=== PATIENT | female | born 1980 | race Caucasian/White ===

== ENCOUNTER 2023-02-02 10:30 | Emergency (ER) | payer OTHER, SELFPAY ==
[2023-02-02 10:34] VITALS: BP 113/90; PULSE 70; RESP 16; TEMP 37.1; O2SAT 99; BMI 24.2
--- NOTE | 2023-02-02 10:47 | XR_ITS ---
The [address] [address] Patient Name: BONNIE MONTOYA MRN: [id number] date: 1980 Sex: F Assigned Patient Location: ER Current Patient Location: Accession/Order Number: [id number] Exam Date: 02/02/2023 11:05 Report Date: 02/02/2023 14:10 At the request of: SELAM HERMOSILLO Procedure: XR chest 1V EXAM: XR chest 1V 02/02/2023 COMPARISON STUDY: None. FINDINGS: The cardiomediastinal contours are within normal limits. No dense consolidation, effusion, edema, failure, or pneumothorax noted. No acute osseous abnormality is noted. HISTORY: Cough. XR/XR chest 1V IMPRESSION: No acute cardiopulmonary process suspected. Electronically authenticated by: AMRIT FREITAS Date: 02/02/2023 14:10
--- NOTE | 2023-02-02 10:48 | ED.URI1 ---
HPI - URI/Sore Throat General Chief Complaint: Upper Respiratory Infection Stated Complaint: COUGH/FEVER Time Seen by Provider: 02/02/23 10:36 Source: patient History of Present Illness HPI Narrative: 42-year-old female presents for a 3-4 day history of cough. She's been coughing up green phlegm. She's felt some tightness in her chest. She doesn't smoke and has no history of asthma. She had pneumonia several years ago. She has not had a fever or hemoptysis. She's had body aches as well. Related Data Previous Rx's Medication Instructions Recorded albuterol sulfate 90 mcg/actuation 2 inh inhalation Q4H PRN shortness 02/02/23 aerosol inhaler of breath or wheezing #8.5 grams benzonatate 100 mg capsule 100 mg PO TID PRN cough #20 caps 02/02/23 prednisone 10 mg tablet See Rx Instructions .Route 02/02/23 .COMPLEX #30 tabs Allergies Allergy/AdvReac Type Severity Reaction Status Date / Time sumatriptan [From Imitrex] Allergy Severe Verified 02/02/23 10:37 Review of Systems ROS Narrative A ten point review of systems is negative except as noted above. Exam Narrative Exam Narrative: Nurses note and vital signs reviewed and patient is not hypoxic. General: The patient appears well and in no apparent distress. Patient is resting comfortably on cart. Skin: Warm, dry, no pallor noted. There is no rash noted. Head: Normocephalic, atraumatic Eye: Normal conjunctiva, no drainage Ears, Nose, Mouth, and Throat: oral mucosa is moist. Nares patent. Cardiovascular: Regular Rate and Rhythm Respiratory: Patient is in no distress, no accessory muscle use, lungs show a few rhonchi Back: non-tender GI: soft and nontender Musculoskeletal: The patient has no evidence of calf tenderness, no pitting edema, symmetrical pulses noted bilaterally Neurological: A&O, normal speech Psychiatric: Cooperative Constitutional Vital Signs, click to edit/add: Last Vital Signs Temp 98.7 F 02/02/23 10:34 Pulse 60 02/02/23 11:45 Resp 16 02/02/23 11:45 BP 113/90 02/02/23 10:34 Pulse Ox 98 02/02/23 11:47 O2 Del Method Room Air 02/02/23 11:47 Course Vital Signs Vital signs: Vital Signs Temperature 98.7 F 02/02/23 10:34 Pulse Rate 70 02/02/23 10:34 Respiratory Rate 16 02/02/23 10:34 Blood Pressure 113/90 02/02/23 10:34 Pulse Oximetry 99 02/02/23 10:34 Oxygen Delivery Method Room Air 02/02/23 10:34 Temperature 98.7 F 02/02/23 10:34 Pulse Rate 60 02/02/23 11:45 Respiratory Rate 16 02/02/23 11:45 Blood Pressure 113/90 02/02/23 10:34 Pulse Oximetry 98 02/02/23 11:47 Oxygen Delivery Method Room Air 02/02/23 11:47 MDM - URI/Sore Throat MDM Narrative Medical decision making narrative: Covid test is negative. Chest x-ray my interpretation shows no infiltrates. She was given aerosol treatment and prescribed an inhaler and prednisone and Tessalon. Antibiotic not indicated. Treatment diagnosis and follow-up were discussed with the patient. Differential Diagnosis Differential diagnosis: Likely upper respiratory infection, viral infection, bronchitis and other (Covid, pneumonia) Lab Data Attestation: I reviewed the patient's lab results. Labs: Lab Results 02/02/23 Range/Units 10:45 SARS-CoV-2 (PCR) Negative (NEGATIVE) Imaging Data Chest x-ray: My impression: chest x-ray my interpretation shows no acute findings Discharge Plan Discharge Chief Complaint: Upper Respiratory Infection Clinical Impression: Upper respiratory infection Patient Disposition: Home, Self-Care Time of Disposition Decision: 12:09 Condition: Good Mode of Transportation: Private Vehicle Prescriptions / Home Meds: New benzonatate 100 mg capsule 100 mg PO TID PRN (Reason: cough) Qty: 20 0RF albuterol sulfate 90 mcg/actuation HFA aerosol inhaler 2 inh inhalation Q4H PRN (Reason: shortness of breath or wheezing) Qty: 8.5 0RF prednisone 10 mg tablet See Rx Instructions .ROUTE .COMPLEX Qty: 30 0RF Rx Instructions: 4 by mouth daily for three days then 3 by mouth daily for three days then 2 by mouth daily for three days then 1 by mouth daily for three days Instructions: Upper Respiratory Infection (ED), Viral Syndrome (ED) Stand Alone Forms: Portal Instructions Referrals: Physician,Non-Staff, MD [Primary Care Provider] - 1 week
[2023-02-02 11:33] LABS: SARS-CoV-2 Ag NEGATIVE (NEGATIVE)
[2023-02-02 11:45] VITALS: PULSE 60; RESP 16; O2SAT 98
[2023-02-02] MEDS: ALBUTEROL SULFATE 2.5 MG/3 ML VIAL NEB IH (11:45)
[2023-02-02 11:47] VITALS: O2SAT 98
[2023-02-02] MEDS: ALBUTEROL SULFATE 200 PUFF/6.7 GM INHALER IH (12:00)
[2023-02-02 12:33] LABS: Amphetamine Screen Urine POSITIVE (NEGATIVE); Barbiturates Screen Urine NEGATIVE (NEGATIVE); Benzodiazepines Screen Urine NEGATIVE (NEGATIVE); Buprenorphine Screen Urine POSITIVE (NEGATIVE); Cannabinoid Screen Urine NEGATIVE (NEGATIVE); Cocaine Screen Urine NEGATIVE (NEGATIVE); Methadone Screen Urine NEGATIVE (NEGATIVE); Methamphetamines Screen Urine NEGATIVE (NEGATIVE); Opiate Screen Urine NEGATIVE (NEGATIVE); Oxycodone Screen Urine NEGATIVE (NEGATIVE); Phencyclidine Screen Urine NEGATIVE (NEGATIVE); Tricyclic Antidepressant Urine NEGATIVE (NEGATIVE)
[2023-02-03 16:38] LABS: SARS-CoV-2 NAA NOT DETECTED (NOT DETECTE)
== END 2023-02-02 12:58 | disposition home or self-care (01) ==
PROVIDERS: Emergency Provider Emergency Medicine
DX: J06.9 Acute upper respiratory infection, unspecified (principal); Z20.822 Contact with and (suspected) exposure to COVID-19
CPT/HCPCS: 71045; 80307; 87635; 87811; 94640; 99284; U0003

== ENCOUNTER 2023-04-03 07:20 | Emergency (ER) | payer OTHER, SELFPAY ==
[2023-04-03 07:25] VITALS: BP 106/67; PULSE 81; RESP 16; TEMP 36.7; O2SAT 98; BMI 24.2
[2023-04-03 07:40] LABS: Bilirubin Urine COLOR INTERFERENCE (NEGATIVE); Blood Urine COLOR INTERFERENCE (NEGATIVE); Clarity Urine CLEAR (CLEAR); Color Urine DK. ORANGE (YELLOW); Glucose Urine UA COLOR INTERFERENCE mg/dL (NEGATIVE); Ketones Urine COLOR INTERFERENCE mg/dL (NEGATIVE); Leukocyte Esterase Urine COLOR INTERFERENCE (NEGATIVE); Nitrite Urine COLOR INTERFERENCE (NEGATIVE); Protein Urine COLOR INTERFERENCE mg/dL (NEG/TRACE); Specific Gravity Urine 1.025 (1.005-1.025); Urine Microscopic Indicated YES; Urobilinogen Urine COLOR INTERFERENCE EU/dL (0.2-1.0); pH Urine COLOR INTERFERENCE (5.0-9.0)
[2023-04-03 07:48] LABS: Bacteria Urine TRACE #/HPF (NONE SEEN); Cast Seen? NONE SEEN #/LPF (NONE SEEN); Crystals Seen? None Seen #/HPF (None Seen); Mucus Urine NONE SEEN (NONE SEEN); RBC Urine 50-75 #/HPF (0-2); Squamous Epithelial Cell Urine NONE SEEN #/LPF (NONE/RARE); Urine Culture Indicated YES; WBC Urine 0-2 #/HPF (NONE SEEN)
--- NOTE | 2023-04-03 08:02 | ED_ITS ---
HPI - Female Genitourinary General Chief complaint: Urogenital-Female Stated complaint: UTI SYMPTOMS Time Seen by Provider: 04/03/23 07:42 Source: patient Mode of arrival: walk-in Limitations: no limitations History of Present Illness HPI Narrative: 42-year-old female presents for dysuria. She's had this for about for five days and three days ago she went to an urgent care center. They put her on Bactrim and Pyridium but she doesn't feel better. No fever or back pain or vomiting. She has dysuria and frequency. Related Data Previous Rx's Medication Instructions Recorded nitrofurantoin 100 mg PO BID 5 days #10 caps 04/03/23 monohydrate/macrocrystals 100 mg capsule (Macrobid) Allergies Allergy/AdvReac Type Severity Reaction Status Date / Time sumatriptan [From Imitrex] Allergy Severe Verified 04/03/23 07:25 Review of Systems ROS Narrative A ten point review of systems is negative except as noted above. Exam Narrative Exam Narrative: Nurses note and vital signs reviewed and patient is not hypoxic. General: The patient appears well and in no apparent distress. Patient is r esting comfortably on cart. Skin: Warm, dry, no pallor noted. There is no rash noted. Head: Normocephalic, atraumatic Eye: Normal conjunctiva, no drainage Ears, Nose, Mouth, and Throat: oral mucosa is moist. Nares patent. Cardiovascular: Regular Rate and Rhythm Respiratory: Patient is in no distress, no accessory muscle use, lungs are clear to auscultation, no wheezing, rales or rhonchi Back: non-tender, no CVA tenderness bilaterally to percussion. GI: nontender Musculoskeletal: The patient has no evidence of calf tenderness, no pitting edema, symmetrical pulses noted bilaterally Neurological: A&O, normal speech Psychiatric: Cooperative Constitutional Vital Signs, click to edit/add: Last Vital Signs Temp 98.1 F 04/03/23 07:25 Pulse 81 04/03/23 07:25 Resp 16 04/03/23 07:25 BP 106/67 04/03/23 07:25 Pulse Ox 98 04/03/23 07:25 O2 Del Method Room Air 04/03/23 07:25 Course Vital Signs Vital signs: Vital Signs Temperature 98.1 F 04/03/23 07:25 Pulse Rate 81 04/03/23 07:25 Respiratory Rate 16 04/03/23 07:25 Blood Pressure 106/67 04/03/23 07:25 Pulse Oximetry 98 04/03/23 07:25 Oxygen Delivery Method Room Air 04/03/23 07:25 Temperature 98.1 F 04/03/23 07:25 Pulse Rate 81 04/03/23 07:25 Respiratory Rate 16 04/03/23 07:25 Blood Pressure 106/67 04/03/23 07:25 Pulse Oximetry 98 04/03/23 07:25 Oxygen Delivery Method Room Air 04/03/23 07:25 MDM - Female Genitourinary MDM Narrative Medical decision making narrative: the patient has blood and urine but she is on her period. Urine culture is ordered intravenously placed on a five day course of Macrobid. I've no clinical suspicion of ovarian torsion and she is able to be discharged home. No evidence of kidney stone. Treatment diagnosis of upper discussed with the patient. Differential Diagnosis Differential diagnosis: Likely urinary tract infection, cystitis and other (kidney stone) Lab Data Attestation: I reviewed the patient's lab results. Labs: Lab Results 04/03/23 Range/Units 07:30 Urine Color Dk. orange (YELLOW) Urine Clarity Clear (CLEAR) Urine pH Color interference A (5.0-9.0) Ur Specific [place] 1.025 (1.005-1.025) Urine Protein Color interference A (NEG/TRACE) mg/dL Urine Glucose (UA) Color interference A (NEGATIVE) mg/dL Urine Ketones Color interference A (NEGATIVE) mg/dL Urine Occult Blood Color interference A (NEGATIVE) Urine Nitrite Color interference A (NEGATIVE) Urine Bilirubin Color interference A (NEGATIVE) Urine Urobilinogen Color interference A (0.2-1.0) EU/dL Ur Leukocyte Esterase Color interference A (NEGATIVE) Urine RBC 50-75 A (0-2) #/HPF Urine WBC 0-2 A (NONE SEEN) #/HPF Ur Squamous Epith Cells None seen (NONE/RARE) #/LPF Urine Crystals None seen (None Seen) #/HPF Urine Bacteria Trace A (NONE SEEN) #/HPF Urine Casts None seen (NONE SEEN) #/LPF Urine Mucus None seen (NONE SEEN) Ur Culture Indicated? Yes Urine HCG, Qual Negative (NEGATIVE) Imaging Data CT scan - abdomen: Radiologist's impression: Procedure: CT abdomen pelvis wo con CT abdomen pelvis wo con, 04/03/2023 9:45 AM EST INDICATION: Hematuria, rule out stone COMPARISON: No prior CT scan of the abdomen and pelvis available for comparison at the time of this dictation. TECHNIQUE: Axial images of the abdomen and pelvis were obtained without IV contrast. Multiplanar reformatted images were generated and reviewed as needed. Dose reduction techniques were achieved by using automated exposure control and/or adjustment of mA and/or kV according to patient size and/or use of iterative reconstruction technique. FINDINGS: Subsegmental atelectasis left lung base. No effusion. Cholecystectomy. Liver, pancreas, spleen and adrenals are unremarkable on a noncontrast scan. No hydronephrosis or nephrolithiasis. No ureteral or urinary bladder calculi. Postsurgical change left retroperitoneum. Retroverted uterus and right adnexa unremarkable on a noncontrast scan. Multiple follicles within an enlarged left ovary measuring at least 4.4 cm in maximum dimension. No aortic aneurysm. No bowel obstruction or acute focal inflammation. No pneumatosis, pneumoperitoneum or ascites. No mesenteric or retroperitoneal lymphadenopathy. No acute fracture or dislocation. IMPRESSION: 1. Multiple follicles within an enlarged left ovary. Lack of IV contrast limits evaluation. Ovarian torsion cannot be excluded. This may be further evaluated with transvaginal ultrasound including vascular interrogation. Electronically authenticated by: NORBERTO CEJA Date: 04/03/2023 10:32 Discharge Plan Discharge Chief Complaint: Urogenital-Female Clinical Impression: Dysuria Patient Disposition: Home, Self-Care Time of Disposition Decision: 10:43 Condition: Good Mode of Transportation: Private Vehicle Prescriptions / Home Meds: New nitrofurantoin monohyd/m-cryst [Macrobid] 100 mg capsule 100 mg PO BID 5 Days Qty: 10 0RF Rx Instructions: must administer with a meal/food Instructions: Dysuria (ED) Stand Alone Forms: Portal Instructions Referrals: Physician,Non-Staff, MD [Primary Care Provider] - 1 week
--- NOTE | 2023-04-03 08:42 | CT_ITS ---
The [address] [address] Patient Name: BONNIE MONTOYA MRN: [id number] date: 1980 Sex: F Assigned Patient Location: ER Current Patient Location: ER Accession/Order Number: [id number] Exam Date: 04/03/2023 09:45 Report Date: 04/03/2023 10:32 At the request of: SELAM HERMOSILLO Procedure: CT abdomen pelvis wo con CT abdomen pelvis wo con, 04/03/2023 9:45 AM EST INDICATION: Hematuria, rule out stone COMPARISON: No prior CT scan of the abdomen and pelvis available for comparison at the time of this dictation. TECHNIQUE: Axial images of the abdomen and pelvis were obtained without IV contrast. Multiplanar reformatted images were generated and reviewed as needed. Dose reduction techniques were achieved by using automated exposure control and/or adjustment of mA and/or kV according to patient size and/or use of iterative reconstruction technique. FINDINGS: Subsegmental atelectasis left lung base. No effusion. Cholecystectomy. Liver, pancreas, spleen and adrenals are unremarkable on a noncontrast scan. No hydronephrosis or nephrolithiasis. No ureteral or urinary bladder calculi. Postsurgical change left retroperitoneum. Retroverted uterus and right adnexa unremarkable on a noncontrast scan. Multiple follicles within an enlarged left ovary measuring at least 4.4 cm in maximum dimension. No aortic aneurysm. No bowel obstruction or acute focal inflammation. No pneumatosis, pneumoperitoneum or ascites. No mesenteric or retroperitoneal lymphadenopathy. No acute fracture or dislocation. CT/CT abdomen pelvis wo con IMPRESSION: 1. Multiple follicles within an enlarged left ovary. Lack of IV contrast limits evaluation. Ovarian torsion cannot be excluded. This may be further evaluated with transvaginal ultrasound including vascular interrogation. Electronically authenticated by: NORBERTO CEJA Date: 04/03/2023 10:32
[2023-04-03 08:49] LABS: HCG Qualitative Urine* NEGATIVE (NEGATIVE)
== END 2023-04-03 10:49 | disposition home or self-care (01) ==
PROVIDERS: Emergency Provider Emergency Medicine
DX: R30.0 Dysuria (principal)
CPT/HCPCS: 74176; 81001; 84703; 87086; 87150; 87186; 99284

== ENCOUNTER 2023-05-16 11:55 | Outpatient (OUT) | payer OTHER, SELFPAY ==
--- OUTSIDE RECORDS SUMMARY | 2023-05-16 12:00 | XMS_ITS | CCD ---
Author Name Unknown Address [id number] [place] [address] Organization [facility] Care Team Providers Care Beer Cooler Name Role Phone FELICE HANEY Primary Care Unavailable JOANNA FLORES Attending Unavaillorena Frederick APRN - Vicky SANCHEZ Primary Care Prov ider Emanuel Haney Primary Care Provider [phone] Emanuel Haney APRN Primary Care Provider EMANUEL HANEY Primary Care Unavailable NOREEN KAPLAN Attending Unavailable EMANUEL HANEY Primary Care Unavailable LACI SANTIAGO Attending Unavailable EMANUEL HANEY Primary Care Unavailable FLORA GASCA Attending Unavailable EMANUEL HANEY Primary Care Unavailable ELVI CARMICHAEL Attending Unavailable LAZCANO, DAVID Attending Unavailable LAZCANO, DAVID Admitting Unavailable SELF, SELF Referring Unavailable VICKY ALVARES Attending Unavailable RUMSCHLAG, SANDRO Referring Unavailable SELF, SELF Referring Unavailable SELF, SELF Primary Care Unavailable ARTHUR, P. ELVI Attending Unavailable SELF, SELF Referring Unavailable SELF, SELF Primary Care Unavailable ARTHUR, P. ELVI Attending Unavailable ARTHUR, P. ELVI Referring Unavailable ARTHUR, P. ELVI Attending Unavailable SELF, SELF Primary Care Unavailable ARTHUR, P. ELVI Attending Unavailable SELF, SELF Primary Care Unavailable ARTHUR, P. ELVI Referring Unavailable ARTHUR, P. ELVI Attending Unavailable SELF, SELF Primary Care Unavailable ARTHUR, P. ELVI Referring Unavailable SELF, SELF Referring Unavailable ARTHUR, P. ELVI Attending Unavailable SELF, SELF Primary Care Unavailable SELF, SELF Primary Care Unavailable SELF, SELF Referring Unavailable ARTHUR, P. ELVI Attending Unavailable SELF, SELF Referring Unavailable ARTHUR, P. ELVI Attending Unavailable SELF, SELF Primary Care Unavailable Allergies Allergy Classification Reported Allergen(s) Allergy Type Date of Onset Reaction(s) Facility (4 sources) SUMAtriptan; Translations: [SUMATRIPTAN] Drug Allergy 07-31-2015 Anaphylaxis [facility] (3 sources) Ibuprofen; Translations: [IBUPROFEN] Drug Allergy 08-25-2013 Anaphylaxis [facility] (2 sources) Plasmin Drug Allergy 04-25-2018 [facility] (2 sources) traMADol Drug Allergy 06-04-2019 Hives [facility] (1 source) Ibuprofen; Translations: [Motrin] Drug Allergy [facility] Medications Current Medications Medication Drug Class(es) Dates Sig (Normalized) Sig (Original) buprenorphine 8 mg / naloxone 2 mg sublingual film (3 sources) Partial Opioid Agonist, Opioid Antagonist buprenorphine-naloxo ne (SUBOXONE) 8-[address] 1 Film under the tongue 2 times daily.. 0 Active cephalexin 500 mg oral capsule (1 source) Cephalosporin Antibacterial Start: 07-03-2022 End: 07-10-2022 take 1 capsule by mouth twice daily cephALEXin (KEFLEX) 500 MG capsule Take 1 capsule by mouth 2 times daily for 7 days 14 capsule 0 07/03/2022 07/10/2022 Active cyclobenzaprine hydrochloride 10 mg oral tablet (1 source) Muscle Relaxant Start: 07-03-2022 End: 07-13-2022 take 1 tablet by mouth three times daily as needed for muscle spasms cyclobenzaprine (FLEXERIL) 10 MG tablet Take 1 tablet by mouth 3 times daily as needed for Muscle spasms 21 tablet 0 07/03/2022 07/13/2022 Active erythromycin 0.005 mg/mg ophthalmic ointment (4 sources) Macrolide, Macrolide Antimicrobial Start: 06-05-2019 End: 06-15-2019 apply 1 g into the eye(s) every six hours erythromycin (ROMYCIN) 5 MG/GM ophthalmic ointment Place 1 cm into both eyes every 6 hours for 10 days 4 g 0 06/05/2019 06/15/2019 Active Start: 08-03-2018 End: 06-04-2019 erythromycin (ROMYCIN) 5 MG/ GM ophthalmic ointment Apply 0.5 inch ribbon to affected eye 4 times a day while awake for 7 days. 1 Tube 0 08/03/2018 06/04/2019 Discontinued (LIST CLEANUP) fluticasone propionate 0.05 mg/actuat metered dose nasal spray (3 sources) Corticosteroid Start: 08-03-2018 fluticasone (FLONASE) 50 MCG/ACT nasal spray 1 spray by Each Nare route daily 1 Bottle 0 08/03/2018 Active gabapentin 800 mg oral tablet (3 sources) Anti-epileptic Agent Start: 11-12-2016 gabapentin (NEURONTIN) 800 MG tablet 900 mg 3 times daily. . 0 11/12/2016 Active hydrOXYzine hydrochloride 25 mg oral tablet (3 sources) Antihistamine Start: 08-03-2018 take 1 tablet by mouth twice daily hydrOXYzine (ATARAX) 25 MG tablet Take 1 tablet by mouth 2 times daily 15 tablet 0 08/03/2018 Active levETIRAcetam 1000 mg oral tablet (3 sources) Start: 06-15-2018 take 1.5 tablets by mouth twice daily levETIRAcetam (KEPPRA) 1000 MG tablet Take 1.5 tablets by mouth 2 times daily 30 tablet 0 06/15/2018 Active Completed/Discontinued Medications Medication Drug Class(es) Dates Sig (Normalized) Sig (Original) acetaminophen 325 mg / HYDROcodone bitartrate 5 mg oral tablet (1 source) Opioid Agonist Start: 06-05-2019 End: 06-05-2019 HYDROcodone-aceta minophen (NORCO) 5-325 MG per tablet 1 tablet ibuprofen 600 mg oral tablet (2 sources) Nonsteroidal Anti-inflammatory Drug Start: 08-03-2018 End: 06-04-2019 take 1 tablet by mouth every eight hours as needed for pain ibuprofen (ADVIL;MOTRIN) 600 MG tablet Take 1 tablet by mouth every 8 hours as needed for Pain 20 tablet 0 08/03/2018 06/04/2019 Discontinued (Side effects) 1 ml LORazepam 2 mg/ml injection (1 source) Benzodiazepine Start: 07-03-2022 End: 07-03-2022 LORazepam (ATIVAN) injection 1 mg 2 ml orphenadrine citrate 30 mg/ml injection (1 source) Muscle Relaxant Start: 07-03-2022 End: 07-03-2022 orphenadrine (NORFLEX) injection 60 mg 50 ml sodium chloride 9 mg/ml injection (1 source) Start: 07-03-2022 End: 07-03-2022 0.9 % sodium chloride bolus Problems Active Problems Problem Classification Problem Date Documented Da te Episodic/Chronic Abdominal pain (5 sources) Pain in female pelvis; Translations: [Pelvic and perineal pain] Onset: 2015 2015 Episodic Anxiety disorders (2 sources) Anxiety disorder, unspecified; Translations: [Anxiety disorder, unspecified] Onset: 11-10-2022 Chronic Epilepsy; convulsions (1 source) Seizure disorder; Translations: [Epilepsy, unspecified, intractable, without status epilepticus] 06-10-2018 Chronic Nausea and vomiting (1 source) Nausea with vomiting, unspecified; Translations: [Nausea with vomiting, unspecified] Onset: 11-07-2022 Episodic Nonspecific chest pain (1 source) Chest pain, unspecified; Translations: [Chest pain, unspecified] Onset: 2022 Episodic Other lower respiratory disease (1 source) Hyperventilation; Translations: [Hyperventilation ] Onset: 2022 Episodic Other nervous system disorders (1 source) Muscle twitch; Translations: [Fasciculation] Episodic Other nervous system disorders (1 source) Fasciculation; Translations: [Fasciculation] Onset: 07-03-2022 Episodic Other nutritional; endocrine; and metabolic disorders (2 sources) Hypomagnesemia; Translations: [Hypomagnesemia] Onset: 11-10-2022 Chronic Residual codes; unclassified (2 sources) Personal history of other specified conditions; Translations: [Personal history of other specified conditions] Onset: 11-10-2022 Episodic Substance-related disorders (3 sources) Cocaine abuse, uncomplicated; Translations: [Opioid dependence, uncomplicated] Onset: 2022 Chronic Unclassified (1 source) Abrasion of cornea of right eye Unclassified (1 source) Low back pain, unspecified; Translations: [Low back pain, unspecified] Onset: 11-07-2022 Urinary tract infections (5 sources) Acute cystitis; Translations: [Acute cystitis without hematuria] Onset: 07-03-2022 Episodic Past or Other Problems Problem Classification Problem Date Documented Date Episodic/Chronic Epilepsy; convulsions (8 sources) Seizure; Translations: [Seizure disorder] Onset: 05-19-2018 05-19-2018 Episodic Inflammation; infection of eye (except that caused by tuberculosis or sexually transmitteddisease) (1 source) Bacterial conjunctivitis Episodic Results Test Name Value Interpretation Reference Range Facility 36on 11-25-2022 36 Left vm msg for Angella Parr to confirm pt was admitted on 11/15 to recovery housing. Normal [facility] Telephoneon 11-25-2022 Telephone [id number] Bonnie Montoya 1980 F Date Provider Department Center 11/25/2022 [id number] Antonio Heal Family History Problem Relation Age of Onset Addiction problem Mother Bipolar disorder Mother Addiction problem Maternal Grandmother Bipolar disorder Maternal Grandmother Family Status - Relation Status Age at Mother Maternal Grandmother [facility] 30on 11-15-2022 30 Problem: Substance Abuse (Historic and Current) Goal: LTG-Ability to name resources Outcome: Adequate for Discharge Goal: LTG-Ability to notice triggers Outcome: Adequate for Discharge Goal: LTG-Understand the need for abstinence Outcome: Adequate for Discharge Goal: STG-Indicate withdrawl symptoms Outcome: Adequate for Discharge Goal: STG-Willing to engage in conversations about continued abstinence Outcome: Adequate for Discharge Goal: STG-Indicate triggers for using Outcome: Adequate for Discharge Goal: STG-Verbalize coping tools and skills Outcome: Adequate for Discharge Goal: STG-Will verbalize reasons for quitting Outcome: Adequate for Discharge [facility] 30 The patient is Moderately Unstable - Medium risk of patient condition declining or worsening The patient's goals for the shift include safety, comfort, and sleep The clinical goals for the shift include safety, comfort, and sleep Normal [facility] 94on 11-15-2022 94 Group Topic: Activit y Therapy Group Date: 11/15/2022 Start Time: 1030 End Time: 1115 Facilitators: KRISTIN Crowell Department: [facility] Recovery Number of Participants: 0 Group Focus: activities of daily living skills, affirmation, anxiety, concentration, coping skills, feeling awareness/expression, leisure skills, relaxation, self-esteem, and social skills Treatment Modality: Leisure Development and Patient-Centered Therapy Interventions utilized were leisure development and support Purpose: enhance coping skills, express feelings, improve communication skills, increase insight or knowledge, regain self-worth, and reinforce self-care Name: Bonnie Montoya Date of : 1980 MR: [id number] Level of Participation: withdrawn Progress: None Response: Pt. Was withdrawn from self-esteem group and remained isolated in their room. Plan: Pt. Will be encouraged to attend therapeutic recreation interventions with the OB GYN PHYSICIAN ASSISTANT in the future. Patients Problems: Patient Active Problem List Diagnosis Opiate dependence, continuous (CMS/HCC) Cocaine use Hypomagnesemia History of seizure Anxiety Normal [facility] DSon 11-15-2022 DS Discharge Date: 11/15/2022 Time Spent with Patient: 31 minutes spent with patient, discussing discharge instructions, ordering medications, reviewing lab work, communicating with other healthcare professionals, documenting clinical information and the patient's follow-up plan. Chief Complaint: Opioid dependence in active withdrawal Consults: GIM History of Present Illness: Patient was admitted to Detox unit for opiate dependence. Patient reports that she chewed 7 Percocet 10 mg daily TID and spent $60 worth of cocaine daily over the past 3 weeks. Patient has previously been admitted to the Detox unit in April 2021 for opiate dependence. She had been sober since her prior admission but relapsed due to difficulty coping with her 's in February 2022. Patient is currently living with her daughter who she reports is supportive when she is sober but not supportive when she uses drugs. Patient believes that her daughter and son are good support systems for her. She reports a history of epilepsy and takes Keppra 1200 mg BID and Gabapentin 800 mg QID. She reports a family history of alcohol and opioid use. Patient has ongoing challenges with substance use disorder and drug seeking behaviors. She recently lost her job due to drug use. She finances her drug use via money she saved up from her job. Pt Reported significant tolerance withdrawal symptoms over the years and multiple unsuccessful attempts to cut down or stop using opioids and significant amount of time spent in getting opioids, using opioids, and recovering from its effect. Hospital Course: Pt responded adequately to Suboxone over period of time and withdrawal symptoms became manageable. During the stay in the hospital, the patient participated in groups and several meetings with social workers to plan aftercare. There were no other acute psychiatric or medical emergencies seen during hospital stay. Lab Results: Results for orders placed or performed during the hospital encounter of 11/10/22 C. TRACHOMATIS / N. GONORRHOEAE, TMA Specimen: Urine, Voided Result Value Ref Range N gonorrhoeae, TMA Negative Negative Chlamydia, TMA Negative Negative Acetaminophen level Result Value Ref Range Acetaminophen Level <10 (L) 10 - 30 ug/mL Basic metabolic panel Result Value Ref Range Sodium 138 136 - 145 mmol/L Potassium 3.5 3.5 - 5.1 mmol/L Chloride 100 98 - 107 mmol/L CO2 34 (H) 21 - 31 mmol/L BUN 7 7 - 25 mg/dL Creatinine 0.66 0.60 - 1.20 mg/dL Glucose 76 70 - 100 mg/dL Calcium 9.5 8.6 - 10.3 mg/dL Anion Gap 8 7 - 20 mmol/L eGFR 111.6 >60.0 mL/min/1.73m*2 BUN/Creatinine Ratio 10.6 Cholesterol, total Result Value Ref Range Cholesterol 152 120 - 200 mg/dL Gamma GT Result Value Ref Range GGT 6 (L) 9 - 64 U/L Hepatic function panel Result Value Ref Range Total Bilirubin 0.6 0.3 - 1.0 mg/dL Bilirubin, Direct 0.1 0 - 0.2 mg/dL Alkaline Phosphatase 36 34 - 104 U/L AST 15 13 - 39 U/L ALT (SGPT) 10 7 - 52 U/L Total Protein 7.2 6.0 - 8.3 g/dL Albumin 4.6 3.5 - 5.7 g/dL Magnesium Result Value Ref Range Magnesium 1.5 (L) 1.9 - 2.7 mg/dL Phosphorus Result Value Ref Range Phosphorus 4.9 2.5 - 5.0 mg/dL TSH Result Value Ref Range TSH 2.79 0.34 - 5.60 mIU/L Uric acid Result Value Ref Range Uric Acid 3.6 2.3 - 6.6 mg/dL Urinalysis Result Value Ref Range Color, Urine Straw Yellow, Dark Yellow, Straw Clarity, Urine Slightly Cloudy (A) Clear pH, Urine 6.5 5.0 - 8.0 pH Leukocytes, Urine Small (A) Negative Nitrite, Urine Negative Negative Protein, Urine Negative Negative mg/dL Glucose, Urine Negative Negative mg/dL Bilirubin, Urine Negative Negative Specific [place], Urine 1.007 (L) 1.015 - 1.020 Ketones, Urine Negative Negative mg/dL Blood, Urine Trace (A) Negative Detox Panel Urine Result Value Ref Range Barbiturate Screen, Ur Negative Negative Benzodiazepines Screen, Urine Negative Negative Propoxyphene, Ur Negative Negative Methadone Screen, Urine Negative Negative TCA, Urine Negative Negative PCP Scrn, Ur Negative Negative Opiate Scrn, Ur Negative Negative Cocaine Screen, Urine Positive (A) Negative Amphetamine+Methamphe tamine Screen, Ur Negative Negative Cannabinoid Screen, Urine Negative Negative RPR Result Value Ref Range RPR Nonreactive Nonreactive Hepatitis panel, acute Result Value Ref Range Hepatitis B Surface Ag Nonreactive Nonreactive Hep A IgM Nonreactive Nonreactive Hepatitis C Ab Nonreactive Nonreactive Hep B Core Total Ab Reactive (AA) Nonreactive HCV Quantitative PCR (if patient is Hep C Positive) Result Value Ref Range HCV TMA Interp Not Detected Not Detected HCV TMA Quantitative Not Detected IU/mL HCV Quantitative Log Not Detected Log10 IU/mL HIV COMBO 4G Result Value Ref Range HIV Combo 4G Negative Negative Serum Qualitative Result Value Ref Range hCG, Serum Negative CBC auto differential Result Va (more content not included)... [facility] NURSNOTEon 11-15-2022 NURSNOTE Patient slept throug h the night. Scheduled and PRN medications are helping. [facility] 30on 11-14-2022 30 The patient is Moderately Stable - Low risk of patient condition declining or worsening The patient's goals for the shift include safety, comfort, and sleep The clinical goals for the shift include safety, comfort, and sleep Problem: Substance Abuse (Historic and Current) Goal: LTG-Ability to name resources Outcome: Progressing Goal: LTG-Ability to notice triggers Outcome: Progressing Goal: LTG-Understand the need for abstinence Outcome: Progressing Goal: STG-Indicate withdrawl symptoms Outcome: Progressing Goal: STG-Willing to engage in conversations about continued abstinence Outcome: Progressing Goal: STG-Indicate triggers for using Outcome: Progressing Goal: STG-Verbalize coping tools and skills Outcome: Progressing Goal: STG-Will verbalize reasons for quitting Outcome: Progressing Normal [facility] 30 The patient is Moderately Stable - Low risk of patient condition declining or worsening The patient's goals for the shift include safety, comfort, and sleep The clinical goals for the shift include safety, comfort, and sleep Problem: Substance Abuse (Historic and Current) Goal: LTG-Ability to name resources Outcome: Progressing Goal: LTG-Ability to notice triggers Outcome: Progressing Goal: LTG-Understand the need for abstinence Outcome: Progressing Goal: STG-Indicate withdrawl symptoms Outcome: Progressing Goal: STG-Willing to engage in conversations about continued abstinence Outcome: Progressing Goal: STG-Indicate triggers for using Outcome: Progressing Goal: STG-Verbalize coping tools and skills Outcome: Progressing Goal: STG-Will verbalize reasons for quitting Outcome: Progressing Normal [facility] 94on 11-14-2022 94 Group Topic: Activit y Therapy Group Date: 11/14/2022 Start Time: 1530 End Time: 1600 Facilitators: KRISTIN Crowell Department: [facility] Recovery Number of Participants: 0 Group Focus: activities of daily living skills, anger management, check in, communication, coping skills, feeling awareness/expression, forgiveness, goals/reality orientation, healthy friendships, leisure skills, self-awareness, self-esteem, and social skills Treatment Modality: Leisure Development and Patient-Centered Therapy Interventions utilized were active listening, assignment, patient education, and support Purpose: enhance coping skills, express feelings, improve communication skills, increase insight or knowledge, regain self-worth, relapse prevention strategies, and trigger / craving management Name: Bonnie Montoya Date of : 1980 MR: [id number] Level of Participation: withdrawn Progress: None Response: Pt. Was withdrawn from group and remained isolated in their room. Plan: Pt. Will be encouraged to attend therapeutic recreation interventions with the [facility] in the future. Patients Problems: Patient Active Problem List Diagnosis Opiate dependence, continuous (CMS/HCC) Cocaine use Hypomagnesemia History of seizure Anxiety Normal [facility] 94 Group Topic: Activit y Therapy Group Date: 11/14/2022 Start Time: 1330 End Time: 1425 Facilitators: KRISTIN Crowell Department: [facility] Recovery Number of Participants: 3 Group Focus: activities of daily living skills, check in, communication, concentration, coping skills, daily focus, feeling awareness/expression, leisure skills, music therapy, relaxation, and social skills Treatment Modality: Leisure Development and Patient-Centered Therapy Interventions utilized were active listening, leisure development, story telling, and support Purpose: enhance coping skills, express feelings, express irrational fears, improve communication skills, increase insight or knowledge, reinforce self-care, and relapse prevention strategies Name: Bonnie Montoya Date of : 1980 MR: [id number] Level of Participation: active Quality of Participation: attentive, cooperative, engaged, and motivated Interactions with others: supportive, asked thoughtful questions, and offered helpful suggestions Mood/Affect: appropriate Cognition: coherent/clear Progress: Moderate Response: Pt. Engaged in music therapy group alongside OB GYN PHYSICIAN ASSISTANT and peers. Pt. Was appropriate and supportive of others throughout group. Pt. Appeared to be anxious and hesitant upon entering group. Had no difficulty engaging efficiently in group. Plan: Pt. Will be encouraged to continue attending therapeutic recreation interventions with the OB GYN PHYSICIAN ASSISTANT. Patients Problems: Patient Active Problem List Diagnosis Opiate dependence, continuous (CMS/HCC) Cocaine use Hypomagnesemia History of seizure Anxiety Normal [facility] 94 Group Topic: Activit y Therapy Group Date: 11/14/2022 Start Time: 1030 End Time: 1145 Facilitators: Shirlene Jimenez OB GYN PHYSICIAN ASSISTANT Department: [facility] Recovery Number of Participants: 3 Group Focus: activities of daily living skills, art therapy, check in, coping skills, daily focus, feeling awareness/expression, leisure skills, relaxation, self-esteem, and social skills Treatment Modality: Art Therapy, Leisure Development, and Patient-Centered Therapy Interventions utilized were assignment, leisure development, and support Purpose: enhance coping skills, express feelings, increase insight or knowledge, regain self-worth, reinforce self-care, and relapse prevention strategies Name: Bonnie Montoya Date of : 1980 MR: [id number] Level of Participation: active Quality of Participation: attentive, cooperative, engaged, and motivated Interactions with others: supportive, asked thoughtful questions, and offered helpful suggestions Mood/Affect: appropriate Cognition: coherent/clear Progress: Moderate Response: Pt. Engaged in art therapy group alongside OB GYN PHYSICIAN ASSISTANT and peers. Pt. Was appropriate with others throughout group. Plan: Pt. Will be encouraged to continue attending therapeutic recreation interventions with the OB GYN PHYSICIAN ASSISTANT. Patients Problems: Patient Active Problem List Diagnosis Opiate dependence, continuous (CMS/HCC) Cocaine use Hypomagnesemia History of seizure Anxiety Normal [facility] BASIC METABOLIC PANELon 07-0 Anion gap [Moles/Vol] 7 mmol/L Normal 7-20 [facility] Comment on above: Performed By: #### L AB15 ####[facility] ([facility])[address] [place] [address] Calcium [Mass/Vol] 9.5 mg/dL Normal 8.6-10.3 [facility] Comment on above: Performed By: #### L AB15 ####[facility] ([place])[address] [place] [address] Chloride [Moles/Vol] 99 mmol/L Normal 98-107 [facility] Comment on above: Performed By: #### L AB15 ####[facility] [place] [address] CO2 [Moles/Vol] 36 mmol/L High 21-31 [facility] Comment on above: Performed By: #### L AB15 ####[facility] ([facility])[address] [place] [address] Creatinine [Mass/Vol] 0.76 mg/dL Normal 0.60-1.20 [facility] Comment on above: Performed By: #### L AB15 ####[facility] ([facility])[address] [place] [address] GLOMERULAR FILTRATION RATE ML/MIN/1.73 SQ M.PREDICTED 99.6 mL/min/1.73m*2 Normal >60.0 [facility] Comment on above: Result Comment: The [facility]???s estimated glomerular filtration rate (eGFR) will no longer include consideration of race in its calculation. The [employer]???s eGFR Task Force developed new recommendations for the estimation of the glomerular filtration rate in the [place] They recommend immediate implementation of the new equation refit without the race variable in all laboratories because the calculation does not include race. In addition to not including race in the calculation and reporting, it included diversity in its development, and has acceptable performance characteristics and potential consequences that do not disproportionately affect any one group of individuals. Performed By: #### L AB15 ####[facility] ([place])[address] [place] [address] Glucose [Mass/Vol] 96 mg/dL Normal 70-100 [facility] [facility] Comment on above: Performed By: #### L [id number] ####[facility] (BEAKER)[address] [place] [address] Potassium [Moles/Vol] 5.2 mmol/L High 3.5-5.1 [facility] Comment on above: Performed By: #### L [id number] ####[facility] ([facility]AKER)[address] [place] [address] Sodium [Moles/Vol] 137 mmol/L Normal 136-145 [facility] Comment on above: Performed By: #### L [id number] ####[facility] [place] [address] Urea nitrogen [Mass/Vol] 14 mg/dL Normal 7-25 [facility] Comment on above: Performed By: #### L [id number] ####[facility] ([facility])[address] [place] [address] UREA NITROGEN/CREATININE (MASS RATIO) IN SER/PLAS 18.4 Normal [facility] Comment on above: Performed By: #### L [id number] ####[facility] [place] [address] CBC WITH AUTO DIFFERENTIALon 11-14-2022 Basophils (Bld) [#/Vol] 0.03 10*3/uL Normal 0.00-0.20 [facility] Comment on above: Performed By: #### L [id number] ####[facility] (BEAKER)[address] [place] [address] Basophils/100 WBC (Bld) 0.6 % Normal 0.0-1.0 [facility] Comment on above: Performed By: #### L [id number] ####[facility] (BEAKER)[address] [place] [address] Eosinophils (Bld) [#/Vol] 0.23 10*3/uL Normal 0.00-0.50 [facility] Comment on above: Performed By: #### L [id number] ####[facility] (BEAKER)[address] [place] [address] Eosinophils/100 WBC (Bld) 4.5 % Normal 0.0-6.0 [facility] Comment on above: Performed By: #### L [id number] ####[facility] [place] [address] Erythrocyte distribution width (RBC) [Ratio] 14.6 % Normal 11.5-15.0 [facility] Comment on above: Performed By: #### L [id number] ####[facility] ([facility])[address] [place] [address] ERYTHROCYTE MEAN CORPUSCULAR HEMOGLOBIN CONCENTRATION (G/DL) BY AUTOMATED 32.1 g/dL Normal 32.0-35.0 [facility] Comment on above: Performed By: #### L [id number] ####[facility] ([facility])[address] [place] [address] Hematocrit (Bld) [Volume fraction] 41.1 % Normal 36.0-48.0 [facility] Comment on above: Performed By: #### L [id number] ####[facility] [place] [address] Hemoglobin (Bld) [Mass/Vol] 13.2 g/dL Normal 12.0-15.0 [facility] Comment on above: Performed By: #### L [id number] ####[facility] (BEAKER)[address] [place] [address] Immature granulocytes (Bld) [#/Vol] 0.01 10*3/uL Normal 0.00-0.20 [facility] Comment on above: Performed By: #### L [id number] ####[facility] (BEAKER)[address] [place] [address] Immature granulocytes/100 WBC (Bld) 0.2 % Normal 0.0-1.0 [facility] Comment on above: Performed By: #### L [id number] ####[facility] (BEAKER)[address] [place] [address] Lymphocytes (Bld) [#/Vol] 1.34 10*3/uL Normal 1.20-4.00 [facility] Comment on above: Performed By: #### L [id number] ####[facility] ([facility])[address] [place] [address] Lymphocytes/100 WBC (Bld) 26.1 % Normal 20.0-45.0 [facility] Comment on above: Performed By: #### L [id number] ####[facility] ([facility])[address] [place] [address] MCH (RBC) [Entitic mass] 28.3 pg Normal 27.0-33.0 [facility] Comment on above: Performed By: #### L [id number] ####[facility] ([facility])[address] [place] [address] MCV (RBC) [Entitic vol] 88.0 fL Normal 82.0-98.0 [facility] Comment on above: Performed By: #### L [id number] ####[facility] ([facility])[address] [place] [address] Monocytes (Bld) [#/Vol] 0.49 10*3/uL Normal 0.10-1.00 [facility] Comment on above: Performed By: #### L [id number] ####[facility] ([facility])[address] [place] [address] Monocytes/100 WBC (Bld) 9.5 % Normal 5.0-12.0 [facility] Comment on above: Performed By: #### L [id number] ####[facility] [place] [address] Neutrophils (Bld) [#/Vol] 3.04 10*3/uL Normal 1.60-7.60 [facility] Comment on above: Performed By: #### L [id number] ####[facility] (BEAKER)[address] [place] [address] Neutrophils/100 WBC (Bld) 59.1 % Normal 40.0-72.0 [facility] Comment on above: Performed By: #### L [id number] ####[facility] [place] [address] NRBC (PER 100 WBCS) BY AUTOMATED COUNT 0.0 % Normal 0 [facility] Comment on above: Performed By: #### L [id number] ####[facility] ([facility])[address] [place] [address] PLATELETS (10*3/UL) IN BLOOD AUTOMATED COUNT 258 10*3/uL Normal 150-400 [facility] Comment on above: Performed By: #### L [id number] ####[facility] ([facility])[address] [place] [address] RBC (Bld) [#/Vol] 4.67 10*6/uL Normal 3.80-5.00 [facility] Comment on above: Performed By: #### L [id number] ####[facility] ([facility])[address] [place] [address] WBC (Bld) [#/Vol] 5.14 10*3/uL Normal 4.00-10.60 [facility] Comment on above: Performed By: #### L [id number] ####[facility] ([facility])[address] [place] [address] NURSNOTEon 11-14-2022 NURSNOTE Patient talking on phone in no acute distress, C/O nausea unrelieved by compazine, zofran 8mg requested and given. Patient C/O stomach cramping, indigestion, diarrhea, restless legs, hot/cold sweats, generalized pain, nasal congestion, cough, UTI, and insomnia. COW=10. Scheduled and PRN medications given. Normal [facility] NURSNOTE Patient complains of nausea, PRN compazine given. Normal [facility] NURSNOTE Patient has been up out of room for groups and meals. PRN zofran helpful for nausea. Pt plans to go to [facility] inpatient tomorrow. Normal [facility] NURSNOTE Patient resting in bed. States she feels worse today than she did yesterday. Pt reports loose stools x2, nausea, stuffy nose, bone / joint pain, and anxiety. Requests all PRN comfort meds she is due for. Will give comfort meds with AM med pass. Normal [facility] NURSNOTE Patient slept throug h the night. Scheduled and PRN medications are helping. Normal [facility] PROCALCITONIN TESTon 023 PROCALCITONIN IN BLOOD 0.01 ng/mL Normal 0.00-0.10 [facility] on above: Result Comment: Susp ected Lower Respiratory Tract Infection: 0.1-0.25 ng/mL - Low likelihood for bacterial infection;Antibiotics discouraged.* >0.25 ng/mL - Increased likelihood bacterial infection;Antibiotics encouraged. Suspected Sepsis: Strongly consider initiating antibiotics in all unstable patients. 0.1-0.5 ng/mL - Low likelihood for sepsis; Antibiotics discouraged.* >0.5 ng/mL - Increased likelihood sepsis; Antibiotics encouraged. >2.0 ng/mL - High risk of sepsis/septic shock; Antibiotics strongly encouraged. *Recommend retesting PCT within 6-12 hours if clinically indicated and initial PCT<0.5ng/mL Performed By: #### L [id number] ####[facility] ([facility]AKER)[address] [place] [address] 30on 11-13-2022 30 The patient is Moderately Stable - Low risk of patient condition declining or worsening The patient's goals for the shift include safety, comfort, and sleep The clinical goals for the shift include safety, comfort, and sleep Problem: Substance Abuse (Historic and Current) Goal: LTG-Ability to name resources Outcome: Progressing Goal: LTG-Ability to notice triggers Outcome: Progressing Goal: LTG-Understand the need for abstinence Outcome: Progressing Goal: STG-Indicate withdrawl symptoms Outcome: Progressing Goal: STG-Willing to engage in conversations about continued abstinence Outcome: Progressing Goal: STG-Indicate triggers for using Outcome: Progressing Goal: STG-Verbalize coping tools and skills Outcome: Progressing Goal: STG-Will verbalize reasons for quitting Outcome: Progressing Normal [facility] 30 The patient is Moderately Unstable - Medium risk of patient condition declining or worsening The patient's goals for the shift include comfort The clinical goals for the shift include withdrawal management Problem: Substance Abuse (Historic and Current) Goal: LTG-Ability to name resources Outcome: Progressing Goal: LTG-Ability to notice triggers Outcome: Progressing Goal: LTG-Understand the need for abstinence Outcome: Progressing Goal: STG-Indicate withdrawl symptoms Outcome: Progressing Goal: STG-Willing to engage in conversations about continued abstinence Outcome: Progressing Goal: STG-Indicate triggers for using Outcome: Progressing Goal: STG-Verbalize coping tools and skills Outcome: Progressing Goal: STG-Will verbalize reasons for quitting Outcome: Progressing Normal [facility] 94on 11-13-2022 94 Group Topic: Feeling Awareness/Expression Group Date: 11/13/2022 Start Time: 183 End Time: 191 Facilitators: ANDREW Brewer Department: [facility] S[employer]ENER Number of Participants: 6 Group Focus: feeling awareness/expression Treatment Modality: Patient-Centered Therapy Interventions utilized were exploration Purpose: express feelings Name: Bonnie Montoya Date of : 1980 MR: [id number] Level of Participation: moderate Quality of Participation: cooperative Interactions with others: supportive Mood/Affect: appropriate Cognition: coherent/clear Progress: Moderate Patients Problems: Patient Active Problem List Diagnosis Opiate dependence, continuous (CMS/HCC) Cocaine use Hypomagnesemia History of seizure Anxiety Normal [facility] 94 Group Topic: Activit y Therapy Group Date: 11/13/2022 Start Time: 1530 End Time: 1600 Facilitators: KRISTIN Crowell Department: [facility] Number of Participants: 2 Group Focus: activities of daily living skills, affirmation, anxiety, check in, communication, coping skills, depression, forgiveness, leisure skills, relaxation, self-awareness, self-esteem, and social skills Treatment Modality: Leisure Development and Patient-Centered Therapy Interventions utilized were active listening, assignment, leisure development, patient education, and support Purpose: enhance coping skills, explore maladaptive thinking, express feelings, express irrational fears, improve communication skills, increase insight or knowledge, and reinforce self-care Name: Bonnie Montoya Date of : 1980 MR: [id number] Level of Participation: refused Progress: None Response: Pt. Refused integration into group with OB GYN PHYSICIAN ASSISTANT and peers at this time. Plan: Pt. Will be encouraged to attend therapeutic recreation interventions with the OB GYN PHYSICIAN ASSISTANT in the future. Patients Problems: Patient Active Problem List Diagnosis Opiate dependence, continuous (CMS/HCC) Cocaine use Hypomagnesemia History of seizure Anxiety [facility] 94 Group Topic: Activit y Therapy Group Date: 11/13/2022 Start Time: 1330 End Time: 1415 Facilitators: KRISTIN Crowell Department: [facility] Recovery Number of Participants: 3 Group Focus: activities of daily living skills, affirmation, check in, clarity of thought, communication, concentration, coping skills, daily focus, goals/reality orientation, leisure skills, problem solving, reality orientation, relapse prevention, self-awareness, self-esteem, social skills, and substance abuse education Treatment Modality: Leisure Development and Patient-Centered Therapy Interventions utilized were active listening, assignment, leisure development, patient education, problem solving, and support Purpose: enhance coping skills, improve communication skills, increase insight or knowledge, reinforce self-care, relapse prevention strategies, and trigger / craving management Name: Bonnie Montoya Date of : 1980 MR: [id number] Level of Participation: refused Progress: None Response: Pt. Refused integration into group with OB GYN PHYSICIAN ASSISTANT and peers at this time. Plan: Pt. Will be encouraged to attend therapeutic recreation interventions with the OB GYN PHYSICIAN ASSISTANT in the future. Patients Problems: Patient Active Problem List Diagnosis Opiate dependence, continuous (CMS/HCC) Cocaine use Hypomagnesemia History of seizure Anxiety [facility] 94 Group Topic: Activities of Daily Living Group Date: 11/13/2022 Start Time: 1030 End Time: 1130 Facilitators: KRISTIN Crowell Department: [facility] Number of Participants: 3 Group Focus: abuse issues, activities of daily living skills, check in, coping skills, feeling awareness/expression, goals/reality orientation, leisure skills, personal responsibility, problem solving, relapse prevention, self-awareness, and social skills Treatment Modality: Leisure Development and Patient-Centered Therapy Interventions utilized were active listening, assignment, leisure development, and support Purpose: enhance coping skills, express feelings, improve communication skills, increase insight or knowledge, regain self-worth, reinforce self-care, relapse prevention strategies, and trigger / craving management Name: Bonnie Montoya Date of : 1980 MR: [id number] Level of Participation: refused Progress: None Response: Pt. Refused integration into group with OB GYN PHYSICIAN ASSISTANT and peers at this time. Plan: Pt. Will be encouraged to attend therapeutic recreation interventions with the OB GYN PHYSICIAN ASSISTANT in the future. Patients Problems: Patient Active Problem List Diagnosis Opiate dependence, continuous (CMS/HCC) Cocaine use Hypomagnesemia History of seizure Anxiety [facility] NURSNOTEon 11-13-2022 NURSNOTE Patient complained o f nausea and generalized pain. PRN tylenol and zofran given. [facility] NURSNOTE Patient reports chills, fatigue, and nausea continue. Pt now reporting increased urgency and burning with urination which she stated began 2 days ago but symptoms have worsened today. Sheet Metal Worker discussed with Dr. Lazcano, new order received for . [facility] NURSNOTE Patient resting in bed, complains of chills, GI upset, nausea, diarrhea, generalized pain and restlessness, anxiety, and stuffy nose. Sheet Metal Worker updated GIM resident during rounds of pt BP and temp of 99.3 this AM as well as pt report of symptoms. No new orders at this time, continue to monitor and report worsening of symptoms or vital signs. Sheet Metal Worker will give PRN meds for comfort with AM med pass. [facility] NURSNOTE Patient resting in bed with eyes closed. Patient appears to have slept pretty well through the night, only waking a couple times for snacks. No signs of distress noted. Breathing is unlabored and even. Safety maintained. [facility] NURSNOTE Patient up ad elisa on the unit. Patient is pleasant and cooperative with staff and assessment. Patient complains of Moderate symptoms of withdrawal and was given PRN comfort medications. No signs of distress noted. Breathing is unlabored and even. Safety maintained. Normal [facility] URINALYSIS MICROSCOPIC WITH REFLEX CULTUREon 11-13-2022 CASTS IN URINE Normal [facility] Comment on above: Performed By: #### L [id number] ####[facility] [place] [address] CRYSTALS IN URINE Normal [facility] Comment on above: Performed By: #### L [id number] ####[facility] ([facility] [place] [address] OTHER MICROSCOPIC ELEMENTS Normal [facility] Comment on above: Performed By: #### L [id number] ####[facility] ([facility])[address] [place] [address] RBC (#/HPF) IN URINE SEDIMENT 0-2 Abnormal None Seen [facility] Comment on above: Performed By: #### L [id number] ####[facility] [place] [address] SQUAMOUS EPITHELIAL CELLS (#/HPF) IN URINE SEDIMENT Many Abnormal None Seen, Occasional [facility] Comment on above: Performed By: #### L [id number] ####[facility] [place] [address] WBC (LEUKOCYTE) (#/HPF) IN URINE SEDIMENT 3-5 Abnormal None Seen [facility] Comment on above: Performed By: #### L [id number] ####[facility] [place] [address] URINALYSIS WITH REFLEX CULTU REon 11-13-2022 BILIRUBIN, TOTAL PRESENCE IN URINE Negative Normal Negative [facility] Comment on above: Order Comment: 0000 Performed By: #### L [id number] ####[facility] (BEAKER)[address] [place] [address] Clarity (U) Clear Normal Clear [facility] Comment on above: Order Comment: 0000 Performed By: #### L [id number] ####[facility] [place] [address] Color (U) Yellow Normal Yellow, Dark Yellow, Straw [facility] Comment on above: Order Comment: 0000 Performed By: #### L [id number] ####[facility] ([facility])[address] [place] [address] Glucose (U) [Mass/Vol] Negative Normal [facility]: Order Comment: 0000 Performed By: #### L [id number] ####[facility] ([facility])[address] [place] [address] HEMOGLOBIN PRESENCE IN URINE Negative Normal Negative [facility] Comment on above: Order Comment: 0000 Performed By: #### L [id number] ####[facility] ([facility])[address] [place] [address] Ketones Ql (U) Negative Normal Negative [facility] Comment on above: Order Comment: 0000 Performed By: #### L [id number] ####[facility] ([facility])[address] [place] [address] LEUKOCYTE ESTERASE PRESENCE IN URINE BY TEST STRIP Trace Abnormal Negative [facility] Comment on above: Order Comment: 0000 Performed By: #### L [id number] ####[facility] ([facility])[address] [place] [address] NITRITE PRESENCE IN URINE Negative Normal Negative [facility] Comment on above: Order Comment: 0000 Performed By: #### L [id number] ####[facility] ([facility])[address] [place] [address] pH (U) 7.5 [pH] Normal 5.0-8.0 [facility] Comment on above: Order Comment: 0000 Performed By: #### L [id number] ####[facility] ([facility])[address] [place] [address] Protein (U) [Mass/Vol] Negative Normal [facility] Comment on above: Order Comment: 0000 Performed By: #### L [id number] ####[facility] ([facility])[address] [place] [address] Specific gravity (U) [Rel density] 1.010 Low 1.015-1.020 [facility] Comment on above: Order Comment: 0000 Performed By: #### L [id number] ####[facility] ([facility]AKER)[address] [place] [address] 30on 11-12-2022 30 The patient is Moderately Stable - Low risk of patient condition declining or worsening The patient's goals for the shift include comfort The clinical goals for the shift include manage withdrawal symptoms Normal [facility] 30 The patient is Moderately Unstable - Medium risk of patient condition declining or worsening The patient's goals for the shift include comfort The clinical goals for the shift include manage withdrawal symptoms Problem: Substance Abuse (Historic and Current) Goal: LTG-Ability to name resources Outcome: Progressing Goal: LTG-Ability to notice triggers Outcome: Progressing Goal: LTG-Understand the need for abstinence Outcome: Progressing Goal: STG-Indicate withdrawl symptoms Outcome: Progressing Goal: STG-Willing to engage in conversations about continued abstinence Outcome: Progressing Goal: STG-Indicate triggers for using Outcome: Progressing Goal: STG-Verbalize coping tools and skills Outcome: Progressing Goal: STG-Will verbalize reasons for quitting Outcome: Progressing Normal [facility] 94on 11-12-2022 94 Group Topic: Leisure Skills Group Date: 11/12/2022 Start Time: 1115 End Time: 1155 Facilitators: KRISTIN Shine Department: [facility] Recovery Number of Participants: 3 Group Focus: clarity of thought, communication, and leisure skills Treatment Modality: Leisure Development and Patient-Centered Therapy Interventions utilized were leisure development and mental fitness Purpose: improve communication skills and increase insight or knowledge Name: Bonnie Montoya Date of : 1980 MR: [id number] Level of Participation: refused Response: Pt was encouraged to join the group but refused, resting in bed during group. Plan: Encourage patient to participate in recreational therapy groups and activities. Patients Problems: Patient Active Problem List Diagnosis Opiate dependence, continuous (CMS/HCC) Cocaine use Hypomagnesemia History of seizure Anxiety Normal [facility] NURSNOTEon 11-12-2022 NURSNOTE Pt ate a small amoun t for dinner, she complained of hot and cold sweats and was given clonidine. She was given zofran for nausea and was sitting in the day area with peers watching tv. [facility] RUBENS Lucero was asleep in bed , she was sweaty and complained of restlessness, she was given clonidine for chills and sweats and was encouraged to eat breakfast. [facility] 30on 11-11-2022 30 Problem: Substance Abuse (Historic and Current) Goal: LTG-Ability to name resources Outcome: Progressing Goal: LTG-Ability to notice triggers Outcome: Progressing Goal: LTG-Understand the need for abstinence Outcome: Progressing Goal: STG-Indicate withdrawl symptoms Outcome: Progressing Goal: STG-Willing to engage in conversations about continued abstinence Outcome: Progressing Goal: STG-Indicate triggers for using Outcome: Progressing Goal: STG-Verbalize coping tools and skills Outcome: Progressing Goal: STG-Will verbalize reasons for quitting Outcome: Progressing The patient is Moderately Stable - Low risk of patient condition declining or worsening The patient's goals for the shift include comfort The clinical goals for the shift include manage withdrawal symptoms Over the shift, the patient did not make progress toward the following goals. Barriers to progression include motivation. Recommendations to address these barriers include education. [facility] 30 The patient is Moderately Unstable - Medium risk of patient condition declining or worsening The patient's goals for the shift include comfort The clinical goals for the shift include comfort Problem: Substance Abuse (Historic and Current) Goal: LTG-Ability to name resources Outcome: Progressing Goal: LTG-Ability to notice triggers Outcome: Progressing Goal: LTG-Understand the need for abstinence Outcome: Progressing Goal: STG-Indicate withdrawl symptoms Outcome: Progressing Goal: STG-Willing to engage in conversations about continued abstinence Outcome: Progressing Goal: STG-Indicate triggers for using Outcome: Progressing Goal: STG-Verbalize coping tools and skills Outcome: Progressing Goal: STG-Will verbalize reasons for quitting Outcome: Progressing [facility] 9411-11-2022 94 Group Topic: Discharge Planning Group Date: 11/11/2022 Start Time: 1829 End Time: 1909 Facilitators: ANDREW Brewer Department: [facility] BI[employer] SCREENER Number of Participants: 3 Group Focus: diagnosis education Treatment Modality: Patient-Centered Therapy Interventions utilized were exploration Purpose: relapse prevention strategies Name: Bonnie Montoya Date of : 1980 MR: [id number] Level of Participation: refused Patients Problems: Patient Active Problem List Diagnosis Opiate dependence, continuous (CMS/HCC) Cocaine use Hypomagnesemia History of seizure Anxiety Normal [facility] 94 Group Topic: Activit y Therapy Group Date: 11/11/2022 Start Time: 1530 End Time: 1600 Facilitators: GIOVANNI CrowellS Department: [facility] Recovery Number of Participants: 0 Group Focus: activities of daily living skills, anxiety, art therapy, concentration, coping skills, feeling awareness/expression, leisure skills, relaxation, self-esteem, and social skills Treatment Modality: Art Therapy and Leisure Development Interventions utilized were assignment, leisure development, and support Purpose: enhance coping skills, express feelings, increase insight or knowledge, regain self-worth, reinforce self-care, and relapse prevention strategies Name: Bonnie Montoya Date of : 1980 MR: [id number] Level of Participation: refused Progress: None Response: Pt. Refused integration into group with OB GYN PHYSICIAN ASSISTANT and peers at this time. Plan: Pt. Will be encouraged to attend therapeutic recreation interventions with the OB GYN PHYSICIAN ASSISTANT in the future. Patients Problems: Patient Active Problem List Diagnosis Opiate dependence, continuous (CMS/HCC) Cocaine use Hypomagnesemia History of seizure Anxiety Normal [facility] 94 Group Topic: Activit y Therapy Group Date: 11/11/2022 Start Time: 1330 End Time: 1415 Facilitators: GIOVANNI CrowellS Department: [facility] Recovery Number of Participants: 1 Group Focus: activities of daily living skills, anxiety, check in, coping skills, feeling awareness/expression, leisure skills, relaxation, self-awareness, self-esteem, and social skills Treatment Modality: Leisure Development and Patient-Centered Therapy Interventions utilized were active listening, confrontation, leisure development, story telling, and support Purpose: enhance coping skills, express feelings, improve communication skills, increase insight or knowledge, regain self-worth, and reinforce self-care Name: Bonnie Montoya Date of : 1980 MR: [id number] Level of Participation: withdrawn Progress: None Response: Pt. Was isolated to room and was experiencing active withdrawal symptoms at this time. Plan: Pt. Will be encouraged to attend therapeutic recreation interventions with the OB GYN PHYSICIAN ASSISTANT in the future. Patients Problems: Patient Active Problem List Diagnosis Opiate dependence, continuous (CMS/HCC) Cocaine use Hypomagnesemia History of seizure Anxiety Normal [facility] 94 Group Topic: Activit y Therapy Group Date: 11/11/2022 Start Time: 1030 End Time: 1115 Facilitators: Shirlene Jimenez OB GYN PHYSICIAN ASSISTANT Department: [facility] Recovery Number of Participants: 3 Group Focus: abuse issues, activities of daily living skills, check in, communication, concentration, coping skills, feeling awareness/expression, leisure skills, self-awareness, self-esteem, social skills, and substance abuse education Treatment Modality: Leisure Development and Patient-Centered Therapy Interventions utilized were active listening, leisure development, patient education, and support Purpose: enhance coping skills, express feelings, improve communication skills, increase insight or knowledge, regain self-worth, reinforce self-care, and relapse prevention strategies Name: Bonnie Montoya Date of : 1980 MR: [id number] Level of Participation: refused Progress: None Response: Pt. Refused integration into group with OB GYN PHYSICIAN ASSISTANT and peers at this time. Plan: Pt. Will be encouraged to attend therapeutic recreation interventions with the OB GYN PHYSICIAN ASSISTANT in the future. Patients Problems: Patient Active Problem List Diagnosis Opiate dependence, continuous (CMS/HCC) Normal [facility] CONSULTon 11-11-2022 CONSULT - Attestation signed by Alka Dubois DO at 11/11/2022 1:09 PM By using the attestations below, the signing clinician agrees that I have read and verify that the documentation has been personally reviewed by me and ensure that the documentation accurately reflects the encounter. GC: I personally saw this patient on the day of the encounter, performed the pelletier portion(s) of the service and participated in the management and confirm the resident's documentation. Please note there may be an additional personal documentation from me. GIM Inpatient Consult Note Patient - Bon[facility] Montoya Age [facility] 42 [facility] 1980 [id number] Date of Admission - 11/10/2022 4:38 PM Reason for the consult detox clearance History of Present Illness Bonnie Montoya is a 42 y.o. female born 1980 with a medical history of seizure disorder, opiate dependence, anxiety and nephrolithiasis who presents for opiate detox. Internal medicine has been consulted for detox clearance. patient was seen and examined at bedside, she reports feeling okay. She denies any chest pain, nausea, vomiting, diarrhea, shortness of breath. She reports some abdominal pain this morning related to withdrawal. Patient has been using Percocet. She denies a history of IV drug use. She reports that she has been through withdrawal before. She reports she was diagnosed with seizures as a child, currently takes Keppra 1200 mg twice daily and gabapentin 800 mg 3 times daily. Reports her last seizure was about 1 year ago. On presentation, patient's hepatitis panel was positive for hepatitis B core antibody. Patient reports no history of this. Reports no recent jaundice, abdominal pain, nausea, vomiting, diarrhea, nausea, myalgias. Lab work was significant for magnesium of 1.5, urine tox screen positive for cocaine, CBC within normal limits, LFTs within normal limits. PMH: Patient has a past medical history of ADHD (attention deficit hyperactivity disorder), Anxiety, Bipolar disorder (CMS/HCC), Depression, PTSD (post-traumatic stress disorder), and Seizures (CMS/HCC). PSH: Patient has a past surgical history that includes section, low transverse. SH: Patient reports that she has never smoked. She has never used smokeless tobacco. She reports current drug use. Drugs: Cocaine and Oxycodone. She reports that she does not drink alcohol. Alc/Tobacco/Drug: Patient reports no history of alcohol use. reports that she has never smoked. She has never used smokeless tobacco. reports current drug use. Drugs: Cocaine and Oxycodone. Medications: Patient Current Facility-Administered Medications: acetaminophen (Tylenol) tablet 650 mg, 650 mg, oral, q6h PRN, David Lazcano MD, 650 mg at 11/11/22 0630 alum-mag hydroxide-simeth (Mylanta) 200-200-20 mg/5 mL oral suspension 30 mL, 30 mL, oral, q4h PRN, David Lazcano MD bisacodyl (Dulcolax) EC tablet 10 mg, 10 mg, oral, Daily PRN, David Lazcano MD buprenorphine-naloxon e (Suboxone) 2-0.5 mg per SL tablet 2 tablet, 2 tablet, sublingual, q6h, David Lazcano MD, 2 tablet at 11/11/22 0629 dicyclomine (Bentyl) capsule 20 mg, 20 mg, oral, q6h PRN, David Lazcano MD, 20 mg at 11/11/22 0628 gabapentin (Neurontin) capsule 300 mg, 300 mg, oral, TID PRN, David Lazcano MD, 300 mg at 11/11/22 0628 guaiFENesin (Mucinex) 12 hr tablet 600 mg, 600 mg, oral, BID PRN, David Lazcano MD, 600 mg at 11/11/22 0628 hydrOXYzine pamoate (Vistaril) capsule 25 mg, 25 mg, oral, TID PRN, David Lazcano MD, 25 mg at 11/11/22 0628 levETIRAcetam (Keppra) tablet 1,250 mg, 1,250 mg, oral, BID, LEFTY Zavala-C, 1,250 mg at 11/10/22 2201 loperamide (Imodium) capsule 2 mg, 2 mg, oral, q2h PRN, David Lazcano MD magnesium hydroxide (Milk of Magnesia) 400 mg/5 mL suspension 30 mL, 30 mL, oral, q12h PRN, David Lazcano MD magnesium oxide (Mag-Ox) tablet 400 mg, 400 mg, oral, q8h, LEFTY Zavala-C, 400 mg at 11/11/22 0619 melatonin tablet 6 mg, 6 mg, oral, Nightly, David Lazcano MD, 6 mg at 07/02/23 2159 ondansetron ODT (Zofran-ODT) disintegrating tablet 4 mg, 4 mg, oral, q6h PRN, 4 mg at 11/10/22 1846 OR ondansetron ODT (Zofran-ODT) disintegrating tablet 8 mg, 8 mg, oral, q6h PRN, David Lazcano MD, 8 mg at 11/11/22 0628 prochlorperazine (Compazine) suppository 25 mg, 25 mg, rectal, q6h PRN, David Lazcano MD prochlorperazine (Compazine) tablet 10 mg, 10 mg, oral, q6h PRN, David Lazcano MD Allergies: Patient Imitrex [sumatriptan] and Motrin [ibuprofen] Family history: Patient family history includes Addiction problem in her maternal grandmother and mother; Bipolar disorder in her maternal grandmother and mother. Review of Systems: Review of Systems Constitutional: Negative. Negative for chills, fatigue and fever. HENT: Negative. (more content not included)... Normal [facility] HEPATITIS B CORE ANTIBODY, I GMon 11-11-2022 HEPATITIS B VIRUS CORE IGM AB PRESENCE IN SER/PLAS BY IMMUNOASSY Negative Normal Negative [facility] Comment on above: Result Comment: INTE RPRETIVE INFORMATION: Hepatitis B Core Ab, IgM This assay should not be used for blood donor screening, associated re-entry protocols, or for screening Human Cells, Tissues and Cellular and Tissue-Based Products (HCT/P). Performed by [facility], [address] [place] [address] [id number] [email or web address] Janusz Pope MD, PHD, Lab. Director Performed By: #### L [id number] ####[employer] [facility] [place] [id number] HEPATITIS B SURFACE ANTIBODY QUANTon 11-11-2022 HEPATITIS B VIRUS SURFACE AB (MIU/ML) IN SERUM 53.99 mIU/mL Normal [facility] Comment on above: Result Comment: INTE RPRETATION: NONREACTIVE<8.00 mIU/mL INDETERMINATE8.00 - 12.00 mIU/mL REACTIVE>12 mIU/mL Performed By: #### L [id number] ####[facility] (BEAKER)[address] [place] [address] HEPATITIS B SURFACE ANTIGENo n 11-11-2022 HEPATITIS B VIRUS SURFACE AG PRESENCE IN SERUM Non-Reactive Normal Nonreactive [facility] Comment on above: Performed By: #### L [id number] ####[facility] ([facility])[address] [place] [address] HPon 11-11-2022 HP - Attestation signed by David Lazcano MD at 11/11/2022 1:25 PM I personally saw and examined the patient on the same date of service as resident/fellow . I discussed the findings and therapeutic plan with the resident/fellow . I agree with the documentation, except for any edits/updates below. Teaching Physician's Revisions: Attending note- Reviewed progress with treatment team, adjust medications as needed, discharge planning based on progress. PSYCHIATRIC INITIAL HISTORY AND PHYSICAL/CONSULT NOTE Chief Complaint: Opiate dependence History of Present Illness: Patient was admitted to Detox unit for opiate dependence. Patient reports that she chewed 7 Percocet 10 mg daily TID and spent $60 worth of cocaine daily over the past 3 weeks. Patient has previously been admitted to the Detox unit in April 2021 for opiate dependence. She had been sober since her prior admission but relapsed due to difficulty coping with her 's in February 2022. Patient is currently living with her daughter who she reports is supportive when she is sober but not supportive when she uses drugs. Patient believes that her daughter and son are good support systems for her. She reports a history of epilepsy and takes Keppra 1200 mg BID and Gabapentin 800 mg QID. She reports a family history of alcohol and opioid use. Patient has ongoing challenges with substance use disorder and drug seeking behaviors. She recently lost her job due to drug use. She finances her drug use via money she saved up from her job. Risk Assessment: Patient denies current suicidal thoughts or homicidal thoughts She denies any previous suicide attempts She denies any access to guns or firearms Protective factors: family support, denies self-injurious behavior, denies access to guns or firearms Risk factors: history of substance use, history of trauma/abuse S/S of withdrawal: Runny nose/watery eyes: Yes Belly cramps: Yes Nausea: Yes Vomiting: Yes Diarrhea: Yes Headache: Yes Body aches: Yes Restlessness: Yes Hot/cold flashes: Yes Tremor: No Past Psychiatric History: Narcan : denies Detox : previous inpatient detox for opioid use in 2020 Reports Bipolar I disorder, MDD, PTSD and ADHD, denies schizophrenia Psych Rx: patient unable to recall psychiatric medications Alcohol/Substance Use Details Opiates: 7 Percocet 10 mg daily TID Cocaine: reports ETOH: denies THC: denies Other: denies Family Hx: Family history of alcohol and opioid use Social History Patient has a pattern of substance use that is contributing to impaired social functioning. 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 She has completed some college. Exam: Vital Signs: BP 99/53 Pulse 84 Temp 36.5 ???C (97.7 ???F) (Oral) Resp 16 Ht 1.676 m (5' 6 ) Wt 64.4 kg (142 lb) SpO2 97% BMI 22.92 kg/m??? Musculoskeletal: No tics, tremors or involuntary muscle movements noted MENTAL STATUS EXAM General Appearance: Well groomed, appropriate eye contact. Attitude/Behavior: Cooperative, conversant, engaged, and with good eye contact. Motor: No psychomotor agitation or retardation, no tremor or other abnormal movements. Speech: Normal rate, volume, prosody Gait: Did not assess Mood: anxious Affect: Anxious Thought Process: Linear, goal directed Thought Associations: No loosening of associations Thought Content: Patient denies suicidal thoughts and homicidal thoughts, denies auditory and visual hallucinations, does not appear to be responding to internal stimuli Suicidal/ Homicidal: denies, last suicidal thoughts occurred last year when patient was on Cymbalta Perception: No perceptual abnormalities noted Insight: Fair for the need for treatment Judgment: Fair for the need for treatment Impulse Control: Unable to assess Intellectual Function/Cognition: Cognitively intact to conversational testing with respect to attention, orientation, fund of knowledge, recent and remote memory, and language. Orientation: Alert and oriented to person, place, time and situation Recent Memory: Intact as evidenced by ability to recall details from the past 24 hours Remote Memory: Intact as evidenced by ability to recall previous medical issues Sleep: Fair, sleeps 5-6 hours nightly Appetite: Fair Energy: decrease Data: Active Orders Diet Regular Diet Frequency: Effective now Number of Occurrences: Until Specified Nursing Activity (specify) No Restrictions Frequency: Until discontinued Number of Occurrences: Until Specified Order Comments: No VTE prophylaxsis - Detox fully ambulatory; able to participate in programs Initate group counseling and individual counseling Frequency: Until discontinued Number of Occurrences: Until Spec (more content not included)... [facility] NURSNOTEon 11-11-2022 RUBENS Lucero was resting in bed, she stated that she felt horrible , she is irritable and stated that she was restless, she was compliant with suboxone. [facility] RUBENS Pt was asleep in bed , she complained of nausea and was given zofran, she ate well at breakfast. [facility] 30on 11-10-2022 30 Problem: Substance Abuse (Historic and Current) Goal: LTG-Ability to name resources Outcome: Progressing Goal: LTG-Ability to notice triggers Outcome: Progressing Goal: LTG-Understand the need for abstinence Outcome: Progressing Goal: STG-Indicate withdrawl symptoms Outcome: Progressing Goal: STG-Willing to engage in conversations about continued abstinence Outcome: Progressing Goal: STG-Indicate triggers for using Outcome: Progressing Goal: STG-Verbalize coping tools and skills Outcome: Progressing Goal: STG-Will verbalize reasons for quitting Outcome: Progressing The patient is Moderately Stable - Low risk of patient condition declining or worsening The patient's goals for the shift include to get control of myself The clinical goals for the shift include withdraw management Over the shift, the patient did not make progress toward the following goals. Barriers to progression include motivation. Recommendations to address these barriers include education. Normal [facility] 30 The patient is Moderately Stable - Low risk of patient condition declining or worsening The patient's goals for the shift include to get control of myself The clinical goals for the shift include withdraw management Normal [facility] ACETAMINOPHEN LEVELon 2022 ACETAMINOPHEN (UG/ML) IN SER/PLAS <10 Low 10-30 [facility] Comment on above: Performed By: #### L [id number] ####[facility] ([facility])[address] [place] [address] BASIC METABOLIC PANELon Anion gap [Moles/Vol] 8 mmol/L Normal 7-20 [facility] Comment on above: Performed By: #### L [id number] ####[facility] ([facility])[address] [place] [address] Calcium [Mass/Vol] 9.5 mg/dL Normal 8.6-10.3 [facility] Comment on above: Performed By: #### L [id number] ####[facility] ([facility])[address] [place] [address] Chloride [Moles/Vol] 100 mmol/L Normal 98-107 [facility] Comment on above: Performed By: #### L [id number] ####[facility] ([facility])[address] [place] [address] CO2 [Moles/Vol] 34 mmol/L High 21-31 [facility] Comment on above: Performed By: #### L [id number] ####[facility] ([facility])[address] [place] [address] Creatinine [Mass/Vol] 0.66 mg/dL Normal 0.60-1.20 [facility] Comment on above: Performed By: #### L [id number] ####[facility] ([facility])[address] [place] [address] GLOMERULAR FILTRATION RATE ML/MIN/1.73 SQ M.PREDICTED 111.6 mL/min/1.73m*2 Normal >60.0 [facility] Comment on above: Result Comment: The [facility]???s estimated glomerular filtration rate (eGFR) will no longer include consideration of race in its calculation. The National Kidney Foundation???s eGFR Task Force developed new recommendations for the estimation of the glomerular filtration rate in the [place] They recommend immediate implementation of the new equation refit without the race variable in all laboratories because the calculation does not include race. In addition to not including race in the calculation and reporting, it included diversity in its development, and has acceptable performance characteristics and potential consequences that do not disproportionately affect any one group of individuals. Performed By: #### L [id number] ####[facility] ([facility])[address] [place] [address] Glucose [Mass/Vol] 76 mg/dL Normal 70-100 [facility] Comment on above: Performed By: #### L [id number] ####[facility] ([facility])[address] [place] [address] Potassium [Moles/Vol] 3.5 mmol/L Normal 3.5-5.1 [facility] Comment on above: Performed By: #### L [id number] ####[facility] [place] [address] Sodium [Moles/Vol] 138 mmol/L Normal 136-145 [facility] Comment on above: Performed By: #### L [id number] ####[facility] [place] [address] Urea nitrogen [Mass/Vol] 7 mg/dL Normal 7-25 [facility] Comment on above: Performed By: #### L [id number] ####[facility] [place] [address] UREA NITROGEN/CREATININE (MASS RATIO) IN SER/PLAS 10.6 Normal [facility] Comment on above: Performed By: #### L [id number] ####[facility] ([facility])[address] [place] [address] CBC WITH AUTO DIFFERENTIALon 11-10-2022 Basophils (Bld) [#/Vol] 0.04 10*3/uL Normal 0.00-0.20 [facility] Comment on above: Performed By: #### L [id number] ####[facility] ([facility])[address] [place] [address] Basophils/100 WBC (Bld) 0.7 % Normal 0.0-1.0 [facility] Comment on above: Performed By: #### L [id number] ####[facility] ([facility])[address] [place] [address] Eosinophils (Bld) [#/Vol] 0.26 10*3/uL Normal 0.00-0.50 [facility] Comment on above: Performed By: #### L [id number] ####[facility] ([facility])[address] [place] [address] Eosinophils/100 WBC (Bld) 4.2 % Normal 0.0-6.0 [facility] Comment on above: Performed By: #### L [id number] ####[facility] ([facility])[address] [place] [address] Erythrocyte distribution width (RBC) [Ratio] 14.9 % Normal 11.5-15.0 [facility] Comment on above: Performed By: #### L [id number] ####[facility] ([facility])[address] [place] [address] ERYTHROCYTE MEAN CORPUSCULAR HEMOGLOBIN CONCENTRATION (G/DL) BY AUTOMATED 31.6 g/dL Low 32.0-35.0 [facility] Comment on above: Performed By: #### L [id number] ####[facility] ([facility])[address] [place] [address] Hematocrit (Bld) [Volume fraction] 41.2 % Normal 36.0-48.0 [facility] Comment on above: Performed By: #### L [id number] ####[facility] ([facility])[address] [place] [address] Hemoglobin (Bld) [Mass/Vol] 13.0 g/dL Normal 12.0-15.0 [facility] Comment on above: Performed By: #### L [id number] ####[facility] [place] [address] Immature granulocytes (Bld) [#/Vol] 0.01 10*3/uL Normal 0.00-0.20 [facility] Comment on above: Performed By: #### L [id number] ####[facility] ([facility])[address] [place] [address] Immature granulocytes/100 WBC (Bld) 0.2 % Normal 0.0-1.0 [facility] Comment on above: Performed By: #### L [id number] ####[facility] ([facility])[address] [place] [address] Lymphocytes (Bld) [#/Vol] 2.80 10*3/uL Normal 1.20-4.00 [facility] Comment on above: Performed By: #### L [id number] ####[facility] [place] [address] Lymphocytes/100 WBC (Bld) 45.5 % High 20.0-45.0 [facility] Comment on above: Performed By: #### L [id number] ####[facility] [place] [address] MCH (RBC) [Entitic mass] 27.7 pg Normal 27.0-33.0 [facility] Comment on above: Performed By: #### L [id number] ####[facility] [place] [address] MCV (RBC) [Entitic vol] 87.7 fL Normal 82.0-98.0 [facility] Comment on above: Performed By: #### L [id number] ####[facility] (BE[facility])[address] [place] [address] Monocytes (Bld) [#/Vol] 0.48 10*3/uL Normal 0.10-1.00 [facility] Comment on above: Performed By: #### L [id number] ####[facility] ([facility])[address] [address] Monocytes/100 WBC (Bld) 7.8 % Normal 5.0-12.0 [facility] Comment on above: Performed By: #### L [id number] ####[facility] ([facility])[address] [place] [address] Neutrophils (Bld) [#/Vol] 2.56 10*3/uL Normal 1.60-7.60 [facility] Comment on above: Performed By: #### L [id number] ####[facility] ([facility])[address] [place] [address] Neutrophils/100 WBC (Bld) 41.6 % Normal 40.0-72.0 [facility] Comment on above: Performed By: #### L [id number] ####[facility] ([facility])[address] [place] [address] NRBC (PER 100 WBCS) BY AUTOMATED COUNT 0.0 % Normal 0 [facility] Comment on above: Performed By: #### L [id number] ####[facility] ([facility])[address] [place] [address] PLATELETS (10*3/UL) IN BLOOD AUTOMATED COUNT 274 10*3/uL Normal 150-400 [facility] Comment on above: Performed By: #### L [id number] ####[facility] ([facility])[address] [address] RBC (Bld) [#/Vol] 4.70 10*6/uL Normal 3.80-5.00 [facility] Comment on above: Performed By: #### L [id number] ####[facility] ([facility])[address] [address] WBC (Bld) [#/Vol] 6.15 10*3/uL Normal 4.00-10.60 [facility] Comment on above: Performed By: #### L [id number] ####[facility] ([facility])[address] [place] [address] CHLAMYDIA TRACHOMATIS AND NE ISSERIA GONORRHEA, TMAon 11-10-2022 CHLAMYDIA TRACHOMATIS DNA PROBE (PRESENCE) IN UNSP SPEC Negative Normal Negative [facility] Comment on above: Result Comment: No C hlamydia trachomatis rRNA Detected. The Aptima Combo 2 Assay is a FDA approved target amplification nucleic acid probe test that utilizes target capture for the in vitro qualitative detection and differentiation of ribosomal RNA (rRNA) from Chlamydia trachomatis (CT) and/or Neisseria gonorrhoeae (GC) to aid the diagnosis of chlamydial and/or gonococcal urogenital disease using the [employer] System. The Aptima Combo 2 Assay involves target capture, target amplification by Loan Broker-Mediated Amplification (TMA), and the detection of the amplification products (amplicon) by the Hybridization Protection Assay (HPA). The internal process controls of the [employer] System monitor the target capture, amplification, and detection steps of the assay, this is not intended to control for sampling adequacy. Performed By: #### L [id number] ####[facility] ([facility])[address] [place] [address] NEISSERIA GONORRHOEAE DNA PROBE (PRESENCE) IN UNSP SPEC Negative Normal Negative [facility] Comment on above: Result Comment: No N eisseria gonorrhoeae rRNA Detected. The Aptima Combo 2 Assay is a FDA approved target amplification nucleic acid probe test that utilizes target capture for the in vitro qualitative detection and differentiation of ribosomal RNA (rRNA) from Chlamydia trachomatis (CT) and/or Neisseria gonorrhoeae (GC) to aid the diagnosis of chlamydial and/or gonococcal urogenital disease using the [employer] System. The Aptima Combo 2 Assay involves target capture, target amplification by Loan Broker-Mediated Amplification (TMA), and the detection of the amplification products (amplicon) by the Hybridization Protection Assay (HPA). The internal process controls of the [employer] System monitor the target capture, amplification, and detection steps of the assay, this is not intended to control for sampling adequacy. Performed By: #### L [id number] ####[facility] ([facility])[address] [place] [address] CHOLESTEROL, TOTALon 07-02-2 023 Cholesterol [Mass/Vol] 152 mg/dL Normal 120-200 Un [facility] Comment on above: Result Comment: CHOL ESTEROL REFERENCE RANGE: 20 YEARS AND OLDER CARDIOVASCULAR RISK Less than 200 mg/dL Low Risk 200 to 239 mg/dL Borderline Risk 240 mg/dL and greater High Risk Performed By: #### L [id number] ####[facility] ([facility])[address] [place] [address] DETOX PANEL URINEon 11-11-19 23 AMPHETAMINE+METHAMPHET AMINE SCREEN (PRESENCE) IN URINE Negative Normal Negative [facility] Comment on above: Performed By: #### L [id number] ####[facility] ([facility])[address] [place] [address] BARBITURATES PRESENCE IN URINE BY SCREEN METHOD Negative Normal Negative [facility] Comment on above: Performed By: #### L [id number] ####[facility] ([facility])[address] [place] [address] Benzodiazepines Ql (U) Negative Normal Negative [facility] Comment on above: Performed By: #### L [id number] ####[facility] ([facility])[address] [place] [address] CANNABINOID (PRESENCE) IN URINE BY SCREEN METHOD Negative Normal Negative [facility] Comment on above: Performed By: #### L [id number] ####[facility] ([facility])[address] [place] [address] Cocaine Ql (U) Positive Abnormal Negative [facility] Comment on above: Performed By: #### L [id number] ####[facility] ([facility])[address] [place] [address] METHADONE (PRESENCE) IN URINE BY SCREEN METHOD Negative Normal Negative [facility] Comment on above: Performed By: #### L [id number] ####[facility] ([facility])[address] [place] [address] OPIATES (PRESENCE) IN URINE BY SCREEN METHOD Negative Normal Negative [facility] Comment on above: Performed By: #### L [id number] ####[facility] ([facility])[address] [place] [address] PHENCYCLIDINE PRESENCE IN URINE BY SCREEN METHOD Negative Normal Negative [facility] Comment on above: Performed By: #### L [id number] ####[facility] ([facility])[address] [place] [address] Propoxyphene Screen Ql (U) Negative Normal Negative [facility] Comment on above: Performed By: #### L [id number] ####[facility] ([facility])[address] [place] [address] TRICYCLIC ANTIDEPRESSANTS (PRESENCE) IN URINE Negative Normal Negative [facility] Comment on above: Performed By: #### L [id number] ####[facility] ([facility])[address] [place] [address] GAMMA GTon 11-10-2022 Amylase [Catalytic activity/Vol] 6 U/L Low 9-64 [facility] Comment on above: Performed By: #### L [id number] ####[facility] ([facility])[address] [place] [address] HCV QUANTITATIVE TMAon 11-10 HCV QUANTITATIVE LOG Not detected Normal [facility] Comment on above: Order Comment: The A ptima HCV Quant Dx assay is a real-time office administration-mediated amplification (TMA) test which has a dynamic range of 10-100,000,000 IU/mL (1.0-8.0 log IU/mL). The Aptima HCV Quant Dx assay is used for both detection and quantitation of hepatitis C virus (HCV) RNA in human serum and plasma from HCV-infected individuals.The results from the Aptima HCV Quant Dx assay must be interpreted within the context of all relevant clinical and laboratory findings. The Aptima HCV Quant Dx assay is not approved for use as a screening test for the presence of HCV RNA in blood or blood products. Performed By: #### L [id number] ####[facility] ([facility])[address] [place] [address] HCV TMA INTERP Not detected Normal Not [facility]ed [facility] Comment on above: Order Comment: The A ptima HCV Quant Dx assay is a real-time office administration-mediated amplification (TMA) test which has a dynamic range of 10-100,000,000 IU/mL (1.0-8.0 log IU/mL). The Aptima HCV Quant Dx assay is used for both detection and quantitation of hepatitis C virus (HCV) RNA in human serum and plasma from HCV-infected individuals.The results from the Aptima HCV Quant Dx assay must be interpreted within the context of all relevant clinical and laboratory findings. The Aptima HCV Quant Dx assay is not approved for use as a screening test for the presence of HCV RNA in blood or blood products. Performed By: #### L [id number] ####[facility] ([facility])[address] [place] [address] HCV TMA QUANTITATIVE Not detected Normal [facility] Comment on above: Order Comment: The A ptima HCV Quant Dx assay is a real-time office administration-mediated amplification (TMA) test which has a dynamic range of 10-100,000,000 IU/mL (1.0-8.0 log IU/mL). The Aptima HCV Quant Dx assay is used for both detection and quantitation of hepatitis C virus (HCV) RNA in human serum and plasma from HCV-infected individuals.The results from the Aptima HCV Quant Dx assay must be interpreted within the context of all relevant clinical and laboratory findings. The Aptima HCV Quant Dx assay is not approved for use as a screening test for the presence of HCV RNA in blood or blood products. Performed By: #### L [id number] ####[facility] ([facility])[address] [place] [address] HEPATIC FUNCTION PANELon Albumin [Mass/Vol] 4.6 g/dL Normal 3.5-5.7 [facility] Comment on above: Performed By: #### L [id number] ####[facility] ([facility])[address] [place] [address] ALP [Catalytic activity/Vol] 36 U/L Normal 34-104 [facility] Comment on above: Performed By: #### L [id number] ####[facility] ([facility])[address] [place] [address] ALT [Catalytic activity/Vol] 10 U/L Normal 7-52 [facility] Comment on above: Performed By: #### L [id number] ####[facility] ([facility])[address] [place] [address] AST [Catalytic activity/Vol] 15 U/L Normal 13-39 [facility] Comment on above: Performed By: #### L [id number] ####[facility] ([facility])[address] [place] [address] Bilirubin [Mass/Vol] 0.6 mg/dL Normal 0.3-1.0 [facility] Comment on above: Performed By: #### L [id number] ####[facility] ([facility])[address] [facility] [address] Magnesium [Mass/Vol] 0.1 mg/dL Normal 0-0.2 [facility] Comment on above: Performed By: #### L [id number] ####[facility] ([facility])[address] [facility] [address] Protein [Mass/Vol] 7.2 g/dL Normal 6.0-8.3 [facility] Comment on above: Performed By: #### L [id number] ####[facility] ([facility])[address] [facility] [address] HEPATITIS PANEL, ACUTEon HEPATITIS A VIRUS IGM AB PRESENCE IN SER/PLAS Non-Reactive Normal Nonreactive [facility] Comment on above: Performed By: #### L [id number] ####[facility] ([facility])[address] [facility] [address] HEPATITIS B VIRUS CORE AB (PRESENCE) IN SER/PLAS BY IMM Reactive Critically abnormal Nonreactive [facility] Comment on above: Performed By: #### L [id number] ####[facility] ([facility])[address] [facility] [address] HEPATITIS B VIRUS SURFACE AG PRESENCE IN SERUM Non-Reactive Normal Nonreactive [facility] Comment on above: Performed By: #### L [id number] ####[facility] ([facility])[address] [place] [address] HEPATITIS C VIRUS AB PRESENCE IN SERUM Non-Reactive Normal Nonreactive [facility] Comment on above: Performed By: #### L [id number] ####[facility] ([facility])[address] [place] [address] HIV COMBO 4Gon 11-10-2022 HIV COMBO 4G Negative Normal Negative [facility] Comment on above: Performed By: #### L [id number] ####[facility] ([facility])[address] [place] [address] MAGNESIUMon 11-10-2022 Magnesium [Mass/Vol] 1.5 mg/dL Low 1.9-2.7 [facility] Comment on above: Performed By: #### L [id number] ####[facility] ([facility])[address] [place] [address] NURSNOTEon 11-10-2022 NURSNOTE Hospitalist notified of critical lab result, mag of 1.5, and needing home med kepra restarted tonight. New orders entered. Normal [facility] NURSNOTE Patient admitted to detox for opiate dependence. Patient stated she chews 7 tabs of Percocet 3 times a day with last use being 11/08 at around 2 am. Patient has plans to take Suboxone here and to be her for 7 days. Patient home meds need verified from [facility]. Pt side rails padded d/t history of seizures. Patient orients to the unit and routine. Labs drawn and urine sample given. Patient belongings searched. Patient complains of nausea, stomach cramps, sweat, restlessness, anxiety, nasal congestion, body aches, and pain. Normal [facility] PHOSPHORUSon 11-10-2022 Magnesium [Mass/Vol] 4.9 mg/dL Normal 2.5-5.0 [facility] Comment on above: Performed By: #### L [id number] ####[facility] ([facility])[address] [place] [address] RPRon 11-10-2022 REAGIN AB PRESENCE IN SERUM BY RPR Non-Reactive Normal Nonreactive [facility] Comment on above: Performed By: #### L [id number] ####[facility] ([facility])[address] [place] [address] SERUM QUALITATIVEo n 11-10-2022 HCG SERUM-QNI/QML-[id number] Negative Normal [facility] Comment on above: Performed By: #### L [id number] ####[facility] [place] [address] TSHon 11-10-2022 THYROTROPIN (MIU/L) IN SER/PLAS BY DETECTION LIMIT <= 0.05 MIU/L 2.79 mIU/L Normal 0.34-5.60 [facility] Comment on above: Performed By: #### L [id number] ####[facility] [place] [address] URIC ACIDon 11-10-2022 Magnesium [Mass/Vol] 3.6 mg/dL Normal 2.3-6.6 [facility] Comment on above: Performed By: #### L [id number] ####[facility] ([facility])[address] [place] [address] URINALYSISon 11-10-2022 BILIRUBIN, TOTAL PRESENCE IN URINE Negative Normal Negative [facility] Comment on above: Order Comment: 0000 Performed By: #### L [id number] ####[facility] ([facility])[address] [place] [address] Clarity (U) Slightly Cloudy Abnormal Clear [facility] Comment on above: Order Comment: 0000 Performed By: #### L [id number] ####[facility] ([facility])[address] [place] [address] Color (U) Straw Normal Yellow, Dark Yellow, Straw [facility] Comment on above: Order Comment: 0000 Performed By: #### L [id number] ####[facility] ([facility])[address] [place] [address] Glucose (U) [Mass/Vol] Negative Normal Negative Un [facility] Comment on above: Order Comment: 0000 Performed By: #### L [id number] ####[facility] ([facility])[address] [place] [address] HEMOGLOBIN PRESENCE IN URINE Trace Abnormal Negative [facility] Comment on above: Order Comment: 0000 Performed By: #### L [id number] ####[facility] ([facility])[address] [place] [address] Ketones Ql (U) Negative Normal Negative [facility] Comment on above: Order Comment: 0000 Performed By: #### L [id number] ####[facility] ([facility])[address] [place] [address] LEUKOCYTE ESTERASE PRESENCE IN URINE BY TEST STRIP Small Abnormal Negative [facility] Comment on above: Order Comment: 0000 Performed By: #### L [id number] ####[facility] ([facility])[address] [place] [address] NITRITE PRESENCE IN URINE Negative Normal Negative [facility] Comment on above: Order Comment: 0000 Performed By: #### L [id number] ####[facility] ([facility])[address] [place] [address] pH (U) 6.5 [pH] Normal 5.0-8.0 [facility] Comment on above: Order Comment: 0000 Performed By: #### L [id number] ####[facility] ([facility])[address] [place] [address] Protein (U) [Mass/Vol] Negative Normal Negative Un [facility] Comment on above: Order Comment: 0000 Performed By: #### L [id number] ####[facility] ([facility])[address] [place] [address] Specific gravity (U) [Rel density] 1.007 Low 1.015-1.020 [facility] Comment on above: Order Comment: 0000 Performed By: #### L [id number] ####[facility] ([facility])[address] [place] [address] URINALYSIS MICROSCOPICon CASTS IN URINE Normal [facility] Comment on above: Performed By: #### L [id number] ####[facility] ([facility])[address] [place] [address] CRYSTALS IN URINE Normal [facility] Comment on above: Performed By: #### L [id number] ####[facility] ([facility])[address] [place] [address] MUCUS (#/HPF) IN URINE SEDIMENT Occasional Normal None Seen, Occasional, Few [facility] Comment on above: Performed By: #### L [id number] ####[facility] ([facility])[address] [place] [address] RBC (#/HPF) IN URINE SEDIMENT 0-2 Abnormal None Seen [facility] Comment on above: Performed By: #### L [id number] ####[facility] ([facility]ER)[address] [place] [address] SQUAMOUS EPITHELIAL CELLS (#/HPF) IN URINE SEDIMENT Many Abnormal None Seen, Occasional [facility] Comment on above: Performed By: #### L [id number] ####[facility] ([facility]ER)[address] [place] [address] WBC (LEUKOCYTE) (#/HPF) IN URINE SEDIMENT 6-10 Abnormal None Seen [facility] Comment on above: Performed By: #### L [id number] ####[facility] ([facility]ER)[address] [place] [address] Cult,Urineon 11-09-2022 Cult,Urine Specimen Description .URINE Culture KLEBSIELLA PNEUMONIAE >[id number] CFU/ML Report Status FINAL 11/08/2022 SUSCEPTIBILITY Organism KLEBSIELLA PNEUMONIAE Method CHRIS Ampicillin 16 RESISTANT Cefazolin <=4 SUSCEPTIBLE Cefazolin sensitivity results can be used to predict the effectiveness of oral cephalosporins (eg. Cephalexin) in uncomplicated Urinary Tract Infections due to E. coli, K. pneumoniae, and P. mirabilis Ceftriaxone <=0.25 SUSCEPTIBLE ESBL NEGATIVE Gentamicin <=1 SUSCEPTIBLE Levofloxacin <=0.12 SUSCEPTIBLE Nitrofurantoin <=16 SUSCEPTIBLE Piperacillin/Tazobact am <=4 SUSCEPTIBLE Tobramycin <=1 SUSCEPTIBLE Trimethoprim/Sulfa <=20 SUSCEPTIBLE Susceptible [facility] Comment on above: Performed By: #### U RC #### [facility] [address] [place] [address] Help Desk Associate: Liban Gil MD Basic Metab w/rfx MGon 11-07 Potassium [Moles/Vol] 3.2 mmol/L Low 3.7-5.3 [facility] Comment on above: Performed By: #### R EJEC, BMPX, HCG, MG #### [facility] [address] [place] [phone] Help Desk Associate: Liban Gil MD Anion gap [Moles/Vol] 10 mmol/L Normal 9-17 [facility] Comment on above: Performed By: #### R EJEC, BMPX, HCG, MG #### [facility] [address] [place] [phone] Help Desk Associate: Liban Gil MD Calcium [Mass/Vol] 9.4 mg/dL Normal 8.6-10.4 [facility] Comment on above: Performed By: #### R EJEC, BMPX, HCG, MG #### [facility] [address] [place] [phone] Help Desk Associate: Liban Gil MD Chloride [Moles/Vol] 100 mmol/L Normal 98-107 [facility] Comment on above: Performed By: #### R EJEC, BMPX, HCG, MG #### [facility] [address] [place] [phone] Help Desk Associate: Liban Gil MD CO2 [Moles/Vol] 29 mmol/L Normal 20-31 [facility] Comment on above: Performed By: #### R EJEC, BMPX, HCG, MG #### [facility] [address] [place] [phone] Help Desk Associate: Liban Gil MD Creatinine [Mass/Vol] 0.69 mg/dL Normal 0.50-0.90 [facility] Comment on above: Performed By: #### R EJEC, BMPX, HCG, MG #### [employer] [address] [place] [phone] Help Desk Associate: Liban Gil MD GFR/1.73 sq M.predicted among non-blacks MDRD (S/P/Bld) [Vol rate/Area] mL/min/{1.73_m2} Normal >60 [facility] Comment on above: Result Comment: These results are not intended for use in patients <18 years of age. eGFR results are calculated without a race factor using the 2020 CKD-EPI equation. Careful clinical correlation is recommended, particularly when comparing to results calculated using previous equations. The CKD-EPI equation is less accurate in patients with extremes of muscle mass, extra-renal metabolism of creatine, excessive creatine ingestion, or following therapy that affects renal tubular secretion. Performed By: #### R EJEC, BMPX, HCG, MG #### [facility] [address] [place] [phone] Help Desk Associate: Liban Gil MD Glucose [Mass/Vol] 106 mg/dL High 70-99 [facility] Comment on above: Performed By: #### R EJEC, BMPX, HCG, MG #### [employer] [address] [place] [phone] Help Desk Associate: Liban Gil MD Sodium [Moles/Vol] 139 mmol/L Normal 135-144 [facility] Comment on above: Performed By: #### R EJEC, BMPX, HCG, MG #### [employer] [address] [place] [phone] Help Desk Associate: Liban Gil MD Urea nitrogen [Mass/Vol] 9 mg/dL Normal 6-20 [facility] Comment on above: Performed By: #### R EJEC, BMPX, HCG, MG #### [employer] [address] [place] [address] Help Desk Associate: Liban Gil MD CBC with Diffon 11-07-2022 Abs. Basophil 0.03 k/uL Normal 0.00-0.20 [facility] Comment on above: Performed By: #### C DP #### [address] [address] Help Desk Associate: Liban Gil MD Abs. Eosinophil <0.03 Normal 0.00-0.44 [facility] Comment on above: Performed By: #### C DP #### [address] [address] Help Desk Associate: Liban Gil MD Abs.Imm.Granulocyte <0.03 Normal 0.00-0.30 [facility] Comment on above: Performed By: #### C DP #### [address] [address] Help Desk Associate: Liban Gil MD Abs.Neutrophil (Seg) 6.42 k/uL Normal 1.50-8.10 [facility] Comment on above: Performed By: #### C DP #### [address] [address] Help Desk Associate: Liban Gil MD Basophils/100 WBC (Bld) 0 % Normal 0-2 [facility] Comment on above: Performed By: #### C DP #### [address] [address] Help Desk Associate: Liban Gil MD Eosinophils/100 WBC (Bld) 0 % Low 1-4 [facility] Comment on above: Performed By: #### C DP #### [address] [address] Help Desk Associate: Liban Gil MD Erythrocyte distribution width (RBC) [Ratio] 14.2 % Normal 11.8-14.4 [facility] Comment on above: Performed By: #### C DP #### [address] [address] Help Desk Associate: Liban Gil MD Hematocrit (Bld) [Volume fraction] 33.5 % Low 36.3-47.1 [facility] Comment on above: Performed By: #### C DP #### [address] [address] Help Desk Associate: Liban Gil MD Hemoglobin (Bld) [Mass/Vol] 10.8 g/dL Low 11.9-15.1 [facility] Comment on above: Performed By: #### C DP #### [address] [address] Help Desk Associate: Liban Gil MD Immature granulocytes/100 WBC (Bld) 0 % Normal 0 [facility] Comment on above: Performed By: #### C DP #### [place] [address] Help Desk Associate: Liban Gil MD Lymphocytes (Bld) [#/Vol] 1.39 10*3/uL Normal 1.10-3.70 [facility] Comment on above: Performed By: #### C DP #### [address] [address] Help Desk Associate: Liban Gil MD Lymphocytes/100 WBC (Bld) 17 % Low 24-43 [facility] Comment on above: Performed By: #### C DP #### [address] [address] Help Desk Associate: Liban Gil MD MCH (RBC) [Entitic mass] 28.2 pg Normal 25.2-33.5 [facility] Comment on above: Performed By: #### C DP #### [address] [address] Help Desk Associate: Liban Gil MD MCHC (RBC) [Mass/Vol] 32.2 g/dL Normal 28.4-34.[address] [facility] Comment on above: Performed By: #### C DP #### [address] [address] Help Desk Associate: Liban Gil MD MCV (RBC) [Entitic vol] 87.5 fL Normal 82.6-102.9 [facility] Comment on above: Performed By: #### C DP #### [address] [address] Help Desk Associate: Liban Gil MD Monocytes (Bld) [#/Vol] 0.48 10*3/uL Normal 0.10-1.20 [facility] Comment on above: Performed By: #### C DP #### [address] [address] Help Desk Associate: Liban Gil MD Monocytes/100 WBC (Bld) 6 % Normal 3-12 [facility] Comment on above: Performed By: #### C DP #### [address] [address] Help Desk Associate: Liban Gil MD Neutrophil (Seg) 77 % High 36-65 [facility] Comment on above: Performed By: #### C DP #### [address] [address] Help Desk Associate: Liban Gil MD NRBC Automated 0.2 per 100 WBC High 0.0 [facility] Comment on above: Performed By: #### C DP #### [address] [address] Help Desk Associate: Liban Gil MD Platelet mean volume (Bld) [Entitic vol] 9.9 fL Normal 8.1-13.5 [facility] Comment on above: Performed By: #### C DP #### [address] [address] Help Desk Associate: Liban Gil MD Platelets (Bld) [#/Vol] 208 10*3/uL Normal 138-453 [facility] Comment on above: Performed By: #### C DP #### [facility] [address] [place] [address] Help Desk Associate: Liban Gil MD RBC (Bld) [#/Vol] 3.83 10*6/uL Low 3.95-5.11 [facility] Comment on above: Performed By: #### C DP #### [facility] [address] [place] [address] Help Desk Associate: Liban Gil MD WBC (Bld) [#/Vol] 8.3 10*3/uL Normal 3.5-11.3 [facility] Comment on above: Performed By: #### C DP #### [facility] [address] [place] [address] Help Desk Associate: Liban Gil MD CT ABDOMEN PELVIS W IV CONTR [place] 11-07-2022 CT ABDOMEN PELVIS W IV CONTRAST EXAMINATION: CT OF THE ABDOMEN AND PELVIS WITH CONTRAST 11/07/2022 1:01 pm TECHNIQUE: CT of the abdomen and pelvis was performed with the administration of intravenous contrast. Multiplanar reformatted images are provided for review. Automated exposure control, iterative reconstruction, and/or weight based adjustment of the mA/kV was utilized to reduce the radiation dose to as low as reasonably achievable. COMPARISON: 01/07/2022 HISTORY: ORDERING SYSTEM PROVIDED HISTORY: worsening R flank pain TECHNOLOGIST PROVIDED HISTORY: worsening R flank pain Decision Support Exception - unselect if not a suspected or confirmed emergency medical condition->Emergency Medical Condition (MA) Reason for Exam: worsening r flank pain FINDINGS: Lower Chest: Minimal dependent subsegmental atelectasis. Organs: Cholecystectomy. Mild periportal edema is noted, nonspecific, that can be seen with hydration therapy. The pancreas, spleen, and adrenals reveal no acute findings. Mildly heterogeneous renal parenchymal enhancement, although symmetric in appearance. No hydronephrosis or stone. GI/Bowel: There is no bowel dilatation or wall thickening identified. Pelvis: No acute findings. Tubal ligation clip in the right pelvis. Apparent left tubal ligation clip along the left psoas muscle, unchanged. Peritoneum/Retroperit oneum: No free air. Trace abdominopelvic fluid. The aorta is normal in caliber. The visceral branches are patent. No lymphadenopathy. Bones/Soft Tissues: No acute findings. IMPRESSION: 1. Mildly heterogeneous renal parenchymal enhancement with asymmetric appearance. The possibility of pyelonephritis should be considered in the appropriate clinical setting. No hydronephrosis or stone identified. 2. Nonspecific mild periportal edema, likely due to hydration therapy. Interpreted by: Gordy Torres MD Signed by: Gordy Torres MD 11/07/22 Final result Normal [facility] HCG Screen, Bloodon 11-08-19 HCG Screen, Blood Negative Normal NEG [facility] Comment on above: Result Comment: Spec imens with hCG levels near the threshold of the test (25 mIU/mL) may give a negative or indeterminate result. In such cases, another test should be performed with a new specimen in 48-72 hours. If early is suspected clinically in this setting, correlation with quantitative serum b-hCG level is suggested. [employer] has confirmed the use of plasma for this test. This has not been cleared or approved by the U.S. Food and Drug Administration. The FDA has determined that such clearance is not necessary. Performed By: #### R EJEC, BMPX, HCG, MG #### [employer] [address] [place] [address] Help Desk Associate: Liban Gil MD Magnesiumon 11-07-2022 Magnesium [Mass/Vol] 2.0 mg/dL Normal 1.6-2.6 [facility] Comment on above: Performed By: #### R EJEC, BMPX, HCG, MG #### [employer] [address] [place] [phone] Help Desk Associate: Liban Gil MD Specimen Rejectionon 023 Reason for rejection Unable to perform testing: Specimen clotted. Normal [facility] Comment on above: Performed By: #### R EJEC, BMPX, HCG, MG #### [address] [address] Help Desk Associate: Liban Gil MD Source of sample .BLOOD Normal [facility] Comment on above: Performed By: #### R EJEC, BMPX, HCG, MG #### [address] [address] Help Desk Associate: Liban Gil MD Test ordered CDP Normal [facility] Comment on above: Performed By: #### R EJEC, BMPX, HCG, MG #### [address] [address] Help Desk Associate: Liban Gil MD UA w/Reflex Cultureon 2022 Bilirubin, SemiQt,Ur Negative Normal NEG [facility] Comment on above: Performed By: #### U AX UMICAO #### [address] [address] Help Desk Associate: Liban Gil MD Blood, Urine Negative Normal NEG [facility] Comment on above: Performed By: #### U AX UMICAO #### [address] [address] Help Desk Associate: Liban Gil MD Clarity (U) Clear Normal CLEAR [facility] Comment on above: Performed By: #### U AX UMICAO #### [address] [address] Help Desk Associate: Liban Gil MD Color (U) Yellow Normal YEL [facility] Comment on above: Performed By: #### U AX UMICAO #### [address] [address] Help Desk Associate: Liban Gil MD Glucose Ql (U) Negative Normal NEG [facility] Comment on above: Performed By: #### U AX, UMICAO #### [address] [place] [address] Help Desk Associate: Liban Gil MD Ketones Ql (U) TRACE Abnormal NEG [facility] Comment on above: Performed By: #### U AX, UMICAO #### [facility] [address] [place] [address] Help Desk Associate: Liban Gil MD Leukocyte esterase Test strip Ql (U) SMALL Abnormal NEG [facility] Comment on above: Performed By: #### U AX, UMICAO #### [facility] [address] [place] [address] Help Desk Associate: Liban Gil MD Nitrite,Ur Negative Normal NEG [facility] Comment on above: Performed By: #### U AX, UMICAO #### [address] [address] Help Desk Associate: Liban Gil MD PH,Ur 7.0 Normal 5.0-8.0 [facility] Comment on above: Performed By: #### U AX, UMICAO #### [address] [address] Help Desk Associate: Liban Gil MD Protein Ql (U) Negative Normal NEG [facility] Comment on above: Performed By: #### U AX, UMICAO #### [address] [address] Help Desk Associate: Liban Gil MD Spec. [place],Ur 1.011 Normal 1.005-1.030 [facility] Comment on above: Performed By: #### U AX, UMICAO #### [address] [address] Help Desk Associate: Liban Gil MD Urobilinogen,Ur Normal Normal NORM [facility] Comment on above: Performed By: #### U AX, UMICAO #### [address] [address] Help Desk Associate: Liban Gil MD Urinalysis,Microon 3 Bacteria MODERATE Abnormal NONE [facility] Comment on above: Performed By: #### U AX, UMICAO #### [address] [address] Help Desk Associate: Liban Gil MD Casts 2 TO 5 HYALINE Normal 0-8 [facility] Comment on above: Result Comment: Refe rence range defined for non-centrifuged specimen. Performed By: #### U AX, UMICAO #### [address] [address] Help Desk Associate: Liban Gil MD Epithelial cells LM Ql (Urine sed) 2 TO 5 Normal 0-5 [facility] Comment on above: Performed By: #### U AX, UMICAO #### [address] [address] Help Desk Associate: Liban Gil MD Urine RBC's 0 TO 2 Normal 0-4 [facility] Comment on above: Result Comment: Refe rence range defined for non-centrifuged specimen. Performed By: #### U AX, UMICAO #### [facility] [address] [place] [address] Help Desk Associate: Liban Gil MD Urine WBC's 10 TO 20 Normal 0-5 [facility] Comment on above: Performed By: #### U AX, UMICAO #### [facility] [address] [place] [address] Help Desk Associate: Liban Gil MD Cult,Urineon 07-05-2022 Cult,Urine Specimen Description .CLEAN CATCH URINE Culture ESCHERICHIA COLI >[id number] CFU/ML KLEBSIELLA PNEUMONIAE >[id number] CFU/ML Report Status FINAL 07/05/2022 SUSCEPTIBILITY Organism ESCHERICHIA COLI Method CHRIS Ampicillin >=32 RESISTANT Cefazolin <=4 SUSCEPTIBLE Cefazolin sensitivity results can be used to predict the effectiveness of oral cephalosporins (eg. Cephalexin) in uncomplicated Urinary Tract Infections due to E. coli, K. pneumoniae, and P. mirabilis Ceftriaxone <=0.25 SUSCEPTIBLE ESBL NEGATIVE Gentamicin <=1 SUSCEPTIBLE Levofloxacin <=0.12 SUSCEPTIBLE Nitrofurantoin <=16 SUSCEPTIBLE Piperacillin/Tazobact am <=4 SUSCEPTIBLE Tobramycin <=1 SUSCEPTIBLE Trimethoprim/Sulfa <=20 SUSCEPTIBLE SUSCEPTIBILITY Organism KLEBSIELLA PNEUMONIAE Method CHRIS Ampicillin >=32 RESISTANT Cefazolin <=4 SUSCEPTIBLE Cefazolin sensitivity results can be used to predict the effectiveness of oral cephalosporins (eg. Cephalexin) in uncomplicated Urinary Tract Infections due to E. coli, K. pneumoniae, and P. mirabilis Ceftriaxone <=0.25 SUSCEPTIBLE ESBL NEGATIVE Gentamicin <=1 SUSCEPTIBLE Levofloxacin <=0.12 SUSCEPTIBLE Nitrofurantoin <=16 SUSCEPTIBLE Piperacillin/Tazobact am <=4 SUSCEPTIBLE Tobramycin <=1 SUSCEPTIBLE Trimethoprim/Sulfa <=20 SUSCEPTIBLE Susceptible [facility] Comment on above: Performed By: #### U RC #### [facility] [address] [facility] [place] [address] Help Desk Associate: [place] [address] Help Desk Associate: Liban Gil MD CBC with Diffon 2022 Abs. Basophil 0.10 k/uL Normal 0.0-0.2 [facility] Comment on above: Performed By: #### C P, CK, DIMLorie TROPEzekiel, CDP ####[facility] [address] [facility] [place] [address] Lab Director: Osvaldo Lombardo DO Abs.Neutrophil (Seg) 5.10 k/uL Normal 1.3-9.1 [facility] Comment on above: Performed By: #### C P, CK, DIME, TROPI, CDP ####[facility] [address] [facility] [place] [address] Lab Director: Osvaldo Lombardo DO Basophils/100 WBC (Bld) 1 % Normal 0-2 [facility] Comment on above: Performed By: #### C P, CK, DIME, TROPI, CDP ####[facility] [address] [place] [address] Lab Director: Osvaldo Lombardo DO Eosinophils (Bld) [#/Vol] 0.10 10*3/uL Normal 0.0-0.4 [facility] Comment on above: Performed By: #### C P, CK, DIME, TROPI, CDP ####[facility] [address] [place] [address] lab Director: Osvaldo Lombardo DO Eosinophils/100 WBC (Bld) 2 % Normal 0-4 [facility] Comment on above: Performed By: #### C P, CK, DIME, TROPI, CDP ####[facility] [address] [place] [address] [facility] Director: Osvaldo Lombardo DO Erythrocyte distribution width (RBC) [Ratio] 15.2 % High 11.5-14.9 [facility] Comment on above: Performed By: #### C P, CK, DIME, TROPI, CDP ####[facility] [address] [place] [address] lab Director: Osvaldo Lombardo DO Hematocrit (Bld) [Volume fraction] 38.5 % Normal 36-46 [facility] Comment on above: Performed By: #### C P, CK, DIME, TROPI, CDP ####[facility] [id number] [place] [address] Lab Director: Osvaldo Lombardo DO Hemoglobin (Bld) [Mass/Vol] 12.8 g/dL Normal 12.0-16.0 [facility] Comment on above: Performed By: #### C P, CK, DIME, TROPI, CDP ####[facility] [address] [place] [address] Lab Director: Osvaldo Lombardo DO Lymphocytes (Bld) [#/Vol] 1.60 10*3/uL Normal 1.0-4.8 [facility] Comment on above: Performed By: #### C P, CK, DIME, TROPI, CDP ####[facility] [address] [facility] [address], [place] [phone] Director: Osvaldo Lombardo DO Lymphocytes/100 WBC (Bld) 22 % Low 24-44 [facility] Comment on above: Performed By: #### C P, CK, DIME, TROPI, CDP ####[facility] [address] [facility] [address], [place] [phone] Director: Osvaldo Lombardo DO MCH (RBC) [Entitic mass] 28.4 pg Normal 26-34 [facility] Comment on above: Performed By: #### C P, CK, DIME, TROPI, CDP ####[facility] [address] [facility] [place] [address] Lab Director: Osvaldo Lombardo DO MCHC (RBC) [Mass/Vol] 33.3 g/dL Normal 31-37 [facility] Comment on above: Performed By: #### C P, CK, DIME, TROPI, CDP ####[facility] [id number] [facility] [place] [address] Lab Director: Osvaldo Lombardo DO MCV (RBC) [Entitic vol] 85.4 fL Normal 80-100 [facility] Comment on above: Performed By: #### C P, CK, DIME, TROPI, CDP ####[facility] [address] [facility] [place] [address] Lab Director: Osvaldo Lombardo DO Monocytes (Bld) [#/Vol] 0.60 10*3/uL Normal 0.1-1.3 [facility] Comment on above: Performed By: #### C P, CK, DIME, TROPI, CDP ####[facility] [address] [place] [address] Lab Director: Osvaldo Lombardo DO Monocytes/100 WBC (Bld) 8 % High 1-7 [facility] Comment on above: Performed By: #### C P, CK, DIME, TROPI, CDP ####[facility] [address], [place] [phone] Director: Osvaldo Lombardo DO Neutrophil (Seg) 67 % High 36-66 [facility] Comment on above: Performed By: #### C P, CK, DIME, TROPI, CDP ####[facility] [address] [place] [address] Lab Director: Osvaldo Lombardo DO Platelet mean volume (Bld) [Entitic vol] 7.5 fL Normal 6.0-12.0 [facility] Comment on above: Performed By: #### C P, CK, DIME, TROPI, CDP ####[facility] [address], [place] [phone] Director: Osvaldo Lombardo DO Platelets (Bld) [#/Vol] 283 10*3/uL Normal 150-450 [facility] Comment on above: Performed By: #### C P, CK, DIME, TROPI, CDP ####[facility] [address] [facility] [place] [address] Lab Director: Osvaldo Lombardo DO RBC (Bld) [#/Vol] 4.51 10*6/uL Normal 4.0-5.2 [facility] Comment on above: Performed By: #### C P, CK, DIME, TROPI, CDP ####[facility] [address] [place] [address] Lab Director: Osvaldo Lombardo DO WBC (Bld) [#/Vol] 7.5 10*3/uL Normal 3.5-11.0 [facility] Comment on above: Performed By: #### C P, CK, DIME, TROPI, CDP ####[facility] [address] [place] [address] lab Director: Osvaldo Lombardo DO Comp Metabolic Profon 2022 Albumin [Mass/Vol] 3.9 g/dL Normal 3.5-5.2 [facility] Comment on above: Performed By: #### C P, CK, DIME, TROPI, CDP ####[facility] [address] [facility] [place] [address] lab Director: Osvaldo Lombardo DO Alkaline Phos 40 U/L Normal 35-104 [facility] Comment on above: Performed By: #### C P, CK, DIME, TROPI, CDP ####[facility] [address] [facility] [place] [address] lab Director: Osvaldo Lombardo DO ALT [Catalytic activity/Vol] 7 U/L Normal 5-33 [facility] Comment on above: Performed By: #### C P, CK, DIME, TROPI, CDP ####[facility] [address] [facility] [place] [address] lab Director: Osvaldo Lombardo DO Anion gap [Moles/Vol] 11 mmol/L Normal 9-17 [facility] Comment on above: Performed By: #### C P, CK, DIME, TROPI, CDP ####[facility] [address] [place] [address] lab Director: Osvaldo Lombardo DO AST [Catalytic activity/Vol] 14 U/L Normal <32 [facility] Comment on above: Performed By: #### C P, CK, DIME, TROPI, CDP ####[facility] [address] [place] [address] lab Director: Osvaldo Lombardo DO Bilirubin [Mass/Vol] 0.5 mg/dL Normal 0.3-1.2 [facility] Comment on above: Performed By: #### C P, CK, DIME, TROPI, CDP ####[facility] [address] [place] [address] lab Director: Osvaldo Lombardo DO Calcium [Mass/Vol] 8.9 mg/dL Normal 8.6-10.4 [facility] Comment on above: Performed By: #### C P, CK, DIME, TROPI, CDP ####[facility] [address] [facility] [place] [address] Lab Director: Osvaldo Lombardo DO Chloride [Moles/Vol] 101 mmol/L Normal 98-107 [facility] Comment on above: Performed By: #### C P, CK, DIME, TROPI, CDP ####[facility] [address] [place] [address] lab Director: Osvaldo Lombardo DO CO2 [Moles/Vol] 27 mmol/L Normal 20-31 [facility] Comment on above: Performed By: #### C P, CK, DIME, TROPI, CDP ####[facility] [address] [facility] [place] [address] lab Director: Osvaldo Lombardo DO Creatinine [Mass/Vol] 0.66 mg/dL Normal 0.50-0.90 [facility] Comment on above: Performed By: #### C P, CK, DIME, TROPI, CDP ####[facility] [address] [place] [address] lab Director: Osvaldo Lombardo DO GFR/1.73 sq M.predicted among non-blacks MDRD (S/P/Bld) [Vol rate/Area] mL/min/{1.73_m2} Normal >60 [facility] Comment on above: Result Comment: These results are not intended for use in patients <18 years of age. eGFR results are calculated without a race factor using the 2020 CKD-EPI equation. Careful clinical correlation is recommended, particularly when comparing to results calculated using previous equations. The CKD-EPI equation is less accurate in patients with extremes of muscle mass, extra-renal metabolism of creatine, excessive creatine ingestion, or following therapy that affects renal tubular secretion. Performed By: #### C P, CK, DIME, TROPI, CDP ####[facility] [address] [facility] [place] [address] Lab Director: Osvaldo Lombardo DO Glucose [Mass/Vol] 101 mg/dL High 70-99 [facility] Comment on above: Performed By: #### C P, CK, DIME, TROPI, CDP ####[facility] [address] [facility] [place] [address] Lab Director: Osvaldo Lombardo DO Potassium [Moles/Vol] 3.3 mmol/L Low 3.7-5.3 [facility] Comment on above: Performed By: #### C P, CK, DIME, TROPI, CDP ####[facility] [address] [facility] [place] [address] Lab Director: Osvaldo Lombardo DO Protein [Mass/Vol] 6.7 g/dL Normal 6.4-8.3 [facility] Comment on above: Performed By: #### C P, CK, DIME, TROPI, CDP ####[facility] [address] [facility] [place] [address] Lab Director: Osvaldo Lombardo DO Sodium [Moles/Vol] 139 mmol/L Normal 135-144 [facility] Comment on above: Performed By: #### C P, CK, DIME, TROPI, CDP ####[facility] [address] [facility] [place] [address] lab Director: Osvaldo Lombardo DO Urea nitrogen [Mass/Vol] 9 mg/dL Normal 6-20 [facility] Comment on above: Performed By: #### C P, CK, DIME, TROPI, CDP ####[facility] [address] [facility] [place] [address] lab Director: Osvaldo Lombardo DO Creatine Kinaseon 2022 CK [Catalytic activity/Vol] 106 U/L Normal 26-192 [facility] Comment on above: Performed By: #### C P, CK, DIME, TROPI, CDP ####[facility] [address] [facility] [place] [address] lab Director: Osvaldo Lombardo DO D-Dimer Teston 2022 D-Dimer Test 0.38 mg/L FEU Normal 0.00-0.59 [facility] Comment on above: Result Comment: When combined with a low clinical probability, a D dimer value of <0.50 mg/L FEU is considered negative for DVT and PE (negative predictive value of 98%, sensitivity of 97%). If this test is not being used to help rule out DVT and PE, then the following reference range should be utilized: 0.00 - 0.59 mg/L FEU. The D-Dimer assay is intended for use as an aid in the diagnosis of venous thromboembolism (DVT and PE) and the results should be interpreted in conjunction with the patient's medical history, clinical presentation, and other findings. Elevated levels of D-dimer activity can be seen in any state of coagulation activation and is not recommended in patients with therapeutic dose anticoagulant therapy for >24 hours, fibrinolytic therapy within the previous 7 days, trauma or surgery within the previous 4 weeks, disseminated malignancies, aortic aneurysm, sepsis, severe infections, pneumonia, severe skin infections, liver cirrhosis, advanced age, coronary disease, diabetes, and . A very low percentage of patients with DVT may yield D-dimer results below the cutoff of 0.5 mg/L FEU. This is known to be more prevalent in patients with distal DVT. Performed By: #### C P, CK, DIME, TROPI, CDP ####[facility] [id number] [facility] [place] [address] lab Director: Osvaldo Lombardo DO Troponinon 2022 Troponin, High Sens 11 ng/L Normal 0-14 [facility] Comment on above: Result Comment: High Sensitivity Troponin values cannot be compared with other Troponin methodologies. Performed By: #### T ROPI #### [facility] [address] [place] [address] Help Desk Associate: Osvaldo Lombardo DO Troponin, High Sens 10 ng/L Normal 0-14 [facility] Comment on above: Result Comment: High Sensitivity Troponin values cannot be compared with other Troponin methodologies. Performed By: #### C P, CK, DIME, TROPI, CDP ####[facility] [id number] [facility] [place] [address] lab Director: Osvaldo Lombardo DO XR CHEST PORTABLEon 07-04-19 XR CHEST PORTABLE EXAMINATION: ONE XRAY VIEW OF THE CHEST 2022 9:09 am COMPARISON: Two-view chest from 05/29/2021 HISTORY: ORDERING SYSTEM PROVIDED HISTORY: cp, hyperventilation TECHNOLOGIST PROVIDED HISTORY: cp, hyperventilation Reason for Exam: cp, hyperventilation FINDINGS: Overlying ECG monitor leads. The lungs are without acute focal process. There is no effusion or pneumothorax. The cardiomediastinal silhouette is without acute process. The osseous structures are without acute process. Convex-left curvature cervicothoracic junction, positional. IMPRESSION: No acute process. No interval change. Interpreted by: Gordy Sarabia MD Signed by: Gordy Sarabia MD 07/04/22 Final result Normal [facility] Basic Metabolic Panelon 06-13 Anion gap [Moles/Vol] 10 mmol/L 9 - 17 mmol/L [facility] Calcium [Mass/Vol] 9.1 mg/dL 8.6 - 10. 4 mg/dL [facility] Chloride [Moles/Vol] 99 mmol/L 98 - 10 7 mmol/L [facility] CO2 [Moles/Vol] 29 mmol/L 20 - 31 mmol/L [facility] Creatinine [Mass/Vol] 0.74 mg/dL 0.50 - 0.90 mg/dL [facility] GFR/1.73 sq M.predicted MDRD (S/P/Bld) [Vol rate/Area] - PINF [facility] Comment on above: These results are not intended for use in patients <18 years of age. eGFR results are calculated without a race factor using the 2020 CKD-EPI equation. Careful clinical correlation is recommended, particularly when comparing to results calculated using previous equations. The CKD-EPI equation is less accurate in patients with extremes of muscle mass, extra-renal metabolism of creatine, excessive creatine ingestion, or following therapy that affects renal tubular secretion. Glucose [Mass/Vol] 123 mg/dL High 70 - 99 mg/dL [facility] Potassium [Moles/Vol] 3.5 mmol/L Low 3.7 - 5.3 mmol/L [facility] Sodium [Moles/Vol] 138 mmol/L 135 - 144 mmol/L [facility] Urea nitrogen [Mass/Vol] 10 mg/dL 6 - 20 mg/dL [facility] Basic Metabolic Profon 07-03 Anion gap [Moles/Vol] 10 mmol/L Normal 9-17 [facility] Comment on above: Performed By: #### C DP, SHARYN, CK, BMP #### [facility] [address] [place] [address] Help Desk Associate: Osvaldo Lombardo DO Calcium [Mass/Vol] 9.1 mg/dL Normal 8.6-10.4 [facility] Comment on above: Performed By: #### C DP, SHARYN, CK, BMP #### [facility] [address] [facility] [address] [place], [place] [id number] Help Desk Associate: Osvaldo Lombardo DO Chloride [Moles/Vol] 99 mmol/L Normal 98-107 [facility] Comment on above: Performed By: #### C DP, SHARYN, CK, BMP #### [facility] [address] [place] [address] Help Desk Associate: Osvaldo Lombardo DO CO2 [Moles/Vol] 29 mmol/L Normal 20-31 [facility] Comment on above: Performed By: #### C DP, SHARYN, CK, BMP #### [facility] [address] [place] [address] Help Desk Associate: Osvaldo Lombardo DO Creatinine [Mass/Vol] 0.74 mg/dL Normal 0.50-0.90 [facility] Comment on above: Performed By: #### C DP, SHARYN, CK, BMP #### [facility] [address] [place] [address] Help Desk Associate: Osvaldo Lombardo DO GFR/1.73 sq M.predicted among non-blacks MDRD (S/P/Bld) [Vol rate/Area] mL/min/{1.73_m2} Normal >60 [facility] Comment on above: Result Comment: These results are not intended for use in patients <18 years of age. eGFR results are calculated without a race factor using the 2020 CKD-EPI equation. Careful clinical correlation is recommended, particularly when comparing to results calculated using previous equations. The CKD-EPI equation is less accurate in patients with extremes of muscle mass, extra-renal metabolism of creatine, excessive creatine ingestion, or following therapy that affects renal tubular secretion. Performed By: #### C DP, SHARYN, CK, BMP #### [facility] [address] [facility] [place] [address] Help Desk Associate: Osvaldo Lombardo DO Glucose [Mass/Vol] 123 mg/dL High 70-99 [facility] Comment on above: Performed By: #### C DP, SHARYN, CK, BMP #### [facility] [address] [facility] [place] [address] Help Desk Associate: Osvaldo Lombardo DO Potassium [Moles/Vol] 3.5 mmol/L Low 3.7-5.3 [facility] Comment on above: Performed By: #### C DP, SHARYN, CK, BMP #### [facility] [address] [facility] [place] [address] Help Desk Associate: Osvaldo Lombardo DO Sodium [Moles/Vol] 138 mmol/L Normal 135-144 [facility] Comment on above: Performed By: #### C DP, SHARYN, CK, BMP #### [facility] [address] [place] [address] Help Desk Associate: Osvaldo Lombardo DO Urea nitrogen [Mass/Vol] 10 mg/dL Normal 6-20 [facility] Comment on above: Performed By: #### C DP, SHARYN, CK, BMP #### [facility] [address] [place] [address] Help Desk Associate: Osvaldo Lombardo DO CBC with Auto Differentialon 07-03-2022 Absolute Eos # 0.00 [facility] Absolute Lymph # 1.70 [facility] Absolute Gates # 0.60 [facility] Basophils (Bld) [#/Vol] 0.00 10*3/uL [facility] Basophils/100 WBC (Bld) 1 % 0 - 2 % [facility] Eosinophils/100 WBC (Bld) 1 % 0 - 4 % [facility] Hematocrit (Bld) [Volume fraction] 40.8 % 36 - 46 % [facility] Hemoglobin (Bld) [Mass/Vol] 12.9 g/dL 12.0 - 16.0 g/dL [facility] Interpretation and review of laboratory results Abnormal [facility] Lymphocytes/100 WBC (Bld) 24 % 24 - 44 % [facility] MCH (RBC) [Entitic mass] 27.5 pg 26 - 34 pg [facility] MCHC (RBC) [Mass/Vol] 31.5 g/dL 31 - 37 g/dL [facility] MCV (RBC) [Entitic vol] 87.3 fL 80 - 100 fL [facility] Monocytes/100 WBC (Bld) 9 % High 1 - 7 % [facility] Platelet distribution width (Bld) [Ratio] 15.2 % High 11.5 - 14.9 % [facility] Platelet mean volume (Bld) [Entitic vol] 7.5 fL 6.0 - 12.0 fL [facility] Platelets (Bld) [#/Vol] 296 10*3/uL [facility] RBC (Bld) [#/Vol] 4.68 10*6/uL 4.0 - 5.2 m/uL [facility] Segmented neutrophils/100 WBC (Bld) 65 % 36 - 66 % [facility] Segs Absolute 4.60 [facility] WBC (Bld) [#/Vol] 7.0 10*3/uL [facility] CBC with Diffon 07-03-2022 Abs. Basophil 0.00 k/uL Normal 0.0-0.2 [facility] Comment on above: Performed By: #### C DP, SHARYN, CK, BMP #### [facility] [address] [place] [address] [id number] Help Desk Associate: Osvaldo Lombardo DO Abs.Neutrophil (Seg) 4.60 k/uL Normal 1.3-9.1 [facility] Comment on above: Performed By: #### C DP, SHARYN, CK, BMP #### [facility] [address] [place] [address] [id number] Help Desk Associate: Osvaldo Lombardo DO Basophils/100 WBC (Bld) 1 % Normal 0-2 [facility] Comment on above: Performed By: #### C DP, SHARYN, CK, BMP #### [facility] [address] [place] [id number] Help Desk Associate: Osvaldo Lombardo DO Eosinophils (Bld) [#/Vol] 0.00 10*3/uL Normal 0.0-0.4 [facility] Comment on above: Performed By: #### C DP, SHARYN, CK, BMP #### [facility] [address] [place] [address] Help Desk Associate: Osvaldo Lombardo DO Eosinophils/100 WBC (Bld) 1 % Normal 0-4 [facility] Comment on above: Performed By: #### C DP, SHARYN, CK, BMP #### [facility] [place] [address] Help Desk Associate: Osvaldo Lombardo DO Erythrocyte distribution width (RBC) [Ratio] 15.2 % High 11.5-14.9 [facility] Comment on above: Performed By: #### C DP, SHARYN, CK, BMP #### [facility] [place] [address] Help Desk Associate: Osvaldo Lombardo DO Hematocrit (Bld) [Volume fraction] 40.8 % Normal 36-46 [facility] Comment on above: Performed By: #### C DP, SHARYN, CK, BMP #### [facility] [place] [address] Help Desk Associate: Osvaldo Lombardo DO Hemoglobin (Bld) [Mass/Vol] 12.9 g/dL Normal 12.0-16.0 [facility] Comment on above: Performed By: #### C DP, SHARYN, CK, BMP #### [facility] [place] [address] Help Desk Associate: Osvaldo Lombardo DO Lymphocytes (Bld) [#/Vol] 1.70 10*3/uL Normal 1.0-4.8 [facility] Comment on above: Performed By: #### C DP, SHARYN, CK, BMP #### [facility] [place] [address] Help Desk Associate: Osvaldo Lombardo DO Lymphocytes/100 WBC (Bld) 24 % Normal 24-44 [facility] Comment on above: Performed By: #### C DP, SHARYN, CK, BMP #### [facility] [place] [address] Help Desk Associate: Osvaldo Lombardo DO MCH (RBC) [Entitic mass] 27.5 pg Normal 26-34 [facility] Comment on above: Performed By: #### C DP, SHARYN, CK, BMP #### [facility] [address] [place] [address] Help Desk Associate: Osvaldo Lombardo DO MCHC (RBC) [Mass/Vol] 31.5 g/dL Normal 31-37 [facility] Comment on above: Performed By: #### C DP, SHARYN, CK, BMP #### [facility] [address] [place] [address] Help Desk Associate: Osvaldo Lombardo DO MCV (RBC) [Entitic vol] 87.3 fL Normal 80-100 [facility] Comment on above: Performed By: #### C DP, SHARYN, CK, BMP #### [facility] [address] [place] [address] Help Desk Associate: Osvaldo Lombardo DO Monocytes (Bld) [#/Vol] 0.60 10*3/uL Normal 0.1-1.3 [facility] Comment on above: Performed By: #### C DP, SHARYN, CK, BMP #### [facility] [address] [place] [address] Help Desk Associate: Osvaldo Lombardo DO Monocytes/100 WBC (Bld) 9 % High 1-7 [facility] Comment on above: Performed By: #### C DP, SHARYN, CK, BMP #### [facility] [address] [place] [address] Help Desk Associate: Osvaldo Lombardo DO Neutrophil (Seg) 65 % Normal 36-66 [facility] Comment on above: Performed By: #### C DP, SHARYN, CK, BMP #### [facility] [address] [place] [address] Help Desk Associate: Osvaldo Lombardo DO Platelet mean volume (Bld) [Entitic vol] 7.5 fL Normal 6.0-12.0 [facility] Comment on above: Performed By: #### C DP, SHARYN, CK, BMP #### [facility] [place] [address] Help Desk Associate: Osvaldo Lombardo DO Platelets (Bld) [#/Vol] 296 10*3/uL Normal 150-450 [facility] Comment on above: Performed By: #### C DP, SHARYN, CK, BMP #### [facility] [facility] [place] [address] Help Desk Associate: Osvaldo Lombardo DO RBC (Bld) [#/Vol] 4.68 10*6/uL Normal 4.0-5.2 [facility] Comment on above: Performed By: #### C DP, SHARYN, CK, BMP #### [facility] [address] [facility] [place] [address] Help Desk Associate: Osvaldo Lombardo DO WBC (Bld) [#/Vol] 7.0 10*3/uL Normal 3.5-11.0 [facility] Comment on above: Performed By: #### C DP, SHARYN, CK, BMP #### [facility] [place] [address] Help Desk Associate: Osvaldo Lombardo DO CKon 07-03-2022 CK [Catalytic activity/Vol] 169 U/L 26 - 192 U/L [facility] BON [facility] Creatine Kinaseon 07-03-2022 CK [Catalytic activity/Vol] 169 U/L Normal 26-192 [facility] Comment on above: Performed By: #### C DP, SHARYN, CK, BMP ####[facility] [id number] [place] [address] Lab Director: Osvaldo Lombardo DO Drug Scr, Abuse, Uron 2022 Amphetamine(s),Ur Positive Abnormal NEG [facility] Comment on above: Result Comment: (Positive cutoff 1000 ng/mL) Performed By: #### D AU, UAX, UHCG, UMICAO #### [facility] [address] [place] [address] Help Desk Associate: Osvaldo Lombardo DO Barbiturate(s),Ur Negative Normal NEG [facility] Comment on above: Result Comment: (Positive cutoff 200 ng/mL) Performed By: #### D AU, UAX, UHCG, UMICAO #### [facility] [address] [place] [address] Help Desk Associate: Osvaldo Lombardo DO Benzodiazepine(s) Negative Normal NEG [facility] Comment on above: Result Comment: (Positive cutoff 200 ng/mL) Performed By: #### D AU, UAX, UHCG, UMICAO #### [facility] [address] [place] [address] Help Desk Associate: Osvaldo Lombardo DO Cannabinoid(s),Ur Positive Abnormal NEG [facility] Comment on above: Result Comment: (Positive cutoff 50 ng/mL) Performed By: #### D AU, UAX, UHCG, UMICAO #### [facility] [address] [place] [address] Help Desk Associate: Osvaldo Lombardo DO Cocaine Metabolite Positive Abnormal NEG [facility] Comment on above: Result Comment: (Positive cutoff 300 ng/mL) Performed By: #### D AU, UAX, UHCG, UMICAO #### [facility] [address] [facility] [place] [address] Help Desk Associate: Osvaldo Lombardo DO Fentanyl, Urine Negative Normal NEG [facility] Comment on above: Result Comment: (Positive cutoff 5 ng/ml) Performed By: #### Sharon AU, UAX, UHCG, UMICAO #### [facility] [address] [facility] [place] [address] Help Desk Associate: Osvaldo Lombardo DO Interpretive Info Assay provides medical screening only. The absence of expected drug(s) and/or Normal [facility] Comment on above: Result Comment: meta bolite(s) may indicate diluted or adulterated urine, limitations of testing or timing of collection. Testing for legal purposes should be confirmed by another method. To request confirmation of test result, please call the lab within 7 days of sample submission. Performed By: #### Sharon AU, UAX, UHCG, UMICAO #### [facility] [address] [facility] [place] [address] Help Desk Associate: Osvaldo Lombardo DO Methadone Ql (U) Negative Normal NEG [facility] Comment on above: Result Comment: (Positive cutoff 300 ng/mL) Performed By: #### D AU, UAX, UHCG, UMICAO #### [facility] [address] [facility] [place] [address] Help Desk Associate: Osvaldo Lombardo DO Opiate(s), Ur Negative Normal NEG [facility] Comment on above: Result Comment: (Positive cutoff 300 ng/mL) Performed By: #### D AU, UAX, UHCG, UMICAO #### [facility] [address] [facility] [place] [address] Help Desk Associate: Osvaldo Lombardo DO Oxycodone, Urine Negative Normal NEG [facility] Comment on above: Result Comment: (Positive cutoff 100 ng/mL) Performed By: #### D AU, UAX, UHCG, UMICAO #### [facility] [address] [place] [address]. [place] [address] Help Desk Associate: Osvaldo Lombardo DO Phencyclidine, Ur Negative Normal NEG [facility] Comment on above: Result Comment: (Positive cutoff 25 ng/mL) Performed By: #### D AU, UAX, UHCG, UMICAO #### [facility] [address] [place] [address]. [place] [address] Help Desk Associate: Osvaldo Lombardo DO HCG, ,Urineon 07-03 Beta HCG ( test) Ql (U) Negative Normal [facility] Comment on above: Result Comment: Spec imens with hCG levels near the threshold of the test (25 mIU/mL) may give a negative or indeterminate result. In such cases, another test should be performed with a new specimen in 48-72 hours. If early is suspected clinically in this setting, correlation with quantitative serum b-hCG level is suggested. Performed By: #### D AU, UAX, UHCG, UMICAO #### [facility] [address] [place] [address] Help Desk Associate: Osvaldo Lombardo DO Beta HCG ( test) Ql (U) Negative NEGATIVE [facility] Comment on above: Specimens with hCG l evels near the threshold of the test (25 mIU/mL) may give a negative or indeterminate result. In such cases, another test should be performed with a new specimen in 48-72 hours. If early is suspected clinically in this setting, correlation with quantitative serum b-hCG level is suggested. [facility] Microscopic Urinalysison Bacteria, UA FEW Abnormal None [facility] Casts UA 3 to 5 /LPF [facility] Epithelial Cells UA 0 TO 2 /HPF [facility] Interpretation and review of laboratory results Abnormal [facility] RBC clumps Auto (Urine sed) [#/Area] 10 TO 20 /HPF [facility] WBC, UA TOO NUMEROUS TO COUNT /HPF [facility] Myoglobinon 07-03-2022 Myoglobin [Mass/Vol] 66 ng/mL High 25-58 [facility] Comment on above: Performed By: #### C DP, SHARYN, CK, BMP ####[facility] [id number] [facility] [place] [address] Lab Director: Osvaldo Lombardo DO Myoglobin, Bloodon 3 Myoglobin [Mass/Vol] 66 ng/mL High 25 - 58 ng/mL B ON [facility] No Panel Informationon 07-03 Interpretation and review of laboratory results Abnormal [facility] UA w/Reflex Cultureon 2022 Bilirubin, SemiQt,Ur Negative Normal NEG [facility] Comment on above: Performed By: #### D MACKENZIE UAX, UHCG, UMICAO #### [facility] [address] [facility] [place] [address] Help Desk Associate: Osvaldo Lombardo DO Blood, Urine SMALL Abnormal NEG [facility] Comment on above: Performed By: #### D MACKENZIE UAX, UHCG, UMICAO #### [facility] [address] [facility] [place] [address] Help Desk Associate: Osvaldo Lombardo DO Clarity (U) Cloudy Abnormal CLEAR [facility] Comment on above: Performed By: #### D AU, UAX, UHCG, UMICAO #### [facility] [address] [facility] [place] [address] Help Desk Associate: Fanelly, Osvaldo, DO Color (U) Yellow Normal YEL [facility] Comment on above: Performed By: #### Sharon AU, UAX, UHCG, UMICAO #### [facility] [address] [facility] [place] [address] Help Desk Associate: Osvaldo Lombardo DO Glucose Ql (U) Negative Normal NEG [facility] Comment on above: Performed By: #### Sharon AU, UAX, UHCG, UMICAO #### [facility] [address] [facility] [place] [address] Help Desk Associate: Osvaldo Lombardo DO Ketones Ql (U) TRACE Abnormal NEG [facility] Comment on above: Performed By: #### Sharon AU, UAX, UHCG, UMICAO #### [facility] [address] [place] [address]. [place] [address] Help Desk Associate: Osvaldo Lombardo DO Leukocyte esterase Test strip Ql (U) MOD Abnormal NEG [facility] Comment on above: Performed By: #### Sharon AU, UAX, UHCG, UMICAO #### [facility] [address] [place] [address]. [place] [address] Help Desk Associate: Osvaldo Lombardo, DO Nitrite,Ur Negative Normal NEG [facility] Comment on above: Performed By: #### Sharon AU, UAX, UHCG, UMICAO #### [facility] [address] [place] [address]. [place] [address] Help Desk Associate: Osvaldo Lombardo, DO PH,Ur 6.0 Normal 5.0-8.0 [facility] Comment on above: Performed By: #### Sharon AU, UAX, UHCG, UMICAO #### [facility] [place] [address] Help Desk Associate: Osvaldo Lombardo DO Protein Ql (U) 1+ Abnormal NEG [facility] Comment on above: Performed By: #### D AU, UAX, UHCG, UMICAO #### [facility] [address] [facility] [place] [address] Help Desk Associate: Osvaldo Lombardo DO Spec. [place],Ur 1.027 Normal 1.000-1.030 [facility] Comment on above: Performed By: #### D AU, UAX, UHCG, UMICAO #### [facility] [address] [facility] [place] [address] Help Desk Associate: Osvaldo Lombardo DO Urobilinogen,Ur Normal Normal NORM [facility] Comment on above: Performed By: #### D AU, UAX, UHCG, UMICAO #### [facility] [address] [facility] [place] [address] Help Desk Associate: Osvaldo Lombardo DO Urinalysis with Reflex to Cu ltureon 07-03-2022 Bilirubin Urine Negative NEGATIVE [facility] Color, UA Yellow Yellow [facility] Glucose Auto test strip (U) [Mass/Vol] Negative NEGATIVE [facility] Interpretation and review of laboratory results Abnormal [facility] Ketones (U) [Mass/Vol] TRACE Abnormal NEGATIVE [facility] Leukocyte esterase Auto test strip Ql (U) MOD Abnormal NEGATIVE [facility] Nitrite Auto test strip Ql (U) Negative NEGATIVE [facility] Protein (U) [Mass/Vol] 6.0 mg/dL 5.0 - 8.0 [facility] Protein (U) [Mass/Vol] 1+ Abnormal NEGATIVE [facility] Specific [place], UA 1.027 1.000 - 1.030 B ON [facility] Turbidity UA Cloudy Abnormal Clear [facility] Urine Hgb SMALL Abnormal NEGATIVE [facility] Urobilinogen, Urine Normal Normal [facility] Urinalysis,Microon 3 Bacteria FEW Abnormal NONE [facility] [facility] Comment on above: Performed By: #### Sharon AU, UAX, UHCG, UMICAO #### [facility] [address] [facility] [place] [address] Help Desk Associate: Osvaldo Lombardo DO Casts 3 to 5 [facility] Comment on above: Performed By: #### Sharon AU, UAX, UHCG, UMICAO #### [facility] [address] [place] [address]. [place] [address] Help Desk Associate: Osvaldo Lombardo DO Epithelial cells LM Ql (Urine sed) 0 TO 2 [facility] Comment on above: Performed By: #### Sharon MANN, UAX, UHCG, UMICAO #### [facility] [address] [place] [address]. [place] [address] Help Desk Associate: Osvaldo Lombardo DO Urine RBC's 10 TO 20 [facility] Comment on above: Performed By: #### Sharon MANN, UAX, UHCG, UMICAO #### [facility] [address] [place] [address]. [place] [address] Help Desk Associate: Osvaldo Lombardo DO Urine WBC's TOO NUMEROUS TO COUNT Normal [facility] Comment on above: Performed By: #### Sharon MANN, UAX, UHCG, UMICAO #### [facility] [address] [place] [address]. [place] [address] Help Desk Associate: Osvaldo Lombardo DO Urine Drug Screenon 07-03-19 23 Amphetamine Screen, Ur Positive Abnormal NEGATIVE [facility] Comment on above: (Positive cutoff 1000 ng/mL) Barbiturate Screen, Ur Negative NEGATIVE [facility] Comment on above: (Positive cutoff 200 ng/mL) Benzodiazepine Screen, Urine Negative NEGATIVE [facility] Comment on above: (Positive cutoff 200 ng/mL) Cannabinoid Scrn, Ur Positive Abnormal NEGATIVE [facility] Comment on above: (Positive cutoff 50 ng/mL) Cocaine Metabolite, Urine Positive Abnormal NEGATIVE [facility] Comment on above: (Positive cutoff 300 ng/mL) Fentanyl, Ur Negative NEGATIVE [facility] Comment on above: (Positive cutoff 5 ng/ml) Interpretation and review of laboratory results Abnormal [facility] Methadone Screen, Urine Negative NEGATIVE [facility] Comment on above: (Positive cutoff 300 ng/mL) Opiates, Urine Negative NEGATIVE [facility] Comment on above: (Positive cutoff 300 ng/mL) Oxycodone Screen, Ur Negative NEGATIVE [facility] Comment on above: (Positive cutoff 100 ng/mL) Phencyclidine, Urine Negative NEGATIVE [facility] Comment on above: (Positive cutoff 25 ng/mL) Test Information Assay provides medical screening only. The absence of expected drug(s) and/or metabolite(s) may indicate diluted or adulterated urine, limitations of testing or timing of collection. [facility] Comment on above: Testing for legal pu rposes should be confirmed by another method. To request confirmation of test result, please call the lab within 7 days of sample submission. [facility] CBC with Diffon 01-07-2022 Abs. Basophil 0.00 k/uL Normal 0.0-0.2 [facility] Comment on above: Performed By: #### L JAVI CASTREJON, CP ####[facility] [address] [place] [address] Lab Director: Osvaldo Lombardo DO Abs.Neutrophil (Seg) 4.60 k/uL Normal 1.3-9.1 [facility] Comment on above: Performed By: #### L IP CDP, CP ####[facility] [address] [place] [address] Lab Director: Osvaldo Lombardo DO Basophils/100 WBC (Bld) 1 % Normal 0-2 [facility] Comment on above: Performed By: #### L IP, CDP, CP ####[facility] [address] [place] [address] lab Director: Osvaldo Lombardo DO Eosinophils (Bld) [#/Vol] 0.10 10*3/uL Normal 0.0-0.4 [facility] Comment on above: Performed By: #### L IP, CDP, CP ####[facility] [address] [place] [address] Lab Director: Osvaldo Lombardo DO Eosinophils/100 WBC (Bld) 2 % Normal 0-4 [facility] Comment on above: Performed By: #### L IP, CDP, CP ####[facility] [address] [facility] [place] [address] Lab Director: Osvaldo Lombardo DO Erythrocyte distribution width (RBC) [Ratio] 14.2 % Normal 11.5-14.9 [facility] Comment on above: Performed By: #### L IP, CDP, CP ####[facility] [address] [facility] [place] [address] Lab Director: Osvaldo Lombardo DO Hematocrit (Bld) [Volume fraction] 39.0 % Normal 36-46 [facility] Comment on above: Performed By: #### L IP, CDP, CP ####[facility] [address] [facility] [place] [address] Lab Director: Osvaldo Lombardo DO Hemoglobin (Bld) [Mass/Vol] 12.6 g/dL Normal 12.0-16.0 [facility] Comment on above: Performed By: #### L IP, CDP, CP ####[facility] [address] [facility] [place] [address] Lab Director: Osvaldo Lombardo DO Lymphocytes (Bld) [#/Vol] 1.30 10*3/uL Normal 1.0-4.8 [facility] Comment on above: Performed By: #### L IP, CDP, CP ####[facility] [address] [facility] [place] [address] Lab Director: Osvaldo Lombardo DO Lymphocytes/100 WBC (Bld) 20 % Low 24-44 [facility] Comment on above: Performed By: #### L IP, CDP, CP ####[facility] [address] [facility], [place] [phone] Director: Osvaldo Lombardo DO MCH (RBC) [Entitic mass] 27.8 pg Normal 26-34 [facility] Comment on above: Performed By: #### L IP, CDP, CP ####[address], [place] [id number])[phone] Director: Osvaldo Lombardo DO MCHC (RBC) [Mass/Vol] 32.3 g/dL Normal 31-37 [facility] Comment on above: Performed By: #### L JAVI CASTREJON, CP ####[address], [place] [phone] Director: Osvaldo Lombardo DO MCV (RBC) [Entitic vol] 86.0 fL Normal 80-100 [facility] Comment on above: Performed By: #### L IP, CDP, CP ####[address] [phone] Director: Osvaldo Lombardo DO Monocytes (Bld) [#/Vol] 0.40 10*3/uL Normal 0.1-1.3 [facility] Comment on above: Performed By: #### L IP, CDP, CP ####[address], [place] [id number])[phone] Director: Osvaldo Lombardo DO Monocytes/100 WBC (Bld) 6 % Normal 1-7 [facility] Comment on above: Performed By: #### L IP, CDP, CP ####[address] [address] Lab Director: Osvaldo Lombardo DO Neutrophil (Seg) 71 % High 36-66 [facility] Comment on above: Performed By: #### L IP, CDP, CP ####[facility] [address], [place] [id number])[phone] Director: Osvaldo Lombardo DO Platelet mean volume (Bld) [Entitic vol] 8.0 fL Normal 6.0-12.0 [facility] Comment on above: Performed By: #### L IP, CDP, CP ####[facility] [address] [facility], [place] [phone] Director: Osvaldo Lombardo DO Platelets (Bld) [#/Vol] 207 10*3/uL Normal 150-450 [facility] Comment on above: Performed By: #### L IP CDP, CP ####[facility] [address] [place] [address] Lab Director: Osvaldo Lombardo DO RBC (Bld) [#/Vol] 4.54 10*6/uL Normal 4.0-5.2 [facility] Comment on above: Performed By: #### L IP, CDP, CP ####[facility] [address] [facility].[place], [place] [phone])[phone] Director: Osvaldo Lombardo DO WBC (Bld) [#/Vol] 6.4 10*3/uL Normal 3.5-11.0 [facility] Comment on above: Performed By: #### L IP, CDP, CP ####[facility] [address] [place] [address].[place], [place] [phone])[phone] Director: Osvaldo Lombardo DO CT ABDOMEN PELVIS WO CONTRAS Ton 01-07-2022 CT ABDOMEN PELVIS WO CONTRAST EXAMINATION: CT OF THE ABDOMEN AND PELVIS WITHOUT CONTRAST 01/07/2022 11:36 am TECHNIQUE: CT of the abdomen and pelvis was performed without the administration of intravenous contrast. Multiplanar reformatted images are provided for review. Automated exposure control, iterative reconstruction, and/or weight based adjustment of the mA/kV was utilized to reduce the radiation dose to as low as reasonably achievable. COMPARISON: CT abdomen and pelvis performed 02/15/2018. HISTORY: ORDERING SYSTEM PROVIDED HISTORY: b/l flank pain, hx of kidney stones TECHNOLOGIST PROVIDED HISTORY: b/l flank pain, hx of kidney stones Decision Support Exception - unselect if not a suspected or confirmed emergency medical condition->Emergency Medical Condition (MA) Is the patient ?->No Reason for Exam: b/l flank pain, hx of kidney stones Additional signs and symptoms: flank pain for two days. N/V, hematuria Relevant Medical/Surgical History: c section tubal FINDINGS: Lower Chest: The lung bases are without consolidation or effusion. The visualized cardiac structures are unremarkable. Organs: The liver and spleen are normal size and overall attenuation. The gallbladder has been removed. The pancreas and adrenal glands are unremarkable. The kidneys are without obstructive uropathy. The urinary bladder is unremarkable. GI/Bowel: The stomach is contracted and otherwise unremarkable. Loops of small bowel are normal in caliber without evidence for obstruction. The colon contains air and fecal residue. There is no free air or free fluid. Pelvis: The uterus is age-appropriate. There is a fallopian occlusion clip in the posterior left pelvic region. There is migration of the other fallopian occlusion clip to the left mid abdomen just below level of the kidneys. Peritoneum/Retroperit oneum: The psoas muscles are symmetric. The abdominal aorta is normal in caliber. The inferior vena cava is unremarkable. There is no retroperitoneal or mesenteric adenopathy. Bones/Soft Tissues: The extra-abdominal soft tissues are unremarkable. There is no acute osseous abnormality. IMPRESSION: No acute abdominal or pelvic abnormality. Interpreted by: Leonardo Guillen MD Signed by: Leonardo Guillen MD 01/07/22 Final result Normal [facility] Comp Metabolic Profon 2021 (cont.) Normal [facility] Comment on above: Result Comment: Aver age GFR for 40-49 years old: 99 mL/min/1.73sq m Chronic Kidney Disease: <60 mL/min/1.73sq m Kidney failure: <15 mL/min/1.73sq m eGFR calculated using average adult body mass. Additional eGFR calculator available at: http://www.Prepair.Muzzley/multiple_crcl_2012.htm Performed By: #### L JAVI CASTREJON, CP ####[facility] [address], [place] [phone] Director: Osvaldo Lombardo DO Albumin [Mass/Vol] 3.8 g/dL Normal 3.5-5.2 [facility] Comment on above: Performed By: #### L JAVI CASTREJON, CP ####[facility] [address], [place] [phone] Director: Osvaldo Lombardo DO Alkaline Phos 36 U/L Normal 35-104 [facility] Comment on above: Performed By: #### L JAVI CASTREJON, CP ####[facility] [address] [facility].[place], [place] [phone] Director: Osvaldo Lombardo DO ALT [Catalytic activity/Vol] 10 U/L Normal 5-33 [facility] Comment on above: Performed By: #### L JAVI CASTREJON, CP ####[facility] [address] [facility], [place] [id number])[phone] Director: Osvaldo Lombardo DO Anion gap [Moles/Vol] 8 mmol/L Low 9-17 [facility] Comment on above: Performed By: #### L JAVI CASTREJON, CP ####[facility] [address] [facility].[place], [place] [phone] Director: Osvaldo Lombardo DO AST [Catalytic activity/Vol] 17 U/L Normal <32 [facility] Comment on above: Performed By: #### L JAVI CASTREJNO, CP ####[facility] [address], [place] [phone] Director: Osvaldo Lombardo DO Bilirubin [Mass/Vol] 0.20 mg/dL Low 0.3-1.2 [facility] Comment on above: Performed By: #### L IP, CDP, CP ####[facility] [address] [place] [address] lab Director: Osvaldo Lombardo DO Calcium [Mass/Vol] 9.0 mg/dL Normal 8.6-10.4 [facility] Comment on above: Performed By: #### L IP, CDP, CP ####[facility] [address] [place] [address] lab Director: Osvaldo Lombardo DO Chloride [Moles/Vol] 105 mmol/L Normal 98-107 [facility] Comment on above: Performed By: #### L IP, CDP, CP ####[facility] [address] [facility] [place] [address] lab Director: Osvaldo Lombardo DO CO2 [Moles/Vol] 27 mmol/L Normal 20-31 [facility] Comment on above: Performed By: #### L IP, CDP, CP ####[facility] [address] [facility] [place] [address] lab Director: Osvaldo Lombardo DO Creatinine [Mass/Vol] 0.65 mg/dL Normal 0.50-0.90 [facility] Comment on above: Performed By: #### L IP, CDP, CP ####[facility] [address] [facility] [place] [address] lab Director: Osvaldo Lombardo DO GFR, Amer >60 Normal >60 [facility] Comment on above: Performed By: #### L IP, CDP, CP ####[facility] [address] [facility] [place] [address] lab Director: Osvaldo Lombardo DO GFR,non Amer >60 Normal >60 [facility] Comment on above: Performed By: #### L IP, CDP, CP ####[facility] [address] [place] [address] Lab Director: Osvaldo Lombardo DO Glucose [Mass/Vol] 111 mg/dL High 70-99 [facility] Comment on above: Performed By: #### L IP, CDP, CP ####[facility] [address] [facility] [place] [address] lab Director: Osvaldo Lombardo DO Potassium [Moles/Vol] 3.7 mmol/L Normal 3.7-5.3 [facility] Comment on above: Performed By: #### L IP, CDP, CP ####[facility] [address] [facility] [place] [address] lab Director: Osvaldo Lombardo DO Protein [Mass/Vol] 6.3 g/dL Low 6.4-8.3 [facility] Comment on above: Performed By: #### L IP, CDP, CP ####[facility] [address] [facility], [place] [phone] Director: Osvaldo Lombardo DO Sodium [Moles/Vol] 140 mmol/L Normal 135-144 [facility] Comment on above: Performed By: #### L IP, JAVI, CP ####[facility] [address] [facility] [place] [address] lab Director: Osvaldo Lombardo DO Urea nitrogen [Mass/Vol] 11 mg/dL Normal 6-20 [facility] Comment on above: Performed By: #### L IP, CDP, CP ####[facility] [address] [place], [place] [phone] Director: Osvaldo Lombardo DO Lipaseon 01-07-2022 Lipase [Catalytic activity/Vol] 119 U/L High 13-60 [facility] Comment on above: Performed By: #### L IP, CDP, CP ####[facility] [address] [facility] [place] [address] Lab Director: Osvaldo Lombardo DO Urinalysis, Routineon 2021 Bilirubin, SemiQt,Ur Negative Normal NEG [facility] Comment on above: Performed By: #### U JAY JAY, UA ####[facility] [address] [facility], [place] [phone] Director: Osvaldo Lombardo DO Blood, Urine Negative Normal NEG [facility] Comment on above: Performed By: #### U JAY JAY, UA ####[facility] [address] [facility], [place] [phone] Director: Osvaldo Lombardo DO Clarity (U) Cloudy Abnormal CLEAR [facility] Comment on above: Performed By: #### Thomas GOYAL UA ####[facility] [address] [facility], [place] [phone] Director: Osvaldo Lombardo DO Color (U) Yellow Normal YEL [facility] Comment on above: Performed By: #### U JAY JAY, UA ####[facility] [address] [facility], [place] [phone])[phone] Director: Osvaldo Lombardo DO Glucose Ql (U) Negative Normal NEG [facility] Comment on above: Performed By: #### U JAY JAY UA ####[facility] [address] [facility] [place] [address] Lab Director: Osvaldo Lombardo DO Ketones Ql (U) Negative Normal NEG [facility] Comment on above: Performed By: #### U JAY JAY, UA ####[facility] [address] [facility] [place] [address] Lab Director: Osvaldo Lombardo DO Leukocyte esterase Test strip Ql (U) SMALL Abnormal NEG [facility] Comment on above: Performed By: #### Thomas GOYAL UA ####[facility] [address] [facility] [place] [address] Lab Director: Osvaldo Lombardo DO Nitrite,Ur Negative Normal NEG [facility] Comment on above: Performed By: #### U JAY JAY UA ####[facility] [address] [facility] [place] [address] lab Director: Osvaldo Lombardo DO PH,Ur 6.5 Normal 5.0-8.0 [facility] Comment on above: Performed By: #### Thomas GOYAL UA ####[facility] [address] [facility] [place] [address] Lab Director: Osvaldo Lombardo DO Protein Ql (U) Negative Normal NEG [facility] Comment on above: Performed By: #### U JAY JAY UA ####[facility] [address] [facility] [place] [address] Lab Director: Osvaldo Lombardo DO Spec. [place],Ur 1.020 Normal 1.000-1.030 [facility] Comment on above: Performed By: #### Thomas GOYAL UA ####[facility] [address] [facility] [place] [address] Lab Director: Osvaldo Lombardo DO Urobilinogen,Ur Normal Normal NORM [facility] Comment on above: Performed By: #### U JAY JAY, UA ####[facility] [address] [facility] [place] [address] Lab Director: Osvaldo Lombardo DO Urinalysis,Microon 2 Bacteria MODERATE Abnormal NONE [facility] Comment on above: Performed By: #### U JAY JAY UA ####[facility] [address] [place], [place] [address]e [place] [address] lab Director: Osvaldo Lombardo DO Casts 0 TO 2 Normal [facility] Comment on above: Performed By: #### U JAY JAY UA ####[facility] [address] [place] [address] lab Director: Osvaldo Lombardo DO Epithelial cells LM Ql (Urine sed) 10 TO 20 Normal [facility] Comment on above: Performed By: #### Thomas GOYAL, UA ####[facility] [address] [place] [address] lab Director: Osvaldo Lombardo DO Urine RBC's 0 TO 2 Normal [facility] Comment on above: Performed By: #### JYOTSNA MONTES ####[facility] [address] [place] [address] lab Director: Osvaldo Lombardo DO Urine WBC's 6 TO 9 Normal [facility] Comment on above: Performed By: #### JYOTSNA MONTES ####[facility] [address] [facility] [place] [address] lab Director: Osvaldo Lombardo DO CT ABDOMEN AND PELVIS WO CON TRASTon 05-07-2021 CT ABDOMEN AND PELVIS WO CONTRAST [facility] Department of Radiology [address] [place] [id number] Patient Name: BONNIE MONTOYA : 1980 Sex: F Age: Race: White Pt. Location: [id number] Patient Status: I Ordered Date: 05/07/2021 10:05:00 AM Completed Date: 05/07/2021 02:50 PM Requesting Provider: LAWRENCE PETE Attending Provider: DAVID LAZCANO Report Copy To: Signs & Symptoms: Abdominal Pain(specify) History: See Comments Comments: Renal Stones, L CVA tenderness getting worse, has h/o stones Exam: CT ABDOMEN AND PELVIS WO CONTRAST CT ABDOMEN AND PELVIS WO CONTRAST 05/07/2021 2:50 PM CLINICAL INDICATIONS: Abdominal Pain(specify) TECHNOLOGIST COMMENTS: abdomen pain QUESTION FOR THE RADIOLOGIST: Renal Stones, L CVA tenderness getting worse, has h/o stones PROTOCOL: Axial CT images of the abdomen and pelvis were obtained without IV contrast. TECHNIQUE: Multidetector CT axial slices of the abdomen and pelvis without IV contrast. Multiplanar reformats were performed and viewed on a separate workstation and reviewed to further define anatomy and possible pathology. COMPARISON: None. FINDINGS: Trace pleural effusions suggested in the posterior sulci. The liver, spleen, adrenals and pancreas appear unremarkable. The gallbladder has been resected. No renal calculus or hydronephrosis is appreciated. There is a calcification present overlying the left psoas muscle measuring 6 mm in diameter and 18 mm in length. No hydroureter or bladder calcification is noted. The stomach and small bowel appear unremarkable. Increased stool is noted throughout the colon. The uterus and adnexa are unremarkable. No free air or free fluid is identified. The aorta and retroperitoneum are unremarkable. The study viewed at bone window appears unremarkable. IMPRESSION: * Calcification over the left psoas muscle measuring 18 x 6 mm. This calcification may be vascular or within a lymph node as hydroureter and hydronephrosis would be expected with a ureteral calculus this large. * Trace bilateral pleural effusions. * Status post cholecystectomy. * Increased stool throughout colon consistent with constipation. All CT scans at this facility use dose modulation, iterative reconstruction, and/or weight based dosing when appropriate to reduce radiation dose to as low as reasonably achievable Electronically signed: Michelle More. Transcribed by: [email or web address], User Resident: Electronically Signed by: MICHELLE MORE @ 05/07/2021 03:20 PM Normal [facility] Comment on above: Order Comment: Renal Stones, L CVA tenderness getting worse, has h/o stones CT FACIAL BONES WO CONTRASTo n 05-05-2021 CT FACIAL BONES WO CONTRAST [facility] Department of Radiology [address] [place] [id number] Patient Name: BONNIE MONTOYA : 1980 Sex: F Age: Race: White Pt. Location: [id number] Patient Status: I Ordered Date: 05/05/2021 10:50:00 AM Completed Date: 05/05/2021 01:40 PM Requesting Provider: LAWRENCE PETE Attending Provider: DAVID LAZCANO Report Copy To: Signs & Symptoms: Head Injury History: See Comments Comments: Facial Fractures, Please look at TMJ s/p trauma wo contrast per dr pete Exam: CT FACIAL BONES WO CONTRAST CT facial bones: HISTORY: Facial trauma. CT images of the facial bones were obtained. Images are reformatted in the sagittal and coronal planes. Complete opacification of the left maxillary sinus noted. The paranasal sinuses and mastoid air cells are otherwise clear. Nasal septum is midline. Orbits appear symmetric. There is opacification of left ostiomeatal complex or soft tissue. Temporomandibular joint spaces appear intact. No facial bone fracture appreciated. Visualized aspect of the cervical spine is unremarkable. IMPRESSION: Opacified left maxillary sinus. No obvious fracture. Electronically signed: Eris Perez. Transcribed by: [email or web address], User Resident: Electronically Signed by: ERIS PEREZ @ 05/06/2021 07:03 AM Normal [facility] Comment on above: Order Comment: Facia l Fractures, Please look at TMJ s/p trauma wo contrast per dr pete ACETAMINOPHENon 05-02-2021 Acetaminophen [Mass/Vol] ug/mL Low 10-30 [facility] Comment on above: Performed By: #### 2 9773, [address]80[address], [address], 535[address], 32[address], 68455, 65859, [address], [address] #### [facility] [address] CBC W/DIFFon 05-02-2021 ABS IMM GRANS 0.0 10*3/uL Normal 0.0-0.2 [facility] Comment on above: Performed By: #### 3 1976 #### [facility] [address] ABS NEUTROPHILS 5.1 10*3/uL Normal 1.6-7.6 [facility] Comment on above: Performed By: #### 3 1976 #### [facility] [address] Basophils (Bld) [#/Vol] 0.0 10*3/uL Normal 0.0-0.2 [facility] Comment on above: Performed By: #### 3 1976 #### [facility] [address] [place] [address], [facility] Basophils/100 WBC (Bld) 0.6 % Normal 0.0-1.0 [facility] Comment on above: Performed By: #### 3 1977 #### [facility] [address] [place] [address], [facility] Eosinophils (Bld) [#/Vol] 0.1 10*3/uL Normal 0.0-0.5 [facility] Comment on above: Performed By: #### 3 1976 #### [facility] [address] [place] [address], [facility] Eosinophils/100 WBC (Bld) 0.7 % Normal 0.0-6.0 [facility] Comment on above: Performed By: #### 3 1976 #### [facility] [address] [facility]. [address] Erythrocyte distribution width (RBC) [Ratio] 14.6 % Normal 11.5-15.0 [facility] Comment on above: Performed By: #### 3 1976 #### [facility] [address] Hematocrit (Bld) [Volume fraction] 37.3 % Normal 36.0-45.0 [facility] Comment on above: Performed By: #### 3 1976 #### [facility] [address] [facility]. [address] Hemoglobin (Bld) [Mass/Vol] 12.2 g/dL Normal 12.0-15.0 [facility] Comment on above: Performed By: #### 3 1976 #### [facility] [address] [facility] IMMATURE GRANS 0.3 % Normal 0.0-1.0 [facility] Comment on above: Performed By: #### 3 1976 #### [facility] [address] [facility] [place] [address], [facility] Lymphocytes (Bld) [#/Vol] 1.6 10*3/uL Normal 1.2-4.0 [facility] Comment on above: Performed By: #### 3 1976 #### [facility] [address] [place] [address], [facility] Lymphocytes/100 WBC (Bld) 21.9 % Normal 20.0-45.0 [facility] Comment on above: Performed By: #### 3 1976 #### [facility] [address] [facility] [place] [address], [facility] MCH (RBC) [Entitic mass] 27.7 pg Normal 27.0-33.0 [facility] Comment on above: Performed By: #### 3 1976 #### [facility] [address] [facility] [place] [address], [facility] MCHC (RBC) [Mass/Vol] 32.7 g/dL Normal 32.0-35.0 [facility] Comment on above: Performed By: #### 3 1976 #### [facility] [address] [facility] [place] [address], [facility] MCV (RBC) [Entitic vol] 84.6 fL Normal 82.0-98.0 [facility] Comment on above: Performed By: #### 3 1976 #### [facility] [address] [facility]. [address] Monocytes (Bld) [#/Vol] 0.4 10*3/uL Normal 0.1-1.0 [facility] Comment on above: Performed By: #### 3 1976 #### [facility] [address] [facility] [place] [address], [facility] MONOS 5.6 % Normal 5.0-12.0 [facility] Comment on above: Performed By: #### 3 1976 #### [facility] [address] [facility]. [address] Neutrophils/100 WBC (Bld) 70.9 % Normal 40.0-72.0 [facility] Comment on above: Performed By: #### 3 1976 #### [facility] [address] [facility] [place] [address], [facility] Nucleated RBC/100 WBC (Bld) [Ratio] 0 % Normal 0-0 [facility] Comment on above: Performed By: #### 3 1976 #### [facility] [address] [facility] [place] [address], [facility] PLAT CNT 241 10*3/uL Normal 150-400 [facility] Comment on above: Performed By: #### 3 1976 #### [facility] [address] [facility] [place] [address], [facility] RBC (Bld) [#/Vol] 4.41 10*6/uL Normal 3.80-5.00 [facility] Comment on above: Performed By: #### 3 1976 #### [facility] [address] [facility] [place] [address], [facility] WBC (Bld) [#/Vol] 7.17 10*3/uL Normal 4.00-10.60 [facility] Comment on above: Performed By: #### 3 1976 #### [facility] [address] CHOLESTEROL BLOODon 05-02-20 Cholesterol [Mass/Vol] 171 mg/dL Normal 120-200 Th [facility] Comment on above: Result Comment: CHOL ESTEROL REFERENCE RANGE: 20 YEARS AND OLDER CARDIOVASCULAR RISK Less than 200 mg/dl Low Risk 200 to 239 mg/dl Borderline Risk 240 mg/dl and greater High Risk Performed By: #### 3 1976 #### [facility] [address] [facility] [place] [address], [facility] COMP METABOLIC PANELon 05-02 Albumin [Mass/Vol] 3.8 g/dL Normal 3.5-5.7 [facility] Comment on above: Performed By: #### 2 9773, 28496, , 46383, 48337, 71572, 52675, 63510, 47404 #### [facility] [address] [facility] [place] [address], [facility] ALKALINE PHOSPH 39 IU/L Normal 34-104 [facility] Comment on above: Performed By: #### 2 9773, 36790, , 80974, 02188, 84962, 08591, 55053, 97050 #### [facility] [address] [place] [address], [place] ALT [Catalytic activity/Vol] 8 U/L Normal 7-52 [facility] Comment on above: Performed By: #### 2 9773, 69684, , , 13674, 60038, 85426, 76305, 48692 #### [facility] [address] [place] [address], [place] AST [Catalytic activity/Vol] 10 U/L Low 13-39 [facility] Comment on above: Performed By: #### 2 9773, 50938, , , 48390, 42445, 98972, 93597, 20233 #### [facility] [address] [place] [address], [place] Bilirubin [Mass/Vol] 0.4 mg/dL Normal 0.3-1.0 [facility] Comment on above: Performed By: #### 2 9773, 95843, , , 23814, 88844, 07433, 74391, 22436 #### [facility] [address] [place] [address], [place] Calcium [Mass/Vol] 8.6 mg/dL Normal 8.6-10.3 [facility] Comment on above: Performed By: #### 2 9773, , , , 40205, 92253, 52972, 89224, 45911 #### [facility] [address] [place] [address], [place] Chloride [Moles/Vol] 105 mmol/L Normal 98-107 [facility] Comment on above: Performed By: #### 2 9773, 69317, , , 55410, 19263, 95182, 07305, 18461 #### [facility] [address] [place] [address], [place] CO2 [Moles/Vol] 29 mmol/L Normal 21-31 [facility] Comment on above: Performed By: #### 2 73, , , , 97102, 64316, 34997, 99532, 44791 #### [facility] [address] [place] [address], [place] Creatinine [Mass/Vol] 0.69 mg/dL Normal 0.60-1.20 [facility] Comment on above: Performed By: #### 2 9773, , , , 07596, 16279, 09983, 14719, 55162 #### [facility] [address] [place] [address], [place] GFR/1.73 sq M.predicted among blacks MDRD (S/P/Bld) [Vol rate/Area] mL/min/{1.73_m2} Normal >60 [facility] Comment on above: Performed By: #### 2 9773, , , , 69884, 24759, 64810, 42100, 68932 #### [facility] [address] [place] [address], [place] GFR/1.73 sq M.predicted among non-blacks MDRD (S/P/Bld) [Vol rate/Area] mL/min/{1.73_m2} Normal >60 [facility] Comment on above: Performed By: #### 2 9773, , , , 85503, 56703, 07632, 83795, 33187 #### [facility] [address] [place] [address], [place] Glucose [Mass/Vol] 74 mg/dL Normal 70-100 [facility] Comment on above: Performed By: #### 2 9773, , , , 04629, 79986, 74609, 59877, 93689 #### [facility] [address] [place] [address], [place] Potassium [Moles/Vol] 4.0 mmol/L Normal 3.5-5.1 [facility] Comment on above: Performed By: #### 2 9773, , , , 00035, 18157, 83911, 25375, 42814 #### [facility] [address] [place] [address], [facility] Protein [Mass/Vol] 6.3 g/dL Normal 6.0-8.3 [facility] Comment on above: Performed By: #### 2 9773, 89181, , , 51742, 89521, 63242, 27368, 10670 #### [facility] [address] [place] [address], [facility] Sodium [Moles/Vol] 140 mmol/L Normal 136-145 [facility] Comment on above: Performed By: #### 2 9773, , , , 22556, 25189, 38001, 65898, 89767 #### [facility] [address] [place] [address], [facility] Urea nitrogen [Mass/Vol] 11 mg/dL Normal 7-25 [facility] Comment on above: Performed By: #### 2 9773, , , , 31113, 29291, 98824, 65918, 56169 #### [facility] [address] [place] [address], [facility] DETOX PANEL URINEon 22-20 21 50 THC Negative Normal NEGATIVE [facility] Comment on above: Order Comment: Yes: Add to Previous draw if able Performed By: #### 3 1976 #### [facility] [address] [place] [address], [facility] BARBITURATES Negative Normal NEGATIVE [facility] Comment on above: Order Comment: Yes: Add to Previous draw if able Performed By: #### 3 1976 #### [facility] [address] [place] [address], [place] BENZODIAZEPINES Negative Normal NEGATIVE [facility] Comment on above: Order Comment: Yes: Add to Previous draw if able Performed By: #### 3 1976 #### [facility] [address] [place] [address], [place] COCAINE Negative Normal NEGATIVE [facility] Comment on above: Order Comment: Yes: Add to Previous draw if able Performed By: #### 3 1976 #### [facility] [address] [place] [address], [place] METHADONE Negative Normal NEGATIVE [facility] Comment on above: Order Comment: Yes: Add to Previous draw if able Performed By: #### 3 1976 #### [facility] [address] [place] [address], [place] MONO AMPHET Negative Normal NEGATIVE [facility] Comment on above: Order Comment: Yes: Add to Previous draw if able Performed By: #### 3 1976 #### [facility] [address] [place] [address], [facility] OPIATES Negative Normal NEGATIVE [facility] Comment on above: Order Comment: Yes: Add to Previous draw if able Performed By: #### 3 1976 #### [facility] [address] [place] [address], [place] PHENCYCLIDINE Negative Normal NEGATIVE [facility] Comment on above: Order Comment: Yes: Add to Previous draw if able Performed By: #### 3 1976 #### [facility] [address] [place] [address], [place] PROPOXYPHENE Negative Normal NEGATIVE [facility] Comment on above: Order Comment: Yes: Add to Previous draw if able Performed By: #### 3 1976 #### [facility] [address] [place] [address], [place] TRICYCLICS Negative Normal NEGATIVE [facility] Comment on above: Order Comment: Yes: Add to Previous draw if able Performed By: #### 3 1976 #### [facility] [address] [place] [address], [place] DIRECT BILIon 05-02-2021 Bilirubin.direct [Mass/Vol] 0.1 mg/dL Normal 0.0-0.2 [facility] Comment on above: Performed By: #### 2 9773, 50342, 39205, 91417, 91853, 41750, 66048, 73871, 78582 #### [facility] [address] Ed Blood Alcohol (compound)o n 05-02-2021 Ethanol [Mass/Vol] Not detected Normal [facility] Comment on above: Result Comment: Divi de by 1000 to convert mg/dL to percent. Example: 100mg/dL = 0.1%. Performed By: #### 3 1764 #### [facility] [address] [facility]. [address] Ed Urine Tox Screen (compoun d)on 05-02-2021 50 THC Negative Normal NEGATIVE [facility] Comment on above: Performed By: #### 3 1775 #### [facility] [address] [facility]. [address] BARBITURATES Negative Normal NEGATIVE [facility] Comment on above: Performed By: #### 3 1775 #### [facility] [address] [facility] [place] [address], [facility] BENZODIAZEPINES Negative Normal NEGATIVE [facility] Comment on above: Performed By: #### 3 1775 #### [facility] [address] [facility] [place] [address], [facility] COCAINE Negative Normal NEGATIVE [facility] Comment on above: Performed By: #### 3 1775 #### [facility] [address] [facility] [place] [address], [facility] METHADONE Negative Normal NEGATIVE [facility] Comment on above: Performed By: #### 3 1775 #### [facility] [address] [place] [address], [facility] MONO AMPHET Negative Normal NEGATIVE [facility] Comment on above: Performed By: #### 3 1775 #### [facility] [address] [place] [address], [facility] OPIATES Negative Normal NEGATIVE [facility] Comment on above: Performed By: #### 3 1775 #### [facility] [address] [place] [address], [facility] PHENCYCLIDINE Negative Normal NEGATIVE [facility] Comment on above: Performed By: #### 3 1775 #### [facility] [address] [place] [address], [facility] PROPOXYPHENE Negative Normal NEGATIVE [facility] Comment on above: Performed By: #### 3 1775 #### [facility] [address] [place] [address], [facility] TRICYCLICS Negative Normal NEGATIVE [facility] Comment on above: Performed By: #### 3 1775 #### [facility] [address] [facility] [place] [address], [facility] GAMMA GT BLOODon 05-02-2021 GAMMA GT 8 IU/L Low 9-64 [facility] Comment on above: Performed By: #### 2 9773, 95633, , , 10537, 07163, 67787, 90077, 54231 #### [facility] [address] [facility] [place] [address], [facility] MAGNESIUM BLOODon 05-02-2021 Magnesium [Mass/Vol] 1.7 mg/dL Low 1.9-2.7 [facility] Comment on above: Performed By: #### 2 9773, 71060, , , 07336, 86888, 75400, 66205, 21378 #### [facility] [address] [facility] [place] [address], [facility] POC SARS COV2 ANTIGEN NEGATI VEon 05-02-2021 POC SARS COV2 ANTIGEN NEG Negative Normal NEGATIVE [facility] Comment on above: Result Comment: Nega tive results from patients with symptom onset beyond seven days, should be treated presumptive and confirmation with a molecular assay, if necessary, for patient management, may be performed. Negative results do not rule out SARS-CoV-2 infection and should not be used as the sole basis for treatment or patient management decisions, including infection control decisions. Negative results should be considered in the context of a patient?s recent exposures, history and the presence of clinical signs and symptoms consistent with COVID-19. The [employer] COVID-19 Ag Card is a lateral flow immunoassay intended for the qualitative detection of nucleocapsid protein antigen from SARS-CoV-2 in direct nasal swabs from individuals within the first seven days of symptom onset. Testing is limited to laboratories certified under the Clinical Laboratory Improvement Amendments of 1988 (CLIA), 42 U.S.C. ???263a, that meet the requirements to perform moderate, high or waived complexity tests. This test is authorized for use at the Point of Care (POC), i.e., in patient care settings operating under a CLIA Certificate of Waiver, Certificate of Compliance, or Certificate of Accreditation. Performed By: #### 3 1976 #### [address] SERUM TESTon 05-02 TEST Negative Normal [facility] Comment on above: Order Comment: No: D o not add to previous draw Performed By: #### 3 1976 #### [place] [id number], [facility] TROPONIN-Ion 05-02-2021 Troponin I.cardiac [Mass/Vol] 0.00 ng/mL Normal 0.00-0.04 [facility] Comment on above: Result Comment: REFE RENCE RANGES: 0.00 - 0.04 ng/ml NORMAL 0.05 - 0.50 ng/ml INDETERMINATE > 0.50 ng/ml CONSISTENT WITH AN M.I. Performed By: #### 2 9773, 12201, 00932, 04016, 22586, 11390, 07759, 56627, 82822 #### [place] [id number], [facility] TSH3on 05-02-2021 TSH 3RD GENERATION 1.02 uIU/mL Normal 0.34-5.60 [facility] Comment on above: Performed By: #### 3 1976 #### [facility] [address] [place] [address], [facility] UA,MICROSCOPIC REQUIREDon Appearance (U) SL CLOUDY Abnormal CLEAR [facility] Comment on above: Order Comment: Yes: Add to Previous draw if able Performed By: #### 3 1976 #### [facility] [address] [place] [address], [place] Bilirubin Ql (U) Negative Normal NEGATIVE [facility] Comment on above: Order Comment: Yes: Add to Previous draw if able Performed By: #### 3 1976 #### [facility] [address] [place] [address], [place] Color (U) YELLOW Normal YELLOW [facility] Comment on above: Order Comment: Yes: Add to Previous draw if able Performed By: #### 3 1976 #### [facility] [address] [place] [address], [place] EPIS MANY Abnormal FEW,OCC,NONE SEEN [facility] Comment on above: Order Comment: Yes: Add to Previous draw if able Performed By: #### 3 1976 #### [facility] [address] [place] [address], [place] Glucose Ql (U) Negative Normal NEGATIVE [facility] Comment on above: Order Comment: Yes: Add to Previous draw if able Performed By: #### 3 1976 #### [facility] [address] [place] [address], [place] Hemoglobin Ql (U) MODERATE Abnormal NEGATIVE [facility] Comment on above: Order Comment: Yes: Add to Previous draw if able Performed By: #### 3 1976 #### [facility] [address] [place] [address], [place] KETONE Negative Normal NEGATIVE [facility] Comment on above: Order Comment: Yes: Add to Previous draw if able Performed By: #### 3 1976 #### [facility] [address] [place] [address], [facility] LEUK SANTA MODERATE Abnormal NEGATIVE [facility] Comment on above: Order Comment: Yes: Add to Previous draw if able Performed By: #### 3 1976 #### [facility] [address] [place] [address], [facility] MUCUS THREADS OCC Abnormal NONE SEEN [facility] Comment on above: Order Comment: Yes: Add to Previous draw if able Performed By: #### 3 1976 #### [facility] [address] Nitrite Ql (U) Negative Normal NEGATIVE [facility] Comment on above: Order Comment: Yes: Add to Previous draw if able Performed By: #### 3 1976 #### [facility] [address] pH (U) 6.0 [pH] Normal 5.0-8.0 [facility] Comment on above: Order Comment: Yes: Add to Previous draw if able Performed By: #### 3 1976 #### [facility] [address] [facility] [address] Protein Ql (U) Negative Normal NEGATIVE [facility] Comment on above: Order Comment: Yes: Add to Previous draw if able Performed By: #### 3 1976 #### [facility] [address] [facility] [address] RBC 6-10 Abnormal NONE SEEN [facility] Comment on above: Order Comment: Yes: Add to Previous draw if able Performed By: #### 3 1976 #### [facility] [address] SPEC GRAV 1.009 Low 1.015-1.020 [facility] Comment on above: Order Comment: Yes: Add to Previous draw if able Performed By: #### 3 1976 #### [facility] [address] [facility] [place] [address], [facility] WBC UA 11-20 Abnormal NONE SEEN [facility] Comment on above: Order Comment: Yes: Add to Previous draw if able Performed By: #### 3 1976 #### [facility] [address] [place] [address], [facility] URIC ACID BLOODon 05-02-2021 Urate [Mass/Vol] 3.5 mg/dL Normal 2.3-6.6 [facility] Comment on above: Performed By: #### 3 1976 #### [facility] [address] [place] [address], [facility] Comprehensive Metabolic Pane lOrdered By: Emanuel aHney on 05-14-2019 Albumin [Mass/Vol] 4.1 g/dL 3.5 - 5.2 g/dL [employer] Phone: Albumin/Globulin [Mass ratio] 1.3 {ratio} [employer] Phone: ALP [Catalytic activity/Vol] 43 U/L 35 - 104 U/L [employer] Phone: ALT [Catalytic activity/Vol] 16 U/L 5 - 33 U/L [employer] Phone: Anion gap [Moles/Vol] 10 mmol/L 9 - 17 mmol/L [employer] Phone: AST [Catalytic activity/Vol] 16 U/L <32 [employer] Phone: Bilirubin [Mass/Vol] 0.28 mg/dL Low 0.3 - 1 .2 mg/dL [employer] Phone: Bun/Cre Ratio NOT REPORTED [employer] Work Phone: Calcium [Mass/Vol] 8.7 mg/dL 8.6 - 10. 4 mg/dL [employer] Phone: Chloride [Moles/Vol] 101 mmol/L 98 - 10 7 mmol/L [employer] Work Phone: CO2 [Moles/Vol] 27 mmol/L 20 - 31 mmol/L [facility] Phone: Creatinine [Mass/Vol] 0.69 mg/dL 0.5 - 0.9 mg/dL [facility] [employer] Phone: GFR >60 >60 mL/min [facility] [employer] Work Phone: GFR Comment [facility] Phone: Comment on above: Average GFR for 30-3 9 years old: 107 mL/min/1.73sq m Chronic Kidney Disease: <60 mL/min/1.73sq m Kidney failure: <15 mL/min/1.73sq m eGFR calculated using average adult body mass. Additional eGFR calculator available at: http://www.Zaiseoul/multiple_crcl_2012.htm GFR Non- >60 >60 mL/min [facility] Work Phone: GFR Staging NOT REPORTED [facility] [employer] Work Phone: Glucose [Mass/Vol] 111 mg/dL High 70 - 99 mg/dL [facility] [employer] Work Phone: Interpretation and review of laboratory results Abnormal [facility] [employer] Phone: Potassium [Moles/Vol] 4.6 mmol/L 3.7 - 5.3 mmol/L [facility] [employer] Phone: Protein [Mass/Vol] 7.3 g/dL 6.4 - 8.3 g/dL [facility] [employer] Phone: Sodium [Moles/Vol] 138 mmol/L 135 - 144 mmol/L [facility] [employer] Phone: Urea nitrogen [Mass/Vol] 17 mg/dL 6 - 20 mg/dL [facility] [employer] Phone: Lipid PanelOrdered By: Mel Haney on 05-14-2019 Cholesterol [Mass/Vol] 199 mg/dL <200 [facility] [employer] Work Phone: Comment on above: Cholesterol Guidelines: <200 Desirable 200-240 Borderline >240 Undesirable Cholesterol in HDL [Mass/Vol] 57 mg/dL >40 [employer] Phone: Comment on above: HDL Guidelines: <40 Undesirable 40-59 Borderline >59 Desirable Cholesterol in LDL [Mass/Vol] 130 mg/dL 0 - 130 mg/dL [employer] Phone: Comment on above: LDL Guidelines: <100 Desirable 100-129 Near to/above Desirable 130-159 Borderline >159 Undesirable Direct (measured) LDL and calculated LDL are not interchangeable tests. Cholesterol.total/Chol esterol in HDL [Mass ratio] 3.5 {ratio} <5 [employer] Phone: Triglyceride [Mass/Vol] 58 mg/dL <150 [employer] Phone: Comment on above: Triglyceride Guidelines: <150 Desirable 150-199 Borderline 200-499 High >499 Very high Based on AHA Guidelines for fasting triglyceride, February 2012. VLDL NOT REPORTED 1 - 30 mg/dL [employer] Work Phone: TSH without ReflexOrdered By : Emanuel Haney on 05-14-2019 TSH Qn 0.97 m[IU]/L [employer] Work Phone: CBC Auto DifferentialOrdered By: Emanuel Haney on 05-13-2019 Absolute Eos # <0.03 [employer] Work Phone: Absolute Immature Granulocyte <0.03 [employer] Work Phone: Absolute Lymph # 1.22 [employer] [facility] Work Phone: Absolute Gates # 0.28 [facility] Work Phone: Basophils (Bld) [#/Vol] 0.03 10*3/uL [employer] Work Phone: Basophils/100 WBC (Bld) 1 % 0 - 2 % [employer] Work Phone: Differential Type NOT REPORTED [employer] Phone: Eosinophils/100 WBC (Bld) 0 % Low 1 - 4 % [employer] Phone: Erythrocyte distribution width (RBC) [Ratio] 14.2 % 11.8 - 14.4 % [employer] Phone: Hematocrit (Bld) [Volume fraction] 41.8 % 36.3 - 47.1 % [employer] Phone: Hemoglobin (Bld) [Mass/Vol] 12.9 g/dL 11.9 - 15.1 g/dL [employer] Phone: Immature granulocytes/100 WBC (Bld) 0 % 0 [employer] Phone: Interpretation and review of laboratory results Abnormal [employer] Phone: Lymphocytes/100 WBC (Bld) 20 % Low 24 - 43 % [employer] Phone: MCH (RBC) [Entitic mass] 27.8 pg 25.2 - 33.5 pg [employer] Phone: MCHC (RBC) [Mass/Vol] 30.9 g/dL 28.4 - 34.8 g/dL [employer] Phone: MCV (RBC) [Entitic vol] 90.1 fL 82.6 - 102.9 fL [employer] Phone: Monocytes/100 WBC (Bld) 5 % 3 - 12 % [employer] Phone: NRBC Automated 0.0 0.0 per 100 WBC [employer] Phone: Platelet Estimate NOT REPORTED [employer] Phone: Platelet mean volume (Bld) [Entitic vol] 11.0 fL 8.1 - 13.5 fL [employer] Phone: Platelets (Bld) [#/Vol] 265 10*3/uL [employer] Phone: RBC (Bld) [#/Vol] 4.64 10*6/uL 3.95 - 5.1 1 m/uL [employer] Work Phone: RBC morphology finding Nom (Bld) NOT REPORTED [employer] Work Phone: Segmented neutrophils/100 WBC (Bld) 74 % High 36 - 65 % [employer] Work Phone: Segs Absolute 4.43 [facility] Work Phone: WBC (Bld) [#/Vol] 6.0 10*3/uL [employer] Work Phone: WBC Morphology NOT REPORTED [employer] [facility] Work Phone: Vital Signs Date Time Vital Sign Value Performing Clinician Faci lity 07-03-2022 13:16-0500 Diastolic blood pressure 89 mm[Hg] Flora Gasca MD [facility] [employer] 07-03-2022 13:16-0500 Heart rate 106 /min Flora Gasca MD [facility] [employer] 07-03-2022 13:16-0500 Respiratory rate 28 /min Flora Gasca MD [facility] [employer] 07-03-2022 13:16-0500 SaO2% (BldA) [Mass fraction] 96 % Flora Gasca MD [facility] [employer] 07-03-2022 13:16-0500 Systolic blood pressure 121 mm[Hg] Flora Gasca MD [facility] [employer] 07-03-2022 12:51-0500 Body height 167.6 cm Flora Gasca MD [facility] [employer] 07-03-2022 12:51-0500 Body mass index (BMI) [Ratio] 23.4 kg/m2 Flora Gasca MD [facility] [employer] 07-03-2022 12:51-0500 Body temperature 98.49 [degF] Flora Gasca MD [facility] [employer] 07-03-2022 12:51-0500 Body weight 65.77 kg Flora Gasca MD [facility] [employer] 06-04-2019 23:38-0500 Body height 167.6 cm Joanna Rodríguez MD Work Phone: [employer] Work Phone: 06-04-2019 23:38-0500 Body mass index (BMI) [Ratio] 26.95 kg/m2 Joanna Rodríguez MD Work Phone: [employer] Work Phone: 06-04-2019 23:38-0500 Body weight 75.75 kg Joanna Rodríguez MD Work Phone: [employer] Work Phone: 06-04-2019 23:36-0500 Body temperature 98.6 [degF] Joanna Rodríguez MD Work Phone: [employer] Work Phone: 06-04-2019 23:36-0500 Diastolic blood pressure 82 mm[Hg] Joanna Rodríguez MD Work Phone: [employer] Work Phone: 06-04-2019 23:36-0500 Heart rate 86 /min Joanna Rodríguez MD Work Phone: [employer] Work Phone: 06-04-2019 23:36-0500 Respiratory rate 16 /min Joanna Rodríguez MD Work Phone: [employer] Work Phone: 06-04-2019 23:36-0500 SaO2% (BldA) [Mass fraction] 98 % Joanna Rodríguez MD Work Phone: [employer] Work Phone: 06-04-2019 23:36-0500 Systolic blood pressure 113 mm[Hg] Joanna Rodríguez MD Work Phone: [employer] Work Phone: Encounters Encounter Date Encounter Type Care Provider Facility Start: 07-15-2023 ambulatory VICKY Simon ty:LYDIA Lechuga Start: 05-06-2023 ambulatory SELF SELF [facility] Start: 04-10-2023 ambulatory [facility] Start: 04-09-2023 ambulatory VICKY PAZRY Facility :LYDIA Robles Start: 03-13-2023 ambulatory [facility] Start: 02-27-2023 ambulatory [facility] Start: 02-12-2023 ambulatory SELF SELF [facility] Start: 02-05-2023 ambulatory SELF SELF [facility] Start: 01-27-2023 ambulatory SELF SELF [facility] Start: 01-20-2023 ambulatory SELF SELF [facility] Start: 11-10-2022 End: 11-15-2022 Evaluation and management of inpatient DAVID JALEESA [facility] Start: 11-07-2022 End: 11-07-2022 Emergency department patient visit EMANUEL SIXTO [facility] Start: 2022 End: 2022 Emergency department patient visit EMANUEL SIXTO [facility] Start: 07-03-2022 End: 07-03-2022 Emergency department patient visit [facility] Start: 07-03-2022 End: 07-03-2022 Emergency department patient visit Flora Gasca MD [facility] ED Comment on above: Muscle twitching (Pr imary Dx); Acute cystitis without hematuria Start: 01-07-2022 End: 01-07-2022 Emergency department patient visit EMANUEL SIXTO [facility] Start: 06-05-2019 End: 06-05-2019 [facility]: 06-04-2019 End: 06-05-2019 Emergency department patient visit Joanna Rodríguez MD Work Phone: [facility] ED Comment on above: Abrasion of right co rnea, initial encounter (Primary Dx); Acute bacterial conjunctivitis of both eyes Start: 05-13-2019 End: 05-13-2019 Subsequent hospital visit by physician Vicky Frederick APRN - [employer] Work Phone: [facility] Procedures Date Procedure Procedure Detail Performing Clinician Start: 07-03-2022 Basic metabolic pane l calcium total Flora Gasca MD Start: 07-03-2022 MYOGLOBIN, BLOOD Flora Gasca MD Start: 07-03-2022 Drug tst prsmv instr mnt chem analyzers pr date Flora Gasca MD Start: 07-03-2022 Urinalysis microscopic only Flora Gasca MD Start: 07-03-2022 Urine test visual color cmprsn meths Flora Gasca MD Start: 05-13-2019 Comprehensive metabo lic panel Emanuel [facility] [employer] Work Phone: Start: 05-13-2019 Lipid panel Emanuel [email or web address] Phone: Start: 12-27-2014 Microscopic observat ion [Identifier] in Cervix by Cyto stain Flora Gasca MD Plan of Treatment Date Care Activity Detail Author Start: 06-05-2029 DTaP/Tdap/Td vaccine (3 - Td or Tdap) DTaP/Tdap/Td vaccine (3 - Td or Tdap) [facility] Start: 06-05-2029 DTaP/Tdap/Td vaccine (3 - Td) DTaP/Tdap/Td vaccine (3 - Td) [employer] Phone: Start: 11-27-2026 DTaP/Tdap/Td vaccine (2 - Td) DTaP/Tdap/Td vaccine (2 - Td) [employer] Phone: Start: 05-13-2024 Lipid panel Lipids [facility] [employer] Start: 12-10-2021 Influenza vaccination Flu vaccine (# 1) [facility] Start: 01-10-2019 Influenza vaccination Flu vaccine (# 1) [employer] Phone: Start: 12-27-2017 Cervical cancer screen Cervical canc er screen [employer] Phone: Start: 12-27-2017 Screening for malign ant neoplasm of cervix [facility] [employer] Start: 2009 Screening for malign ant neoplasm of cervix HPV (without or with Pap) [facility] Start: 1991 Depression Screen Depression Screen [facility] Start: 1980 Varicella Vaccine (1 of 2 - 2-dose childhood series) Varicella Vaccine (1 of 2 - 2-dose childhood series) [facility] Start: 01-02-1980 COVID-19 Vaccine (#1) COVID-19 Vacci ne (#1) [facility] End: 07-03-2022 Culture, Urine [facility] Work Phone: Comment on above: Once for 1 Occurrenc es starting 07/03/2022 until 07/03/2022 Immunizations Immunization Date Immunization Notes Care Provider Fa cility 06-05-2019 tetanus toxoid, redu zurdo diphtheria toxoid, and acellular pertussis vaccine, adsorbed Joanna Rodríguez MD Work Phone: [employer] Work Phone: 06-05-2019 diphtheria, tetanus toxoids and acellular pertussis vaccine, unspecified formulation Joanna Rodríguez MD Work Phone: [employer] Work Phone: 11-27-2016 tetanus toxoid, redu zurdo diphtheria toxoid, and acellular pertussis vaccine, adsorbed Vicky Frederick APRN [facility] Work Phone: [facility] [employer] Payers Date Payer Category Payer Medicaid [id number] 2020 Unknown [id number] 2018 Unknown [id number] 2018 Unknown [employer] xxxxxxxxxxx 2018-Present [phone] [address] [place] [address] xxxxxxxxxxx [id number] 2018 Unknown [id number] 1979 Unknown [id number] 1979 Unknown [id number] 1979 Unknown [id number] 1979 Unknown [id number] [id number] 1979 Unknown [id number] [id number] 1979 Unknown [id number] [id number] 1979 Unknown [id number] [id number] 1979 Unknown [id number] [id number] 1979 Unknown [id number] [id number] 1979 Unknown [id number] [id number] 1979 Unknown [id number] [id number] 1979 Unknown [id number] [id number] 1979 Unknown [id number] [id number] 1979 Unknown [id number] Social History Date Type Detail Facility Start: 02-15-2018 End: 08-09-2018 Tobacco smoking status COIS Never smoker [facility] [employer] Start: 08-09-2018 End: 07-03-2022 Alcohol intake [facility] 1980 [facility] Start: 02-15-2018 Tobacco use and exposure Smokeless tobacco non-user [facility] [employer] Phone: Start: 07-03-2022 Alcohol intake [facility] [employer] Phone: Start: 07-03-2022 History SDOH Alcohol Frequency 1 [facility] [employer] Phone: Start: 07-03-2022 History SDOH Alcohol Std Drinks 0 [facility] [employer] Phone: Start: 06-23-2022 End: 07-03-2022 Exposure to SARS-CoV-2 (event) Not sure [facility] [employer] Phone: Clinical Notes 09-17-2020 to 11-15-2022 Note Date & Type Note Facility 11-15-2022 Note Adult Nutrition Asse ssment: Name: Bonnie Montoya Date: 1980 Date of Visit: 11/15/22 Admission Dx: Opiate dependence, continuous ([facility]) [F11.20] Reason for assessment: length of stay Information obtained from: patient, medical record, and nursing Past Medical History: Diagnosis Date ADHD (attention deficit hyperactivity disorder) Anxiety Bipolar disorder ([facility]) Depression PTSD (post-traumatic stress disorder) Seizures ([facility]) Current Medications: buprenorphine-naloxone, 1 tablet, sublingual, BID gabapentin, 800 mg, oral, 4x daily levETIRAcetam, 1,250 mg, oral, BID magnesium oxide, 400 mg, oral, Daily melatonin, 6 mg, oral, Nightly nitrofurantoin (macrocrystal-monohydrate), 100 mg, oral, q12h [facility] Labs: 0 Lab Value Date/Time BUN 14 11/14/2022 1305 CREATININE 0.76 11/14/2022 1305 NA 137 11/14/2022 1305 K 5.2 (H) 11/14/2022 1305 PHOS 4.9 11/10/2022 1759 MG 1.5 (L) 11/10/2022 1759 HGB 13.2 11/14/2022 1305 WBC 5.14 11/14/2022 1305 CHOL 152 11/10/2022 2539 Allergies: Allergies Allergen Reactions Imitrex [Sumatriptan] Anaphylaxis and Swelling THROAT SWELLING Motrin [Ibuprofen] Anaphylaxis and Swelling THROAT Nutrition Problems: -Swallowing Assessment: Denies issues chew/swallow -Abdominal Assessment: Last BM today per pt -Appetite: fair -Cognition: A/O x4 -Skin: intact -Edema: none Nutrition Data/Clinical Indicators of Nutrition Status: Height: 167.6 cm (5' 6 ) Weight: 64.4 kg (142 lb) BMI (Calculated): 22.93 Wt change: Per epic records, wt 11/07 was 64.6 kg, 07/04 was 65.8 kg and 02/28/22 was 79.4 kg. Wt appears stable more recently, but pt endorses wt loss since loss of (last Feb). IBW: 59.1 kg Weight change: 19% in 9 months (15 kg) Severity of weight change: severe Nutrition Assessment: Nutrition history: Lives with daughter and reports good access to food. Appetite is so-so currently 2/2 UTI and withdrawals. Pt reports that she was eating well at home and consuming 3 meals per day. Current Diet Order: Regular, Thin Liquids Meal Intake: Pt reports ordering her meals and consuming most of them. Still had yogurt and banana at bedside from B tray. Nutrition Risk: Moderate (wt loss) Nutrition Needs: Needs based on: actual body weight Calorie needs: 6881-5804 kcals/day based on Equation: 25-30 kcal/kg Protein needs: 52-64 g/day based on 0.8-1 g/kg Fluid needs: 1932 ml/day based on 30 ml/kg Treatment Plan: -Continue with current diet order -Provide boost x1/day for previous wt loss -Monitor wt weekly -Replace/correct electrolytes prn Goals: Nutrition Goals: intake > 75% meals, intake > 75% supplements, and wt maintenance [facility] 11-15-2022 Note ------ Attestation signed by Reji Calderón MD at 11/15/2022 11:21 AM I personally saw and examined the patient on the same date of service as resident/fellow . I discussed the findings and therapeutic plan with the resident/fellow . I agree with the documentation, except for any edits/updates below. Teaching Physician's Revisions: ------ GI Inpatient Progress Note Patient - Bonnie Montoya Age - 42 y.o. - 1980 Date of Admission - 11/10/2022 4:38 PM Interval history Patient seen and examined at bedside, she continues to report suprapubic pain, dysuria, incomplete bladder emptying. She now states that she was not able to complete her previous antibiotic course for her UTI. Denies itching in the vulvovaginal area as well as abnormal discharge. No overnight events. OBJECTIVE Vitals height is 1.676 m (5' 6 ) and weight is 64.4 kg (142 lb). Her oral temperature is 36.6 ???C (97.9 ???F). Her blood pressure is 97/65 and her pulse is 84. Her respiration is 16 and oxygen saturation is 97%. Temp: [36.6 ???C (97.9 ???F)-37 ???C (98.6 ???F)] 36.6 ???C (97.9 ???F) Heart Rate: [81-84] 84 Resp: [16] 16 BP: (97-114)/(65-82) 97/65 Weight: Admission weight: 64.4 kg (142 lb) Wt Readings from Last 1 Encounters: 11/10/22 64.4 kg (142 lb) Input/Output: No intake or output data in the 24 hours ending 11/15/22 0906 Physical Exam Constitutional: General: She is not in acute distress. HENT: Head: Normocephalic and atraumatic. Mouth/Throat: Mouth: Mucous membranes are moist. Pharynx: Oropharynx is clear. Eyes: General: No scleral icterus. Extraocular Movements: Extraocular movements intact. Conjunctiva/sclera: Conjunctivae normal. Cardiovascular: Rate and Rhythm: Normal rate and regular rhythm. Heart sounds: No murmur heard. Pulmonary: Effort: No respiratory distress. Breath sounds: Normal breath sounds. No wheezing or rales. Abdominal: General: Bowel sounds are normal. There is no distension. Palpations: Abdomen is soft. Tenderness: There is abdominal tenderness (suprapubic tenderness). There is right CVA tenderness and left CVA tenderness. There is no guarding. Musculoskeletal: Right lower leg: No edema. Left lower leg: No edema. Skin: General: Skin is warm and dry. Coloration: Skin is not jaundiced. Neurological: Mental Status: She is alert and oriented to person, place, and time. Objective Lab Results Results from last 7 days Lab Units 11/14/22 1305 11/10/22 1759 WBC AUTO 10*3/uL 5.14 6.15 HEMOGLOBIN g/dL 13.2 13.0 HEMATOCRIT % 41.1 41.2 PLATELETS AUTO 10*3/uL 258 274 Results from last 7 days Lab Units 11/14/22 1305 11/10/22 1759 SODIUM mmol/L 137 138 POTASSIUM mmol/L 5.2* 3.5 CHLORIDE mmol/L 99 100 CO2 mmol/L 36* 34* BUN mg/dL 14 7 CREATININE mg/dL 0.76 0.66 GLUCOSE mg/dL 96 76 CALCIUM mg/dL 9.5 9.5 MAGNESIUM mg/dL -- 1.5* Results from last 7 days Lab Units 11/10/22 1759 ALBUMIN g/dL 4.6 BILIRUBIN TOTAL mg/dL 0.6 ALT U/L 10 AST U/L 15 ALK PHOS U/L 36 No results found for: HGBA1C No lab exists for component: TROPI, TROPONIN No lab exists for component: ABGPH, ABGPCO2, ABGPO2, ABGHCO3, ABGBASEDEFIC, [id number], ABGOXYGENSOU No lab exists for component: LACTICACID, PROCALCITON Results from last 7 days Lab Units 11/10/22 1759 CHOLESTEROL mg/dL 152 Lab Results Component Value Date WBCU 3-5 (A) 11/13/2022 Radiology @[email or web address]@ Medications Scheduled: buprenorphine-naloxone, 1 tablet, sublingual, BID gabapentin, 800 mg, oral, 4x daily levETIRAcetam, 1,250 mg, oral, BID magnesium oxide, 400 mg, oral, Daily melatonin, 6 mg, oral, Nightly nitrofurantoin (macrocrystal-monohydrate), 100 mg, oral, q12h [facility] Infusions: As Needed: PRN medications: acetaminophen, alum-mag hydroxide-simeth, bisacodyl, cloNIDine, dicyclomine, gabapentin, guaiFENesin, hydrOXYzine pamoate, loperamide, magnesium hydroxide, ondansetron ODT OR ondansetron ODT, prochlorperazine, prochlorperazine ASSESSMENT AND PLAN Assessment Bonnie Montoya is a 42 y.o. female born 1980 with a medical history of seizure disorder, opiate dependence, anxiety and nephrolithiasis who presents for opiate detox. Internal medicine has been consulted for detox clearance. Opiate dependence, presenting for detox Cocaine use Acute cystitis, CT A/P on 11/07 negative for hydronephrosis/stone, UA positive only for leukocytes. Was given Keflex but did not complete course Hepatitis B core antibody positive, surface Ag negative and surface antibody positive and core IgM negative. Not active infection, work-up indicates past infection Hypomagnesemia, on replacement History of seizures, on Keppra and gabapentin Anxiety Plan Procal negative, however (more content not included)... [facility] 11-14-2022 Note ------ Attestation signed by Reji Calderón MD at 11/14/2022 2:01 PM I personally saw and examined the patient on the same date of service as resident/fellow . I discussed the findings and therapeutic plan with the resident/fellow . I agree with the documentation, except for any edits/updates below. Teaching Physician's Revisions: ------ [facility] Inpatient Progress Note Patient - Bonnie Montoya Age - 42 y.o. - 1980 Date of Admission - 11/10/2022 4:38 PM Interval history Patient seen and examined at beside, she reports worsening dysuria and decreased urinary frequency for 3 days. She reports feeling feverish and chills. No objective fevers reported. She also complains of bilateral flank pain. OBJECTIVE Vitals height is 1.676 m (5' 6 ) and weight is 64.4 kg (142 lb). Her oral temperature is 36.4 ???C (97.5 ???F). Her blood pressure is 99/64 and her pulse is 69. Her respiration is 16 and oxygen saturation is 100%. Temp: [36.4 ???C (97.5 ???F)-36.7 ???C (98.1 ???F)] 36.4 ???C (97.5 ???F) Heart Rate: [69-103] 69 Resp: [16] 16 BP: (99-125)/(64-80) 99/64 Weight: Admission weight: 64.4 kg (142 lb) Wt Readings from Last 1 Encounters: 11/10/22 64.4 kg (142 lb) Input/Output: No intake or output data in the 24 hours ending 11/14/22 1115 Physical Exam Constitutional: General: She is not in acute distress. HENT: Head: Normocephalic and atraumatic. Mouth/Throat: Mouth: Mucous membranes are moist. Pharynx: Oropharynx is clear. Eyes: General: No scleral icterus. Extraocular Movements: Extraocular movements intact. Conjunctiva/sclera: Conjunctivae normal. Cardiovascular: Rate and Rhythm: Normal rate and regular rhythm. Heart sounds: No murmur heard. Pulmonary: Effort: No respiratory distress. Breath sounds: Normal breath sounds. No wheezing or rales. Abdominal: General: Bowel sounds are normal. There is no distension. Palpations: Abdomen is soft. Tenderness: There is abdominal tenderness (suprapubic tenderness). There is right CVA tenderness and left CVA tenderness. There is no guarding. Musculoskeletal: Right lower leg: No edema. Left lower leg: No edema. Skin: General: Skin is warm and dry. Coloration: Skin is not jaundiced. Neurological: Mental Status: She is alert and oriented to person, place, and time. Objective Lab Results Results from last 7 days Lab Units 11/10/22 1759 WBC AUTO 10*3/uL 6.15 HEMOGLOBIN g/dL 13.0 HEMATOCRIT % 41.2 PLATELETS AUTO 10*3/uL 274 Results from last 7 days Lab Units 11/10/22 1759 SODIUM mmol/L 138 POTASSIUM mmol/L 3.5 CHLORIDE mmol/L 100 CO2 mmol/L 34* BUN mg/dL 7 CREATININE mg/dL 0.66 GLUCOSE mg/dL 76 CALCIUM mg/dL 9.5 MAGNESIUM mg/dL 1.5* Results from last 7 days Lab Units 11/10/22 1759 ALBUMIN g/dL 4.6 BILIRUBIN TOTAL mg/dL 0.6 ALT U/L 10 AST U/L 15 ALK PHOS U/L 36 No results found for: HGBA1C No lab exists for component: TROPI, TROPONIN No lab exists for component: ABGPH, ABGPCO2, ABGPO2, ABGHCO3, ABGBASEDEFIC, [id number], ABGOXYGENSOU No lab exists for component: LACTICACID, PROCALCITON Results from last 7 days Lab Units 11/10/22 1759 CHOLESTEROL mg/dL 152 Lab Results Component Value Date WBCU 3-5 (A) 11/13/2022 Radiology @[email or web address]@ Medications Scheduled: buprenorphine-naloxone, 1 tablet, sublingual, BID gabapentin, 800 mg, oral, 4x daily levETIRAcetam, 1,250 mg, oral, BID melatonin, 6 mg, oral, Nightly nitrofurantoin (macrocrystal-monohydrate), 100 mg, oral, q12h ALEXI Infusions: As Needed: PRN medications: acetaminophen, alum-mag hydroxide-simeth, bisacodyl, cloNIDine, dicyclomine, gabapentin, guaiFENesin, hydrOXYzine pamoate, loperamide, magnesium hydroxide, ondansetron ODT OR ondansetron ODT, prochlorperazine, prochlorperazine ASSESSMENT AND PLAN Assessment Bonnie Montoya is a 42 y.o. female born 1980 with a medical history of seizure disorder, opiate dependence, anxiety and nephrolithiasis who presents for opiate detox. Internal medicine has been consulted for detox clearance. Opiate dependence, presenting for detox Cocaine use Acute cystitis, recurrent, CT A/P on 11/07 negative for hydronephrosis/stone, UA positive only for leukocytes. S/P Keflex 5 days for previous UTI Hepatitis B core antibody positive, surface Ag negative and surface antibody positive and core IgM negative. Not active infection, work-up indicates past infection Hypomagnesemia, on replacement History of seizures, on Keppra and gabapentin Anxiety Plan Due to this being a recurrent UTI, will give one dose of Diflucan today and order procalcitonin Monitor for fever, worsening flank pain rest of care per primary Olinda Carmichael MD PGY-3, Internal Medicine [employer] (more content not included)... [facility] 11-14-2022 Note Hospital Day: 5 Patient seen by me, management and nursing report reviewed with the interdisciplinary team, medications and chart history reviewed. REASON FOR HOSPITALIZATION: Opioid and cocaine use and withdrawal Subjective: (reported issues and events over the last 24 hours) Patient was seen and examined at bedside. No acute events overnight. She reports sleeping on and off during the night. She reports no appetite and decreased energy. Current symptoms include feeling anxious, hot/cold flashes, diaphoresis, rhinorrhea, vomiting, and diarrhea. She denies any visual or auditory hallucinations, and suicidal or homicidal ideations. She is oriented to time and place. Her vitals have been stable. Prn medications taken by the patient in the last 24 hours: Tylenol, Mylanta, Bentyl, Mucinex, Vistaril, Imodium, Zofran Responding to: Symptomatic medications, started suboxone Objective: Vitals: 11/14/22 0800 BP: 99/64 Pulse: 69 Resp: 16 Temp: 36.4 ???C (97.5 ???F) SpO2: 100% No intake/output data recorded. MENTAL STATUS EXAM General Appearance: Well groomed, appropriate eye contact. Attitude/Behavior: Cooperative, conversant, engaged, and with good eye contact. Motor: No psychomotor agitation or retardation, no tremor or other abnormal movements. Speech: Normal rate, volume, prosody Gait: Did not assess Mood: so-so Affect: Anxious Thought Process: Linear, goal directed Thought Associations: No loosening of associations Thought Content: Patient denies suicidal thoughts and homicidal thoughts, denies auditory and visual hallucinations, does not appear to be responding to internal stimuli Suicidal/ Homicidal: denies, last suicidal thoughts occurred last year when patient was on Cymbalta Perception: No perceptual abnormalities noted Insight: Fair for the need for treatment Judgment: Fair for the need for treatment Impulse Control: Unable to assess Intellectual Function/Cognition: Cognitively intact to conversational testing with respect to attention, orientation, fund of knowledge, recent and remote memory, and language. Orientation: Alert and oriented to person, place, time and situation Recent Memory: Intact as evidenced by ability to recall details from the past 24 hours Remote Memory: Intact as evidenced by ability to recall previous medical issues Lab Results: Results for orders placed or performed during the hospital encounter of 11/10/22 C. TRACHOMATIS / N. GONORRHOEAE, TMA Specimen: Urine, Voided Result Value Ref Range N gonorrhoeae, TMA Negative Negative Chlamydia, TMA Negative Negative Acetaminophen level Result Value Ref Range Acetaminophen Level <10 (L) 10 - 30 ug/mL Basic metabolic panel Result Value Ref Range Sodium 138 136 - 145 mmol/L Potassium 3.5 3.5 - 5.1 mmol/L Chloride 100 98 - 107 mmol/L CO2 34 (H) 21 - 31 mmol/L BUN 7 7 - 25 mg/dL Creatinine 0.66 0.60 - 1.20 mg/dL Glucose 76 70 - 100 mg/dL Calcium 9.5 8.6 - 10.3 mg/dL Anion Gap 8 7 - 20 mmol/L eGFR 111.6 >60.0 mL/min/1.73m*2 BUN/Creatinine Ratio 10.6 Cholesterol, total Result Value Ref Range Cholesterol 152 120 - 200 mg/dL Gamma GT Result Value Ref Range GGT 6 (L) 9 - 64 U/L Hepatic function panel Result Value Ref Range Total Bilirubin 0.6 0.3 - 1.0 mg/dL Bilirubin, Direct 0.1 0 - 0.2 mg/dL Alkaline Phosphatase 36 34 - 104 U/L AST 15 13 - 39 U/L ALT (SGPT) 10 7 - 52 U/L Total Protein 7.2 6.0 - 8.3 g/dL Albumin 4.6 3.5 - 5.7 g/dL Magnesium Result Value Ref Range Magnesium 1.5 (L) 1.9 - 2.7 mg/dL Phosphorus Result Value Ref Range Phosphorus 4.9 2.5 - 5.0 mg/dL TSH Result Value Ref Range TSH 2.79 0.34 - 5.60 mIU/L Uric acid Result Value Ref Range Uric Acid 3.6 2.3 - 6.6 mg/dL Urinalysis Result Value Ref Range Color, Urine Straw Yellow, Dark Yellow, Straw Clarity, Urine Slightly Cloudy (A) Clear pH, Urine 6.5 5.0 - 8.0 pH Leukocytes, Urine Small (A) Negative Nitrite, Urine Negative Negative Protein, Urine Negative Negative mg/dL Glucose, Urine Negative Negative mg/dL Bilirubin, Urine Negative Negative Specific [place], Urine 1.007 (L) 1.015 - 1.020 Ketones, Urine Negative Negative mg/dL Blood, Urine Trace (A) Negative Detox Panel Urine Result Value Ref Range Barbiturate Screen, Ur Negative Negative Benzodiazepines Screen, Urine Negative Negative Propoxyphene, Ur Negative Negative Methadone Screen, Urine Negative Negative TCA, Urine Negative Negative PCP Scrn, Ur Negative Negative Opiate Scrn, Ur Negative Negative Cocaine Screen, Urine Positive (A) Negative Amphetamine+Methamphetamine Screen, Ur Negative Negative Cannabinoid Screen, Urine Negative Negative RPR Result Value Ref Range RPR Nonreactive Nonreactive Hepatitis panel, acute Result Value Ref Range Hepatitis B Surface Ag Nonreactive Nonreactive Hep A IgM Nonreactive Nonreactive Hepatitis C Ab Nonreactive Nonreactive Hep B Core Tot (more content not included)... [facility] 11-13-2022 Note ------ Attestation signed by Reji Calderón MD at 11/13/2022 10:43 AM I personally saw and examined the patient on the same date of service as resident/fellow . I discussed the findings and therapeutic plan with the resident/fellow . I agree with the documentation, except for any edits/updates below. Teaching Physician's Revisions: ------ GI Inpatient Progress Note Patient - Bonnie Montoya Age - 42 y.o. - 1980 Date of Admission - 11/10/2022 4:38 PM Interval history Patient seen and examined at bedside. reports muscle aches, headaches, nausea, vomiting, abdominal pain. No chest pain, shortness of breath, palpitations, fevers or chills. no acute overnight events. OBJECTIVE Vitals height is 1.676 m (5' 6 ) and weight is 64.4 kg (142 lb). Her temporal temperature is 37.4 ???C (99.3 ???F). Her blood pressure is 96/59 and her pulse is 69. Her respiration is 16 and oxygen saturation is 94%. Temp: [36.8 ???C (98.2 ???F)-37.4 ???C (99.3 ???F)] 37.4 ???C (99.3 ???F) Heart Rate: [68-72] 69 Resp: [16] 16 BP: (96-103)/(59-64) 96/59 Weight: Admission weight: 64.4 kg (142 lb) Wt Readings from Last 1 Encounters: 11/10/22 64.4 kg (142 lb) Input/Output: No intake or output data in the 24 hours ending 11/13/22 0952 Physical Exam Constitutional: General: She is not in acute distress. HENT: Head: Normocephalic and atraumatic. Mouth/Throat: Mouth: Mucous membranes are moist. Pharynx: Oropharynx is clear. Eyes: General: No scleral icterus. Extraocular Movements: Extraocular movements intact. Conjunctiva/sclera: Conjunctivae normal. Cardiovascular: Rate and Rhythm: Normal rate and regular rhythm. Heart sounds: No murmur heard. Pulmonary: Effort: No respiratory distress. Breath sounds: Normal breath sounds. No wheezing or rales. Abdominal: General: Bowel sounds are normal. There is no distension. Palpations: Abdomen is soft. Tenderness: There is no abdominal tenderness. There is no guarding. Musculoskeletal: Right lower leg: No edema. Left lower leg: No edema. Skin: General: Skin is warm and dry. Coloration: Skin is not jaundiced. Neurological: Mental Status: She is alert and oriented to person, place, and time. Objective Lab Results Results from last 7 days Lab Units 11/10/22 1759 WBC AUTO 10*3/uL 6.15 HEMOGLOBIN g/dL 13.0 HEMATOCRIT % 41.2 PLATELETS AUTO 10*3/uL 274 Results from last 7 days Lab Units 11/10/22 1759 SODIUM mmol/L 138 POTASSIUM mmol/L 3.5 CHLORIDE mmol/L 100 CO2 mmol/L 34* BUN mg/dL 7 CREATININE mg/dL 0.66 GLUCOSE mg/dL 76 CALCIUM mg/dL 9.5 MAGNESIUM mg/dL 1.5* Results from last 7 days Lab Units 11/10/22 1759 ALBUMIN g/dL 4.6 BILIRUBIN TOTAL mg/dL 0.6 ALT U/L 10 AST U/L 15 ALK PHOS U/L 36 No results found for: HGBA1C No lab exists for component: TROPI, TROPONIN No lab exists for component: ABGPH, ABGPCO2, ABGPO2, ABGHCO3, ABGBASEDEFIC, [id number], ABGOXYGENSOU No lab exists for component: LACTICACID, PROCALCITON Results from last 7 days Lab Units 11/10/22 1759 CHOLESTEROL mg/dL 152 Lab Results Component Value Date WBCU 6-10 (A) 11/10/2022 Radiology @[email or web address]@ Medications Scheduled: buprenorphine-naloxone, 1 tablet, sublingual, BID gabapentin, 800 mg, oral, 4x daily levETIRAcetam, 1,250 mg, oral, BID melatonin, 6 mg, oral, Nightly Infusions: As Needed: PRN medications: acetaminophen, alum-mag hydroxide-simeth, bisacodyl, cloNIDine, dicyclomine, gabapentin, guaiFENesin, hydrOXYzine pamoate, loperamide, magnesium hydroxide, ondansetron ODT OR ondansetron ODT, prochlorperazine, prochlorperazine ASSESSMENT AND PLAN Assessment Bonnie Montoya is a 42 y.o. female born 1980 with a medical history of seizure disorder, opiate dependence, anxiety and nephrolithiasis who presents for opiate detox. Internal medicine has been consulted for detox clearance. Opiate dependence, presenting for detox Cocaine use Hepatitis B core antibody positive, surface Ag negative and surface antibody positive and core IgM negative. Not active infection, work-up indicates past infection Hypomagnesemia, on replacement History of seizures, on Keppra and gabapentin Anxiety Plan discussed findings of hepatitis B work-up with patient rest of care per primary Olinda Carmichael MD PGY-3, Internal Medicine [facility] Internal Medicine [facility] 11-13-2022 Note Hospital Day: 4 Patient seen by me, management and nursing report reviewed with the interdisciplinary team, medications and chart history reviewed. REASON FOR HOSPITALIZATION: Opioid and cocaine use and withdrawal Subjective: (reported issues and events over the last 24 hours) Patient was seen and examined at bedside. No acute events overnight. She reports sleeping on and off during the night. She reports no appetite and decreased energy. Current symptoms include feeling anxious, hot/cold flashes, diaphoresis, vomiting, and diarrhea. She denies any visual or auditory hallucinations, and suicidal or homicidal ideations. She is oriented to time and place. Her vitals have been stable. Prn medications she needed in the last 24hrs are as follows; Tylenol 650mg twice, clonidine 0.1mg, Mucinex, Vistaril, Imodium, one time each, and Zofran twice. Responding to: Symptomatic medications, started suboxone Objective: Vitals: 11/13/22 0700 BP: 96/59 Pulse: 69 Resp: 16 Temp: 37.4 ???C (99.3 ???F) SpO2: 94% No intake/output data recorded. MENTAL STATUS EXAM General Appearance: Well groomed, appropriate eye contact. Attitude/Behavior: Cooperative, conversant, engaged, and with good eye contact. Motor: No psychomotor agitation or retardation, no tremor or other abnormal movements. Speech: Normal rate, volume, prosody Gait: Did not assess Mood: anxious Affect: Anxious Thought Process: Linear, goal directed Thought Associations: No loosening of associations Thought Content: Patient denies suicidal thoughts and homicidal thoughts, denies auditory and visual hallucinations, does not appear to be responding to internal stimuli Suicidal/ Homicidal: denies, last suicidal thoughts occurred last year when patient was on Cymbalta Perception: No perceptual abnormalities noted Insight: Fair for the need for treatment Judgment: Fair for the need for treatment Impulse Control: Unable to assess Intellectual Function/Cognition: Cognitively intact to conversational testing with respect to attention, orientation, fund of knowledge, recent and remote memory, and language. Orientation: Alert and oriented to person, place, time and situation Recent Memory: Intact as evidenced by ability to recall details from the past 24 hours Remote Memory: Intact as evidenced by ability to recall previous medical issues Lab Results: Results for orders placed or performed during the hospital encounter of 11/10/22 C. TRACHOMATIS / N. GONORRHOEAE, TMA Specimen: Urine, Voided Result Value Ref Range N gonorrhoeae, TMA Negative Negative Chlamydia, TMA Negative Negative Acetaminophen level Result Value Ref Range Acetaminophen Level <10 (L) 10 - 30 ug/mL Basic metabolic panel Result Value Ref Range Sodium 138 136 - 145 mmol/L Potassium 3.5 3.5 - 5.1 mmol/L Chloride 100 98 - 107 mmol/L CO2 34 (H) 21 - 31 mmol/L BUN 7 7 - 25 mg/dL Creatinine 0.66 0.60 - 1.20 mg/dL Glucose 76 70 - 100 mg/dL Calcium 9.5 8.6 - 10.3 mg/dL Anion Gap 8 7 - 20 mmol/L eGFR 111.6 >60.0 mL/min/1.73m*2 BUN/Creatinine Ratio 10.6 Cholesterol, total Result Value Ref Range Cholesterol 152 120 - 200 mg/dL Gamma GT Result Value Ref Range GGT 6 (L) 9 - 64 U/L Hepatic function panel Result Value Ref Range Total Bilirubin 0.6 0.3 - 1.0 mg/dL Bilirubin, Direct 0.1 0 - 0.2 mg/dL Alkaline Phosphatase 36 34 - 104 U/L AST 15 13 - 39 U/L ALT (SGPT) 10 7 - 52 U/L Total Protein 7.2 6.0 - 8.3 g/dL Albumin 4.6 3.5 - 5.7 g/dL Magnesium Result Value Ref Range Magnesium 1.5 (L) 1.9 - 2.7 mg/dL Phosphorus Result Value Ref Range Phosphorus 4.9 2.5 - 5.0 mg/dL TSH Result Value Ref Range TSH 2.79 0.34 - 5.60 mIU/L Uric acid Result Value Ref Range Uric Acid 3.6 2.3 - 6.6 mg/dL Urinalysis Result Value Ref Range Color, Urine Straw Yellow, Dark Yellow, Straw Clarity, Urine Slightly Cloudy (A) Clear pH, Urine 6.5 5.0 - 8.0 pH Leukocytes, Urine Small (A) Negative Nitrite, Urine Negative Negative Protein, Urine Negative Negative mg/dL Glucose, Urine Negative Negative mg/dL Bilirubin, Urine Negative Negative Specific [place], Urine 1.007 (L) 1.015 - 1.020 Ketones, Urine Negative Negative mg/dL Blood, Urine Trace (A) Negative Detox Panel Urine Result Value Ref Range Barbiturate Screen, Ur Negative Negative Benzodiazepines Screen, Urine Negative Negative Propoxyphene, Ur Negative Negative Methadone Screen, Urine Negative Negative TCA, Urine Negative Negative PCP Scrn, Ur Negative Negative Opiate Scrn, Ur Negative Negative Cocaine Screen, Urine Positive (A) Negative Amphetamine+Methamphetamine Screen, Ur Negative Negative Cannabinoid Screen, Urine Negative Negative RPR Result Value Ref Range RPR Nonreactive Nonreactive Hepatitis panel, acute Result Value Ref Range Hepatitis B Surface Ag Nonreactive Nonreactive Hep A IgM Nonreactive Nonreactive Hepatitis C Ab Nonreactive (more content not included)... [facility] 11-12-2022 Note Hospital Day: 3 Patient seen by me, management and nursing report reviewed with the interdisciplinary team, medications and chart history reviewed. REASON FOR HOSPITALIZATION: Opioid and cocaine use and withdrawal Subjective: (reported issues and events over the last 24 hours) Report restlessness, nausea,anxiety,just started suboxone.Still afraid she might get precipitated withdrawal.No s/h ideation, psychosis. Responding to: Symptomatic medications, started suboxone Objective: Vitals: 11/12/22 0801 BP: 101/65 Pulse: 83 Resp: 16 Temp: SpO2: 96% No intake/output data recorded. MENTAL STATUS EXAM General Appearance: Well groomed, appropriate eye contact. Attitude/Behavior: Cooperative, conversant, engaged, and with good eye contact. Motor: No psychomotor agitation or retardation, no tremor or other abnormal movements. Speech: Normal rate, volume, prosody Gait: Did not assess Mood: anxious Affect: Anxious Thought Process: Linear, goal directed Thought Associations: No loosening of associations Thought Content: Patient denies suicidal thoughts and homicidal thoughts, denies auditory and visual hallucinations, does not appear to be responding to internal stimuli Suicidal/ Homicidal: denies, last suicidal thoughts occurred last year when patient was on Cymbalta Perception: No perceptual abnormalities noted Insight: Fair for the need for treatment Judgment: Fair for the need for treatment Impulse Control: Unable to assess Intellectual Function/Cognition: Cognitively intact to conversational testing with respect to attention, orientation, fund of knowledge, recent and remote memory, and language. Orientation: Alert and oriented to person, place, time and situation Recent Memory: Intact as evidenced by ability to recall details from the past 24 hours Remote Memory: Intact as evidenced by ability to recall previous medical issues Lab Results: Results for orders placed or performed during the hospital encounter of 11/10/22 C. TRACHOMATIS / N. GONORRHOEAE, TMA Specimen: Urine, Voided Result Value Ref Range N gonorrhoeae, TMA Negative Negative Chlamydia, TMA Negative Negative Acetaminophen level Result Value Ref Range Acetaminophen Level <10 (L) 10 - 30 ug/mL Basic metabolic panel Result Value Ref Range Sodium 138 136 - 145 mmol/L Potassium 3.5 3.5 - 5.1 mmol/L Chloride 100 98 - 107 mmol/L CO2 34 (H) 21 - 31 mmol/L BUN 7 7 - 25 mg/dL Creatinine 0.66 0.60 - 1.20 mg/dL Glucose 76 70 - 100 mg/dL Calcium 9.5 8.6 - 10.3 mg/dL Anion Gap 8 7 - 20 mmol/L eGFR 111.6 >60.0 mL/min/1.73m*2 BUN/Creatinine Ratio 10.6 Cholesterol, total Result Value Ref Range Cholesterol 152 120 - 200 mg/dL Gamma GT Result Value Ref Range GGT 6 (L) 9 - 64 U/L Hepatic function panel Result Value Ref Range Total Bilirubin 0.6 0.3 - 1.0 mg/dL Bilirubin, Direct 0.1 0 - 0.2 mg/dL Alkaline Phosphatase 36 34 - 104 U/L AST 15 13 - 39 U/L ALT (SGPT) 10 7 - 52 U/L Total Protein 7.2 6.0 - 8.3 g/dL Albumin 4.6 3.5 - 5.7 g/dL Magnesium Result Value Ref Range Magnesium 1.5 (L) 1.9 - 2.7 mg/dL Phosphorus Result Value Ref Range Phosphorus 4.9 2.5 - 5.0 mg/dL TSH Result Value Ref Range TSH 2.79 0.34 - 5.60 mIU/L Uric acid Result Value Ref Range Uric Acid 3.6 2.3 - 6.6 mg/dL Urinalysis Result Value Ref Range Color, Urine Straw Yellow, Dark Yellow, Straw Clarity, Urine Slightly Cloudy (A) Clear pH, Urine 6.5 5.0 - 8.0 pH Leukocytes, Urine Small (A) Negative Nitrite, Urine Negative Negative Protein, Urine Negative Negative mg/dL Glucose, Urine Negative Negative mg/dL Bilirubin, Urine Negative Negative Specific [place], Urine 1.007 (L) 1.015 - 1.020 Ketones, Urine Negative Negative mg/dL Blood, Urine Trace (A) Negative Detox Panel Urine Result Value Ref Range Barbiturate Screen, Ur Negative Negative Benzodiazepines Screen, Urine Negative Negative Propoxyphene, Ur Negative Negative Methadone Screen, Urine Negative Negative TCA, Urine Negative Negative PCP Scrn, Ur Negative Negative Opiate Scrn, Ur Negative Negative Cocaine Screen, Urine Positive (A) Negative Amphetamine+Methamphetamine Screen, Ur Negative Negative Cannabinoid Screen, Urine Negative Negative RPR Result Value Ref Range RPR Nonreactive Nonreactive Hepatitis panel, acute Result Value Ref Range Hepatitis B Surface Ag Nonreactive Nonreactive Hep A IgM Nonreactive Nonreactive Hepatitis C Ab Nonreactive Nonreactive Hep B Core Total Ab Reactive (AA) Nonreactive HIV COMBO 4G Result Value Ref Range HIV Combo 4G Negative Negative Serum Qualitative Result Value Ref Range hCG, Serum Negative CBC auto differential Result Value Ref Range Auto WBC 6.15 4.00 - 10.60 10*3/uL RBC 4.70 3.80 - 5.00 10*6/uL Hemoglobin 13.0 12.0 - 15.0 g/dL Hematocrit 41.2 36.0 - 48.0 % MCV 87.7 82.0 - 98.0 fL MCH 27.7 27.0 - 33.0 pg MCHC 31.6 (L) 32.0 - 3 (more content not included)... [facility] 11-12-2022 Note ------ Attestation signed by Reji Calderón MD at 11/13/2022 10:43 AM I personally saw and examined the patient on the same date of service as resident/fellow . I discussed the findings and therapeutic plan with the resident/fellow . I agree with the documentation, except for any edits/updates below. Teaching Physician's Revisions: ------ GI Inpatient Progress Note Patient - Bonnie Montoya Age - 42 y.o. - 1980 Date of Admission - 11/10/2022 4:38 PM Interval history Patient seen and examined at bedside, resting comfortably. Reports feeling withdrawal with abdominal pain, nausea, feeling feverish. No chest pain, SOD, constipation, diarrhea. Reports an average appetite. No acute overnight events. OBJECTIVE Vitals height is 1.676 m (5' 6 ) and weight is 64.4 kg (142 lb). Her oral temperature is 36.6 ???C (97.8 ???F). Her blood pressure is 102/67 and her pulse is 74. Her respiration is 16 and oxygen saturation is 95%. Temp: [36.6 ???C (97.8 ???F)] 36.6 ???C (97.8 ???F) Heart Rate: [74-84] 74 Resp: [16] 16 BP: (99-102)/(53-67) 102/67 Weight: Admission weight: 64.4 kg (142 lb) Wt Readings from Last 1 Encounters: 11/10/22 64.4 kg (142 lb) Input/Output: No intake or output data in the 24 hours ending 11/12/22 9455 Physical Exam Constitutional: General: She is not in acute distress. HENT: Head: Normocephalic and atraumatic. Mouth/Throat: Mouth: Mucous membranes are moist. Pharynx: Oropharynx is clear. Eyes: General: No scleral icterus. Extraocular Movements: Extraocular movements intact. Conjunctiva/sclera: Conjunctivae normal. Cardiovascular: Rate and Rhythm: Normal rate and regular rhythm. Heart sounds: No murmur heard. Pulmonary: Effort: No respiratory distress. Breath sounds: Normal breath sounds. No wheezing or rales. Abdominal: General: Bowel sounds are normal. There is no distension. Palpations: Abdomen is soft. Tenderness: There is no abdominal tenderness. There is no guarding. Musculoskeletal: Right lower leg: No edema. Left lower leg: No edema. Skin: General: Skin is warm and dry. Coloration: Skin is not jaundiced. Neurological: Mental Status: She is alert and oriented to person, place, and time. Objective Lab Results Results from last 7 days Lab Units 11/10/22 1759 WBC AUTO 10*3/uL 6.15 HEMOGLOBIN g/dL 13.0 HEMATOCRIT % 41.2 PLATELETS AUTO 10*3/uL 274 Results from last 7 days Lab Units 11/10/22 1759 SODIUM mmol/L 138 POTASSIUM mmol/L 3.5 CHLORIDE mmol/L 100 CO2 mmol/L 34* BUN mg/dL 7 CREATININE mg/dL 0.66 GLUCOSE mg/dL 76 CALCIUM mg/dL 9.5 MAGNESIUM mg/dL 1.5* Results from last 7 days Lab Units 11/10/22 1759 ALBUMIN g/dL 4.6 BILIRUBIN TOTAL mg/dL 0.6 ALT U/L 10 AST U/L 15 ALK PHOS U/L 36 No results found for: HGBA1C No lab exists for component: TROPI, TROPONIN No lab exists for component: ABGPH, ABGPCO2, ABGPO2, ABGHCO3, ABGBASEDEFIC, [id number], ABGOXYGENSOU No lab exists for component: LACTICACID, PROCALCITON Results from last 7 days Lab Units 11/10/22 1759 CHOLESTEROL mg/dL 152 Lab Results Component Value Date WBCU 6-10 (A) 11/10/2022 Radiology @[email or web address]@ Medications Scheduled: buprenorphine-naloxone, 1 tablet, sublingual, BID gabapentin, 800 mg, oral, 4x daily levETIRAcetam, 1,250 mg, oral, BID melatonin, 6 mg, oral, Nightly Infusions: As Needed: PRN medications: acetaminophen, alum-mag hydroxide-simeth, bisacodyl, dicyclomine, gabapentin, guaiFENesin, hydrOXYzine pamoate, loperamide, magnesium hydroxide, ondansetron ODT OR ondansetron ODT, prochlorperazine, prochlorperazine ASSESSMENT AND PLAN Assessment Bonnie Montoya is a 42 y.o. female born 1980 with a medical history of seizure disorder, opiate dependence, anxiety and nephrolithiasis who presents for opiate detox. Internal medicine has been consulted for detox clearance. Opiate dependence, presenting for detox Cocaine use Hepatitis B core antibody positive, surface Ag negative and surface antibody positive, likely indicative of past infection Hypomagnesemia, on replacement History of seizures, on Keppra and gabapentin Anxiety Plan Follow up core IgM, however likely not active infection Rest of care per primary Olinda Carmichael MD PGY-3, Internal Medicine [facility] Internal Medicine [facility] 11-11-2022 Note Psychosocial Narrati ve Summary Subject: Bonnie Montoya Reason for admission: Pt is a 42-year old male who presents to [facility] for opioid withdrawal. Pt reports she is using 70mg of Percocets daily three times a day orally, as well as snorting $60 worth of cocaine daily. Pt has previous admissions to [facility], most recently in April 2021, where upon discharge pt was referred to [facility] for outpatient substance use treatment. Pt reports she instead followed up with [facility] and remained sober until three weeks ago. Pt reports her last year and this contributed to her relapse. Pt reports she also recently lost her job which is a stressor. Pt reports she lives with her daughter and feels safe at home. Pt reports she is unsure what she wants to do for follow up treatment. Diagnosis and discharge plan: Opioid Use Disorder, Severe Discharge plan TBD [facility] 05-08-2021 Note MR#: [id number] # [facility] Pt. Name: Bonnie Montoya Admitted: 05/02/2021 Discharged: Date of : 1980 Physician: David Lazcano M.D. DISCHARGE SUMMARY Time Spent with Patient: 31 minutes spent with patient, discussing discharge instructions, ordering medications, reviewing lab work, communicating with other healthcare professionals, documenting clinical information and the patient's follow-up plan. CHIEF COMPLAINT: Opioid abuse. HISTORY OF PRESENT ILLNESS: Bonnie Montoya is a 40-year-old female that presents to [facility] detox unit for opiate dependence with active withdrawal. Patient reports chewing 10 to 60 mg of Percocets multiple times daily. Patient states her last use was 04/30/2021. With a total history length of 5 years. Patient states that she relapsed in February 2021 after her father of her children due to Covid followed by the passing of 4 other extended family members due to Covid. Patient reports a history diagnoses of anxiety, depression, and bipolar disorder and reports she has not been taking any mental health medications but reports an upcoming psychiatry appointment. Tox screen was negative for all substances. No ethanol detected on admission. Microscopic UA showed cloudy urine with moderate occult blood, and moderate leukocytes. Pt reported significant tolerance withdrawal symptoms over the years with multiple unsuccessful attempts to cut down or stop using drugs and significant amount of time spent in getting drugs, using drugs, and recovering from its effect. COURSE IN THE HOSPITAL: The patient had withdrawal symptoms in which prescription medication such as Tylenol for headaches and body aches, Maalox for indigestion, clonidine for hot and cold sweats, dicyclomine for abdominal cramping, gabapentin for restless leg, Mucinex for sinus congestion, Zofran for nausea and vomiting and trazodone to help promote sleep. Home medications were restarted. Patient was also treated for a vaginal yeast infection and a urinary tract infection. Abdominal CT scan was done to rule out kidney stones. Abdomen and pelvic CT scan just showed constipation. Patient did have an active seizure on the unit, unwitnessed, on 05/05/2021. Patient complained of facial pain and CT was performed of the face, no acute findings. Pt responded adequately to Suboxone over period of time and withdrawal symptoms became manageable. During the stay in the hospital, the patient participated in groups and several meetings with social workers to plan aftercare. There were no other acute psychiatric or medical emergencies seen during hospital stay. FINAL MENTAL STATUS EXAMINATION: The patient seemed reasonably calm and cooperative. Oriented to time, person, and place. Speech coherent. Gait stable. Mood, euthymic. Affect, appropriate. Thought process, logical. Content, normal. Denies any current suicidal or homicidal ideation or any psychosis. Insight and judgment seem fair to need for treatment though poor by history. Memory focus seem adequate. DIAGNOSES: 1. Opioid use disorder, with withdrawal. MEDICATIONS ON DISCHARGE Ciprofloxacin 500 mg p.o. twice daily x5 days quantity of 10, MiraLAX 17 g p.o. daily as needed for constipation quantity of 7 packets, Suboxone 8-2 mg films 2 films daily x7 days quantity of 14, Vistaril 25 mg p.o. 3 times daily as needed for anxiety x7 days quantity of 21, Keppra 2000 mg p.o. twice daily x30 days quantity of 60, trazodone 50 mg p.o. at bedtime x7 days quantity of 7, all prescription medications no refills. OARRS verified. The patient made aware of high risk of relapse after discharge from detox, especially if outpatient treatment is lacking. Pt given assistance by social work to make follow-up appointment. Patient is scheduled to go outpatient at [facility] Reviewed By: Cherise Valadez CNP 05/08/2021 01:15 P Electronically Signed by: David Lazcano M.D. 05/12/2021 08:18 P David Lazcano M.D. .. Date Dict: 05/08/2021/01:14 P/Cherise Valadez CNP Date Trans: 05/08/2021 01:14 P/ [id number] cc: Leslie North N.P. [address] [facility] [id number] [facility] Note MR#: [id number] # [facility] Pt. Name: Bonnie Montoya Admitted: 12/24/2020 Discharged: 12/29/2020 Date of : 1980 Physician: David Lazcano M.D. DISCHARGE SUMMARY CHIEF COMPLAINT: Opioid and cocaine use. HISTORY OF PRESENT ILLNESS: The patient is a 40-year-old female with past diagnosis of depression, ADHD, admitted to [facility] due to concern about using half to 1 g fentanyl, heroin on and off for several years as well as smoking crack cocaine on and off for several years. Reports significant intolerance withdrawal symptoms over the years with multiple unsuccessful attempts to cutdown or stop using drugs and significant amount of time spent in getting drugs, using drugs, and recovering from its effect. COURSE IN HOSPITAL: The patient had withdrawal symptoms, which included hot and cold sweats, chills, nausea, restlessness, responded adequately to Suboxone and withdrawal symptoms seem manageable with time. The patient did receive Zofran for nausea, gabapentin for muscle aches, trazodone for insomnia, and Vistaril for anxiety. Attended groups and meeting with social workers to plan aftercare. FINAL MENTAL STATUS EXAMINATION: The patient seemed reasonably calm and cooperative. Oriented to time, person, and place. Speech, coherent. Gait, stable. Mood, euthymic. Affect, appropriate. Thought process, logical. Content, normal. Denies any current suicidal or homicidal ideation or any psychosis. Insight and judgment seem fair. Need for treatment though poor by history. Memory focus seem adequate. DIAGNOSIS: Opioid, cocaine use disorder. MEDICATIONS ON DISCHARGE: Zofran 4 mg sublingual every 6 hours as needed, gabapentin 300 mg 3 times daily, trazodone 50 mg at bedtime, Vistaril 25 mg t.i.d. as needed for anxiety, Suboxone 8/2 mg 2 tablets daily, all given 7-day supply, no refill. The patient made aware of high risk of relapse if there is no continuity of care. Electronically Signed by: David Lazcano M.D. 12/30/2020 09:21 P David Lazcano M.D. Date Dict: 12/29/2020/09:54 A/David Lazcano M.D. Date Trans: 12/29/2020 10:57 A/mmo [id number] cc: Leslie North, NFabiP. [address] [facility] [address] [facility] 09-17-2020 Note MR#: [id number] # [facility] Pt. Name: Bonnie Montoya Admitted: 09/05/2020 Discharged: 09/12/2020 Date of : 1980 Physician: Michelle Mueller MD DISCHARGE SUMMARY CHIEF COMPLAINT: Opioid use. HISTORY OF PRESENT ILLNESS: The patient is a 40-year-old female admitted to [facility] Detox due to concerns about using opiates. The patient reported significant tolerance and withdrawal symptoms over the years and multiple unsuccessful attempts to cutdown or stop using opiates and a significant amount of time spent in getting opiates, using opiates and recovering from their effects. COURSE IN THE HOSPITAL: The patient reported withdrawal symptoms. The patient started Suboxone, responded adequately over a period of time and withdrawal symptoms seem manageable. During the stay in the hospital, the patient participated in groups and several meetings with social workers to plan aftercare. No other acute psychiatric or medical emergencies were seen during the patient's stay. FINAL MENTAL STATUS EXAM: Awake and alert. Speech rate, volume, and prosody normal. Mood was okay with congruent affect. No signs or symptoms of psychosis or [place]lton. The patient denied suicidal and homicidal ideation. Insight and judgment were fair for the need to treatment though poor by history. Memory and focus seemed adequate. DIAGNOSES: 1. Opioid use disorder. 2. Bipolar affective disorder, type 1. MEDICATIONS ON DISCHARGE: Suboxone 16 mg p.o. daily, Abilify 2 mg p.o. q.h.s., gabapentin 600 mg p.o. t.i.d. p.r.n., Vistaril 25 mg p.o. t.i.d. p.r.n. The patient will follow up within 7 days for substance use treatment. Electronically Signed by: Michelle Mueller MD 09/19/2020 09:03 A Michelle Mueller MD Date Dict: 09/17/2020/09:27 A/Michelle Mueller MD Date Trans: 09/17/2020 04:09 P/marvino [id number] cc: Leslie North, N.P. 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 Follow-up with customer service rep provided. * Attachments The following attachments cannot be sent through Care Everywhere. * Corneal Scratches (Egyptian) * Conjunctivitis (Egyptian) [facility]: Hospital Discharge instructions* Attachments The following attachments cannot be sent through Care Everywhere. 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 12/27/2014 3:42 PM Latest Code Status on File Code Status Date Activated Date Inactivated Comments Full Code 06/10/2018 7:01 AM 06/11/2018 5:23 PM Full Code 05/19/2018 7:40 AM 05/20/2018 9:30 PM Full Code 05/11/2016 3:15 AM 05/12/2016 10:14 PM Full Code 12/13/2015 5:53 AM 12/13/2015 3:28 PM Documents on File Type Date Recorded 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 DATE CREATED AUTHOR AUTHOR'S ORGANIZ ATION [facility] DATE CREATED AUTHOR AUTHOR'S ORGANIZ ATION 05/08/2023 [facility] Reason for Visit (unrecogniz ed section and content) Reason Comments Eye Drainage and irritation. Just completed treatment for pink eye, still taking meds Reason Comments Other Seizure-like activit y Ordered Prescriptions (unrec ognized section and content) Prescription Sig Dispensed Refills Start Date End Da te cephALEXin (KEFLEX) 500 MG capsule Take 1 capsule by mouth 2 times daily for 7 days 14 capsule 0 07/03/2022 07/10/2022 cyclobenzaprine (FLEXERIL) 10 MG tablet Take 1 tablet by mouth 3 times daily as needed for Muscle spasms 21 tablet 0 07/03/2022 07/13/2022 Scheduled Active and Recently Administ ered Medications (unrecognized section and content) Medication Order 07/01/2022 07/02/2022 07/03/2022 0.9 % sodium chloride bolus (COMPLETED) 1,000 mL (15.2 mL/kg), IntraVENous, at 2,000 mL/hr, Administer over 0.5 Hours, ONCE, On Fri07/03/22 at 1300, For 1 dose 1326 (New Bag - Prov ider: Koby Hope, MEMO)[id number] (Stopped - Provider: Sherry Travis RN) LORazepam (ATIVAN) injection 1 mg (COMPLETED) 1 mg, IntraVENous, ONCE, 1 dose, On Fri07/03/22 at 1300 1324 (Given - Provid er: Koby Hope RN) orphenadrine (NORFLEX) injection 60 mg (COMPLETED) 60 mg, IntraVENous, ONCE, 1 dose, On Fri07/03/22 at 1300 1318 (Given - Provid er: Koby Hope RN) Care Teams (unrecognized sec tion and content) Beer Cooler Relationship Specialty Start Date End Date [place], Emanuel Bustosn, TEST ADMINISTRATOR [address] [place] [address] PCP - General 06/05/19 FOR RECORDS PERTAINING TO PATIENTS WHO ARE OR HAVE BEEN ENROLLED IN A CHEMICAL DEPENDENCY/SUBSTANCEABUSE PROGRAM, SOME INFORMATION MAY BE OMITTED. This clinical summary was aggregated from multiple sources. Caution should be exercised in using it in the provision of clinical care. This summary normalizes information from multiple sources, and as a consequence, information in this document may materially change the coding, format and clinical context of patient data. In addition, data may be omitted in some cases. CLINICAL DECISIONS SHOULD BE BASED ON THE PRIMARY CLINICAL RECORDS. [employer] provides no warranty or guarantee of the accuracy or completeness of information in this document.
[2023-05-16 13:03] LABS: Alanine Aminotransferase 22 U/L (14-59); Albumin Globulin Ratio 0.9; Albumin Level 3.4 g/dL (3.4-5.0); Alkaline Phosphatase 34 U/L (46-116); Anion Gap 6.7; Aspartate Amino Transferase 20 U/L (15-37); BUN Creatinine Ratio 16.2; Bilirubin Total 0.3 mg/dL (0.2-1.0); Calcium 8.7 mg/dL (8.5-10.1); Carbon Dioxide 32.7 mmol/L (21.0-32.0); Chloride 99 mmol/L (98-107); Estimated GFR (African America >60 (>=60); Estimated GFR (Non-African Ame >60 (>=60); Globulin 3.7 g/dL; Glucose 89 mg/dL (74-106); Potassium 3.4 mmol/L (3.5-5.1); Sodium 135 mmol/L (136-145); Total Protein 7.1 g/dL (6.4-8.2)
== END 2023-05-16 11:56 | disposition home or self-care (01) ==
LOC: LAB 11:57
PROVIDERS: Visit Provider Family Medicine
DX: N39.0 Urinary tract infection, site not specified (principal)
CPT/HCPCS: 36415; 80053

== ENCOUNTER 2023-07-15 10:24 | Outpatient (OUT) | payer OTHER, SELFPAY ==
[2023-07-15 11:31] LABS: C Reactive Protein <0.50 mg/dL (<=0.50); Thyroid Stimulating Hormone 0.765 uIU/mL (0.358-3.740)
[2023-07-20 00:07] LABS: Calprotectin, Fecal 11 ug/g (0-120)
== END 2023-07-15 10:25 | disposition home or self-care (01) ==
LOC: LAB 10:27
DX: R11.0 Nausea (principal); R63.4 Abnormal weight loss; K59.00 Constipation, unspecified; R10.13 Epigastric pain; R14.0 Abdominal distension (gaseous); K92.1 Melena
CPT/HCPCS: 36415; 83993; 84443; 86140

== ENCOUNTER 2023-09-26 08:28 | Outpatient (OUT) | payer OTHER, SELFPAY | END 2023-09-26 08:29 | disposition home or self-care (01) | LOC: PST 08:28 | PROVIDERS: Visit Provider Urology | DX: Z01.818 Encounter for other preprocedural examination (principal); R31.0 Gross hematuria ==

== ENCOUNTER 2023-09-29 07:50 | Day surgery (SDC) | payer OTHER, SELFPAY ==
--- OUTSIDE RECORDS SUMMARY | 2023-09-29 08:08 | XMS_ITS | CCD ---
Author Organization [facility] Care Team Providers Care [employer] Name Role Phone FELICE HANEY Primary Care Unavailable JOANNA FLORES Attending Unavaillorena e Yoly HERNANDEZ - Vicky SANCHEZ Primary Care Prov ider Emanuel Haney Primary Care Provider Emanuel Haney APRN Primary Care Provider EMANUEL HANEY Primary Care Unavailable NOREEN KAPLAN Attending Unavailable EMANUEL HANEY Primary Care Unavailable LACI SANTIAGO Attending Unavailable EMANUEL HANEY Primary Care Unavailable FLORA ROCHA Attending Unavailable EMANUEL HANEY Primary Care Unavailable ELVI CARMICHAEL Attending Unavailable DAVID COFFEY Attending Unavailable DAVID COFFEY Admitting Unavailable SELF, SELF Referring Unavailable YADIRA TIJERINA Primary Care Physician [phone] No Pcp, No Pcp Primary Care Provider Unavaillorena e NO PCP, NO PCP Primary Care Unavailable DO Yadira Tijerina Primary Care Provider MD Louisa Ro Attending Provider SAMANTHA WOODRUFF Referring Unavailable NO PCP, NO PCP Primary Care Unavailable SAMANTHA WOODRUFF Referring Unavailable NO PCP, NO PCP Primary Care Unavailable SAMANTHA WOODRUFF Attending Unavailable SAMANTHA WOODRUFF Referring Unavailable NO PCP, NO PCP Primary Care Unavailable SAMANTHA WOODRUFF Attending Unavailable SAMANTHA WOODRUFF Referring Unavailable NO PCP, NO PCP Primary Care Unavailable Yadira Tijerina Primary Care Unavailable Louisa Ro Attending Unavailable Louisa Ro Admitting Unavailable RANJAN, SAMANTHA M Referring Unavailable NO PCP, NO PCP Primary Care Unavailable FRIES, EMILIA S Referring Unavailable NO PCP, NO PCP Primary Care Unavailable FRIES, EMILIA S Referring Unavailable NO PCP, NO PCP Primary Care Unavailable DIAVICKY DIAZ Attending Unavailable DIAVICKY E Admitting Unavailable RUMSCHLAG, YADIRA Primary Care Unavailable PERALTA, Robinson R Attending Unavailable RUMSCHLAG, YADIRA Primary Care Unavailable PERALTA, Robinson R Attending Unavailable RUMSCHLAG, YADIRA Primary Care Unavailable RUMSCHLAG, YADIRA Referring Unavailable RUMSCHLAG, YADIRA Primary Care Unavailable DIACHERYLVICKY E Attending Unavailable SELF, SELF Primary Care Unavailable [...] Care Unavailable SELF, SELF Primary Care Unavailable ARTHUR, P. ELVI Attending Unavailable ARTHUR, P. ELVI Referring Unavailable SELF, SELF Primary Care Unavailable ARTHUR, P. ELVI Attending Unavailable SELF, SELF Referring Unavailable SELF, SELF Primary Care Unavailable SELF, SELF Referring Unavailable ARTHUR, P. ELVI Attending Unavailable SELF, SELF Primary Care Unavailable SELF, SELF Referring Unavailable ARTHUR, P. ELVI Attending Unavailable SELF, SELF Primary Care Unavailable ARTHUR, P. ELVI Attending Unavailable ARTHUR, P. ELVI Referring Unavailable SELF, SELF Primary Care Unavailable ARTHUR, P. ELVI Attending Unavailable ARTHUR, P. ELVI Referring Unavailable SELF, SELF Primary Care Unavailable SELF, SELF Referring Unavailable ARTHUR, P. ELVI Attending Unavailable SELF, SELF Primary Care Unavailable ARTHUR, P. ELVI Attending Unavailable ARTHUR, P. ELVI Referring Unavailable SELF, SELF Primary Care Unavailable ARTHUR, P. ELVI Referring Unavailable ARTHUR, P. ELVI Attending Unavailable Allergies Allergy Classification Reported Allergen(s) Allergy Type Date of Onset Reaction(s) Facility (20 sources) SUMAtriptan; Translations: [SUMATRIPTAN] Drug Allergy 4 Anaphylaxis [facility] (19 sources) Ibuprofen; Translations: [IBUPROFEN] Drug Allergy 4 Anaphylaxis, Pharyngeal swelling (finding) [facility] (15 sources) Plasmin; Translations: [FIBRINOLYSIN] Drug Allergy 8 [facility] (15 sources) traMADol; Translations: [TRAMADOL] Drug Allergy 0 Hives [facility] (1 source) Ibuprofen Drug Allergy 4 [facility] (1 source) SUMAtriptan Drug Allergy 4 [facility] (1 source) Ibuprofen; Translations: [Motrin] Drug Allergy [facility] (1 source) SUMAtriptan; Translations: [Imitrex] Drug Allergy [facility] Medications Current Medications Medication Drug Class(es) Dates Sig (Normalized) Sig (Original) acetaminophen 325 mg / butalbital 50 mg / caffeine 40 mg oral tablet (10 sources) Barbiturate, Central Nervous System Stimulant, Methylxanthine Start: 02-28-2022 take 1 tablet by mouth every four hours as needed for headache butalbital-aceta minophen-caff (FIORICET, ESGIC) 50-325-40 mg per tablet Take 1 tablet by mouth every 4 (four) hours as needed for headaches. 30 tablet 0 02/28/2022 Active Adderall (20 sources) Central Nervous System Stimulant Start: 07-15-2023 take 30 mg by mouth once daily Adderall 30 mg, Oral, Daily, Refill(s) 0 Start Date: 07/15/23 Status: Ordered Start: 07-15-2023 take 20 mg by mouth once daily Adderall 20 mg, Oral, Daily, Refill(s) 0 Start Date: 07/15/23 Status: Ordered Start: 07-10-2023 take 1 tablet by john th every four to six hours Dextroamphetamine-Amphetamine (Adderall) 30 mg tablet Active 30 MG PO Twice daily July 10, 2023 1:00am administer doses at least 4-6 hours apart Start: 07-10-2023 End: 08-06-2023 take 1 tablet by mouth every four to six hours Dextroamphetamine-Amphetamine (Adderall) 20 mg tablet Discontinued 20 MG PO Twice daily July 10, 2023 1:00am August 06, 2023 3:34pm administer doses at least 4-6 hours apart Start: 07-01-2023 take 1 tablet by john th in the morning dextroamphetamine-amphetamine (ADDERALL) 20 mg tablet Take 1 tablet (20 mg total) by mouth in the morning. 0 07/01/2023 Active Start: 07-01-2023 take 1 capsule by mo [facility] every twenty-four hours in the morning amphetamine-dextroamphetamine XR (ADDERALL XR) 30 mg 24 hr capsule Take 1 capsule (30 mg total) by mouth in the morning. 0 07/01/2023 Active buprenorphine 8 mg / naloxone 2 mg sublingual film (16 sources) Partial Opioid Agonist, Opioid Antagonist Start: 07-15-2023 Suboxone 8 mg-2 mg sublingual film film, SubLingual, Daily Start Date: 07/15/23 Status: Ordered Start: 07-10-2023 Buprenorphine- Naloxone (Suboxone) 8-2 mg film Active 1 FILM BUCCAL Daily July 10, 2023 1:00am buprenorphine-na loxone (SUBOXONE) 8-2 mg [address] tablet [address] 1 tablet under the tongue in the morning and 1 tablet before bedtime. 0 Active buprenorphine-na loxone (SUBOXONE) 8-[address] film [address] [...] spasms 21 tablet 0 07/03/2022 07/13/2022 Active docusate sodium 100 mg oral capsule (7 sources) Start: 07-09-2023 End: 08-06-2023 take 1 capsule by mouth in the morning, then take 1 capsule by mouth at bedtime docusate sodium (COLACE) 100 mg capsule Take 1 capsule (100 mg total) by mouth in the morning and 1 capsule (100 mg total) before bedtime. 0 07/09/2023 08/06/2023 Active erythromycin 0.005 mg/mg ophthalmic ointment (4 [...] spray (3 sources) Corticosteroid Start: 08-03-2018 fluticasone (F LONASE) 50 MCG/ACT nasal spray 1 spray by Each Nare route daily 1 Bottle 0 08/03/2018 Active gabapentin 800 mg oral tablet (16 sources) Anti-epileptic Agent Start: 07-10-2023 gabapenti n 800 mg, Oral Start Date: 07/15/23 Status: Ordered Start: 11-12-2016 gabapentin (NE URONTIN) 800 MG tablet 900 mg 3 times daily. . 0 11/12/2016 Active hydrOXYzine hydrochloride 25 mg oral tablet (3 sources) Antihistamine Start: 08-03-2018 take 1 tablet by mouth twice daily hydrOXYzine (ATARAX) 25 MG tablet Take 1 tablet by mouth 2 times daily 15 tablet 0 08/03/2018 Active levETIRAcetam 1000 mg oral tablet (16 sources) Start: 07-10-2023 take 1000 mg by mouth every twelve hours Levetiracetam Active 1000 MG PO Every 12 hours July 10, 2023 1:00am Start: 05-08-2020 take 1 tablet by john th twice daily Keppra 1000 mg oral tablet 1,000 mg = 1 tab(s), Oral, BID, # 60 tab(s), Refills(s) 0 Start Date: 05/08/20 Status: Ordered Start: 06-15-2018 take 1.5 tablets by mouth twice daily levETIRAcetam (KEPPRA) 1000 MG tablet Take 1.5 tablets by mouth 2 times daily 30 tablet 0 06/15/2018 Active metroNIDAZOLE 500 mg oral tablet (10 sources) Nitroimidazole Antimicrobial Start: 08-13-2023 End: 08-20-2023 take 1 tablet by mouth in the morning, then take 1 tablet by mouth at bedtime metroNIDAZOLE (FLAGYL) 500 mg tablet Indications: Vaginal trichomoniasis Take 1 tablet (500 mg total) by mouth in the morning and 1 tablet (500 mg total) before bedtime. Do all this for 7 days. 14 tablet 0 08/13/2023 08/20/2023 Active Start: 07-31-2023 End: 08-08-2023 take 1 tablet by mouth in the morning, then take 1 tablet by mouth at bedtime metroNIDAZOLE (FLAGYL) 500 mg tablet Indications: Trichomoniasis Take 1 tablet (500 mg total) by mouth in the morning and 1 tablet (500 mg total) before bedtime. Do all this for 7 days. 14 tablet 0 08/01/2023 08/08/2023 Active naloxone hydrochloride 40 mg/ml nasal spray (10 sources) Opioid Antagonist Start: 01-27-2023 naloxone (NARCAN) 4 mg/actuation spray,non-aerosol nasal spray Administer 1 spray (4 mg total) into each nostril as needed for opioid reversal. 0 01/27/2023 Active ondansetron 4 mg disintegrating oral tablet (20 sources) Serotonin-3 Receptor Antagonist Start: 07-01-2023 take 1 tablet by mouth every eight hours as needed for nausea ondansetron ODT (ZOFRAN ODT) 4 mg disintegrating tablet Dissolve 1 tablet (4 mg total) on tongue every 8 (eight) hours as needed for nausea. 0 07/01/2023 Active Start: 04-11-2022 take 1 tablet by john th every eight hours as needed for nausea and vomiting ondansetron (ZOFRAN) 4 mg tablet Take 1 tablet (4 mg total) by mouth every 8 (eight) hours as needed for nausea or vomiting. 20 tablet 0 04/11/2022 Active sertraline 50 mg oral tablet (13 sources) Serotonin Reuptake Inhibitor Start: 05-07-2023 take 1 tablet by mouth in the morning sertraline (ZOLOFT) 50 mg tablet Take 1 tablet (50 mg total) by mouth in the morning. 0 05/07/2023 Active Completed/Discontinued Medications Medication Drug Class(es) Dates [...] End: 07-03-2022 orphenadrine (NORFLEX) injection 60 mg Sod Picosulf-Mag Ox-Citric Ac (1 source) Start: 07-10-2023 End: 08-06-2023 take 1 dose by mouth once daily in the evening Sod Picosulf-Mag Ox-Citric Ac (Clenpiq) 10 mg-3.5 gram- 12 gram/175 mL solution Discontinued 175 ML PO Daily 1 July 10, 2023 1:00am August 06, 2023 3:30pm Take first dose orally at 3 pm the day before colonoscopy, take second dose orally at 9 pm the day before colonoscopy 50 ml sodium chloride 9 mg/ml injection (1 source) Start: 07-03-2022 End: 07-03-2022 0.9 % sodium chloride bolus tinidazole 500 mg oral tablet (1 source) Nitroimidazole Antimicrobial Start: 08-14-2023 End: 08-14-2023 take 4 tablets by mouth once tinidazole (TINDAMAX) 500 mg tablet Indications: Trichomonas vaginitis Take 4 tablets (2,000 mg total) by mouth once for 1 dose. 4 tablet 0 08/14/2023 08/14/2023 Problems Active Problems Problem Classification Problem Date Documented Da te Episodic/Chronic Abdominal pain (9 sources) Pain in female pelvis; Translations: [Pelvic and perineal pain] Onset: 2015 2015 Episodic Anxiety disorders (6 sources) Anxiety disorder, unspecified; Translations: [Anxiety disorder] Onset: 11-10-2022 Chronic Attention-deficit, conduct, and disruptive behavior disorders (2 sources) Attention-deficit hyperactivity disorder, unspecified type; Translations: [Attention-deficit hyperactivity disorder, unspecified type] Onset: 04-10-2023 Chronic Epilepsy; convulsions (3 sources) Seizure disorder; Translations: [Epilepsy, unspecified, intractable, without status epilepticus] Onset: 01-20-2023 06-10-2018 Chronic Epilepsy; convulsions (10 sources) Seizure; Translations: [Seizure disorder] Onset: 05-19-2018 05-19-2018 Episodic Fluid and electrolyte disorders (1 source) Hypokalemia; Translations: [Hypokalemia] Onset: 08-06-2023 Episodic Gastrointestinal hemorrhage (2 sources) Hematochezia; Translations: [Melena] 07-10-2023 Episodic Genitourinary symptoms and ill-defined conditions (2 sources) Incontinence 07-15-2023 Chronic Genitourinary symptoms and ill-defined conditions (9 sources) Dysuria; Translations: [Tre hematuria] Onset: 07-14-2023 07-15-2023 Episodic Immunizations and screening for infectious disease (6 sources) Patient encounter status; Translations: [Encounter for screening for infections with a predominantly sexual mode of transmission] Onset: 07-29-2023 07-29-2023 Episodic Mood disorders (2 sources) Major depressive disorder, single episode, mild; Translations: [Major depressive disorder, single episode, mild] Onset: 07-29-2023 Chronic Nausea and vomiting (14 sources) Nausea with vomiting, unspecified; Translations: [Nausea] Onset: 04-11-2022 04-11-2022 Episodic Nonmalignant breast conditions (1 source) Heterogeneously dense breast composition; Translations: [Heterogeneously dense tissue of both breasts on mammography] Onset: 08-14-2023 08-14-2023 Episodic Other female genital disorders (1 source) History of gynecological disorder; Translations: [Personal history of other diseases of the female genital tract] 07-29-2023 Episodic Other female genital disorders (2 sources) Personal history of other diseases of the female genital tract; Translations: [Personal history of other diseases of the female genital tract] Onset: 07-29-2023 Episodic Other gastrointestinal disorders (1 source) Irritable bowel syndrome characterized by constipation; Translations: [Irritable bowel syndrome with constipation] 07-10-2023 Chronic Other gastrointestinal disorders (1 source) Abdominal bloating; Translations: [Abdominal distension (gaseous)] 07-10-2023 Episodic Other gastrointestinal disorders (1 source) Constipation; Translations: [Constipation, unspecified] 07-10-2023 Episodic Other gastrointestinal disorders (1 source) Abdominal distension (gaseous); Translations: [Flatulence, eructation, and gas pain] 07-10-2023 Episodic Other gastrointestinal disorders (4 sources) Constipation, unspecified; Translations: [Constipation, unspecified] Onset: 07-14-2023 07-10-2023 Episodic Other infections; including parasitic (2 sources) Infection by Trichomonas; Translations: [Trichomoniasis, unspecified] 07-31-2023 Episodic Other infections; including parasitic (2 sources) Trichomonal vaginitis; Translations: [Trichomonal vulvovaginitis] 08-13-2023 Episodic Other lower respiratory disease (1 source) Hyperventilation; Translations: [Hyperventilation] Onset: 2022 Episodic Other nervous system disorders (1 source) Muscle twitch; Translations: [Fasciculation] Episodic Other nervous system disorders (1 source) Fasciculation; Translations: [Fasciculation] Onset: 07-03-2022 Episodic Other nutritional; endocrine; and metabolic disorders (2 sources) Hypomagnesemia; Translations: [Hypomagnesemia] Onset: 11-10-2022 Chronic Other nutritional; endocrine; and metabolic disorders (1 source) Unintentional weight loss; Translations: [Abnormal weight loss] 07-10-2023 Episodic Other nutritional; endocrine; and metabolic disorders (1 source) Abnormal weight loss; Translations: [Loss of weight] 07-10-2023 Episodic Other screening for suspected conditions (not mental disorders or infectious disease) (6 sources) Encounter for screening for malignant neoplasm of cervix; Translations: [Encounter for screening mammogram for malignant neoplasm of breast] Onset: 07-29-2023 08-07-2023 Episodic Residual codes; unclassified (2 sources) Personal history of other specified conditions; Translations: [Personal history of other specified conditions] Onset: 11-10-2022 Episodic Residual codes; unclassified (1 source) Family history of cancer of colon; Translations: [Family history of malignant neoplasm of digestive organs] 07-10-2023 Episodic Screening and history of mental health and substance abuse codes (1 source) Standardized adult depression screening tool completed ; Translations: [Encounter for screening for depression] 07-29-2023 Episodic Substance-related disorders (5 sources) Cocaine abuse, uncomplicated; Translations: [Opioid dependence, uncomplicated] Onset: 2022 Chronic Unclassified (1 source) Abrasion of cornea of right eye Unclassified (1 source) Low back pain, unspecified; Translations: [Low back pain, unspecified] Onset: 11-07-2022 Unclassified (1 source) New Patient Onset: 07-29-2023 Unclassified (1 source) Cocaine use, unspecified, in remission; Translations: [Cocaine use, unspecified, in remission] Onset: 01-20-2023 Past or Other Problems Problem Classification Problem Date Documented Date Episodic/Chronic Inflammation; infection of eye (except that caused by tuberculosis or sexually transmitteddisease) (1 source) Bacterial conjunctivitis Episodic Mood disorders (10 sources) Mood disorders Onset: 07-29-2023 07-29-2023 Nonspecific chest pain (11 sources) Chest pain, unspecified; Translations: [Chest pain] Onset: 04-10-2022 04-10-2022 Episodic Unclassified (1 source) Cocaine use, unspecified, in remission; Translations: [Cocaine use, unspecified, in remission] Onset: 07-14-2023 Urinary tract infections (7 sources) Acute cystitis; Translations: [Acute cystitis without hematuria] Onset: 07-03-2022 Episodic Results Test Name Value Interpretation Reference Range Facility Pre-Certification Formon Pre-Certification Form [id number] .00TIFF [facility] Pre-Certification Form [id number] .00TIFF Normal [facility] Consent for Procedure/Surger yon 09-03-2023 Consent for Procedure/Surgery [id number]# 1.00TIFF Normal [facility] MAMM DIAGNOSTIC UNILAT LT W CADon 08-18-2023 MAMM DIAGNOSTIC UNILAT LT W CAD MAMM DIAGNOSTIC UNILAT LT W CAD EXAM: MAMM DIAGNOSTIC UNILAT LT W CAD, US BREAST LT LIMITED, 08/18/2023 1:51 PM CLINICAL INDICATIONS: Abnormal mammogram of left breast, COMPARISON: 08/06/2023. TECHNIQUE: FINDINGS: The breasts are heterogeneously dense, which may obscure small masses. There is confirmation of a round 5 mm mass situated within the left breast at the 8 to 9:00 position, 3 cm from the nipple. Targeted ultrasound employing grayscale and color flow Doppler imaging reveals a small cystic correlates with mammographic findings. There are no suspicious masses, calcifications, or areas of architectural distortions. IMPRESSION: No mammographic evidence of malignancy. The finding in the left breast is a small simple cyst. BI-RADS: BI-RADS 2 - Benign Recommendation: Routine screening mammogram in 1 year As a separate recommendation, due to the density and/or complexity of breast tissue on mammography, Molecular Breast Imaging is recommended as a supplement to annual screening mammography. MBI can be used to help detect mammographically occult cancers in dense breasts. Patient was given the results before leaving the department. Finalized by Norberto Lackey MD on 08/18/2023 2:22 PM 2 c MAMM 1 YR Normal [facility] Pre-Certification Formon Pre-Certification Form [id number] .00TIFF Normal [facility] US BREAST LT LIMITEDon 08-17 US BREAST LT LIMITED US BREAST LT LIMITE D EXAM: MAMM DIAGNOSTIC UNILAT LT W CAD, US BREAST LT LIMITED, 08/18/2023 1:51 PM CLINICAL INDICATIONS: Abnormal mammogram of left breast, COMPARISON: 08/06/2023. TECHNIQUE: FINDINGS: The breasts are heterogeneously dense, which may obscure small masses. There is confirmation of a round 5 mm mass situated within the left breast at the 8 to 9:00 position, 3 cm from the nipple. Targeted ultrasound employing grayscale and color flow Doppler imaging reveals a small cystic correlates with mammographic findings. There are no suspicious masses, calcifications, or areas of architectural distortions. IMPRESSION: No mammographic evidence of malignancy. The finding in the left breast is a small simple cyst. BI-RADS: BI-RADS 2 - Benign Recommendation: Routine screening mammogram in 1 year As a separate recommendation, due to the density and/or complexity of breast tissue on mammography, Molecular Breast Imaging is recommended as a supplement to annual screening mammography. MBI can be used to help detect mammographically occult cancers in dense breasts. Patient was given the results before leaving the department. Finalized by Norberto Lackey MD on 08/18/2023 2:22 PM 2 c MAMM 1 YR Normal [facility] HCG ( test) IA.rapi d Ql (U)Ordered By: Louias Ro on 08-07-2023 HCG ( test) Ql (U) Negative [facility] HCG,Urineon 08-07-2023 Beta HCG ( test) Ql (U) Negative Normal [facility] Comment on above: Result Comment: PERF ORMED BY: [place] [address] PATHOLOGIST INSPECTOR [employer] BRODIE MEHTA M.D. Performed By: #### U HCG #### [address] Jose F 08-07-2023 L Specimen: Received: 08/07/23 Status: HUBER Montoya Num: [id number] Spec Type: Surgical Subm Dr: Louisa Ro MD Tissues: A Colon Biopsy (ASC POLYP) B Colon Biopsy (DESC POLYP) Procedures: HE/4, Gross/Micro L4/2 Age/ Patient Sex Location Account Attending Physician Bonnie Montoya 43/F [id number] Louisa Ro MD SPEC NUM: RECD: 08/07/23 STATUS: HUBER MONTOYA NUM: [id number] FABY: 08/07/23- SUBM DR: Louisa Ro MD ENTERED: 08/07/23 [facility] DR: SPEC TYPE: Surgical DEPT: S ORDERED: HE/, Gross/Micro L4/2 ORDERED: HE, Gross/Micro L4/2 Pathological Diagnosis A, ascending colon polyp biopsy: -Tubular adenoma in 2 small examined mucosal fragments B, descending colon polyp biopsy: -Tubular adenomatous polyp in both fragments Clinical Information Constipation, hematochezia Gross Description A. Received in formalin labeled with the patient's name, date of and ascending colon polyp are multiple bowers tissues admixed with fecal material measuring 3.5 x 3.2 x 0.3 cm in aggregate. Entirely submitted in one cassette labeled A1. B. Received in formalin labeled with the patient's name, date of and descending polyp are two bowers tissues admixed with fecal material, averaging 0.3 cm. Entirely submitted in one cassette labeled B1. -------- Specimen: [id number] Received: 08/07/23 Status: HUBER Serranokirk Num: [id number] Spec Type: Surgical Subm Dr: Louisa Ro MD Tissues: A Colon Biopsy (ASC POLYP) B Colon Biopsy (DESC POLYP) Procedures: SHRADDHASonya, Gross/Micro L4/2 -------- Patient: Bonnie Montoya [id number] (Continued) -------- Specimen: Received: 08/07/23 (Continued) Signed (signature on file) Juanito Amor MD 08/08/23 1151 -------- Specimen: Received: 08/07/23 Status: HUBER Reg Num: [id number] Spec Type: Surgical Subm Dr: Louisa Ro MD Tissues: A Colon Biopsy (ASC POLYP) B Colon Biopsy (DESC POLYP) Procedures: HE/Sonya, Gross/Mary Kate L4/2 -------- Patient: Bonnie Montoya [id number] (Continued) -------- Specimen: Received: 08/07/23 (Continued) CPT Codes 98976u0 -------- -------- Specimen: [id number] Received: 08/07/23 Status: HUBER Serranokirk Num: [id number] Spec Type: Surgical Subm Dr: Louisa Ro MD Tissues: A Colon Biopsy (ASC POLYP) B Colon Biopsy (DESC POLYP) Procedures: Laxmi PRAJAPATI/Mary Kate L4/2 -------- Patient: Bonnie Montoya [id number] (Continued) -------- Signed (signature on file) Juanito Amor MD 08/08/23 1151 [facility] ACUTE HEPATITIS PANELon 07-11 ANTI HCV W/PCR REFLX Non-Reactive Normal NRCT Pr [facility] Comment on above: Result Comment: If recent infection suspected, recommend repeat testing (>2 months). Tvzjga-om-tlcxir ratio is <0.80. Performed By: #### C MP, AHP, 86649-1, 11259-9 #### [facility] ([id number]) [address], [address] [place] [address] HEPATITIS A IGM Non-Reactive [facility] Comment on above: Performed By: #### C MP, AHP, 99649-3, 61491-6 #### [facility] ([id number]) [address], [address] [place] [address] HEPATITIS B CORE IGM Negative Normal NEG [facility] Comment on above: Performed By: #### C MP, AHP, 84072-6, 12898-6 #### [facility] ([id number]) [address], [address] [place] [address] HEPATITIS B SURF AG Negative Normal NEG [facility] Comment on above: Performed By: #### C MP, AHP, 77787-7, 81297-9 #### [facility] ([id number]) [address], [address] [place] [address] COMPREHENSIVE METABOLIC PANE Jose F 08-06-2023 Albumin [Mass/Vol] 4.1 g/dL Normal 3.2-5.3 [facility] Comment on above: Performed By: #### C MP, AHP, 41180-7, 82363-5 #### [facility] ([id number]) [address], [address] [place] [address] ALP [Catalytic activity/Vol] 37 U/L Low 39-130 [facility] Comment on above: Performed By: #### C MP, AHP, 84929-0, 60547-9 #### [facility] ([id number]) [address], [address] [place] [address] ALT [Catalytic activity/Vol] 14 U/L Normal 0-31 [facility] Comment on above: Performed By: #### C MP, AHP, 84204-9, 64473-8 #### [facility] ([id number]) [address], [address] [place] [address] Anion gap [Moles/Vol] 6 mmol/L Normal 5-15 [facility] Comment on above: Performed By: #### C MP, AHP, 43132-5, 71688-4 #### [facility] ([id number]) [address], [address] [place] [address] AST [Catalytic activity/Vol] 19 U/L Normal 0-41 [facility] Comment on above: Performed By: #### C IAN, AHP, 04282-1, 91696-8 #### [facility] ([id number]) [address], [address] [place] [address] Bilirubin [Mass/Vol] 0.3 mg/dL Normal 0.3-1.2 [facility] Comment on above: Performed By: #### C MP, AHP, 87531-6, 30453-1 #### [facility] ([id number]) [address], [address] [place] [address] Calcium [Mass/Vol] 9.0 mg/dL Normal 8.5-10.5 [facility] Comment on above: Performed By: #### C MP, AHP, 11983-9, 49908-6 #### [facility] ([id number]) [address], [address] [place] [address] Chloride [Moles/Vol] 102 mmol/L Normal 98-109 [facility] Comment on above: Performed By: #### C MP, AHP, 32233-9, 80326-2 #### [facility] ([id number]) [address], [address] [place] [address] CO2 [Moles/Vol] 32 mmol/L Normal 22-32 [facility] Comment on above: Performed By: #### C FATOU SOSA, 37417-1, 72224-6 #### [facility] ([id number]) [address], [address] [place] [address] Creatinine [Mass/Vol] 0.74 mg/dL Normal 0.40-1.00 [facility] Comment on above: Result Comment: METH OD TRACEABLE TO IDMS STANDARD Performed By: #### C FATOU SOSA, 16675-3, 04509-6 #### [facility] ([id number]) [address], [address] [place] [address] eGFR (CKD-EPI) NON-RACE DEPENDENT >90 Normal >59 [facility] Comment on above: Result Comment: Reported eGFR is based on the CKD-EPI 2020 equation that does not use a race coefficient. Performed By: #### C FATOU SOSA, 53325-0, 59709-6 #### [facility] ([id number]) [address], [address] [place] [address] Glucose [Mass/Vol] 80 mg/dL Normal 65-99 [facility] Comment on above: Performed By: #### C FATOU SOSA, 05697-9, 89733-5 #### [facility] ([id number]) [address], [address] [place] [address] Potassium [Moles/Vol] 4.0 mmol/L Normal 3.5-5.0 [facility] Comment on above: Performed By: #### C FATOU SOSA, 04563-7, 93836-5 #### [facility] ([id number]) [address], [address] [place] [address] Protein [Mass/Vol] 6.8 g/dL Normal 6.0-8.0 [facility] Comment on above: Performed By: #### C FATOU SOSA, 83381-0, 50745-4 #### [facility] ([id number]) [address], [address] [place] [address] Sodium [Moles/Vol] 140 mmol/L Normal 134-146 [facility] Comment on above: Performed By: #### [place], [address]-2, 83394-5 #### [facility] ([id number]) [address], [address] [place] [address] Urea nitrogen [Mass/Vol] 7 mg/dL Normal 5-23 [facility] Comment on above: Performed By: #### [place], [address]-5, 92228-7 #### [facility] ([id number]) [address], [address] [address] HIV 1+2 Ab+HIV1 p24 Ag IA Ql on 08-06-2023 HIV 1 and 2 Ab/Ag Screen Non-Reactive Normal NRCT [facility] Comment on above: Result Comment: This information has been disclosed to you from confidential records protected from disclosure by state law. You shall make no further disclosure of this information without the specific, written and informed release of the individual to whom it pertains, or as otherwise permitted by state law. A general authorization for the release of medical or other information is not sufficient for the purpose of the release of HIV test results or diagnoses. Performed By: #### C IAN, FATOU, 05367-1, 17560-0 #### [facility] ([id number]) [address], [address] [place] [address] MAMM SCREENING BILATERAL W C database modeler 08-06-2023 MAMM SCREENING BILATERAL W CAD MAMM SCREENING BILATERAL W CAD EXAM: MAMM SCREENING BILATERAL W CAD, 08/06/2023 10:36 AM CLINICAL INDICATIONS: Screening, Breast cancer screening by mammogram COMPARISON: No prior studies currently available for comparison. TECHNIQUE: Bilateral digital tomosynthesis MLO and CC views of the breasts were obtained, with creation of synthetic 2D views. Computer aided detection was utilized. FINDINGS: The breasts are heterogeneously dense, which may obscure small masses. There is a 6 mm oval mass in the 9 to 10:00 position of the left breast, mid depth. There are no additional suspicious masses, calcifications, or areas of architectural distortions. IMPRESSION: 6 mm mass left breast. Patient will be recalled by the radiology department For additional imaging to further evaluate. BI-RADS: BI-RADS 0 - Incomplete. Needs additional imaging evaluation. Recommendation: Additional imaging required. Finalized by Leslie Leon MD on 08/06/2023 2:01 PM 0A c ADDITIONAL I Normal [facility] T. pallidum IgG+IgM IA Ql (S )on 08-06-2023 Syphilis Total 0.5 AI Normal 0.0-0.8 [facility] Comment on above: Result Comment: NON REACTIVE No serologic evidence of infection to Treponema pallidum (syphilis). Repeat testing may be considered in patients with suspected acute or primary syphilis in 2 to 4 weeks. Performed By: #### C IAN, Wander, 15708-6, 55906-4 #### [facility] ([id number]) [address], [address] [place] [address] US PELVIC WITH TRANSVAGINALo 08-06-2023 US PELVIC WITH TRANSVAGINAL US PELVIC WITH TRANSVAGINAL HISTORY: Left pelvic pain for 2 months. COMPARISON: 10/18/2009 TECHNIQUE: Multiplanar transabdominal and transvaginal ultrasonography of the pelvis using grayscale imaging, supplemented by color Doppler as needed. FINDINGS: The uterus measures 7.8 x 5.6 x 4.6 cm and is retroverted. Normal contour without focal lesions. Endometrial stripe measures 5.7 mm in thickness, normal for menstruating female.The right ovary measures 2.6 x 2.5 x 1.8 cm.The left ovary measures 3.3 x 2.7 x 2.1 cm. No adnexal masses. Color Doppler demonstrates arterial and venous flow in both ovaries The bladder is within normal limits. No fluid in the cul-de-sac.. IMPRESSION: Unremarkable pelvic echo.. Finalized by Brandie Aquino MD on 08/06/2023 5:22 PM Normal [facility] CHLAMYDIA/GC PCR, FLon 07-28 CHLAMYDIA/GC PCR, FL SPECIMEN SOURCE ThinPrep CHLAMYDIA DNA(PCR) Negative (qualifier value) Chlamydia trachomatis not detected by nucleic acid amplification. This does not exclude the possibility of infection because results are dependent on adequate specimen collection. GONORRHOEAE DNA(PCR) Negative (qualifier value) Neisseria gonorrhoeae not detected by nucleic acid amplification. This does not exclude the possibility of infection because results are dependent on adequate specimen collection. Normal [facility] Comment on above: Performed By: #### C GT #### [facility] ([id number]) [address] [facility], [address] [facility] ([id number]) [address] [place] [address], [address] [place] [address] Cytologyon 07-29-2023 Cytology Normal [facility] Comment on above: Result Comment: [facility] [address] [place] [address] Gynecologic Cytology Consultation Patient Name:BONNIE MONTOYA:1980 (Age: 43)Gender:FTaken:4Reported:08/13/2023hysician(s):Samantha Woodruff APRN-CNPCopy To: Rec. #:[id number]: #[id number] Final Cytologic Interpretation ThinPrep Pap Test (Cervical): Satisfactory for evaluation. A transformazion zone component is not identified via imaging-assisted review, using [employer] Thin Prep Imaging System, within 22 microscopic brothers of vew. NEGATIVE FOR INTRAEPITHELIAL LESION OR MALIGNANCY. Trichomonas vaginalis identified. [facility]/08/13/2023 Interpretation performed at [employer], [address] [place] [address], License number: [id number]. Electronically Signed Out By JESUS Medel(ASCP) Date of Last Menstrual Period: 06/05/23 Other Clinical Conditions: Z01.419 [employer] exam wo/abn findings Z12.4 Screening for malignant neoplasm of cervix Source of Specimen ThinPrep Pap Test (Cervical) Thin Prep Pap (HEALTHCARE ARCHITECT) Fee Code(s): G0145 HIGH RISK HPV W/GENOon 07-28 HPV 31+33+35+39+45+51+52+5 6+58+59+66+68 DNA LESLI+probe Ql (Cvx) HPV SPECIMEN TYPE ThinPrep HPV 16 Negative (qualifier value) HPV 18 Negative (qualifier value) OTHER HIGH RISK HPV Negative (qualifier value) HPV types 31,33,35,39,45,52,56, 58,59,66 and 68 DNA were undetectable. [facility] Comment on above: Performed By: #### 7 1431-1 #### [facility] ([id number]) [address] [place] [address], [place] [address] [facility] ([id number]) [address] [place] [address], [address] [place] [address] VAGINITIS PANEL PCRon 2023 VAGINITIS PANEL PCR BACT. VAGINOSIS DNA Not detected (qualifier value) Qualitative results are reported based on detection and quantitation of targeted organism markers which include: Lactobacillus spp. (L. crispatus and L. jensenii), Gardnerella vaginalis, Atopobium vaginae, Bacterial Vaginosis Associated Bacteria-2 (BVAB-2) and Megasphaera-1 FELICIANO SPECIES DNA Not detected (qualifier value) Feliciano species not detected include: C. albicans, C. tropicalis, C. parapsilosis or C. dubliniensis FELICIANO KRUSEI DNA Not detected (qualifier value) No Feliciano krusei detected FELICIANO GLABRATA DNA Not detected (qualifier value) No Feliciano glabrata detected TRICHOMONAS VAG DNA Detected (qualifier value) Trichomonas vaginalis detected NOTE BD MAX Vaginal Panel has not been evaluated for patients under 18 years old. Results for these patients should be reviewed and assessed in accordance with clinical presentation to determine patient diagnosis. Normal [facility] Comment on above: Performed By: #### V PPCR #### [facility] ([id number]) [address] [facility] [place] [address] Urine Cytology ([facility])on 0 07-21-2023 Microscopic exam Cytology (U) [Interp] Diagnosis Info Invalid Interpretation Code [facility] Comment on above: Result Comment: A:Ur ine,Urine:Voided Interpretation - MicroScopic Description - Adequacy - Gross Description Site ID:A color Yellow fixative Alcohol Specimen designated Urine received in alcohol preservative and labeled with the patient?s name, consists of 40ml slightly cloudy yellow fluid. Electronically signed by : on: 07/21/2023 07:56:28 Performed By: #### 1 [id number] ####[facility] [address] [place] [address] Lab Reportson 07-18-2023 Lab Reports [id number]# 1.00TIFF Normal [facility] Lab Reports [id number]# 1.00TIFF Normal [facility] Lab Reports [id number]# 1.00TIFF Normal [facility] RAD - CT Reporton 07-18-2023 RAD - CT Report [id number]# 1.00TIFF Normal [facility] Screenson 07-18-2023 Screens [id number]#1 .00TIFF Normal [facility] Ambulatory Visit Summaryon 0 07-15-2023 Ambulatory Visit Summary BONNIE MONTOYA :1980 Visit Date:07/15/2023 Ambulatory Visit Instructions Your Diagnosis Gross hematuria Dysuria Mixed incontinence Your Care Team Attending Physician - DIA PATIÑO, VICKY Melo Primary Care Physician - YADIRA TIJERINA DO Referring Physician - YADIRA TIJERINA DO This Is Your Medications List Contact prescribing physician if questions or concerns amphetamine-dextroamp hetamine (Adderall) amphetamine-dextroamp hetamine (Adderall) buprenorphine-naloxon e (Suboxone 8 mg-2 mg sublingual film) gabapentin levetiracetam (Keppra 1000 mg oral tablet) sertraline (Zoloft 50 mg Tab) [Image Removed: STOP]Stop taking these medications albuterol (albuterol CFC free 90 mcg/inh Inh Aer w/Adapt 8 gm (Ventolin)) gabapentin (gabapentin 300 mg Cap) gabapentin (gabapentin 600 mg Tab) levetiracetam (Keppra 500 mg Tab) predniSONE (predniSONE 20 mg Tab) predniSONE (predniSONE 20 mg Tab) Procedures Performed section (2006), Cholecystectomy, Removal of ovarian cyst, Tubal ligation. Discharge Vitals Temperature (Temporal Artery) 36.8 ?C Heart Rate (Peripheral) 77 Respiratory Rate 15 Blood Pressure 118/85 Height 167 cm Height 66 in Weight 73.6 kg Weight 161.92 lb BMI 26.39 Medications What How Much When Instructions Unchanged amphetamine-dextroamp hetamine (Adderall) 30 Milligram By Mouth Every day Contact prescribing physician if questions or concerns Unchanged amphetamine-dextroamp hetamine (Adderall) 20 Milligram By Mouth Every day Contact prescribing physician if questions or concerns Unchanged buprenorphine-naloxon e (Suboxone 8 mg-2 mg sublingual film) Sublingual Every day Contact prescribing physician if questions or concerns Unchanged gabapentin 800 Milligram By Mouth Contact prescribing physician if questions or concerns Unchanged levetiracetam (Keppra 1000 mg oral tablet) 1 Tablets By Mouth 2 times a day Contact prescribing physician if questions or concerns Unchanged sertraline (Zoloft 50 mg Tab) By Mouth Every day Contact prescribing physician if questions or concerns What How Much When Comments Stop Taking albuterol (albuterol CFC free 90 mcg/ inh Inh Aer w/ Adapt 8 gm (Ventolin)) 2 Puffs Inhalation 4 times a day Stop Taking gabapentin (gabapentin 300 mg Cap) 1 Capsules By Mouth 3 times a day Stop Taking gabapentin (gabapentin 600 mg Tab) 1 Tablets By Mouth 3 times a day Stop Taking levetiracetam (Keppra 500 mg Tab) 1 Tablets By Mouth 2 times a day Stop Taking predniSONE (predniSONE 20 mg Tab) 3 Tablets By Mouth Every day Stop Taking predniSONE (predniSONE 20 mg Tab) 3 By Mouth Every day Allergies Imitrex Motrin (Throat swelling) Problems Ongoing - Any problem that you are currently receiving treatment for. Acute cystitis Anxiety disorder, unspecified Dysuria Gross hematuria Mixed incontinence Historical - Any problem that you are no longer receiving treatment for. Seizure Patient Survey You may receive a survey via text or e-mail asking about your office visit. Please share your experience with us by completing your survey. We appreciate your feedback and thank you for choosing us for your care. Normal [facility] Patient Educationon 07-15-19 Patient Education Urology Hematuria, Adult Hematuria is blood in the urine. Blood may be visible in the urine, or it may be identified with a test. This condition can be caused by infections of the bladder, urethra, kidney, or prostate. Other possible causes include: ? Kidney stones. ? Cancer of the urinary tract. ? Too much calcium in the urine. ? Conditions that are passed from parent to child (inherited conditions). ? Exercise that requires a lot of energy. Infections can usually be treated with medicine, and a kidney stone usually will pass through your urine. If neither of these is the cause of your hematuria, more tests may be needed to identify the cause of your symptoms. It is very important to tell your health care provider about any blood in your urine, even if it is painless or the blood stops without treatment. Blood in the urine, when it happens and then stops and then happens again, can be a symptom of a very serious condition, including cancer. There is no pain in the initial stages of many urinary cancers. Follow these instructions at home: Medicines ? Take dhdx-cak-mpboiit and prescription medicines only as told by your health care provider. ? If you were prescribed an antibiotic medicine, take it as told by your health care provider. Do not stop taking the antibiotic even if you start to feel better. Eating and drinking ? Drink enough fluid to keep your urine pale yellow. It is recommended that you drink 3?4 quarts (2.8?3.8 L) a day. If you have been diagnosed with an infection, drinking cranberry juice in addition to large amounts of water is recommended. ? Avoid caffeine, tea, and carbonated beverages. These tend to irritate the bladder. ? Avoid alcohol because it may irritate the prostate (in males). General instructions ? If you have been diagnosed with a kidney stone, follow your health care provider's instructions about straining your urine to catch the stone. ? Empty your bladder often. Avoid holding urine for long periods of time. ? If you are female: ? After a bowel movement, wipe from front to back and use each piece of toilet paper only once. ? Empty your bladder before and after sex. ? Pay attention to any changes in your symptoms. Tell your health care provider about any changes or any new symptoms. ? It is up to you to get the results of any tests. Ask your health care provider, or the department that is doing the test, when your results will be ready. ? Keep all follow-up visits. This is important. Contact a health care provider if: ? You develop back pain. ? You have a fever or chills. ? You have nausea or vomiting. ? Your symptoms do not improve after 3 days. ? Your symptoms get worse. Get help right away if: ? You develop severe vomiting and are unable to take medicine without vomiting. ? You develop severe pain in your back or abdomen even though you are taking medicine. ? You pass a large amount of blood in your urine. ? You pass blood clots in your urine. ? You feel very weak or like you might faint. ? You faint. Summary ? Hematuria is blood in the urine. It has many possible causes. ? It is very important that you tell your health care provider about any blood in your urine, even if it is painless or the blood stops without treatment. ? Take ccme-xcn-embopbr and prescription medicines only as told by your health care provider. ? Drink enough fluid to keep your urine pale yellow. This information is not intended to replace advice given to you by your health care provider. Make sure you discuss any questions you have with your health care provider. Document Revised: 12/27/2020 Document Reviewed: 12/27/2020 [employer] Patient Education ? 2022 [employer] [facility] Provider Letteron 07-15-2023 Provider Letter YADIRA TIJERINA, [place] [address] Re: BONNIE MONTOYA Date of : [address] TIJERINA DO, BONNIE LOYD was evaluated at [facility] 07/15/2023 09:30:00 Just wanted to bring to your attention that her in-office UA showed significant protein. I see her recent renal function was normal but just wanted you to keep an eye on this in case nephrology referral may be warranted if it persists. Thanks! Provider Signature: Vicky Gregg PA-C Physician [employer] [facility] [address] [place] [address] te Normal [facility] Provider Letter July 15, 2023 BONNIE MONTOYA [address] [place] [place] [address] : 1980 To Whom It May Concern, Please excuse above patient from work. Date of appointment: From: _ To: _ May Return to Work On:07/15/2023 Restrictions: none Comments: Any questions, please call our office. Sincerely, [facility] [address], [place] [address] Normal [facility] Urine Cytology ([facility])on 0 07-15-2023 Method of Extraction Voided Normal [facility] Comment on above: Performed By: #### 1 [id number] ####[facility] [address] [place] [address] Number of Jars 1 Invalid Interpretation Code [facility] Comment on above: Performed By: #### 1 [id number] ####[facility] [address] [place] [address] UC Specimen Urine Normal [facility] Comment on above: Performed By: #### 1 [id number] ####[facility] [address] [place] [address] Type of Service Technical Only Normal [facility] Comment on above: Performed By: #### 1 [id number] ####[facility] [address] [place] [address] 36on 11-25-2022 36 Left vm msg for Angella Parr to confirm pt was admitted on 11/15 to recovery housing. Normal [facility] Telephoneon 11-25-2022 Telephone [phone] Bonnie Montoya 1980 F Date Provider Department Center 11/25/2022 DAVID VEGA [facility] Antonio Heal Family History Problem Relation Age of Onset Addiction problem Mother Bipolar disorder Mother Addiction problem Maternal Grandmother Bipolar disorder Maternal Grandmother Family Status - Relation Status Age at Mother Maternal Grandmother [facility] 30on 11-15-2022 30 Problem: Substance Abuse [...] for quitting Outcome: Adequate for Discharge [facility] 30 The patient is Moderately Unstable - Medium risk of patient condition declining or worsening The patient's goals for the shift include safety, comfort, and sleep The clinical goals for the shift include safety, comfort, and sleep [facility] 94on 11-15-2022 94 Group Topic: Activit y Therapy Group Date: 11/15/2022 Start Time: 1030 End Time: 1115 Facilitators: KRISTIN Crowell Department: [facility] Recovery Number of Participants: 0 Group [...] Bonnie Montoya Date of : 1980 MR: [id number] Level of Participation: withdrawn Progress: None Response: Pt. Was withdrawn from self-esteem group and remained isolated in their room. Plan: Pt. Will be encouraged to attend therapeutic recreation interventions with the ENDOSCOPE TECHNICIAN in the future. Patients Problems: Patient Active Problem List Diagnosis Opiate dependence, continuous ([facility]) Cocaine use Hypomagnesemia History of seizure Anxiety Normal [facility] DSon 11-15-2022 DS Discharge Date: 11/15/2022 [...] Negative mg/dL Bilirubin, Urine Negative Negative Specific [place], Urine 1.007 (L) 1.015 - 1.020 Ketones, [...] Result [place] (more content not included)... [facility] NURSNOTEon 11-15-2022 NURSNOTE Patient slept throug h the night. Scheduled and PRN medications are helping. [facility] 30on 11-14-2022 30 The patient is [...] verbalize reasons for quitting Outcome: Progressing Normal [facility] 30 The patient is Moderately Stable [...] verbalize reasons for quitting Outcome: Progressing Normal [facility] 94on 11-14-2022 94 Group Topic: Activit y Therapy Group Date: 11/14/2022 Start Time: 1530 End Time: 1600 Facilitators: KRISTIN Crowell Department: [facility] Recovery Number of Participants: 0 Group [...] Bonnie Montoya Date of : 1980 MR: [id number] Level of Participation: withdrawn Progress: None Response: Pt. Was withdrawn from group and remained isolated in their room. Plan: Pt. Will be encouraged to attend therapeutic recreation interventions with the ENDOSCOPE TECHNICIAN in the future. Patients Problems: Patient Active Problem List Diagnosis Opiate dependence, continuous (CMS/HCC) Cocaine use Hypomagnesemia History of seizure Anxiety Normal [facility] 94 Group Topic: Activit y Therapy Group Date: 11/14/2022 Start Time: 1330 End Time: 1425 Facilitators: KRISTIN Crowell Department: [facility] Recovery Number of Participants: 3 Group [...] Bonnie Montoya Date of : 1980 MR: [id number] Level of Participation: active Quality of Participation: attentive, cooperative, engaged, and motivated Interactions with others: supportive, asked thoughtful questions, and offered helpful suggestions Mood/Affect: appropriate Cognition: coherent/clear Progress: Moderate Response: Pt. Engaged in music therapy group alongside ENDOSCOPE TECHNICIAN and peers. Pt. Was appropriate and supportive of others throughout group. Pt. Appeared to be anxious and hesitant upon entering group. Had no difficulty engaging efficiently in group. Plan: Pt. Will be encouraged to continue attending therapeutic recreation interventions with the ENDOSCOPE TECHNICIAN. Patients Problems: Patient Active Problem List Diagnosis Opiate dependence, continuous (CMS/HCC) Cocaine use Hypomagnesemia History of seizure Anxiety Normal [facility] 94 Group Topic: Activit y Therapy Group Date: 11/14/2022 Start Time: 1030 End Time: 1145 Facilitators: Shirlene Jimenez ENDOSCOPE TECHNICIAN Department: [facility] Recovery Number of Participants: 3 Group [...] reinforce self-care, and relapse prevention strategies Name: Bonine Montoya Date of : 1980 MR: [id number] Level of Participation: active Quality of Participation: attentive, cooperative, engaged, and motivated Interactions with others: supportive, asked thoughtful questions, and offered helpful suggestions Mood/Affect: appropriate Cognition: coherent/clear Progress: Moderate Response: Pt. Engaged in art therapy group alongside ENDOSCOPE TECHNICIAN and peers. Pt. Was appropriate with others throughout group. Plan: Pt. Will be encouraged to continue attending therapeutic recreation interventions with the ENDOSCOPE TECHNICIAN. Patients Problems: Patient Active Problem List Diagnosis Opiate dependence, continuous (CMS/HCC) Cocaine use Hypomagnesemia History of seizure Anxiety Normal [facility] BASIC METABOLIC PANELon 07-0 Anion gap [Moles/Vol] 7 mmol/L Normal 7-20 [facility] Comment on above: Performed By: #### L [id number] ####[facility] (BEAKER)[address] [place] [address] Calcium [Mass/Vol] 9.5 mg/dL Normal 8.6-10.3 [facility] Comment on above: Performed By: #### L [id number] ####[facility] [place] [address] Chloride [Moles/Vol] 99 mmol/L Normal 98-107 [facility] Comment on above: Performed By: #### L [id number] ####[facility] [place] [address] CO2 [Moles/Vol] 36 mmol/L High 21-31 [facility] Comment on above: Performed By: #### L [id number] ####[facility] ([facility])[address] [place] [address] Creatinine [Mass/Vol] 0.76 mg/dL Normal 0.60-1.20 [facility] Comment on above: Performed By: #### L [id number] ####[facility] ([facility])[address] [place] [address] GLOMERULAR FILTRATION RATE ML/MIN/1.73 SQ M.PREDICTED 99.6 mL/min/1.73m*2 Normal >60.0 [facility] Comment on above: Result Comment: The [facility]???s estimated glomerular filtration rate (eGFR) will [...] of individuals. Performed By: #### L [id number] ####[facility] [place] [address] Glucose [Mass/Vol] 96 mg/dL Normal 70-100 [facility] Comment on above: Performed By: #### L [id number] ####[facility] [place] [address] Potassium [Moles/Vol] 5.2 mmol/L High 3.5-5.1 [facility] Comment on above: Performed By: #### L [id number] ####[facility] (BEAKER)[address] [place] [address] Sodium [Moles/Vol] 137 mmol/L Normal 136-145 [facility] Comment on above: Performed By: #### L [id number] ####[facility] (BEAKER)[address] [place] [address] Urea nitrogen [Mass/Vol] 14 mg/dL Normal 7-25 [facility] Comment on above: Performed By: #### L [id number] ####[facility] [place] [address] UREA NITROGEN/CREATININE (MASS RATIO) IN SER/PLAS 18.4 Normal [facility] Comment on above: Performed By: #### L [id number] ####[facility] [place] [address] CBC WITH AUTO DIFFERENTIALon 11-14-2022 Basophils (Bld) [#/Vol] 0.03 10*3/uL Normal 0.00-0.20 [facility] Comment on above: Performed By: #### L [id number] ####[facility] (BEAKER)[address] [place] [address] Basophils/100 WBC (Bld) 0.6 % Normal 0.0-1.0 [facility] Comment on above: Performed By: #### L [id number] ####[facility] (BEAKER)[address] [place] [address] Eosinophils (Bld) [#/Vol] 0.23 10*3/uL Normal 0.00-0.50 [facility] Comment on above: Performed By: #### L [id number] ####[facility] (BEAKER)[address] [place] [address] Eosinophils/100 WBC (Bld) 4.5 % Normal 0.0-6.0 [facility] Comment on above: Performed By: #### L [id number] ####[facility] [place] [address] Erythrocyte distribution width (RBC) [Ratio] 14.6 % Normal 11.5-15.0 [facility] Comment on above: Performed By: #### L [id number] ####[facility] ([facility])[address] [place] [address] ERYTHROCYTE MEAN CORPUSCULAR HEMOGLOBIN CONCENTRATION (G/DL) BY AUTOMATED 32.1 g/dL Normal 32.0-35.0 [facility] Comment on above: Performed By: #### L [id number] ####[facility] ([facility])[address] [place] [address] Hematocrit (Bld) [Volume fraction] 41.1 % Normal 36.0-48.0 [facility] Comment on above: Performed By: #### L [id number] ####[facility] ([facility])[address] [place] [address] Hemoglobin (Bld) [Mass/Vol] 13.2 g/dL Normal 12.0-15.0 [facility] Comment on above: Performed By: #### L [id number] ####[facility] ([facility])[address] [place] [address] Immature granulocytes (Bld) [#/Vol] 0.01 10*3/uL Normal 0.00-0.20 [facility] Comment on above: Performed By: #### L [id number] ####[facility] ([facility])[address] [place] [address] Immature granulocytes/100 WBC (Bld) 0.2 % Normal 0.0-1.0 [facility] Comment on above: Performed By: #### L [id number] ####[facility] [place] [address] Lymphocytes (Bld) [#/Vol] 1.34 10*3/uL Normal 1.20-4.00 [facility] Comment on above: Performed By: #### L [id number] ####[facility] (BEAKER)[address] [place] [address] Lymphocytes/100 WBC (Bld) 26.1 % Normal 20.0-45.0 [facility] Comment on above: Performed By: #### L [id number] ####[facility] [place] [address] MCH (RBC) [Entitic mass] 28.3 pg Normal 27.0-33.0 [facility] Comment on above: Performed By: #### L [id number] ####[facility] [place] [address] MCV (RBC) [Entitic vol] 88.0 fL Normal 82.0-98.0 [facility] Comment on above: Performed By: #### L [id number] ####[facility] [place] [address] Monocytes (Bld) [#/Vol] 0.49 10*3/uL Normal 0.10-1.00 [facility] Comment on above: Performed By: #### L [id number] ####[facility] [place] [address] Monocytes/100 WBC (Bld) 9.5 % Normal 5.0-12.0 [facility] Comment on above: Performed By: #### L [id number] ####[facility] (BEAKER)[address] [place] [address] Neutrophils (Bld) [#/Vol] 3.04 10*3/uL Normal 1.60-7.60 [facility] Comment on above: Performed By: #### L [id number] ####[facility] (BEAKER)[address] [place] [address] Neutrophils/100 WBC (Bld) 59.1 % Normal 40.0-72.0 [facility] Comment on above: Performed By: #### L [id number] ####[facility] (BEAKER)[address] [place] [address] NRBC (PER 100 WBCS) BY AUTOMATED COUNT 0.0 % Normal 0 [facility] Comment on above: Performed By: #### L [id number] ####[facility] (BEAKER)[address] [place] [address] PLATELETS (10*3/UL) IN BLOOD AUTOMATED COUNT 258 10*3/uL Normal 150-400 [facility] Comment on above: Performed By: #### L [id number] ####[facility] ([facility])[address] [facility] [address] RBC (Bld) [#/Vol] 4.67 10*6/uL Normal 3.80-5.00 [facility] Comment on above: Performed By: #### L [id number] ####[facility] ([facility])[address] [facility] [address] WBC (Bld) [#/Vol] 5.14 10*3/uL Normal 4.00-10.60 [facility] Comment on above: Performed By: #### L [id number] ####[facility] ([facility])[address] [place] [address] NURSNOTEon 11-14-2022 NURSNOTE Patient talking on phone in no acute distress, C/O nausea unrelieved by compazine, zofran 8mg requested and given. Patient C/O stomach cramping, indigestion, diarrhea, restless legs, hot/cold sweats, generalized pain, nasal congestion, cough, UTI, and insomnia. COW=10. Scheduled and PRN medications given. Normal [facility] NURSNOTE Patient complains of nausea, PRN compazine given. [facility] NURSNOTE Patient has been up out of room for groups and meals. PRN zofran helpful for nausea. Pt plans to go to [facility] inpatient tomorrow. [facility] NURSNOTE Patient resting in bed. States she feels worse today than she did yesterday. Pt reports loose stools x2, nausea, stuffy nose, bone / joint pain, and anxiety. Requests all PRN comfort meds she is due for. Will give comfort meds with AM med pass. [facility] NURSNOTE Patient slept throug h the night. Scheduled and PRN medications are helping. Normal [facility] PROCALCITONIN TESTon 023 PROCALCITONIN IN BLOOD 0.01 ng/mL Normal 0.00-0.10 [facility] Comment on above: Result Comment: Susp ected [...] and initial PCT<0.5ng/mL Performed By: #### L [id number] ####[facility] (BEAKER)[address] [place] [address] 30on 11-13-2022 30 The patient is Moderately [...] verbalize reasons for quitting Outcome: Progressing Normal [facility] 30 The patient is Moderately Unstable [...] verbalize reasons for quitting Outcome: Progressing Normal [facility] 94on 11-13-2022 94 Group Topic: Feeling Awareness/Expression Group Date: 11/13/2022 Start Time: 1830 End Time: 1918 Facilitators: ANDREW Brewer Department: [facility] COMPUTER SCIENCE INSTRUCTOR Number of Participants: 6 Group Focus: feeling awareness/expression Treatment Modality: Patient-Centered Therapy Interventions utilized were exploration Purpose: express feelings Name: Bonnie Montoya Date of : 1980 MR: [id number] Level of Participation: moderate Quality of Participation: cooperative Interactions with others: supportive Mood/Affect: appropriate Cognition: coherent/clear Progress: Moderate Patients Problems: Patient Active Problem List Diagnosis Opiate dependence, continuous (CMS/HCC) Cocaine use Hypomagnesemia History of seizure Anxiety Normal [facility] 94 Group Topic: Activit y Therapy Group Date: 11/13/2022 Start Time: 1530 End Time: 1600 Facilitators: KRISTIN Crowell Department: [facility] Recovery Number of Participants: 2 Group [...] Bonnie Montoya Date of : 1980 MR: [id number] Level of Participation: refused Progress: None Response: Pt. Refused integration into group with ENDOSCOPE TECHNICIAN and peers at this time. Plan: Pt. Will be encouraged to attend therapeutic recreation interventions with the ENDOSCOPE TECHNICIAN in the future. Patients Problems: Patient Active Problem List Diagnosis Opiate dependence, continuous (CMS/HCC) Cocaine use Hypomagnesemia History of seizure Anxiety Normal [facility] 94 Group Topic: Activit y Therapy Group Date: 11/13/2022 Start Time: 1330 End Time: 1415 Facilitators: KRISTIN Crowell Department: [facility] Recovery Number of Participants: 3 Group [...] Bonnie Montoya Date of : 1980 MR: [id number] Level of Participation: refused Progress: None Response: Pt. Refused integration into group with ENDOSCOPE TECHNICIAN and peers at this time. Plan: Pt. Will be encouraged to attend therapeutic recreation interventions with the ENDOSCOPE TECHNICIAN in the future. Patients Problems: Patient Active Problem List Diagnosis Opiate dependence, continuous (CMS/HCC) Cocaine use Hypomagnesemia History of seizure Anxiety Normal [facility] 94 Group Topic: Activities of Daily Living Group Date: 11/13/2022 Start Time: 1030 End Time: 1130 Facilitators: KRISTIN Crowell Department: [facility] Recovery Number of Participants: 3 Group [...] Bonnie Montoya Date of : 1980 MR: [id number] Level of Participation: refused Progress: None Response: Pt. Refused integration into group with ENDOSCOPE TECHNICIAN and peers at this time. Plan: Pt. Will be encouraged to attend therapeutic recreation interventions with the ENDOSCOPE TECHNICIAN in the future. Patients Problems: Patient Active Problem List Diagnosis Opiate dependence, continuous (CMS/HCC) Cocaine use Hypomagnesemia History of seizure Anxiety Normal [facility] NURSNOTEon 11-13-2022 NURSNOTE Patient complained o f nausea and generalized pain. PRN tylenol and zofran given. Normal [facility] NURSNOTE Patient reports chills, fatigue, and nausea continue. Pt now reporting increased urgency and burning with urination which she stated began 2 days ago but symptoms have worsened today. Microfilm Operator discussed with Dr. Coffey, new order received for UA. Normal [facility] NURSNOTE Patient resting in bed, complains of chills, GI upset, nausea, diarrhea, generalized pain and restlessness, anxiety, and stuffy nose. Microfilm Operator updated [facility] resident during rounds of pt BP and temp of 99.3 this AM as well as pt report of symptoms. No new orders at this time, continue to monitor and report worsening of symptoms or vital signs. Microfilm Operator will give PRN meds for comfort with AM med pass. Normal [facility] NURSNOTE Patient resting in bed with eyes closed. Patient appears to have slept pretty well through the night, only waking a couple times for snacks. No signs of distress noted. Breathing is unlabored and even. Safety maintained. Normal [facility] NURSNOTE Patient up ad elisa on the unit. Patient is pleasant and cooperative with staff and assessment. Patient complains of Moderate symptoms of withdrawal and was given PRN comfort medications. No signs of distress noted. Breathing is unlabored and even. Safety maintained. Normal [facility] URINALYSIS MICROSCOPIC WITH REFLEX CULTUREon 11-13-2022 CASTS IN URINE Normal [facility] Comment on above: Performed By: #### L [id number] ####[facility] (BEAKER)[address] [place] [address] CRYSTALS IN URINE Normal [facility] Comment on above: Performed By: #### L [id number] ####[facility] (BEAKER)[address] [place] [address] OTHER MICROSCOPIC ELEMENTS Normal [facility] Comment on above: Performed By: #### L [id number] ####[facility] (BEAKER)[address] [place] [address] RBC (#/HPF) IN URINE SEDIMENT 0-2 Abnormal None Seen [facility] Comment on above: Performed By: #### L [id number] ####[facility] (BEAKER)[address] [place] [address] SQUAMOUS EPITHELIAL CELLS (#/HPF) IN URINE SEDIMENT Many Abnormal None Seen, Occasional [facility] Comment on above: Performed By: #### L [id number] ####[facility] (BEAKER)[address] [place] [address] WBC (LEUKOCYTE) (#/HPF) IN URINE SEDIMENT 3-5 Abnormal None Seen [facility] Comment on above: Performed By: #### L [id number] ####[facility] (BEAKER)[address] [place] [address] URINALYSIS WITH REFLEX CULTU REon 11-13-2022 BILIRUBIN, TOTAL PRESENCE IN URINE Negative Normal Negative [facility] Comment on above: Order Comment: 0000 Performed By: #### L [id number] ####[facility] (BEAKER)[address] [place] [address] Clarity (U) Clear Normal Clear [facility] Comment on above: Order Comment: 0000 Performed By: #### L [id number] ####[facility] (BEAKER)[address] [place] [address] Color (U) Yellow Normal Yellow, Dark Yellow, Straw [facility] Comment on above: Order Comment: 0000 Performed By: #### L [id number] ####[facility] (BEAKER)[address] [place] [address] Glucose (U) [Mass/Vol] Negative Normal [facility] Comment on above: Order Comment: 0000 Performed By: #### L [id number] ####[facility] (BEAKER)[address] [place] [address] HEMOGLOBIN PRESENCE IN URINE Negative Normal Negative [facility] Comment on above: Order Comment: 0000 Performed By: #### L [id number] ####[facility] ([facility])[address] [place] [address] Ketones Ql (U) Negative Normal Negative [facility] Comment on above: Order Comment: 0000 Performed By: #### L [id number] ####[facility] ([facility])[address] [place] [address] LEUKOCYTE ESTERASE PRESENCE IN URINE BY TEST STRIP Trace Abnormal Negative [facility] Comment on above: Order Comment: 0000 Performed By: #### L [id number] ####[facility] ([facility])[address] [place] [address] NITRITE PRESENCE IN URINE Negative Normal Negative [facility] Comment on above: Order Comment: 0000 Performed By: #### L [id number] ####[facility] ([facility])[address] [place] [address] pH (U) 7.5 [pH] Normal 5.0-8.0 [facility] Comment on above: Order Comment: 0000 Performed By: #### L [id number] ####[facility] [place] [address] Protein (U) [Mass/Vol] Negative Normal Negative [facility] Comment on above: Order Comment: 0000 Performed By: #### L [id number] ####[facility] (BEAKER)[address] [place] [address] Specific gravity (U) [Rel density] 1.010 Low 1.015-1.020 [facility] Comment on above: Order Comment: 0000 Performed By: #### L [id number] ####[facility] ([place] [place] [address] 30on 11-12-2022 30 The patient is Moderately Stable - Low risk of patient condition declining or worsening The patient's goals for the shift include comfort The clinical goals for the shift include manage withdrawal symptoms Normal [facility] 30 The patient is Moderately Unstable [...] verbalize reasons for quitting Outcome: Progressing Normal [facility] 94on 11-12-2022 94 Group Topic: Leisure Skills Group Date: 11/12/2022 Start Time: 1115 End Time: 1155 Facilitators: KRISTIN Shine Department: [facility] Recovery Number of Participants: 3 Group Focus: clarity of thought, communication, and leisure skills Treatment Modality: Leisure Development and Patient-Centered Therapy Interventions utilized were leisure development and mental fitness Purpose: improve communication skills and increase insight or knowledge Name: Bonnie Montoya Date of : 1980 MR: [id number] Level of Participation: refused Response: Pt was encouraged to join the group but refused, resting in bed during group. Plan: Encourage patient to participate in recreational therapy groups and activities. Patients Problems: Patient Active Problem List Diagnosis Opiate dependence, continuous (CMS/HCC) Cocaine use Hypomagnesemia History of seizure Anxiety Normal [facility] NURSNOTEon 11-12-2022 NURSNOTE Pt ate a small amoun t for dinner, she complained of hot and cold sweats and was given clonidine. She was given zofran for nausea and was sitting in the day area with peers watching tv. Normal [facility] NURSNOTE Pt was asleep in bed , she was sweaty and complained of restlessness, she was given clonidine for chills and sweats and was encouraged to eat breakfast. [facility] 3011-11-2022 30 Problem: Substance Abuse (Historic and Current) [...] to address these barriers include education. [facility] 30 The patient is Moderately Unstable [...] verbalize reasons for quitting Outcome: Progressing Normal [facility] 94on 11-11-2022 94 Group Topic: Discharge Planning Group Date: 11/11/2022 Start Time: 1829 End Time: 1909 Facilitators: ANDREW Brewer Department: [facility] COMPUTER SCIENCE INSTRUCTOR Number of Participants: 3 Group Focus: diagnosis education Treatment Modality: Patient-Centered Therapy Interventions utilized were exploration Purpose: relapse prevention strategies Name: Bonnie Montoya Date of : 1980 MR: [id number] Level of Participation: refused Patients Problems: Patient Active Problem List Diagnosis Opiate dependence, continuous (CMS/HCC) Cocaine use Hypomagnesemia History of seizure Anxiety Normal [facility] 94 Group Topic: Activit y Therapy Group Date: 11/11/2022 Start Time: 1530 End Time: 1600 Facilitators: KRISTIN Crowell Department: [facility] Recovery Number of Participants: 0 Group [...] Bonnie Montoya Date of : 1980 MR: [id number] Level of Participation: refused Progress: None Response: Pt. Refused integration into group with ENDOSCOPE TECHNICIAN and peers at this time. Plan: Pt. Will be encouraged to attend therapeutic recreation interventions with the ENDOSCOPE TECHNICIAN in the future. Patients Problems: Patient Active Problem List Diagnosis Opiate dependence, continuous (CMS/HCC) Cocaine use Hypomagnesemia History of seizure Anxiety [facility] 94 Group Topic: Activit y Therapy Group Date: 11/11/2022 Start Time: 1330 End Time: 1415 Facilitators: KRISTIN Crowell Department: [facility] Recovery Number of Participants: 1 Group [...] Bonnie Montoya Date of : 1980 MR: [id number] Level of Participation: withdrawn Progress: None Response: Pt. Was isolated to room and was experiencing active withdrawal symptoms at this time. Plan: Pt. Will be encouraged to attend therapeutic recreation interventions with the ENDOSCOPE TECHNICIAN in the future. Patients Problems: Patient Active Problem List Diagnosis Opiate dependence, continuous (CMS/HCC) Cocaine use Hypomagnesemia History of seizure Anxiety Normal [facility] 94 Group Topic: Activit y Therapy Group Date: 11/11/2022 Start Time: 1030 End Time: 1115 Facilitators: Shirlene Jimenez ENDOSCOPE TECHNICIAN Department: [facility] Recovery Number of Participants: 3 Group [...] Bonnie Montoya Date of : 1980 MR: [id number] Level of Participation: refused Progress: None Response: Pt. Refused integration into group with ENDOSCOPE TECHNICIAN and peers at this time. Plan: Pt. Will be encouraged to attend therapeutic recreation interventions with the ENDOSCOPE TECHNICIAN in the future. Patients Problems: Patient Active Problem List Diagnosis Opiate dependence, continuous (CMS/HCC) Normal [facility] CONSULTon 11-11-2022 CONSULT - Attestation signed [...] Montoya Age - 42 y.o. - 1980 [facility] # - [id number] Date of Admission - 11/10/2022 4:38 PM [...] mg, 650 mg, oral, q6h PRN, David Coffey MD, 650 mg at 11/11/22 0630 alum-mag hydroxide-simeth (Mylanta) 200-200-20 mg/5 mL oral suspension 30 mL, 30 mL, oral, q4h PRN, David Coffey MD bisacodyl (Dulcolax) EC tablet 10 mg, 10 mg, oral, Daily PRN, David Coffey MD buprenorphine-naloxon e (Suboxone) 2-0.5 mg per SL tablet 2 tablet, 2 tablet, sublingual, q6h, David Coffey MD, 2 tablet at 11/11/22 0629 dicyclomine (Bentyl) capsule 20 mg, 20 mg, oral, q6h PRN, David Coffey MD, 20 mg at 11/11/22 0628 gabapentin (Neurontin) capsule 300 mg, 300 mg, oral, TID PRN, David Coffey MD, 300 mg at 11/11/22 0628 guaiFENesin (Mucinex) 12 hr tablet 600 mg, 600 mg, oral, BID PRN, David Coffey MD, 600 mg at 11/11/22 0628 hydrOXYzine pamoate (Vistaril) capsule 25 mg, 25 mg, oral, TID PRN, David Coffey MD, 25 mg at 11/11/22 0628 levETIRAcetam (Keppra) tablet 1,250 mg, 1,250 mg, oral, BID, LEFTY Zavala-C, 1,250 mg at 11/10/22 220 loperamide (Imodium) capsule 2 mg, 2 mg, oral, q2h PRN, David Coffey MD magnesium hydroxide (Milk of Magnesia) 400 mg/5 mL suspension 30 mL, 30 mL, oral, q12h PRN, David Coffey MD magnesium oxide (Mag-Ox) tablet 400 mg, 400 mg, oral, q8h, LEFTY Zavala-C, 400 mg at 11/11/22 06 melatonin tablet 6 mg, 6 mg, oral, Nightly, David Coffey MD, 6 mg at 11/10/22 215 ondansetron ODT (Zofran-ODT) disintegrating tablet 4 mg, 4 mg, oral, q6h PRN, 4 mg at 11/10/22 1846 OR ondansetron ODT (Zofran-ODT) disintegrating tablet 8 mg, 8 mg, oral, q6h PRN, David Coffey MD, 8 mg at 11/11/22 0628 prochlorperazine (Compazine) suppository 25 mg, 25 mg, rectal, q6h PRN, David Coffey MD prochlorperazine (Compazine) tablet 10 mg, 10 mg, oral, q6h PRN, David Coffey MD Allergies: Patient Imitrex [sumatriptan] and Motrin [ibuprofen] Family history: Patient family history includes Addiction problem in her maternal grandmother and mother; Bipolar disorder in her maternal grandmother and mother. Review of Systems: Review of Systems Constitutional: Negative. Negative for chills, fatigue and fever. HENT: Negative. (more content not included)... Normal [facility] HEPATITIS B CORE ANTIBODY, I GMon 11-11-2022 HEPATITIS B VIRUS CORE IGM AB PRESENCE IN SER/PLAS BY IMMUNOASSY Negative Normal Negative [facility] Comment on above: Result Comment: INTE RPRETIVE INFORMATION: Hepatitis B Core Ab, IgM This assay should not be used for blood donor screening, associated re-entry protocols, or for screening Human Cells, Tissues and Cellular and Tissue-Based Products (HCT/P). Performed by [employer] [address] [place] [address] [id number] [email or web address] Janusz Pope MD, PHD, Lab. Director Performed By: #### L [id number] ####[facility] ([employer])[address] [place] [address] HEPATITIS B SURFACE ANTIBODY QUANTon 11-11-2022 HEPATITIS B VIRUS SURFACE AB (MIU/ML) IN SERUM 53.99 mIU/mL Normal [facility] Comment on above: Result Comment: INTE RPRETATION: NONREACTIVE<8.00 mIU/mL INDETERMINATE8.00 - 12.00 mIU/mL REACTIVE>12 mIU/mL Performed By: #### L [id number] ####[facility] (BEAKER)[address] [place] [address] HEPATITIS B SURFACE ANTIGENo n 11-11-2022 HEPATITIS B VIRUS SURFACE AG PRESENCE IN SERUM Non-Reactive Normal Nonreactive [facility] Comment on above: Performed By: #### L [id number] ####[facility] (RULA)NITESH PARRA [address] HPon 11-11-2022 HP - Attestation signed by David Coffey MD at 11/11/2022 1:25 PM I personally [...] Until Spec (more content not included)... [facility] NURSNOTEon 11-11-2022 RUBENS Lucero was resting in bed, she stated that she felt horrible , she is irritable and stated that she was restless, she was compliant with suboxone. [facility] RUBENS Lucero was asleep in bed , she complained of nausea and was given zofran, she ate well at breakfast. [facility] 3011-10-2022 30 Problem: Substance Abuse (Historic and Current) [...] to address these barriers include education. [facility] 30 The patient is Moderately Stable - Low risk of patient condition declining or worsening The patient's goals for the shift include to get control of myself The clinical goals for the shift include withdraw management Normal [facility] ACETAMINOPHEN LEVELon 2022 ACETAMINOPHEN (UG/ML) IN SER/PLAS <10 Low 10-30 [facility] Comment on above: Performed By: #### L [id number] ####[facility] (BEAKER)[address] [place] [address] BASIC METABOLIC PANELon 07- Anion gap [Moles/Vol] 8 mmol/L Normal 7-20 [facility] Comment on above: Performed By: #### L [id number] ####[facility] (BEAKER)[address] [place] [address] Calcium [Mass/Vol] 9.5 mg/dL Normal 8.6-10.3 [facility] Comment on above: Performed By: #### L [id number] ####[facility] (BEAKER)[address] [place] [address] Chloride [Moles/Vol] 100 mmol/L Normal 98-107 [facility] Comment on above: Performed By: #### L [id number] ####[facility] (BEAKER)[address] [place] [address] CO2 [Moles/Vol] 34 mmol/L High 21-31 [facility] Comment on above: Performed By: #### L [id number] ####[facility] (BEAKER)[address] [place] [address] Creatinine [Mass/Vol] 0.66 mg/dL Normal 0.60-1.20 [facility] Comment on above: Performed By: #### L [id number] ####[facility] (BEAKER)[address] [place] [address] GLOMERULAR FILTRATION RATE ML/MIN/1.73 SQ M.PREDICTED 111.6 mL/min/1.73m*2 Normal >60.0 [facility] Comment on above: Result Comment: The [facility]???s estimated glomerular filtration rate (eGFR) will [...] of individuals. Performed By: #### L [id number] ####[facility] ([facility])[address] [place] [address] Glucose [Mass/Vol] 76 mg/dL Normal 70-100 [facility] Comment on above: Performed By: #### L [id number] ####[facility] ([facility])[address] [place] [address] Potassium [Moles/Vol] 3.5 mmol/L Normal 3.5-5.1 [facility] Comment on above: Performed By: #### L [id number] ####[facility] ([facility])[address] [place] [address] Sodium [Moles/Vol] 138 mmol/L Normal 136-145 [facility] Comment on above: Performed By: #### L [id number] ####[facility] ([facility])[address] [facility] [address] Urea nitrogen [Mass/Vol] 7 mg/dL Normal 7-25 [facility] Comment on above: Performed By: #### L [id number] ####[facility] ([facility])[address] [place] [address] UREA NITROGEN/CREATININE (MASS RATIO) IN SER/PLAS 10.6 Normal [facility] Comment on above: Performed By: #### L [id number] ####[facility] ([facility])[address] [facility] [address] CBC WITH AUTO DIFFERENTIALon 11-10-2022 Basophils (Bld) [#/Vol] 0.04 10*3/uL Normal 0.00-0.20 [facility] Comment on above: Performed By: #### L [id number] ####[facility] (BEAKER)[address] [place] [address] Basophils/100 WBC (Bld) 0.7 % Normal 0.0-1.0 [facility] Comment on above: Performed By: #### L [id number] ####[facility] (BEAKER)[address] [place] [address] Eosinophils (Bld) [#/Vol] 0.26 10*3/uL Normal 0.00-0.50 [facility] Comment on above: Performed By: #### L [id number] ####[facility] (BEAKER)[address] [place] [address] Eosinophils/100 WBC (Bld) 4.2 % Normal 0.0-6.0 [facility] Comment on above: Performed By: #### L [id number] ####[facility] (BEAKER)[address] [place] [address] Erythrocyte distribution width (RBC) [Ratio] 14.9 % Normal 11.5-15.0 [facility] Comment on above: Performed By: #### L [id number] ####[facility] (BEAKER)[address] [place] [address] ERYTHROCYTE MEAN CORPUSCULAR HEMOGLOBIN CONCENTRATION (G/DL) BY AUTOMATED 31.6 g/dL Low 32.0-35.0 [facility] Comment on above: Performed By: #### L [id number] ####[facility] (BEAKER)[address] [place] [address] Hematocrit (Bld) [Volume fraction] 41.2 % Normal 36.0-48.0 [facility] Comment on above: Performed By: #### L [id number] ####[facility] (BEAKER)[address] [place] [address] Hemoglobin (Bld) [Mass/Vol] 13.0 g/dL Normal 12.0-15.0 [facility] Comment on above: Performed By: #### L [id number] ####[facility] (BEAKER)[address] [place] [address] Immature granulocytes (Bld) [#/Vol] 0.01 10*3/uL Normal 0.00-0.20 [facility] Comment on above: Performed By: #### L [id number] ####[facility] (BEAKER)[address] [place] [address] Immature granulocytes/100 WBC (Bld) 0.2 % Normal 0.0-1.0 [facility] Comment on above: Performed By: #### L [id number] ####[facility] (BEAKER)[address] [place] [address] Lymphocytes (Bld) [#/Vol] 2.80 10*3/uL Normal 1.20-4.00 [facility] Comment on above: Performed By: #### L [id number] ####[facility] (BEAKER)[address] [place] [address] Lymphocytes/100 WBC (Bld) 45.5 % High 20.0-45.0 [facility] Comment on above: Performed By: #### L [id number] ####[facility] (BEAKER)[address] [place] [address] MCH (RBC) [Entitic mass] 27.7 pg Normal 27.0-33.0 [facility] Comment on above: Performed By: #### L [id number] ####[facility] (BEAKER)[address] [place] [address] MCV (RBC) [Entitic vol] 87.7 fL Normal 82.0-98.0 [facility] Comment on above: Performed By: #### L [id number] ####[facility] (BEAKER)[address] [place] [address] Monocytes (Bld) [#/Vol] 0.48 10*3/uL Normal 0.10-1.00 [facility] Comment on above: Performed By: #### L [id number] ####[facility] (BEAKER)[address] [place] [address] Monocytes/100 WBC (Bld) 7.8 % Normal 5.0-12.0 [facility] Comment on above: Performed By: #### L [id number] ####[facility] ([facility])[address] [place] [address] Neutrophils (Bld) [#/Vol] 2.56 10*3/uL Normal 1.60-7.60 [facility] Comment on above: Performed By: #### L [id number] ####[facility] ([facility])[address] [place] [address] Neutrophils/100 WBC (Bld) 41.6 % Normal 40.0-72.0 [facility] Comment on above: Performed By: #### L [id number] ####[facility] ([facility])[address] [place] [address] NRBC (PER 100 WBCS) BY AUTOMATED COUNT 0.0 % Normal 0 [facility] Comment on above: Performed By: #### L [id number] ####[facility] ([facility])[address] [place] [address] PLATELETS (10*3/UL) IN BLOOD AUTOMATED COUNT 274 10*3/uL Normal 150-400 [facility] Comment on above: Performed By: #### L [id number] ####[facility] ([facility])[address] [place] [address] RBC (Bld) [#/Vol] 4.70 10*6/uL Normal 3.80-5.00 [facility] Comment on above: Performed By: #### L [id number] ####[facility] ([facility])[address] [place] [address] WBC (Bld) [#/Vol] 6.15 10*3/uL Normal 4.00-10.60 [facility] Comment on above: Performed By: #### L [id number] ####[facility] ([facility] [place] [address] CHLAMYDIA TRACHOMATIS AND NE ISSERIA GONORRHEA, TMAon 11-10-2022 CHLAMYDIA TRACHOMATIS DNA PROBE (PRESENCE) IN UNSP SPEC Negative Normal Negative [facility] Comment on above: Result Comment: No C hlamydia trachomatis rRNA Detected. The Aptima Combo 2 Assay is a FDA approved target amplification nucleic acid probe test that utilizes target capture for the in vitro qualitative detection and differentiation of ribosomal RNA (rRNA) from Chlamydia trachomatis (CT) and/or Neisseria gonorrhoeae (GC) to aid the diagnosis of chlamydial and/or gonococcal urogenital disease using the Brooks System. The Aptima Combo 2 Assay involves target capture, target amplification by Color Artist-Mediated Amplification (TMA), and the detection of the amplification products (amplicon) by the Hybridization Protection Assay (HPA). The internal process controls of the Brooks System monitor the target capture, amplification, and detection steps of the assay, this is not intended to control for sampling adequacy. Performed By: #### L [id number] ####[facility] (BEAKER)[address] [place] [address] NEISSERIA GONORRHOEAE DNA PROBE (PRESENCE) IN UNSP SPEC Negative Normal Negative [facility] Comment on above: Result Comment: No N eisseria gonorrhoeae rRNA Detected. The Aptima Combo 2 Assay is a FDA approved target amplification nucleic acid probe test that utilizes target capture for the in vitro qualitative detection and differentiation of ribosomal RNA (rRNA) from Chlamydia trachomatis (CT) and/or Neisseria gonorrhoeae (GC) to aid the diagnosis of chlamydial and/or gonococcal urogenital disease using the Brooks System. The Aptima Combo 2 Assay involves target capture, target amplification by Color Artist-Mediated Amplification (TMA), and the detection of the amplification products (amplicon) by the Hybridization Protection Assay (HPA). The internal process controls of the Brooks System monitor the target capture, amplification, and detection steps of the assay, this is not intended to control for sampling adequacy. Performed By: #### L [id number] ####[facility] (BEAKER)[address] [place] [address] CHOLESTEROL, TOTALon 023 Cholesterol [Mass/Vol] 152 mg/dL Normal 120-200 [facility] Comment on above: Result Comment: CHOL ESTEROL REFERENCE RANGE: 20 YEARS AND OLDER CARDIOVASCULAR RISK Less than 200 mg/dL Low Risk 200 to 239 mg/dL Borderline Risk 240 mg/dL and greater High Risk Performed By: #### L [id number] ####[facility] ([facility] [place] [address] DETOX PANEL URINEon 11-11-19 23 AMPHETAMINE+METHAMPHET AMINE SCREEN (PRESENCE) IN URINE Negative Normal Negative [facility] Comment on above: Performed By: #### L [id number] ####[facility] ([facility] [place] [address] BARBITURATES PRESENCE IN URINE BY SCREEN METHOD Negative Normal Negative [facility] Comment on above: Performed By: #### L [id number] ####[facility] [place] [address] Benzodiazepines Ql (U) Negative Normal Negative Un [facility] Comment on above: Performed By: #### L [id number] ####[facility] [place] [address] CANNABINOID (PRESENCE) IN URINE BY SCREEN METHOD Negative Normal Negative [facility] Comment on above: Performed By: #### L [id number] ####[facility] [place] [address] Cocaine Ql (U) Positive Abnormal Negative [facility] Comment on above: Performed By: #### L [id number] ####[facility] [place] [address] METHADONE (PRESENCE) IN URINE BY SCREEN METHOD Negative Normal Negative [facility] Comment on above: Performed By: #### L [id number] ####[facility] (BEAKER)[address] [place] [address] OPIATES (PRESENCE) IN URINE BY SCREEN METHOD Negative Normal Negative [facility] Comment on above: Performed By: #### L [id number] ####[facility] (BEAKER)[address] [place] [address] PHENCYCLIDINE PRESENCE IN URINE BY SCREEN METHOD Negative Normal Negative [facility] Comment on above: Performed By: #### L [id number] ####[facility] [place] [address] Propoxyphene Screen Ql (U) Negative Normal Negative [facility] Comment on above: Performed By: #### L [id number] ####[facility] [place] [address] TRICYCLIC ANTIDEPRESSANTS (PRESENCE) IN URINE Negative Normal Negative [facility] Comment on above: Performed By: #### L [id number] ####[facility] ([facility])[address] [place] [address] GAMMA GTon 11-10-2022 Amylase [Catalytic activity/Vol] 6 U/L Low 9-64 [facility] Comment on above: Performed By: #### L [id number] ####[facility] ([facility])[address] [place] [address] HCV QUANTITATIVE TMAon 11-10 HCV QUANTITATIVE LOG Not detected Normal [facility] Comment on above: Order Comment: The A ptima HCV Quant Dx assay is a real-time rug weaver-mediated amplification (TMA) test which has a dynamic [...] or blood products. Performed By: #### L [id number] ####[facility] ([facility])[address] [place] [address] HCV TMA INTERP Not detected Normal Not Detected Univer [facility]ity [facility] Comment on above: Order Comment: The A ptima HCV Quant Dx assay is a real-time rug weaver-mediated amplification (TMA) test which has a dynamic [...] or blood products. Performed By: #### L [id number] ####[facility] ([facility])[address] [place] [address] HCV TMA QUANTITATIVE Not detected Normal [facility] Comment on above: Order Comment: The A ptima HCV Quant Dx assay is a real-time rug weaver-mediated amplification (TMA) test which has a dynamic [...] or blood products. Performed By: #### L [id number] ####[facility] ([facility])[address] [place] [address] HEPATIC FUNCTION PANELon Albumin [Mass/Vol] 4.6 g/dL Normal 3.5-5.7 [facility] Comment on above: Performed By: #### L [id number] ####[facility] ([facility])[address] [place] [address] ALP [Catalytic activity/Vol] 36 U/L Normal 34-104 [facility] Comment on above: Performed By: #### L [id number] ####[facility] ([facility])[address] [place] [address] ALT [Catalytic activity/Vol] 10 U/L Normal 7-52 [facility] Comment on above: Performed By: #### L [id number] ####[facility] ([facility])[address] [place] [address] AST [Catalytic activity/Vol] 15 U/L Normal 13-39 [facility] Comment on above: Performed By: #### L [id number] ####[facility] ([facility])[address] [place] [address] Bilirubin [Mass/Vol] 0.6 mg/dL Normal 0.3-1.0 [facility] Comment on above: Performed By: #### L [id number] ####[facility] ([facility])[address] [facility] [address] Magnesium [Mass/Vol] 0.1 mg/dL Normal 0-0.2 [facility] Comment on above: Performed By: #### L [id number] ####[facility] ([facility])[address] [place] [address] Protein [Mass/Vol] 7.2 g/dL Normal 6.0-8.3 [facility] Comment on above: Performed By: #### L [id number] ####[facility] ([facility])[address] [place] [address] HEPATITIS PANEL, ACUTEon HEPATITIS A VIRUS IGM AB PRESENCE IN SER/PLAS Non-Reactive Normal Nonreactive [facility] Comment on above: Performed By: #### L [id number] ####[facility] ([facility])[address] [place] [address] HEPATITIS B VIRUS CORE AB (PRESENCE) IN SER/PLAS BY IMM Reactive Critically abnormal Nonreactive [facility] Comment on above: Performed By: #### L [id number] ####[facility] ([facility])[address] [facility] [place] [address] HEPATITIS B VIRUS SURFACE AG PRESENCE IN SERUM Non-Reactive Normal Nonreactive [facility] Comment on above: Performed By: #### L [id number] ####[facility] ([facility])[address] [place] [address] HEPATITIS C VIRUS AB PRESENCE IN SERUM Non-Reactive Normal Nonreactive [facility] Comment on above: Performed By: #### L [id number] ####[facility] ([facility])[address] [place] [address] HIV COMBO 4Gon 11-10-2022 HIV COMBO 4G Negative Normal Negative [facility] Comment on above: Performed By: #### L [id number] ####[facility] ([facility])[address] [place] [address] MAGNESIUMon 11-10-2022 Magnesium [Mass/Vol] 1.5 mg/dL Low 1.9-2.7 [facility] Comment on above: Performed By: #### L [id number] ####[facility] ([facility])[address] [place] [address] NURSNOTEon 11-10-2022 NURSNOTE Hospitalist notified of critical lab result, mag of 1.5, and needing home med kepra restarted tonight. New orders entered. Normal [facility] NURSNOTE Patient admitted to detox for opiate dependence. Patient stated she chews 7 tabs of Percocet 3 times a day with last use being 11/08 at around 2 am. Patient has plans to take Suboxone here and to be her for 7 days. Patient home meds need verified from [facility]. Pt side rails padded d/t history of seizures. Patient orients to the unit and routine. Labs drawn and urine sample given. Patient belongings searched. Patient complains of nausea, stomach cramps, sweat, restlessness, anxiety, nasal congestion, body aches, and pain. Normal [facility] PHOSPHORUSon 11-10-2022 Magnesium [Mass/Vol] 4.9 mg/dL Normal 2.5-5.0 [facility] Comment on above: Performed By: #### L [id number] ####[facility] ([facility])[address] [place] [address] RPRon 11-10-2022 REAGIN AB PRESENCE IN SERUM BY RPR Non-Reactive Normal Nonreactive [facility] Comment on above: Performed By: #### L [id number] ####[facility] ([facility])[address] [place] [address] SERUM QUALITATIVEo n 11-10-2022 HCG SERUM-QNI/[id number] Negative Normal [facility] Comment on above: Performed By: #### L [id number] ####[facility] [place] [address] TSHon 11-10-2022 THYROTROPIN (MIU/L) IN SER/PLAS BY DETECTION LIMIT <= 0.05 MIU/L 2.79 mIU/L Normal 0.34-5.60 [facility] Comment on above: Performed By: #### L [id number] ####[facility] ([facility])[address] [place] [address] URIC ACIDon 11-10-2022 Magnesium [Mass/Vol] 3.6 mg/dL Normal 2.3-6.6 [facility] Comment on above: Performed By: #### L [id number] ####[facility] ([facility])[address] [place] [address] URINALYSISon 11-10-2022 BILIRUBIN, TOTAL PRESENCE IN URINE Negative Normal Negative [facility] Comment on above: Order Comment: 0000 Performed By: #### L [id number] ####[facility] (BEAKER)[address] [place] [address] Clarity (U) Slightly Cloudy Abnormal Clear [facility] Comment on above: Order Comment: 0000 Performed By: #### L [id number] ####[facility] (BEAKER)[address] [place] [address] Color (U) Straw Normal Yellow, Dark Yellow, Straw [facility] Comment on above: Order Comment: 0000 Performed By: #### L [id number] ####[facility] (BEAKER)[address] [place] [address] Glucose (U) [Mass/Vol] Negative Normal Negative [facility] Comment on above: Order Comment: 0000 Performed By: #### L [id number] ####[facility] (BEAKER)[address] [place] [address] HEMOGLOBIN PRESENCE IN URINE Trace Abnormal Negative [facility] Comment on above: Order Comment: 0000 Performed By: #### L [id number] ####[facility] (BEAKER)[address] [place] [address] Ketones Ql (U) Negative Normal Negative [facility] Comment on above: Order Comment: 0000 Performed By: #### L [id number] ####[facility] (BEWyzeTalk)[address] [place] [address] LEUKOCYTE ESTERASE PRESENCE IN URINE BY TEST STRIP Small Abnormal Negative [facility] Comment on above: Order Comment: 0000 Performed By: #### L [id number] ####[facility] [place] [address] NITRITE PRESENCE IN URINE Negative Normal Negative [facility] Comment on above: Order Comment: 0000 Performed By: #### L [id number] ####[facility] (WyzeTalk)[address] [place] [address] pH (U) 6.5 [pH] Normal 5.0-8.0 [facility] Comment on above: Order Comment: 0000 Performed By: #### L [id number] ####[facility] ([employer])[address] [place] [address] Protein (U) [Mass/Vol] Negative Normal Negative Un [facility] Comment on above: Order Comment: 0000 Performed By: #### L [id number] ####[facility] (BEWyzeTalk)[address] [place] [address] Specific gravity (U) [Rel density] 1.007 Low 1.015-1.020 [facility] Comment on above: Order Comment: 0000 Performed By: #### L [id number] ####[facility] (BEWyzeTalk)[address] [facility] [place] [address] URINALYSIS MICROSCOPICon CASTS IN URINE Normal [facility] Comment on above: Performed By: #### L [id number] ####[facility] (BEWyzeTalk)[address] [place] [address] CRYSTALS IN URINE Normal [facility] Comment on above: Performed By: #### L [id number] ####[facility] (BEAKER)[address] [place] [address] MUCUS (#/HPF) IN URINE SEDIMENT Occasional Normal None Seen, Occasional, Few [facility] Comment on above: Performed By: #### L [id number] ####[facility] (BEAKER)[address] [place] [address] RBC (#/HPF) IN URINE SEDIMENT 0-2 Abnormal None Seen [facility] Comment on above: Performed By: #### L [id number] ####[facility] (BEAKER)[address] [place] [address] SQUAMOUS EPITHELIAL CELLS (#/HPF) IN URINE SEDIMENT Many Abnormal None Seen, Occasional [facility] Comment on above: Performed By: #### L [id number] ####[facility] (BEAKER)[address] [place] [address] WBC (LEUKOCYTE) (#/HPF) IN URINE SEDIMENT 6-10 Abnormal None Seen [facility] Comment on above: Performed By: #### L [id number] ####[facility] [place] [address] Cult,Urineon 11-09-2022 Cult,Urine Specimen Description .URINE Culture KLEBSIELLA PNEUMONIAE >[id number] CFU/ML Report Status FINAL 11/08/2022 SUSCEPTIBILITY Organism [...] Tobramycin <=1 SUSCEPTIBLE Trimethoprim/Sulfa <=20 SUSCEPTIBLE Susceptible [facility] Comment on above: Performed By: #### U RC #### [id number] [place], [place] [id number] Purchasing Administrative Assistant: Liban Gil MD Basic Metab w/rfx MGon 11-07 Potassium [Moles/Vol] 3.2 mmol/L Low 3.7-5.3 [facility] Comment on above: Performed By: #### R EJEC, BMPX, HCG, MG #### [facility] Futon [address] [place] [address] Purchasing Administrative Assistant: Liban Gil MD Anion gap [Moles/Vol] 10 mmol/L Normal 9-17 [facility] Comment on above: Performed By: #### R EJEC, BMPX, HCG, MG #### [facility] [address] [place] [address] Purchasing Administrative Assistant: Liban Gil MD Calcium [Mass/Vol] 9.4 mg/dL Normal 8.6-10.4 [facility] Comment on above: Performed By: #### R EJEC, BMPX, HCG, MG #### [facility] [address] [place] [address] Purchasing Administrative Assistant: Liban Gil MD Chloride [Moles/Vol] 100 mmol/L Normal 98-107 [facility] Comment on above: Performed By: #### R EJEC, BMPX, HCG, MG #### [facility] [address] [place] [address] Purchasing Administrative Assistant: Liban Gil MD CO2 [Moles/Vol] 29 mmol/L Normal 20-31 [facility] Comment on above: Performed By: #### R EJEC, BMPX, HCG, MG #### [facility] [address] [place] [address] Purchasing Administrative Assistant: Liban Gil MD Creatinine [Mass/Vol] 0.69 mg/dL Normal 0.50-0.90 [facility] Comment on above: Performed By: #### R EJEC, BMPX, HCG, MG #### [facility] [address] [place] [address] Purchasing Administrative Assistant: Liban Gil MD GFR/1.73 sq M.predicted among non-blacks MDRD (S/P/Bld) [Vol rate/Area] mL/min/{1.73_m2} Normal >60 [facility] Comment on above: Result Comment: These [...] #### R EJEC, BMPX, HCG, MG #### [facility] [address] [place] [address] Purchasing Administrative Assistant: Liban Gil MD Glucose [Mass/Vol] 106 mg/dL High 70-99 [facility] Comment on above: Performed By: #### R EJEC, BMPX, HCG, MG #### [facility] [address] [place] [address] Purchasing Administrative Assistant: Liban Gil MD Sodium [Moles/Vol] 139 mmol/L Normal 135-144 [facility] Comment on above: Performed By: #### R EJEC, BMPX, HCG, MG #### [facility] [address] [place] [address] Purchasing Administrative Assistant: Liban Gil MD Urea nitrogen [Mass/Vol] 9 mg/dL Normal 6-20 [facility] Comment on above: Performed By: #### R EJEC, BMPX, HCG, MG #### [facility] [address] [place] [address] Purchasing Administrative Assistant: Liban Gil MD CBC with Diffon 11-07-2022 Abs. Basophil 0.03 k/uL Normal 0.00-0.20 [facility] Comment on above: Performed By: #### C DP #### [address] [address] Purchasing Administrative Assistant: Liban Gil MD Abs. Eosinophil <0.03 Normal 0.00-0.44 [facility] Comment on above: Performed By: #### C DP #### [address] [address] Purchasing Administrative Assistant: Liban Gil MD Abs.Imm.Granulocyte <0.03 Normal 0.00-0.30 [facility] Comment on above: Performed By: #### C DP #### [address] [address] Purchasing Administrative Assistant: Liban Gil MD Abs.Neutrophil (Seg) 6.42 k/uL Normal 1.50-8.10 [facility] Comment on above: Performed By: #### C DP #### [address] [address] Purchasing Administrative Assistant: Liban Gil MD Basophils/100 WBC (Bld) 0 % Normal 0-2 [facility] Comment on above: Performed By: #### C DP #### [address] [address] Purchasing Administrative Assistant: Liban Gil MD Eosinophils/100 WBC (Bld) 0 % Low 1-4 [facility] Comment on above: Performed By: #### C DP #### [address] [address] Purchasing Administrative Assistant: Liban Gil MD Erythrocyte distribution width (RBC) [Ratio] 14.2 % Normal 11.8-14.4 [facility] Comment on above: Performed By: #### C DP #### [address] [address] Purchasing Administrative Assistant: Liban Gil MD Hematocrit (Bld) [Volume fraction] 33.5 % Low 36.3-47.1 [facility] Comment on above: Performed By: #### C DP #### [address] [address] Purchasing Administrative Assistant: Liban Gil MD Hemoglobin (Bld) [Mass/Vol] 10.8 g/dL Low 11.9-15.1 [facility] Comment on above: Performed By: #### C DP #### [address] [address] Purchasing Administrative Assistant: Liban Gil MD Immature granulocytes/100 WBC (Bld) 0 % Normal 0 [facility] Comment on above: Performed By: #### C DP #### [address] [address] Purchasing Administrative Assistant: Liban Gil MD Lymphocytes (Bld) [#/Vol] 1.39 10*3/uL Normal 1.10-3.70 [facility] Comment on above: Performed By: #### C DP #### [address] [address] Purchasing Administrative Assistant: Liban Gil MD Lymphocytes/100 WBC (Bld) 17 % Low 24-43 [facility] Comment on above: Performed By: #### C DP #### [address] [address] Purchasing Administrative Assistant: Liban Gil MD MCH (RBC) [Entitic mass] 28.2 pg Normal 25.2-33.5 [facility] Comment on above: Performed By: #### C DP #### [address] [address] Purchasing Administrative Assistant: Liban Gil MD MCHC (RBC) [Mass/Vol] 32.2 g/dL Normal 28.4-34.8 [facility] Comment on above: Performed By: #### C DP #### [address] [address] Purchasing Administrative Assistant: Liban Gil MD MCV (RBC) [Entitic vol] 87.5 fL Normal 82.6-102.9 [facility] Comment on above: Performed By: #### C DP #### [address] [address] Purchasing Administrative Assistant: Liban Gil MD Monocytes (Bld) [#/Vol] 0.48 10*3/uL Normal 0.10-1.20 [facility] Comment on above: Performed By: #### C DP #### [place] [address] Purchasing Administrative Assistant: Liban Gil MD Monocytes/100 WBC (Bld) 6 % Normal 3-12 [facility] Comment on above: Performed By: #### C DP #### [place] [address] Purchasing Administrative Assistant: Liban Gil MD Neutrophil (Seg) 77 % High 36-65 [facility] Comment on above: Performed By: #### C DP #### [place] [address] Purchasing Administrative Assistant: Liban Gil MD NRBC Automated 0.2 per 100 WBC High 0.0 [facility] Comment on above: Performed By: #### C DP #### [place] [address] Purchasing Administrative Assistant: Liban Gil MD Platelet mean volume (Bld) [Entitic vol] 9.9 fL Normal 8.1-13.5 [facility] Comment on above: Performed By: #### C DP #### [place] [address] Purchasing Administrative Assistant: Liban Gil MD Platelets (Bld) [#/Vol] 208 10*3/uL Normal 138-453 [facility] Comment on above: Performed By: #### C DP #### [address] [place] [address] Purchasing Administrative Assistant: Liban Gil MD RBC (Bld) [#/Vol] 3.83 10*6/uL Low 3.95-5.11 [facility] Comment on above: Performed By: #### C DP #### [address] [place] [address] Purchasing Administrative Assistant: Liban Gil MD WBC (Bld) [#/Vol] 8.3 10*3/uL Normal 3.5-11.3 [facility] Comment on above: Performed By: #### C DP #### [address] [place] [address] Purchasing Administrative Assistant: Liban Gil MD CT ABDOMEN PELVIS W [...] Gordy Torres MD 11/07/22 Final result Normal [facility] HCG Screen, Bloodon 11-08-19 HCG Screen, Blood Negative Normal NEG [facility] Comment on above: Result Comment: Spec imens with hCG levels near the threshold of the test (25 mIU/mL) may give a negative or indeterminate result. In such cases, another test should be performed with a new specimen in 48-72 hours. If early is suspected clinically in this setting, correlation with quantitative serum b-hCG level is suggested. [facility] has confirmed the use of plasma for this test. This has not been cleared or approved by the U.S. Food and Drug Administration. The FDA has determined that such clearance is not necessary. Performed By: #### R EJEC, BMPX, HCG, MG #### [facility] [address] [place] [address] Purchasing Administrative Assistant: Liban Gil MD Magnesiumon 11-07-2022 Magnesium [Mass/Vol] 2.0 mg/dL Normal 1.6-2.6 [facility] Comment on above: Performed By: #### R EJEC, BMPX, HCG, MG #### [address] [address] [place] [address] Purchasing Administrative Assistant: Liban Gil MD Specimen Rejectionon 470 Reason for rejection Unable to perform testing: Specimen clotted. Normal [facility] Comment on above: Performed By: #### R EJEC, BMPX, HCG, MG #### [facility] [address] [place] [address] Purchasing Administrative Assistant: Liban Gil MD Source of sample .BLOOD Normal [facility] Comment on above: Performed By: #### R EJEC, BMPX, HCG, MG #### [facility] [address] [place] [address] Purchasing Administrative Assistant: Liban Gil MD Test ordered CDP Normal [facility] Comment on above: Performed By: #### R EJEC, BMPX, HCG, MG #### [address] [address] Purchasing Administrative Assistant: Liban Gil MD UA w/Reflex Cultureon 2022 Bilirubin, SemiQt,Ur Negative Normal NEG [facility] Comment on above: Performed By: #### U AX, UMICAO #### [facility] [address] [place] [address] Purchasing Administrative Assistant: Liban Gil MD Blood, Urine Negative Normal NEG [facility] Comment on above: Performed By: #### U AX, UMICAO #### [address] [address] Purchasing Administrative Assistant: Liban Gil MD Clarity (U) Clear Normal CLEAR [facility] Comment on above: Performed By: #### U AX, UMICAO #### [facility] [address] [place] [address] Purchasing Administrative Assistant: Liban Gil MD Color (U) Yellow Normal YEL [facility] Comment on above: Performed By: #### U AX, UMICAO #### [facility] [address] [place] [address] Purchasing Administrative Assistant: Liban Gil MD Glucose Ql (U) Negative Normal NEG [facility] Comment on above: Performed By: #### U AX, UMICAO #### [facility] [address] [place] [address] Purchasing Administrative Assistant: Liban Gil MD Ketones Ql (U) TRACE Abnormal NEG [facility] Comment on above: Performed By: #### U AX, UMICAO #### [facility] [address] [place] [address] Purchasing Administrative Assistant: Liban Gil MD Leukocyte esterase Test strip Ql (U) SMALL Abnormal NEG [facility] Comment on above: Performed By: #### U AX, UMICAO #### [facility] [address] [place] [address] Purchasing Administrative Assistant: Liban Gil MD Nitrite,Ur Negative Normal NEG [facility] Comment on above: Performed By: #### U AX, UMICAO #### [address] [address] Purchasing Administrative Assistant: Liban Gil MD PH,Ur 7.0 Normal 5.0-8.0 [facility] Comment on above: Performed By: #### U AX, UMICAO #### [address] [address] Purchasing Administrative Assistant: Liban Gil MD Protein Ql (U) Negative Normal NEG [facility] Comment on above: Performed By: #### U AX, UMICAO #### [address] [address] Purchasing Administrative Assistant: Liban Gil MD Spec. [place],Ur 1.011 Normal 1.005-1.030 [facility] Comment on above: Performed By: #### U AX, UMICAO #### [facility] [address] [place] [address] Purchasing Administrative Assistant: Liban Gil MD Urobilinogen,Ur Normal Normal NORM [facility] Comment on above: Performed By: #### U AX, UMICAO #### [address] [address] Purchasing Administrative Assistant: Liban Gil MD Urinalysis,Microon 3 Bacteria MODERATE Abnormal NONE [facility] Comment on above: Performed By: #### U AX, UMICAO #### [address] [address] Purchasing Administrative Assistant: Liban Gil MD Casts 2 TO 5 HYALINE Normal 0-8 [facility] Comment on above: Result Comment: Refe rence range defined for non-centrifuged specimen. Performed By: #### U AX, UMICAO #### [address] [address] Purchasing Administrative Assistant: Liban Gil MD Epithelial cells LM Ql (Urine sed) 2 TO 5 Normal 0-5 [facility] Comment on above: Performed By: #### U AX, UMICAO #### [address] [address] Purchasing Administrative Assistant: Liban Gil MD Urine RBC's 0 TO 2 Normal 0-4 [facility] Comment on above: Result Comment: Refe rence range defined for non-centrifuged specimen. Performed By: #### U AX, UMICAO #### [address] [address] Purchasing Administrative Assistant: Liban Gil MD Urine WBC's 10 TO 20 Normal 0-5 [facility] Comment on above: Performed By: #### U AX, UMICAO #### [address] [address] Purchasing Administrative Assistant: Liban Gil MD Cult,Urineon 07-05-2022 Cult,Urine Specimen Description .CLEAN CATCH URINE Culture ESCHERICHIA COLI >306425 CFU/ML KLEBSIELLA PNEUMONIAE >626063 CFU/ML Report Status FINAL 07/05/2022 SUSCEPTIBILITY Organism [...] Tobramycin <=1 SUSCEPTIBLE Trimethoprim/Sulfa <=20 SUSCEPTIBLE Susceptible [facility] Comment on above: Performed By: #### U RC #### [facility] [address] [facility] [place] [address] Purchasing Administrative Assistant: [place] [address] Purchasing Administrative Assistant: Liban Gil MD CBC with Diffon 2022 Abs. Basophil 0.10 k/uL Normal 0.0-0.2 [facility] Comment on above: Performed By: #### C P, CK, DIME, TROPI, CDP ####[facility] [id number] [facility] [place] [place] [address] Lab Director: Osvaldo Lombardo DO Abs.Neutrophil (Seg) 5.10 k/uL Normal 1.3-9.1 [facility] Comment on above: Performed By: #### C P, CK, DIME, TROPI, CDP ####[facility] [id number] [facility] [place] [address] Lab Director: Osvaldo Lombardo DO Basophils/100 WBC (Bld) 1 % Normal 0-2 [facility] Comment on above: Performed By: #### C P, CK, DIME, TROPI, CDP ####[facility] [id number] [facility] [place] [place] [address] Lab Director: Osvaldo Lombardo DO Eosinophils (Bld) [#/Vol] 0.10 10*3/uL Normal 0.0-0.4 [facility] Comment on above: Performed By: #### C P, CK, DIME, TROPI, CDP ####[facility] [id number] [place] [address] Lab Director: Osvaldo Lombardo DO Eosinophils/100 WBC (Bld) 2 % Normal 0-4 [facility] Comment on above: Performed By: #### C P, CK, DIME, TROPI, CDP ####[facility] [address] [place] [address] Lab Director: Osvaldo Lombardo DO Erythrocyte distribution width (RBC) [Ratio] 15.2 % High 11.5-14.9 [facility] Comment on above: Performed By: #### C P, CK, DIME, TROPI, CDP ####[facility] [id number] [place] [address] Lab Director: Osvaldo Lombardo DO Hematocrit (Bld) [Volume fraction] 38.5 % Normal 36-46 [facility] Comment on above: Performed By: #### C P, CK, DIME, TROPI, CDP ####[facility] [id number] [place] [address] Lab Director: Osvaldo Lombardo DO Hemoglobin (Bld) [Mass/Vol] 12.8 g/dL Normal 12.0-16.0 [facility] Comment on above: Performed By: #### C P, CK, DIME, TROPI, CDP ####[facility] [id number] [place] [address] Lab Director: Osvaldo Lombardo DO Lymphocytes (Bld) [#/Vol] 1.60 10*3/uL Normal 1.0-4.8 [facility] Comment on above: Performed By: #### C P, CK, DIME, TROPI, CDP ####[facility] [id number], [place] [phone] Director: Osvaldo Lombardo DO Lymphocytes/100 WBC (Bld) 22 % Low 24-44 [facility] Comment on above: Performed By: #### C P, CK, DIME, TROPI, CDP ####[facility] [id number], [place] [phone] Director: Osvaldo Lombardo DO MCH (RBC) [Entitic mass] 28.4 pg Normal 26-34 [facility] Comment on above: Performed By: #### C P, CK, DIME, TROPI, CDP ####[facility] [id number] [facility].[place], [place] [address])[phone] Director: Osvaldo Lombardo DO MCHC (RBC) [Mass/Vol] 33.3 g/dL Normal 31-37 [facility] Comment on above: Performed By: #### C P, CK, DIME, TROPI, CDP ####[facility] [address] [facility], [place] [address])[phone] Director: Osvaldo Lombardo DO MCV (RBC) [Entitic vol] 85.4 fL Normal 80-100 [facility] Comment on above: Performed By: #### C P, CK, DIME, TROPI, CDP ####[facility] [id number] [facility], [place] [phone] Director: Osvaldo Lombardo DO Monocytes (Bld) [#/Vol] 0.60 10*3/uL Normal 0.1-1.3 [facility] Comment on above: Performed By: #### C P, CK, DIME, TROPI, CDP ####[facility] [id number] [place] [address].[place] [address] Lab Director: Osvaldo Lombardo DO Monocytes/100 WBC (Bld) 8 % High 1-7 [facility] Comment on above: Performed By: #### C P, CK, DIME, TROPI, CDP ####[facility] [id number] [place] [address] Lab Director: Osvaldo Lombardo DO Neutrophil (Seg) 67 % High 36-66 [facility] Comment on above: Performed By: #### C P, CK, DIME, TROPI, CDP ####[facility] [id number] [place] [address] Lab Director: Osvaldo Lombardo DO Platelet mean volume (Bld) [Entitic vol] 7.5 fL Normal 6.0-12.0 [facility] Comment on above: Performed By: #### C P, CK, DIME, TROPI, CDP ####[facility] [id number] [place] [address] Lab Director: Osvaldo Lombardo DO Platelets (Bld) [#/Vol] 283 10*3/uL Normal 150-450 [facility] Comment on above: Performed By: #### C P, CK, DIME, TROPI, CDP ####[facility] [address] [facility] [place] [address] Lab Director: Osvaldo Lombardo DO RBC (Bld) [#/Vol] 4.51 10*6/uL Normal 4.0-5.2 [facility] Comment on above: Performed By: #### C P, CK, DIME, TROPI, CDP ####[facility] [id number], [place] [phone] Director: Osvaldo Lombardo DO WBC (Bld) [#/Vol] 7.5 10*3/uL Normal 3.5-11.0 [facility] Comment on above: Performed By: #### C P, CK, DIME, TROPI, CDP ####[facility] [address] [place] [address] lab Director: Osvaldo Lombardo DO Comp Metabolic Profon 2022 Albumin [Mass/Vol] 3.9 g/dL Normal 3.5-5.2 [facility] Comment on above: Performed By: #### C P, CK, DIME, TROPI, CDP ####[facility] [id number] [place] [address] Lab Director: Osvaldo Lombardo DO Alkaline Phos 40 U/L Normal 35-104 [facility] Comment on above: Performed By: #### C P, CK, DIME, TROPI, CDP ####[facility] [id number] [place] [address] lab Director: Osvlado Lombardo DO ALT [Catalytic activity/Vol] 7 U/L Normal 5-33 [facility] Comment on above: Performed By: #### C P, CK, DIME, TROPI, CDP ####[facility] [id number], [place] [phone] Director: Osvaldo Lombardo DO Anion gap [Moles/Vol] 11 mmol/L Normal 9-17 [facility] Comment on above: Performed By: #### C P, CK, DIME, TROPI, CDP ####[facility] [address] [place] [address] Lab Director: Osvaldo Lombardo DO AST [Catalytic activity/Vol] 14 U/L Normal <32 [facility] Comment on above: Performed By: #### C P, CK, DIME, TROPI, CDP ####[facility] [id number] [place] [address] Lab Director: Osvaldo Lombardo DO Bilirubin [Mass/Vol] 0.5 mg/dL Normal 0.3-1.2 [facility] Comment on above: Performed By: #### C P, CK, DIME, TROPI, CDP ####[facility] [id number], [place] [phone] Director: Osvaldo Lombardo DO Calcium [Mass/Vol] 8.9 mg/dL Normal 8.6-10.4 [facility] Comment on above: Performed By: #### C P, CK, DIME, TROPI, CDP ####[facility] [id number], [place] [phone] Director: Osvaldo Lombardo DO Chloride [Moles/Vol] 101 mmol/L Normal 98-107 [facility] Comment on above: Performed By: #### C P, CK, DIME, TROPI, CDP ####[facility] [id number] [facility] [place] [address] Lab Director: Osvaldo Lombardo DO CO2 [Moles/Vol] 27 mmol/L Normal 20-31 [facility] Comment on above: Performed By: #### C P, CK, DIME, TROPI, CDP ####[facility] [id number] [facility].[place], [place] [phone] Director: Osvaldo Lombardo DO Creatinine [Mass/Vol] 0.66 mg/dL Normal 0.50-0.90 [facility] Comment on above: Performed By: #### C P, CK, DIME, TROPI, CDP ####[facility] [id number] [facility] [place] [address] lab Director: Osvaldo Lombardo DO GFR/1.73 sq M.predicted among non-blacks MDRD (S/P/Bld) [Vol rate/Area] mL/min/{1.73_m2} Normal >60 [facility] Comment on above: Result Comment: [...] #### C P, CK, DIME, TROPI, CDP ####[facility] [id number] [facility] [place] [address] Lab Director: Osvaldo Lombardo DO Glucose [Mass/Vol] 101 mg/dL High 70-99 [facility] Comment on above: Performed By: #### C P, CK, DIME, TROPI, CDP ####[facility] [id number] [facility].[place], [place] [address])[phone] Director: Osvaldo Lombardo DO Potassium [Moles/Vol] 3.3 mmol/L Low 3.7-5.3 [facility] Comment on above: Performed By: #### C P, CK, DIME, TROPI, CDP ####[facility] [id number] [facility] [place] [address] Lab Director: Osvaldo Lombardo DO Protein [Mass/Vol] 6.7 g/dL Normal 6.4-8.3 [facility] Comment on above: Performed By: #### C P, CK, DIME, TROPI, CDP ####[facility] [id number] [facility] [place] [address] Lab Director: Osvaldo Lombardo, DO Sodium [Moles/Vol] 139 mmol/L Normal 135-144 [facility] Comment on above: Performed By: #### C P, CK, DIME, TROPI, CDP ####[facility] [id number] [facility] [place] [address] lab Director: Osvaldo Lombardo DO Urea nitrogen [Mass/Vol] 9 mg/dL Normal 6-20 [facility] Comment on above: Performed By: #### C P, CK, DIME, TROPI, CDP ####[facility] [address] [place] [address] lab Director: Osvaldo Lombardo DO Creatine Kinaseon 2022 CK [Catalytic activity/Vol] 106 U/L Normal 26-192 [facility] Comment on above: Performed By: #### C P, CK, DIME, TROPI, CDP ####[facility] [id number] [facility] [place] [address] lab Director: Osvaldo Lombardo DO D-Dimer Teston 2022 D-Dimer Test 0.38 mg/L FEU Normal 0.00-0.59 [facility] Comment on above: Result Comment: [...] #### C P, CK, DIME, TROPI, CDP ####[facility] [id number] [facility] [place] [address] Lab Director: Osvaldo Lombardo DO Troponinon 2022 Troponin, High Sens 11 ng/L Normal 0-14 [facility] Comment on above: Result Comment: High Sensitivity Troponin values cannot be compared with other Troponin methodologies. Performed By: #### T ROPI #### [facility] Lab [address] [facility] [place] [address] Purchasing Administrative Assistant: Osvaldo Lombardo DO Troponin, High Sens 10 ng/L Normal 0-14 [facility] Comment on above: Result Comment: High Sensitivity Troponin values cannot be compared with other Troponin methodologies. Performed By: #### C P, CK, DIME, TROPI, CDP ####[facility] [id number] [facility] [place] [address] [facility] Director: Osvaldo Lombardo DO XR CHEST PORTABLEon [...] Gordy Sarabia MD 07/04/22 Final result Normal [facility] Basic Metabolic Panelon 06-13 Anion gap [Moles/Vol] 10 mmol/L 9 - 17 mmol/L [facility] Calcium [Mass/Vol] 9.1 mg/dL 8.6 - 10. 4 mg/dL [facility] Chloride [Moles/Vol] 99 mmol/L 98 - 10 7 mmol/L [facility] CO2 [Moles/Vol] 29 mmol/L 20 - 31 mmol/L [facility] Creatinine [Mass/Vol] 0.74 mg/dL 0.50 - 0.90 mg/dL [facility] GFR/1.73 sq M.predicted MDRD (S/P/Bld) [Vol rate/Area] - PINF [facility] Comment on above: These results are not [...] 123 mg/dL High 70 - 99 mg/dL [facility] Potassium [Moles/Vol] 3.5 mmol/L Low 3.7 - 5.3 mmol/L [facility] Sodium [Moles/Vol] 138 mmol/L 135 - 144 mmol/L [facility] Urea nitrogen [Mass/Vol] 10 mg/dL 6 - 20 mg/dL [facility] Basic Metabolic Profon 07-03 Anion gap [Moles/Vol] 10 mmol/L Normal 9-17 [facility] Comment on above: Performed By: #### C DP, SHARYN, CK, BMP #### [facility] Lab [address] [facility] [place] [address] Purchasing Administrative Assistant: Osvaldo Lombardo, DO Calcium [Mass/Vol] 9.1 mg/dL Normal 8.6-10.4 [facility] Comment on above: Performed By: #### C DP, SHARYN, CK, BMP #### [facility] [address] [facility]. [place], [place] [id number] Purchasing Administrative Assistant: Osvaldo Lombardo DO Chloride [Moles/Vol] 99 mmol/L Normal 98-107 [facility] Comment on above: Performed By: #### C DP, SHARYN, CK, BMP #### [facility] [address] [facility] [place] [address] Purchasing Administrative Assistant: Osvaldo Lombardo DO CO2 [Moles/Vol] 29 mmol/L Normal 20-31 [facility] Comment on above: Performed By: #### C DP, SHARYN, CK, BMP #### [facility] [address] [facility] [place] [address] Purchasing Administrative Assistant: Osvaldo Lombardo DO Creatinine [Mass/Vol] 0.74 mg/dL Normal 0.50-0.90 [facility] Comment on above: Performed By: #### C DP, SHARYN, CK, BMP #### [facility] Lab [facility] [place] [address] Purchasing Administrative Assistant: Osvaldo Lombardo DO GFR/1.73 sq M.predicted among non-blacks MDRD (S/P/Bld) [Vol rate/Area] mL/min/{1.73_m2} Normal >60 [facility] Comment on above: Result Comment: [...] #### C DP, SHARYN, CK, BMP #### [facility] Lab [facility] [place] [address] Purchasing Administrative Assistant: Osvaldo Lombardo DO Glucose [Mass/Vol] 123 mg/dL High 70-99 [facility] Comment on above: Performed By: #### C DP, SHARYN, CK, BMP #### [facility] [address] [facility] [place] [address] Purchasing Administrative Assistant: Osvaldo Lombardo DO Potassium [Moles/Vol] 3.5 mmol/L Low 3.7-5.3 [facility] Comment on above: Performed By: #### C DP, SHARYN, CK, BMP #### [facility] [address] [facility] [place] [address] Purchasing Administrative Assistant: Osvaldo Lombardo DO Sodium [Moles/Vol] 138 mmol/L Normal 135-144 [facility] Comment on above: Performed By: #### C DP, SHARYN, CK, BMP #### [facility] [address] [facility] [place] [address] Purchasing Administrative Assistant: Osvaldo Lombardo DO Urea nitrogen [Mass/Vol] 10 mg/dL Normal 6-20 [facility] Comment on above: Performed By: #### C DP, SHARYN, CK, BMP #### [facility] [address] [facility] [place] [address] Purchasing Administrative Assistant: Osvaldo Lombardo DO CBC with Auto Differentialon 07-03-2022 Absolute Eos # 0.00 [facility] Absolute Lymph # 1.70 [facility] Absolute [place] # 0.[address] [facility] Basophils (Bld) [#/Vol] 0.00 10*3/uL [facility] Basophils/100 WBC (Bld) 1 % 0 - 2 % [facility] Eosinophils/100 WBC (Bld) 1 % 0 - 4 % [facility] Hematocrit (Bld) [Volume fraction] 40.8 % 36 - 46 % [facility] Hemoglobin (Bld) [Mass/Vol] 12.9 g/dL 12.0 - 16.0 g/dL [facility] Interpretation and review of laboratory results Abnormal [facility] Lymphocytes/100 WBC (Bld) 24 % 24 - 44 % [facility] MCH (RBC) [Entitic mass] 27.5 pg 26 - 34 pg [facility] MCHC (RBC) [Mass/Vol] 31.5 g/dL 31 - 37 g/dL B [facility] MCV (RBC) [Entitic vol] 87.3 fL 80 - 100 fL [facility] Monocytes/100 WBC (Bld) 9 % High 1 - 7 % [facility] Platelet distribution width (Bld) [Ratio] 15.2 % High 11.5 - 14.9 % [facility] Platelet mean volume (Bld) [Entitic vol] 7.5 fL 6.0 - 12.0 fL [facility] Platelets (Bld) [#/Vol] 296 10*3/uL [facility] RBC (Bld) [#/Vol] 4.68 10*6/uL 4.0 - 5.2 m/uL [facility] Segmented neutrophils/100 WBC (Bld) 65 % 36 - 66 % [facility] Segs Absolute 4.60 [facility] WBC (Bld) [#/Vol] 7.0 10*3/uL [facility] CBC with Diffon 07-03-2022 Abs. Basophil 0.00 k/uL Normal 0.0-0.2 [facility] Comment on above: Performed By: #### C DP, SHARYN, CK, BMP #### [facility] Lab [facility] [place] [address] Purchasing Administrative Assistant: Osvaldo Lombardo DO Abs.Neutrophil (Seg) 4.60 k/uL Normal 1.3-9.1 [facility] Comment on above: Performed By: #### C DP, SHARYN, CK, BMP #### [facility] Lab [facility] [place] [address] Purchasing Administrative Assistant: Osvaldo Lombardo DO Basophils/100 WBC (Bld) 1 % Normal 0-2 [facility] Comment on above: Performed By: #### C DP, SHARYN, CK, BMP #### [facility] Lab [facility] [place] [address] Purchasing Administrative Assistant: Osvaldo Lombardo DO Eosinophils (Bld) [#/Vol] 0.00 10*3/uL Normal 0.0-0.4 [facility] Comment on above: Performed By: #### C DP, SHARYN, CK, BMP #### [facility] Lab [facility] [place] [address] Purchasing Administrative Assistant: Osvaldo Lombardo DO Eosinophils/100 WBC (Bld) 1 % Normal 0-4 [facility] Comment on above: Performed By: #### C DP, SHARYN, CK, BMP #### [facility] [place] [address] Purchasing Administrative Assistant: Osvaldo Lombardo DO Erythrocyte distribution width (RBC) [Ratio] 15.2 % High 11.5-14.9 [facility] Comment on above: Performed By: #### C DP, SHARYN, CK, BMP #### [facility] [address] [place] [address] Purchasing Administrative Assistant: Osvaldo Lombardo DO Hematocrit (Bld) [Volume fraction] 40.8 % Normal 36-46 [facility] Comment on above: Performed By: #### C DP, SHARYN, CK, BMP #### [facility] [address] [place], [place] [address] [place] [address] Purchasing Administrative Assistant: Osvaldo Lombardo DO Hemoglobin (Bld) [Mass/Vol] 12.9 g/dL Normal 12.0-16.0 [facility] Comment on above: Performed By: #### C DP, SHARYN, CK, BMP #### [facility] [address] [place], [place] [address] [place] [address] Purchasing Administrative Assistant: Osvaldo Lombardo DO Lymphocytes (Bld) [#/Vol] 1.70 10*3/uL Normal 1.0-4.8 [facility] Comment on above: Performed By: #### C DP, SHARYN, CK, BMP #### [facility] [place] [address] Purchasing Administrative Assistant: Osvaldo Lombardo DO Lymphocytes/100 WBC (Bld) 24 % Normal 24-44 [facility] Comment on above: Performed By: #### C DP, SHARYN, CK, BMP #### [facility] [address] [place] [address] Purchasing Administrative Assistant: Osvaldo Lombardo DO MCH (RBC) [Entitic mass] 27.5 pg Normal 26-34 [facility] Comment on above: Performed By: #### C DP, SHARYN, CK, BMP #### [facility] [place] [address] Purchasing Administrative Assistant: Osvaldo Lombardo DO MCHC (RBC) [Mass/Vol] 31.5 g/dL Normal 31-37 [facility] Comment on above: Performed By: #### C DP, SAHRYN, CK, BMP #### [facility] [address] [facility] [place] [address] Purchasing Administrative Assistant: Osvaldo Lombardo DO MCV (RBC) [Entitic vol] 87.3 fL Normal 80-100 [facility] Comment on above: Performed By: #### C DP, SHARYN, CK, BMP #### [facility] [place] [address] Purchasing Administrative Assistant: Osvaldo Lombardo DO Monocytes (Bld) [#/Vol] 0.60 10*3/uL Normal 0.1-1.3 [facility] Comment on above: Performed By: #### C DP, SHARYN, CK, BMP #### [facility] [place] [address] Purchasing Administrative Assistant: Osvaldo Lombardo DO Monocytes/100 WBC (Bld) 9 % High 1-7 [facility] Comment on above: Performed By: #### C DP, SHARYN, CK, BMP #### [facility] [place] [address] Purchasing Administrative Assistant: Osvaldo Lombardo DO Neutrophil (Seg) 65 % Normal 36-66 [facility] Comment on above: Performed By: #### C DP, SHARYN, CK, BMP #### [facility] [address] [place] [address] Purchasing Administrative Assistant: Osvaldo Lombardo DO Platelet mean volume (Bld) [Entitic vol] 7.5 fL Normal 6.0-12.0 [facility] Comment on above: Performed By: #### C DP, SHARYN, CK, BMP #### [facility] [address] [place] [address] Purchasing Administrative Assistant: Osvaldo Lombardo DO Platelets (Bld) [#/Vol] 296 10*3/uL Normal 150-450 [facility] Comment on above: Performed By: #### C DP, SHARYN, CK, BMP #### [facility] [place] [address] Purchasing Administrative Assistant: Osvaldo Lombardo DO RBC (Bld) [#/Vol] 4.68 10*6/uL Normal 4.0-5.2 [facility] Comment on above: Performed By: #### C DP, SHARYN, CK, BMP #### [facility] [place] [address] Purchasing Administrative Assistant: Osvaldo Lombardo DO WBC (Bld) [#/Vol] 7.0 10*3/uL Normal 3.5-11.0 [facility] Comment on above: Performed By: #### C DP, SHARYN, CK, BMP #### [facility] [place] [address] Purchasing Administrative Assistant: Osvaldo Lombardo DO CKon 07-03-2022 CK [Catalytic activity/Vol] 169 U/L 26 - 192 U/L [facility] Creatine Kinaseon 07-03-2022 CK [Catalytic activity/Vol] 169 U/L Normal 26-192 [facility] Comment on above: Performed By: #### C DP, SHARYN, CK, BMP ####[facility] [id number] [place] [address] Lab Director: Osvaldo Lombardo DO Drug Scr, Abuse, Uron 2022 Amphetamine(s),Ur Positive Abnormal NEG [facility] Comment on above: Result Comment: (Positive cutoff 1000 ng/mL) Performed By: #### D AU, UAX, UHCG, UMICAO #### [facility] [address] [place] [address] Purchasing Administrative Assistant: Osvaldo Lombardo DO Barbiturate(s),Ur Negative Normal NEG [facility] Comment on above: Result Comment: (Positive cutoff 200 ng/mL) Performed By: #### Sharon AU, UAX, UHCG, UMICAO #### [facility] [address] [place] [address] Purchasing Administrative Assistant: Osvaldo Lombardo DO Benzodiazepine(s) Negative Normal NEG [facility] Comment on above: Result Comment: (Positive cutoff 200 ng/mL) Performed By: #### Sharon AU, UAX, UHCG, UMICAO #### [facility] [address] [place] [address] Purchasing Administrative Assistant: Osvaldo Lombardo DO Cannabinoid(s),Ur Positive Abnormal NEG [facility] Comment on above: Result Comment: (Positive cutoff 50 ng/mL) Performed By: #### Sharon AU, UAX, UHCG, UMICAO #### [facility] [address] [place] [address] Purchasing Administrative Assistant: Osvaldo Lombardo DO Cocaine Metabolite Positive Abnormal NEG [facility] Comment on above: Result Comment: (Positive cutoff 300 ng/mL) Performed By: #### D AU, UAX, UHCG, UMICAO #### [facility] [address] [facility] [place] [address] Purchasing Administrative Assistant: Osvaldo Lombardo DO Fentanyl, Urine Negative Normal NEG [facility] Comment on above: Result Comment: (Positive cutoff 5 ng/ml) Performed By: #### Sharon AU, UAX, UHCG, UMICAO #### [facility] [address] [facility] [place] [address] Purchasing Administrative Assistant: Osvaldo Lombardo DO Interpretive Info Assay provides medical screening only. The absence of expected drug(s) and/or Normal [facility] Comment on above: Result Comment: meta bolite(s) may indicate diluted or adulterated urine, limitations of testing or timing of collection. Testing for legal purposes should be confirmed by another method. To request confirmation of test result, please call the lab within 7 days of sample submission. Performed By: #### Sharon AU, UAX, UHCG, UMICAO #### [facility] [place] [address] Purchasing Administrative Assistant: Osvaldo Lombardo DO Methadone Ql (U) Negative Normal NEG [facility] Comment on above: Result Comment: (Positive cutoff 300 ng/mL) Performed By: #### Sharon AU, UAX, UHCG, UMICAO #### [facility] [place] [address] Purchasing Administrative Assistant: Osvaldo Lombardo DO Opiate(s), Ur Negative Normal NEG [facility] Comment on above: Result Comment: (Positive cutoff 300 ng/mL) Performed By: #### D AU, UAX, UHCG, UMICAO #### [facility] [place] [address] Purchasing Administrative Assistant: Osvaldo Lombardo DO Oxycodone, Urine Negative Normal NEG [facility] Comment on above: Result Comment: (Positive cutoff 100 ng/mL) Performed By: #### D AU, UAX, UHCG, UMICAO #### [facility] [address] [facility] [place] [address] Purchasing Administrative Assistant: Osvaldo Lombardo DO Phencyclidine, Ur Negative Normal NEG [facility] Comment on above: Result Comment: (Positive cutoff 25 ng/mL) Performed By: #### D AU, UAX, UHCG, UMICAO #### [facility] [address] [place] [address] Purchasing Administrative Assistant: Osvaldo Lombardo DO HCG, ,Urineon 07-03 Beta HCG ( test) Ql (U) Negative Normal NEG [facility] Comment on above: Result Comment: Spec imens [...] #### D AU, UAX, UHCG, UMICAO #### [facility] [address] [place] [address] Purchasing Administrative Assistant: Osvaldo Lombardo DO Beta HCG ( test) Ql (U) Negative NEGATIVE [facility] Comment on above: Specimens with hCG l evels near the threshold of the test (25 mIU/mL) may give a negative or indeterminate result. In such cases, another test should be performed with a new specimen in 48-72 hours. If early is suspected clinically in this setting, correlation with quantitative serum b-hCG level is suggested. [facility] [facility] Microscopic Urinalysison Bacteria, UA FEW Abnormal None [facility] Casts UA 3 to 5 /LPF [facility] Epithelial Cells UA 0 TO 2 /HPF [facility] Interpretation and review of laboratory results Abnormal [facility] RBC clumps Auto (Urine sed) [#/Area] 10 TO 20 /HPF [facility] WBC, UA TOO NUMEROUS TO COUNT /HPF [facility] Myoglobinon 07-03-2022 Myoglobin [Mass/Vol] 66 ng/mL High 25-58 [facility] Comment on above: Performed By: #### C DP, SHARYN, CK, BMP ####[facility] [id number] [facility] [place] [address] Lab Director: Osvaldo Lombardo DO Myoglobin, Bloodon Myoglobin [Mass/Vol] 66 ng/mL High 25 - 58 ng/mL B ON [facility] No Panel Informationon 07-03 Interpretation and review of laboratory results Abnormal [facility] UA w/Reflex Cultureon 2022 Bilirubin, SemiQt,Ur Negative Normal NEG [facility] Comment on above: Performed By: #### D AU, UAX, UHCG, UMICAO #### [facility] [address] [facility] [place] [address] Purchasing Administrative Assistant: Osvaldo Lombardo DO Blood, Urine SMALL Abnormal NEG [facility] Comment on above: Performed By: #### D AU, UAX, UHCG, UMICAO #### [facility] [address] [facility] [place] [address] Purchasing Administrative Assistant: Osvaldo Lombardo DO Clarity (U) Cloudy Abnormal CLEAR [facility] Comment on above: Performed By: #### D AU, UAX, UHCG, UMICAO #### [facility] [address] [facility] [place] [address] Purchasing Administrative Assistant: Osvaldo Lombardo DO Color (U) Yellow Normal YEL [facility] Comment on above: Performed By: #### D AU, UAX, UHCG, UMICAO #### [facility] [address] [facility] [place] [address] Purchasing Administrative Assistant: Osvaldo Lombardo DO Glucose Ql (U) Negative Normal NEG [facility] Comment on above: Performed By: #### Sharon AU, UAX, UHCG, UMICAO #### [facility] [address] [facility] [place] [address] Purchasing Administrative Assistant: Osvaldo Lombardo DO Ketones Ql (U) TRACE Abnormal NEG [facility] Comment on above: Performed By: #### Sharon AU, UAX, UHCG, UMICAO #### [facility] [address] [place] [address]. [place] [address] Purchasing Administrative Assistant: Osvaldo Lombardo DO Leukocyte esterase Test strip Ql (U) MOD Abnormal NEG [facility] Comment on above: Performed By: #### Sharon AU, UAX, UHCG, UMICAO #### [facility] [address] [place] [address]. [place] [address] Purchasing Administrative Assistant: Ovsaldo Lombardo DO Nitrite,Ur Negative Normal NEG [facility] Comment on above: Performed By: #### Sharon AU, UAX, UHCG, UMICAO #### [facility] [place] [address] Purchasing Administrative Assistant: Osvaldo Lombardo DO PH,Ur 6.0 Normal 5.0-8.0 [facility] Comment on above: Performed By: #### Sharon AU, UAX, UHCG, UMICAO #### [facility] [place] [address] Purchasing Administrative Assistant: Osvaldo Lombardo DO Protein Ql (U) 1+ Abnormal NEG [facility] Comment on above: Performed By: #### Sharon AU, UAX, UHCG, UMICAO #### [facility] [place] [address] Purchasing Administrative Assistant: Osvaldo Lombardo DO Spec. [place],Ur 1.027 Normal 1.000-1.030 [facility] Comment on above: Performed By: #### D AU, UAX, UHCG, UMICAO #### [facility] [address] [facility] [place] [address] Purchasing Administrative Assistant: Osvaldo Lombardo DO Urobilinogen,Ur Normal Normal NORM [facility] Comment on above: Performed By: #### D AU, UAX, UHCG, UMICAO #### [facility] [address] [facility] [place] [address] Purchasing Administrative Assistant: Osvaldo Lombardo DO Urinalysis with Reflex to Cu ltureon 07-03-2022 Bilirubin Urine Negative NEGATIVE [facility] Color, UA Yellow Yellow [facility] Glucose Auto test strip (U) [Mass/Vol] Negative NEGATIVE [facility] Interpretation and review of laboratory results Abnormal [facility] Ketones (U) [Mass/Vol] TRACE Abnormal NEGATIVE [facility] Leukocyte esterase Auto test strip Ql (U) MOD Abnormal NEGATIVE [facility] Nitrite Auto test strip Ql (U) Negative NEGATIVE [facility] Protein (U) [Mass/Vol] 6.0 mg/dL 5.0 - 8.0 [facility] Protein (U) [Mass/Vol] 1+ Abnormal NEGATIVE [facility] Specific [place], UA 1.027 1.000 - 1.030 B ON [facility] Turbidity UA Cloudy Abnormal Clear [facility] Urine Hgb SMALL Abnormal NEGATIVE [facility] Urobilinogen, Urine Normal Normal [facility] Urinalysis,Microon 3 Bacteria FEW Abnormal NONE [facility] Comment on above: Performed By: #### D AU, UAX, UHCG, UMICAO #### [facility] [address] [facility] [place] [address] Purchasing Administrative Assistant: Osvaldo Lombardo DO Casts 3 to 5 Normal [facility] Comment on above: Performed By: #### D MACKENZIE, UAX, UHCG, UMICAO #### [facility] [address] [facility] [place] [address] Purchasing Administrative Assistant: Osvaldo Lombardo DO Epithelial cells LM Ql (Urine sed) 0 TO 2 [facility] Comment on above: Performed By: #### Sharon MANN, UAX, UHCG, UMICAO #### [facility] [address] [facility] [place] [address] Purchasing Administrative Assistant: Osvaldo Lombardo DO Urine RBC's 10 TO 20 Normal [facility] Comment on above: Performed By: #### Sharon MANN UAX, UHCG, UMICAO #### [facility] [address] [facility] [place] [address] Purchasing Administrative Assistant: Osvaldo Lombardo DO Urine WBC's TOO NUMEROUS TO COUNT Normal [facility] Comment on above: Performed By: #### Sharon MANN, UAX, UHCG, UMICAO #### [facility] [address] [facility] [place] [address] Purchasing Administrative Assistant: Osvaldo Lombardo DO Urine Drug Screenon 07-03-19 23 Amphetamine Screen, Ur Positive Abnormal NEGATIVE [facility] Comment on above: (Positive cutoff 1000 ng/mL) Barbiturate Screen, Ur Negative NEGATIVE [facility] Comment on above: (Positive cutoff 200 ng/mL) Benzodiazepine Screen, Urine Negative NEGATIVE [facility] Comment on above: (Positive cutoff 200 ng/mL) Cannabinoid Scrn, Ur Positive Abnormal NEGATIVE [facility] Comment on above: (Positive cutoff 50 ng/mL) Cocaine Metabolite, Urine Positive Abnormal NEGATIVE [facility] Comment on above: (Positive cutoff 300 ng/mL) Fentanyl, Ur Negative NEGATIVE [facility] Comment on above: (Positive cutoff 5 ng/ml) Interpretation and review of laboratory results Abnormal [facility] Methadone Screen, Urine Negative NEGATIVE [facility] Comment on above: (Positive cutoff 300 ng/mL) Opiates, Urine Negative NEGATIVE [facility] Comment on above: (Positive cutoff 300 ng/mL) Oxycodone Screen, Ur Negative NEGATIVE [facility] Comment on above: (Positive cutoff 100 ng/mL) Phencyclidine, Urine Negative NEGATIVE [facility] Comment on above: (Positive cutoff 25 ng/mL) Test Information Assay provides medical screening only. The absence of expected drug(s) and/or metabolite(s) may indicate diluted or adulterated urine, limitations of testing or timing of collection. [facility] Comment on above: Testing for legal pu rposes should be confirmed by another method. To request confirmation of test result, please call the lab within 7 days of sample submission. [facility] CBC with Diffon 01-07-2022 Abs. Basophil 0.00 k/uL Normal 0.0-0.2 [facility] Comment on above: Performed By: #### L IP CDP, CP ####[facility] [address] [place] [address] Lab Director: Osvaldo Lombardo DO Abs.Neutrophil (Seg) 4.60 k/uL Normal 1.3-9.1 [facility] Comment on above: Performed By: #### L IP CDP, CP ####[facility] [address] [place] [address] Lab Director: Osvaldo Lombardo DO Basophils/100 WBC (Bld) 1 % Normal 0-2 [facility] Comment on above: Performed By: #### L IP, CDP, CP ####[facility] [address] [facility] [place] [address] Lab Director: Osvaldo Lombardo DO Eosinophils (Bld) [#/Vol] 0.10 10*3/uL Normal 0.0-0.4 [facility] Comment on above: Performed By: #### L IP, CDP, CP ####[facility] [address] [place] [address] Lab Director: Osvaldo Lombardo DO Eosinophils/100 WBC (Bld) 2 % Normal 0-4 [facility] Comment on above: Performed By: #### L IP, CDP, CP ####[facility] [address] [place] [address] Lab Director: Osvaldo Lombardo DO Erythrocyte distribution width (RBC) [Ratio] 14.2 % Normal 11.5-14.9 [facility] Comment on above: Performed By: #### L IP, CDP, CP ####[facility] [address] [place] [address] lab Director: Osvaldo Lombardo DO Hematocrit (Bld) [Volume fraction] 39.0 % Normal 36-46 [facility] Comment on above: Performed By: #### L IP, CDP, CP ####[facility] [address] [facility] [place] [address] lab Director: Osvaldo Lombardo DO Hemoglobin (Bld) [Mass/Vol] 12.6 g/dL Normal 12.0-16.0 [facility] Comment on above: Performed By: #### L CASH CDP, CP ####[facility] [address] [facility] [place] [address] Lab Director: Osvaldo Lombardo DO Lymphocytes (Bld) [#/Vol] 1.30 10*3/uL Normal 1.0-4.8 [facility] Comment on above: Performed By: #### L IP, CDP, CP ####[facility] [address] [place] [address] Lab Director: Osvaldo Lombardo DO Lymphocytes/100 WBC (Bld) 20 % Low 24-44 [facility] Comment on above: Performed By: #### L IP, CDP, CP ####[facility] Nrf[address] [facility] [place] [address] lab Director: Osvaldo Lombardo DO MCH (RBC) [Entitic mass] 27.8 pg Normal 26-34 [facility] Comment on above: Performed By: #### L IP, CDP, CP ####[facility] [address] [place], [place] [phone] Director: Osvaldo Lombardo DO MCHC (RBC) [Mass/Vol] 32.3 g/dL Normal 31-37 [facility] Comment on above: Performed By: #### L IP CDP, CP ####[address] [id number] Director: Osvaldo Lombardo DO MCV (RBC) [Entitic vol] 86.0 fL Normal 80-100 [facility] Comment on above: Performed By: #### L IP CDP, CP ####[address] [id number] Director: Osvaldo Lombardo DO Monocytes (Bld) [#/Vol] 0.40 10*3/uL Normal 0.1-1.3 [facility] Comment on above: Performed By: #### L IPJAVI, CP ####[facility] [address] [place] [address] [phone] Director: Osvaldo Lombardo DO Monocytes/100 WBC (Bld) 6 % Normal 1-7 [facility] Comment on above: Performed By: #### L IP CDP, CP ####[facility] [address] [place] [address] [phone] Director: Osvaldo Lombardo DO Neutrophil (Seg) 71 % High 36-66 [facility] Comment on above: Performed By: #### L IP CDP, CP ####[facility] [address] [place] [address] lab Director: Osvaldo Lombardo DO Platelet mean volume (Bld) [Entitic vol] 8.0 fL Normal 6.0-12.0 [facility] Comment on above: Performed By: #### L IP CDP, CP ####[facility] [address] [place] [address] lab Director: Osvaldo Lombardo DO Platelets (Bld) [#/Vol] 207 10*3/uL Normal 150-450 [facility] Comment on above: Performed By: #### L JAVI CASTREJON, CP ####[facility] [address] [place] [address] lab Director: Osvaldo Lombardo DO RBC (Bld) [#/Vol] 4.54 10*6/uL Normal 4.0-5.2 [facility] Comment on above: Performed By: #### L IPJAVI, CP ####[facility] [address] [facility] [place] [address] lab Director: Osvaldo Lombardo DO WBC (Bld) [#/Vol] 6.4 10*3/uL Normal 3.5-11.0 [facility] Comment on above: Performed By: #### L IP CDP, CP ####[facility] [address] [place] [address] lab Director: Osvaldo Lombardo DO CT ABDOMEN PELVIS [...] Leonardo Guillen MD 01/07/22 Final result Normal [facility] Comp Metabolic Profon 2021 (cont.) Normal [facility] Comment on above: Result Comment: Aver age GFR for 40-49 years old: 99 mL/min/1.73sq m Chronic Kidney Disease: <60 mL/min/1.73sq m Kidney failure: <15 mL/min/1.73sq m eGFR calculated using average adult body mass. Additional eGFR calculator available at: http://www.Attentio.Applitools/multiple_crcl_2011.htm Performed By: #### L IP, CDP, CP ####[facility] [address] [place] [address] lab Director: Osvaldo Lombardo DO Albumin [Mass/Vol] 3.8 g/dL Normal 3.5-5.2 [facility] Comment on above: Performed By: #### L IP, CDP, CP ####[facility] [address], [place] [phone] Director: Osvaldo Lombardo DO Alkaline Phos 36 U/L Normal 35-104 [facility] Comment on above: Performed By: #### L IP, CDP, CP ####[facility] [address] [facility].[place], [place] [phone] Director: Osvaldo Lombardo DO ALT [Catalytic activity/Vol] 10 U/L Normal 5-33 [facility] Comment on above: Performed By: #### L IP, CDP, CP ####[facility] E[address] [facility].[place], [place] [phone] Director: Osvaldo Lombardo DO Anion gap [Moles/Vol] 8 mmol/L Low 9-17 [facility] Comment on above: Performed By: #### L IP, CDP, CP ####[place] [address] [facility] [place] [address] lab Director: Osvaldo Lombardo DO AST [Catalytic activity/Vol] 17 U/L Normal <32 [facility] Comment on above: Performed By: #### L IP, CDP, CP ####[facility] [address] [facility].[place], [place] [phone] Director: Osvaldo Lombardo DO Bilirubin [Mass/Vol] 0.20 mg/dL Low 0.3-1.2 [facility] Comment on above: Performed By: #### L IP, CDP, CP ####[facility] [address] [place], [place] [address]e [place] [address] Lab Director: Osvaldo Lombardo DO Calcium [Mass/Vol] 9.0 mg/dL Normal 8.6-10.4 [facility] Comment on above: Performed By: #### L IP, CDP, CP ####[facility] [address] [place] [address] Lab Director: Osvaldo Lombardo DO Chloride [Moles/Vol] 105 mmol/L Normal 98-107 [facility] Comment on above: Performed By: #### L IP, CDP, CP ####[facility] [address] [facility] [facility] [place] [address] lab Director: Osvaldo Lombardo DO CO2 [Moles/Vol] 27 mmol/L Normal 20-31 [facility] Comment on above: Performed By: #### L IP, CDP, CP ####[facility] X[address] [facility] [place] [address] Lab Director: Osvaldo Lombardo DO Creatinine [Mass/Vol] 0.65 mg/dL Normal 0.50-0.90 [facility] Comment on above: Performed By: #### L IP, CDP, CP ####[facility] [address] [facility] [place] [address] Lab Director: Osvaldo Lombardo DO GFR, Amer >60 Normal >60 [facility] Comment on above: Performed By: #### L IP, CDP, CP ####[facility] [address] [facility] [place] [address] lab Director: Osvaldo Lombardo DO GFR,non Amer >60 Normal >60 [facility] Comment on above: Performed By: #### L IP, CDP, CP ####[facility] [address] [place] [address] Lab Director: Osvaldo Lombardo DO Glucose [Mass/Vol] 111 mg/dL High 70-99 [facility] Comment on above: Performed By: #### L IP, CDP, CP ####[facility] [address] [place] [address] Lab Director: Osvaldo Lombardo DO Potassium [Moles/Vol] 3.7 mmol/L Normal 3.7-5.3 [facility] Comment on above: Performed By: #### L IP, CDP, CP ####[facility] [address] [place] [address] Lab Director: Osvaldo Lombardo DO Protein [Mass/Vol] 6.3 g/dL Low 6.4-8.3 [facility] Comment on above: Performed By: #### L IP, CDP, CP ####[facility] [address] [place] [address] Lab Director: Osvaldo Lombardo DO Sodium [Moles/Vol] 140 mmol/L Normal 135-144 [facility] Comment on above: Performed By: #### L IP, CDP, CP ####[facility] [address] [place] [address] Lab Director: Osvaldo Lombardo DO Urea nitrogen [Mass/Vol] 11 mg/dL Normal 6-20 [facility] Comment on above: Performed By: #### L IP, CDP, CP ####[facility] [address] [place] [address] Lab Director: Osvaldo Lombardo DO Lipaseon 01-07-2022 Lipase [Catalytic activity/Vol] 119 U/L High 13-60 [facility] Comment on above: Performed By: #### L IP, CDP, CP ####[facility] [address] [place] [address] Lab Director: Osvaldo Lombardo DO Urinalysis, Routineon 2021 Bilirubin, SemiQt,Ur Negative Normal NEG [facility] Comment on above: Performed By: #### U JAY JAY UA ####[facility] Jjn[address] [facility] [place] [address] [facility] Director: Osvaldo Lombardo DO Blood, Urine Negative Normal NEG [facility] Comment on above: Performed By: #### U JAY JAY, UA ####[facility] Sfb[address]56 [facility].[place], [place] [phone] Director: Osvaldo Lombardo DO Clarity (U) Cloudy Abnormal CLEAR [facility] Comment on above: Performed By: #### JYOTSNA MONTES ####[facility] [address] [place] [address].[place] [address] [facility] Director: Osvaldo Lombardo DO Color (U) Yellow Normal YEL [facility] Comment on above: Performed By: #### JYOTSNA MONTES ####[facility] Tqe[address] [facility], [place] [phone] Director: Osvaldo Lombardo DO Glucose Ql (U) Negative Normal NEG [facility] Comment on above: Performed By: #### U JAY JAY UA ####[facility] [address] [place] [address].[place] [address] [facility] Director: Osvaldo Lombardo DO Ketones Ql (U) Negative Normal NEG [facility] Comment on above: Performed By: #### U JAY JAY UA ####[facility] [address] [place] [address].[place] [address] Lab Director: Osvaldo Lombardo DO Leukocyte esterase Test strip Ql (U) SMALL Abnormal NEG [facility] Comment on above: Performed By: #### U JAY JAY, UA ####[facility] [address] [place] [address] [place] [address] Lab Director: Osvaldo Lombardo DO Nitrite,Ur Negative Normal NEG [facility] Comment on above: Performed By: #### U JAY JAY UA ####[facility] [address] [facility] [place] [address] Lab Director: Osvaldo Lombardo DO PH,Ur 6.5 Normal 5.0-8.0 [facility] Comment on above: Performed By: #### U JAY JAY UA ####[facility] Kyt[address]508 [place] [address] Lab Director: Osvaldo Lombardo DO Protein Ql (U) Negative Normal NEG [facility] Comment on above: Performed By: #### JYOTSNA MONTES ####[facility] [address] [place] [address].[place] [address] Lab Director: Osvaldo Lombardo DO Spec. [place],Ur 1.020 Normal 1.000-1.030 [facility] Comment on above: Performed By: #### JYOTSNA MONTES ####[facility] Ioo[address] [facility] [place] [address] Lab Director: Osvaldo Lombardo DO Urobilinogen,Ur Normal Normal NORM [facility] Comment on above: Performed By: #### JYOTSNA MONTES ####[facility] Xnf[address]16 [place] [address] Lab Director: Osvaldo Lombardo DO Urinalysis,Microon 2 Bacteria MODERATE Abnormal NONE [facility] Comment on above: Performed By: #### U JAY JAY UA ####[facility] [address] [place] [address] lab Director: Osvaldo Lombardo DO Casts 0 TO 2 Normal [facility] Comment on above: Performed By: #### U JAY JAY, UA ####[facility] [address] [facility] [place] [address] lab Director: Osvaldo Lmobardo DO Epithelial cells LM Ql (Urine sed) 10 TO 20 Normal [facility] Comment on above: Performed By: #### Thomas GOYAL, UA ####[facility] [address] [facility] [place] [address] lab Director: Osvaldo Lombardo DO Urine RBC's 0 TO 2 Normal [facility] Comment on above: Performed By: #### JYOTSNA MONTES ####[facility] E[address] [facility] [place] [address] lab Director: Osvaldo Lombardo DO Urine WBC's 6 TO 9 Normal [facility] Comment on above: Performed By: #### JYOTSNA MONTES ####[facility] Huy[address] [facility] [place] [address] lab Director: Osvaldo Lombardo DO CT ABDOMEN AND PELVIS WO CON TRASTon 05-07-2021 CT ABDOMEN AND PELVIS WO CONTRAST [facility] Department of Radiology [address] [place] [id number] Patient Name: BONNIE MONTOYA : 1980 Sex: F Age: Race: White Pt. Location: [id number] Patient Status: I Ordered Date: 05/07/2021 10:05:00 AM Completed Date: 05/07/2021 02:50 PM Requesting Provider: LAWRENCE PETE Attending Provider: DAVID COFFEY Report Copy To: Signs & Symptoms: Abdominal [...] low as reasonably achievable Electronically signed: Michelle Calles. Transcribed by: [email or web address], User Resident: Electronically Signed by: MICHELLE CALLES @ 05/07/2021 03:20 PM Normal [facility] Comment on above: Order Comment: Renal Stones, L CVA tenderness getting worse, has h/o stones CT FACIAL BONES WO CONTRASTo n 05-05-2021 CT FACIAL BONES WO CONTRAST [facility] Department of Radiology [address] [place] [id number] Patient Name: BONNIE MONTOYA : 1980 Sex: F Age: Race: White Pt. Location: [id number] Patient Status: I Ordered Date: 05/05/2021 10:50:00 AM Completed Date: 05/05/2021 01:40 PM Requesting Provider: LAWRENCE PETE Attending Provider: DAVID COFFEY Report Copy To: Signs & Symptoms: Head [...] fracture. Electronically signed: Eris Perez. Transcribed by: [email or web address], User Resident: Electronically Signed by: ERIS PEREZ @ 05/06/2021 07:03 AM Normal [facility] Comment on above: Order Comment: Facia l Fractures, Please look at TMJ s/p trauma wo contrast per dr pete ACETAMINOPHENon 05-02-2021 Acetaminophen [Mass/Vol] ug/mL Low 10-30 [facility] Comment on above: Performed By: #### 2 9773, [address], [address], 500[address], [address]658, [address], [address], 68829, [address] #### [facility] [address] CBC W/DIFFon 05-02-2021 ABS IMM GRANS 0.0 10*3/uL Normal 0.0-0.2 [facility] Comment on above: Performed By: #### 3 1976 #### [facility] [address] ABS NEUTROPHILS 5.1 10*3/uL Normal 1.6-7.6 [facility] Comment on above: Performed By: #### 3 1976 #### [facility] [address] Basophils (Bld) [#/Vol] 0.0 10*3/uL Normal 0.0-0.2 [facility] Comment on above: Performed By: #### 3 1976 #### [facility] [address] [place] [address], [facility] Basophils/100 WBC (Bld) 0.6 % Normal 0.0-1.0 [facility] Comment on above: Performed By: #### 3 1976 #### [facility] [address] [place] [address], [facility] Eosinophils (Bld) [#/Vol] 0.1 10*3/uL Normal 0.0-0.5 [facility] Comment on above: Performed By: #### 3 1976 #### [facility] [address] [place] [address], [facility] Eosinophils/100 WBC (Bld) 0.7 % Normal 0.0-6.0 [facility] Comment on above: Performed By: #### 3 1976 #### [facility] [address] [facility] [address], [facility] Erythrocyte distribution width (RBC) [Ratio] 14.6 % Normal 11.5-15.0 [facility] Comment on above: Performed By: #### 3 1976 #### [facility] [address] [place] [address], [facility] Hematocrit (Bld) [Volume fraction] 37.3 % Normal 36.0-45.0 [facility] Comment on above: Performed By: #### 3 1976 #### [facility] [address] [facility] Hemoglobin (Bld) [Mass/Vol] 12.2 g/dL Normal 12.0-15.0 [facility] Comment on above: Performed By: #### 3 1976 #### [facility] [address] [place] [address], [facility] IMMATURE GRANS 0.3 % Normal 0.0-1.0 [facility] Comment on above: Performed By: #### 3 1976 #### [facility] [address] [facility] [place] [address], [facility] Lymphocytes (Bld) [#/Vol] 1.6 10*3/uL Normal 1.2-4.0 [facility] Comment on above: Performed By: #### 3 1976 #### [facility] [address] [place] [address], [facility] Lymphocytes/100 WBC (Bld) 21.9 % Normal 20.0-45.0 [facility] Comment on above: Performed By: #### 3 1976 #### [facility] [address] [place] [address], [facility] MCH (RBC) [Entitic mass] 27.7 pg Normal 27.0-33.0 [facility] Comment on above: Performed By: #### 3 1976 #### [facility] [address] [place] [address], [facility] MCHC (RBC) [Mass/Vol] 32.7 g/dL Normal 32.0-35.0 [facility] Comment on above: Performed By: #### 3 1976 #### [facility] [address] [facility] [address], [facility] MCV (RBC) [Entitic vol] 84.6 fL Normal 82.0-98.0 [facility] Comment on above: Performed By: #### 3 1976 #### [facility] [address] [place] [address], [facility] Monocytes (Bld) [#/Vol] 0.4 10*3/uL Normal 0.1-1.0 [facility] Comment on above: Performed By: #### 3 1976 #### [facility] [address] MONOS 5.6 % Normal 5.0-12.0 [facility] Comment on above: Performed By: #### 3 1976 #### [facility] [address] Neutrophils/100 WBC (Bld) 70.9 % Normal 40.0-72.0 [facility] Comment on above: Performed By: #### 3 1976 #### [facility] [address] [place] [address], [facility] Nucleated RBC/100 WBC (Bld) [Ratio] 0 % Normal 0-0 [facility] Comment on above: Performed By: #### 3 1976 #### [facility] [address] [place] [address], [facility] PLAT CNT 241 10*3/uL Normal 150-400 [facility] Comment on above: Performed By: #### 3 1976 #### [facility] [address] [place] [address], [facility] RBC (Bld) [#/Vol] 4.41 10*6/uL Normal 3.80-5.00 [facility] Comment on above: Performed By: #### 3 1976 #### [facility] [address] [place] [address], [facility] WBC (Bld) [#/Vol] 7.17 10*3/uL Normal 4.00-10.60 [facility] Comment on above: Performed By: #### 3 1976 #### [facility] [address] [place] [address], [facility] CHOLESTEROL BLOODon 05-02-20 Cholesterol [Mass/Vol] 171 mg/dL Normal 120-200 [facility] Comment on above: Result Comment: CHOL ESTEROL REFERENCE RANGE: 20 YEARS AND OLDER CARDIOVASCULAR RISK Less than 200 mg/dl Low Risk 200 to 239 mg/dl Borderline Risk 240 mg/dl and greater High Risk Performed By: #### 3 1976 #### [facility] [address] [place] [address], [facility] COMP METABOLIC PANELon 05-02 Albumin [Mass/Vol] 3.8 g/dL Normal 3.5-5.7 [facility] Comment on above: Performed By: #### 2 9773, , , , 99517, 43397, 72610, 81517, 21564 #### [facility] [address] [place] [address], [facility] ALKALINE PHOSPH 39 IU/L Normal 34-104 [facility] Comment on above: Performed By: #### 2 9773, , , , 26457, 59566, 55585, 62317, 29770 #### [facility] [address] [place] [address], [facility] ALT [Catalytic activity/Vol] 8 U/L Normal 7-52 [facility] Comment on above: Performed By: #### 2 9773, 20621, , , 72469, 39927, 44544, 40604, 02131 #### [facility] [address] [place] [address], [facility] AST [Catalytic activity/Vol] 10 U/L Low 13-39 [facility] Comment on above: Performed By: #### 2 9773, 81346, , , 06268, 04440, 22065, 37420, 63311 #### [facility] [address] [place] [address], [place] Bilirubin [Mass/Vol] 0.4 mg/dL Normal 0.3-1.0 [facility] Comment on above: Performed By: #### 2 9773, 37338, , , 66163, 59574, 30475, 13270, 68218 #### [facility] [address] [place] [address], [place] Calcium [Mass/Vol] 8.6 mg/dL Normal 8.6-10.3 [facility] Comment on above: Performed By: #### 2 9773, 04258, , , 96639, 63650, 33050, 38340, 70045 #### [facility] [address] [place] [address], [place] Chloride [Moles/Vol] 105 mmol/L Normal 98-107 [facility] Comment on above: Performed By: #### 2 9773, 42420, , , 71740, 76241, 60832, 05234, 11085 #### [facility] [address] [place] [address], [place] CO2 [Moles/Vol] 29 mmol/L Normal 21-31 [facility] Comment on above: Performed By: #### 2 9773, 66672, , 53732, 55467, 54158, 93401, 06139, 05924 #### [facility] [address] [place] [address], [facility] Creatinine [Mass/Vol] 0.69 mg/dL Normal 0.60-1.20 [facility] Comment on above: Performed By: #### 2 9773, , , , 11233, 92974, 53017, 82465, 97799 #### [facility] [address] [place] [address], [place] GFR/1.73 sq M.predicted among blacks MDRD (S/P/Bld) [Vol rate/Area] mL/min/{1.73_m2} Normal >60 [facility] Comment on above: Performed By: #### 2 9773, , , , 12464, 51219, 26649, 04620, 03728 #### [facility] [address] [place] [address], [facility] GFR/1.73 sq M.predicted among non-blacks MDRD (S/P/Bld) [Vol rate/Area] mL/min/{1.73_m2} Normal >60 [facility] Comment on above: Performed By: #### 2 9773, , , , 27444, 85562, 02118, 36484, 99368 #### [facility] [address] [place] [address], [place] Glucose [Mass/Vol] 74 mg/dL Normal 70-100 [facility] Comment on above: Performed By: #### 2 9773, , , , 33103, 29262, 16707, 65103, 71559 #### [facility] [address] [place] [address], [place] Potassium [Moles/Vol] 4.0 mmol/L Normal 3.5-5.1 [facility] Comment on above: Performed By: #### 2 9773, , , , 17289, 53795, 24475, 43436, 93358 #### [facility] [address] [place] [address], [facility] Protein [Mass/Vol] 6.3 g/dL Normal 6.0-8.3 [facility] Comment on above: Performed By: #### 2 9773, , , , 48536, 64675, 91040, 59951, 76047 #### [facility] [address] [place] [address], [facility] Sodium [Moles/Vol] 140 mmol/L Normal 136-145 [facility] Comment on above: Performed By: #### 2 9773, 46786, , , 87698, 87825, 40448, 46473, 35777 #### [facility] [address] [place] [address], [facility] Urea nitrogen [Mass/Vol] 11 mg/dL Normal 7-25 [facility] Comment on above: Performed By: #### 2 9773, , , , 43675, 71949, 97872, 22634, 78762 #### [facility] [address] [place] [address], [facility] DETOX PANEL URINEon 05-02-20 21 50 THC Negative Normal NEGATIVE [facility] Comment on above: Order Comment: Yes: Add to Previous draw if able Performed By: #### 3 1976 #### [facility] [address] [place] [address], [facility] BARBITURATES Negative Normal NEGATIVE [facility] Comment on above: Order Comment: Yes: Add to Previous draw if able Performed By: #### 3 1976 #### [facility] [address] [place] [address], [facility] BENZODIAZEPINES Negative Normal NEGATIVE [facility] Comment on above: Order Comment: Yes: Add to Previous draw if able Performed By: #### 3 1976 #### [facility] [address] [place] [address], [facility] COCAINE Negative Normal NEGATIVE [facility] Comment on above: Order Comment: Yes: Add to Previous draw if able Performed By: #### 3 1976 #### [facility] [address] [place] [address], [facility] METHADONE Negative Normal NEGATIVE [facility] Comment on above: Order Comment: Yes: Add to Previous draw if able Performed By: #### 3 1976 #### [facility] [address] [place] [address], [facility] MONO AMPHET Negative Normal NEGATIVE [facility] Comment on above: Order Comment: Yes: Add to Previous draw if able Performed By: #### 3 1976 #### [facility] [address] [place] [address], [facility] OPIATES Negative Normal NEGATIVE [facility] Comment on above: Order Comment: Yes: Add to Previous draw if able Performed By: #### 3 1976 #### [facility] [address] [place] [address], [facility] PHENCYCLIDINE Negative Normal NEGATIVE [facility] Comment on above: Order Comment: Yes: Add to Previous draw if able Performed By: #### 3 1976 #### [facility] [address] [place] [address], [facility] PROPOXYPHENE Negative Normal NEGATIVE [facility] Comment on above: Order Comment: Yes: Add to Previous draw if able Performed By: #### 3 1976 #### [facility] [address] [place] [address], [facility] TRICYCLICS Negative Normal NEGATIVE [facility] Comment on above: Order Comment: Yes: Add to Previous draw if able Performed By: #### 3 1976 #### [facility] [address] [place] [id number], [facility] DIRECT BILIon 05-02-2021 Bilirubin.direct [Mass/Vol] 0.1 mg/dL Normal 0.0-0.2 [facility] Comment on above: Performed By: #### 2 9773, 75326, 88625, 26982, 27158, 76721, 12197, 21761, 47911 #### [facility] [address] [place] [address], [facility] Ed Blood Alcohol (compound)o n 05-02-2021 Ethanol [Mass/Vol] Not detected Normal [facility] Comment on above: Result Comment: Divi de by 1000 to convert mg/dL to percent. Example: 100mg/dL = 0.1%. Performed By: #### 3 1764 #### [facility] [address] [place] [address], [facility] Ed Urine Tox Screen (compoun d)on 05-02-2021 50 THC Negative Normal NEGATIVE [facility] Comment on above: Performed By: #### 3 1775 #### [facility] [address] [place] [address], [facility] BARBITURATES Negative Normal NEGATIVE [facility] Comment on above: Performed By: #### 3 1775 #### [facility] [address] [place] [address], [facility] BENZODIAZEPINES Negative Normal NEGATIVE [facility] Comment on above: Performed By: #### 3 1775 #### [facility] [address] [place] [address], [facility] COCAINE Negative Normal NEGATIVE [facility] Comment on above: Performed By: #### 3 1775 #### [facility] [address] [place] [address], [facility] METHADONE Negative Normal NEGATIVE [facility] Comment on above: Performed By: #### 3 1775 #### [facility] [address] [place] [address], [facility] MONO AMPHET Negative Normal NEGATIVE [facility] Comment on above: Performed By: #### 3 1775 #### [facility] [address] [place] [address], [facility] OPIATES Negative Normal NEGATIVE [facility] Comment on above: Performed By: #### 3 1775 #### [facility] [address] [place] [address], [facility] PHENCYCLIDINE Negative Normal NEGATIVE [facility] Comment on above: Performed By: #### 3 1775 #### [facility] [address] [place] [address], [facility] PROPOXYPHENE Negative Normal NEGATIVE [facility] Comment on above: Performed By: #### 3 1775 #### [facility] [address] [place] [address], [facility] TRICYCLICS Negative Normal NEGATIVE [facility] Comment on above: Performed By: #### 3 1775 #### [facility] [address] [place] [address], [facility] GAMMA GT BLOODon 05-02-2021 GAMMA GT 8 IU/L Low 9-64 [facility] Comment on above: Performed By: #### 2 9773, 14905, , 21390, 92786, 97510, 15798, 91090, 99544 #### [facility] [address] [place] [address], [facility] MAGNESIUM BLOODon 05-02-2021 Magnesium [Mass/Vol] 1.7 mg/dL Low 1.9-2.7 [facility] Comment on above: Performed By: #### 2 9773, 72378, , 33643, 15394, 50399, 28853, 02499, 23321 #### [facility] [address] [place] [address], [facility] POC SARS COV2 ANTIGEN NEGATI VEon 05-02-2021 POC SARS COV2 ANTIGEN NEG Negative Normal NEGATIVE [facility] Comment on above: Result Comment: Nega [...] signs and symptoms consistent with COVID-19. The [employer] COVID-19 Ag Card is a lateral flow [...] Accreditation. Performed By: #### 3 1976 #### [facility] [employer] [address] SERUM TESTon 05-02 TEST Negative Normal [facility] Comment on above: Order Comment: No: D o not add to previous draw Performed By: #### 3 1976 #### [facility] [address] [place] [address], [facility] TROPONIN-Ion 05-02-2021 Troponin I.cardiac [Mass/Vol] 0.00 ng/mL Normal 0.00-0.04 [facility] Comment on above: Result Comment: REFE RENCE RANGES: 0.00 - 0.04 ng/ml NORMAL 0.05 - 0.50 ng/ml INDETERMINATE > 0.50 ng/ml CONSISTENT WITH AN M.I. Performed By: #### 2 9773, 79055, 85531, 67071, 48065, 39295, 75031, 48368, 20390 #### [facility] [address] [place] [address], [facility] TSH3on 05-02-2021 TSH 3RD GENERATION 1.02 uIU/mL Normal 0.34-5.60 [facility] Comment on above: Performed By: #### 3 1976 #### [facility] [address] [place] [address], [place] UA,MICROSCOPIC REQUIREDon Appearance (U) SL CLOUDY Abnormal CLEAR [facility] Comment on above: Order Comment: Yes: Add to Previous draw if able Performed By: #### 3 1976 #### [facility] [address] [place] [address], [place] Bilirubin Ql (U) Negative Normal NEGATIVE [facility] Comment on above: Order Comment: Yes: Add to Previous draw if able Performed By: #### 3 1976 #### [facility] [address] [place] [address], [place] Color (U) YELLOW Normal YELLOW [facility] Comment on above: Order Comment: Yes: Add to Previous draw if able Performed By: #### 3 1976 #### [facility] [address] [place] [address], [facility] EPIS MANY Abnormal FEW,OCC,NONE SEEN [facility] Comment on above: Order Comment: Yes: Add to Previous draw if able Performed By: #### 3 1976 #### [facility] [address] [place] [address], [place] Glucose Ql (U) Negative Normal NEGATIVE [facility] Comment on above: Order Comment: Yes: Add to Previous draw if able Performed By: #### 3 1976 #### [facility] [address] [place] [address], [place] Hemoglobin Ql (U) MODERATE Abnormal NEGATIVE [facility] Comment on above: Order Comment: Yes: Add to Previous draw if able Performed By: #### 3 1976 #### [facility] [address] [place] [address], [place] KETONE Negative Normal NEGATIVE [facility] Comment on above: Order Comment: Yes: Add to Previous draw if able Performed By: #### 3 1976 #### [facility] [address] [place] [address], [place] LEUK SANT[place] MODERATE Abnormal NEGATIVE [facility] Comment on above: Order Comment: Yes: Add to Previous draw if able Performed By: #### 3 1976 #### [facility] [address] [place] [address], [facility] MUCUS THREADS OCC Abnormal NONE SEEN [facility] Comment on above: Order Comment: Yes: Add to Previous draw if able Performed By: #### 3 1976 #### [facility] [address] [place] [address], [facility] Nitrite Ql (U) Negative Normal NEGATIVE [facility] Comment on above: Order Comment: Yes: Add to Previous draw if able Performed By: #### 3 1976 #### [facility] [address] [facility] [facility] [address], [facility] pH (U) 6.0 [pH] Normal 5.0-8.0 [facility] Comment on above: Order Comment: Yes: Add to Previous draw if able Performed By: #### 3 1976 #### [facility] [address] [place] [address], [facility] Protein Ql (U) Negative Normal NEGATIVE [facility] Comment on above: Order Comment: Yes: Add to Previous draw if able Performed By: #### 3 1976 #### [facility] [address] [place] [address], [facility] RBC 6-10 Abnormal NONE SEEN [facility] Comment on above: Order Comment: Yes: Add to Previous draw if able Performed By: #### 3 1976 #### [facility] [address] [place] [address], [facility] SPEC GRAV 1.009 Low 1.015-1.020 [facility] Comment on above: Order Comment: Yes: Add to Previous draw if able Performed By: #### 3 1976 #### [facility] [address] [place] [address], [facility] WBC UA 11-20 Abnormal NONE SEEN [facility] Comment on above: Order Comment: Yes: Add to Previous draw if able Performed By: #### 3 1976 #### [facility] [address] URIC ACID BLOODon 05-02-2021 Urate [Mass/Vol] 3.5 mg/dL Normal 2.3-6.6 [facility] Comment on above: Performed By: #### 3 1976 #### [facility] [address] [place] [address], [facility] Comprehensive Metabolic Pane lOrdered By: Emanuel Haney on 05-14-2019 Albumin [Mass/Vol] 4.1 g/dL 3.5 - 5.2 g/dL [email or web address] Phone: Albumin/Globulin [Mass ratio] 1.3 {ratio} [email or web address] Phone: ALP [Catalytic activity/Vol] 43 U/L 35 - 104 U/L [employer] Work Phone: ALT [Catalytic activity/Vol] 16 U/L 5 - 33 U/L [email or web address] Phone: Anion gap [Moles/Vol] 10 mmol/L 9 - 17 mmol/L [email or web address] Phone: AST [Catalytic activity/Vol] 16 U/L <32 [email or web address] Phone: Bilirubin [Mass/Vol] 0.28 mg/dL Low 0.3 - 1 .2 mg/dL [email or web address] Phone: Bun/Cre Ratio NOT REPORTED [facility] Work Phone: Calcium [Mass/Vol] 8.7 mg/dL 8.6 - 10. 4 mg/dL [email or web address] Phone: Chloride [Moles/Vol] 101 mmol/L 98 - 10 7 mmol/L [email or web address] Phone: CO2 [Moles/Vol] 27 mmol/L 20 - 31 mmol/L [employer] Work Phone: Creatinine [Mass/Vol] 0.69 mg/dL 0.5 - 0.9 mg/dL [facility]: GFR >60 >60 mL/min [facility] [employer] Phone: GFR Comment [facility] Phone: Comment on above: Average GFR for 30-3 9 years old: 107 mL/min/1.73sq m Chronic Kidney Disease: <60 mL/min/1.73sq m Kidney failure: <15 mL/min/1.73sq m eGFR calculated using average adult body mass. Additional eGFR calculator available at: http://www.[employer]/multiple_crcl_2011.htm GFR Non- >60 >60 mL/min [facility] Phone: GFR Staging NOT REPORTED [employer] Work Phone: Glucose [Mass/Vol] 111 mg/dL High 70 - 99 mg/dL [facility] [employer] Work Phone: Interpretation and review of laboratory results Abnormal [facility] Phone: Potassium [Moles/Vol] 4.6 mmol/L 3.7 - 5.3 mmol/L [facility] Phone: Protein [Mass/Vol] 7.3 g/dL 6.4 - 8.3 g/dL [facility] Phone: Sodium [Moles/Vol] 138 mmol/L 135 - 144 mmol/L [facility] Phone: Urea nitrogen [Mass/Vol] 17 mg/dL 6 - 20 mg/dL [facility] Phone: Lipid PanelOrdered By: Mel Haney on 05-14-2019 Cholesterol [Mass/Vol] 199 mg/dL <200 [employer] Phone: Comment on above: Cholesterol Guidelines: <200 Desirable 200-240 Borderline >240 Undesirable Cholesterol in HDL [Mass/Vol] 57 mg/dL >40 [facility] Work Phone: Comment on above: HDL Guidelines: <40 Undesirable 40-59 Borderline >59 Desirable Cholesterol in LDL [Mass/Vol] 130 mg/dL 0 - 130 mg/dL [email or web address] Phone: Comment on above: LDL Guidelines: <100 Desirable 100-129 Near to/above Desirable 130-159 Borderline >159 Undesirable Direct (measured) LDL and calculated LDL are not interchangeable tests. Cholesterol.total/Chol esterol in HDL [Mass ratio] 3.5 {ratio} <5 [email or web address] Phone: Triglyceride [Mass/Vol] 58 mg/dL <150 [email or web address] Phone: Comment on above: Triglyceride Guidelines: <150 Desirable 150-199 Borderline 200-499 High >499 Very high Based on AHA Guidelines for fasting triglyceride, February 2012. VLDL NOT REPORTED 1 - 30 mg/dL m2M [employer] Work Phone: TSH without ReflexOrdered By : Emanuel Haney on 05-14-2019 TSH Qn 0.97 m[IU]/L [employer] Work Phone: CBC Auto DifferentialOrdered By: Emanuel Haney on 05-13-2019 Absolute Eos # <0.03 [employer] Work Phone: Absolute Immature Granulocyte <0.03 [email or web address] Phone: Absolute Lymph # 1.[address] [facility] Work Phone: Absolute [place] # 0.28 [facility] Work Phone: Basophils (Bld) [#/Vol] 0.03 10*3/uL [employer] Work Phone: Basophils/100 WBC (Bld) 1 % 0 - 2 % [email or web address] Phone: Differential Type NOT REPORTED [email or web address] Phone: Eosinophils/100 WBC (Bld) 0 % Low 1 - 4 % [email or web address] Phone: Erythrocyte distribution width (RBC) [Ratio] 14.2 % 11.8 - 14.4 % [email or web address] Phone: Hematocrit (Bld) [Volume fraction] 41.8 % 36.3 - 47.1 % [email or web address] Phone: Hemoglobin (Bld) [Mass/Vol] 12.9 g/dL 11.9 - 15.1 g/dL [email or web address] Phone: Immature granulocytes/100 WBC (Bld) 0 % 0 [email or web address] Phone: Interpretation and review of laboratory results Abnormal [email or web address] Phone: Lymphocytes/100 WBC (Bld) 20 % Low 24 - 43 % [email or web address] Phone: MCH (RBC) [Entitic mass] 27.8 pg 25.2 - 33.5 pg [email or web address] Phone: MCHC (RBC) [Mass/Vol] 30.9 g/dL 28.4 - 34.8 g/dL [email or web address] Phone: MCV (RBC) [Entitic vol] 90.1 fL 82.6 - 102.9 fL [email or web address] Phone: Monocytes/100 WBC (Bld) 5 % 3 - 12 % [email or web address] Phone: NRBC Automated 0.0 0.0 per 100 WBC [email or web address] Phone: Platelet Estimate NOT REPORTED [email or web address] Phone: Platelet mean volume (Bld) [Entitic vol] 11.0 fL 8.1 - 13.5 fL [email or web address] Phone: Platelets (Bld) [#/Vol] 265 10*3/uL [email or web address] Phone: RBC (Bld) [#/Vol] 4.64 10*6/uL 3.95 - 5.1 1 m/uL [email or web address] Phone: RBC morphology finding Nom (Bld) NOT REPORTED [employer] Work Phone: Segmented neutrophils/100 WBC (Bld) 74 % High 36 - 65 % [employer] Work Phone: Segs Absolute 4.43 [employer] [facility] Work Phone: WBC (Bld) [#/Vol] 6.0 10*3/uL [employer] Work Phone: WBC Morphology NOT REPORTED [employer] [facility] Work Phone: Vital Signs Date Time Vital Sign Value Performing Clinician Facility 08-07-2023 10:19-0400 Diastolic blood pressure 60 mm[Hg] DO Yadira Rumschlag Work Phone: [facility] 08-07-2023 10:19-0400 Heart rate 65 /min DO Yadira Rumschlag Work Phone: [facility] 08-07-2023 10:19-0400 Respiratory rate 16 /min DO Yadira Rumschlag Work Phone: [facility] 08-07-2023 10:19-0400 SaO2% (BldA) [Mass fraction] 100 % DO Yadira Rumschlag Work Phone: [facility] 08-07-2023 10:19-0400 Systolic blood pressure 94 mm[Hg] DO Yadira Rumschlag Work Phone: [facility] 08-07-2023 08:22-0400 Body height 167.64 cm DO Yadira Rumschlag Work Phone: [facility] 08-07-2023 08:22-0400 Body weight 74.84 kg DO Yadira Rumschlag Work Phone: [facility] 07-29-2023 13:57-0400 Body height 169.8 cm [facility] 07-29-2023 13:57-0400 Body mass index (BMI) [Ratio] 25.96 kg/m2 [facility] 07-29-2023 13:57-0400 Body weight 74.84 kg [facility] 07-29-2023 13:57-0400 Diastolic blood pressure 86 mm[Hg] [facility] 07-29-2023 13:57-0400 Systolic blood pressure 116 mm[Hg] [facility] 07-10-2023 14:35-0500 Body height 168.91 cm DO Yadira Rumschlag Work Phone: [facility] 07-10-2023 14:35-0500 Body mass index (BMI) [Ratio] 25.2 kg/m2 DO Yadira Rumschlag Work Phone: [facility] 07-10-2023 14:35-0500 Body weight 72.12 kg DO Yadira Rumschlag Work Phone: [facility] 07-10-2023 14:35-0500 Diastolic blood pressure 70 mm[Hg] DO Yadira Rumschlag Work Phone: [facility] 07-10-2023 14:35-0500 Heart rate 79 /min DO Yadira Rumschlag Work Phone: [facility] 07-10-2023 14:35-0500 Systolic blood pressure 122 mm[Hg] DO Yadira Rumschlag Work Phone: [facility] 07-03-2022 13:16-0500 Diastolic blood pressure 89 mm[Hg] Flora Rocha MD [facility] 07-03-2022 13:16-0500 Heart rate 106 /min Flora Rocha MD [facility] 07-03-2022 13:16-0500 Respiratory rate 28 /min Flora Rocha MD [facility] 07-03-2022 13:16-0500 SaO2% (BldA) [Mass fraction] 96 % Flora Rocha MD [facility] 07-03-2022 13:16-0500 Systolic blood pressure 121 mm[Hg] Flora Rocha MD [facility] 07-03-2022 12:51-0500 Body height 167.6 cm Flora Rocha MD [facility] 07-03-2022 12:51-0500 Body mass index (BMI) [Ratio] 23.4 kg/m2 [facility] 07-03-2022 12:51-0500 Body temperature 98.49 [degF] [facility] [facility] [place] 07-03-2022 12:51-0500 Body weight 65.77 kg Flora Rocha MD [facility] 06-04-2019 23:38-0500 Body height 167.6 cm Joanna Rodríguez MD Work Phone: [employer] Work Phone: 06-04-2019 23:38-0500 Body mass index (BMI) [Ratio] 26.95 kg/m2 Joanna Rodríguez MD Work Phone: [employer] Work Phone: 06-04-2019 23:38-0500 Body weight 75.75 kg Joanna Rodríguez MD Work Phone: [employer] Work Phone: 06-04-2019 23:36-0500 Body temperature 98.6 [degF] Joanna Rodríguez MD Work Phone: [employer] Work Phone: 06-04-2019 23:36-0500 Diastolic blood pressure 82 mm[Hg] Joanna Rodríguez MD Work Phone: [employer] Work Phone: 06-04-2019 23:36-0500 Heart rate 86 /min Joanna Rodríguez MD Work Phone: [employer] Work Phone: 06-04-2019 23:36-0500 Respiratory rate 16 /min Joanna Rodríguez MD Work Phone: [employer] Work Phone: 06-04-2019 23:36-0500 SaO2% (BldA) [Mass fraction] 98 % Joanna Rodríguez MD Work Phone: [employer] Work Phone: 06-04-2019 23:36-0500 Systolic blood pressure 113 mm[Hg] Joanna Rodríguez MD Work Phone: [employer] Work Phone: Encounters Encounter Date Encounter Type Care Provider Facility Start: 09-29-2023 ambulatory Robinson PERALTA Facili ty:[id number] Start: 09-18-2023 ambulatory SELF SELF [facility] Start: 08-25-2023 ambulatory SELF SELF [facility] Start: 08-18-2023 End: 08-19-2023 ambulatory EMILIA S JOSE ALBERTOALEXANDRE [facility] Start: 08-14-2023 Orders Only Samantha Woodruff GAMEMASTER-ASSOCIATE MEDIA DIRECTOR Work Phone: [facility] Comment on above: Trichomonas vaginiti s (Primary Dx) Start: 08-13-2023 Orders Only Samantha Woodruff GAMEMASTER-ASSOCIATE MEDIA DIRECTOR Work Phone: [facility] Comment on above: Vaginal trichomonias is (Primary Dx) Start: 08-12-2023 End: 08-13-2023 ambulatory Robinson PERALTA Facility:[facility] Start: 08-12-2023 End: 08-12-2023 Patient encounter procedure Robinson PERALTA [facility] Start: 08-07-2023 End: 08-07-2023 ambulatory DO Yadira Rumschlag Work Phone: [facility] Work Phone: Comment on above: Abnormal mammogram o f left breast (Primary Dx) Start: 08-07-2023 End: 08-07-2023 ambulatory Yadira Rumschlag Facility:[facility] Start: 08-07-2023 Non-patient / Non-visit DO Bet ty Rumschlag Work Phone: [facility] Work Phone: Start: 08-07-2023 End: 08-07-2023 Admission to same day surgery center DO Yadira Rumschlag Work Phone: [facility] Work Phone: Start: 08-06-2023 End: 08-07-2023 ambulatory SAMANTHA Lindsay RAN[facility] Start: 08-01-2023 Orders Only Samantha Woodruff GAMEMASTER-ASSOCIATE MEDIA DIRECTOR Work Phone: [facility] Comment on above: Trichomoniasis Proteinuria, unspeci fied type (Primary Dx) Start: 07-31-2023 Orders Only Mahogany Langston GAMEMASTER-CNM Work Phone: [facility] Comment on above: Trichomoniasis (Prim rusty Dx) Start: 07-29-2023 End: 07-29-2023 ambulatory NO PCP NO PCP [facility] Start: 07-29-2023 Encounter for gynecological examination (general) (routine) without abnormal findings NO NO PCP [facility] Start: 07-29-2023 End: 07-29-2023 Initial preventive medicine new patient 40-64yrs [facility] [place] [facility] Comment on above: Well woman exam with routine gynecological exam (Primary Dx); Pap smear for cervical cancer screening; Screen for STD (sexually transmitted disease); Breast cancer screening by mammogram; Pelvic pain; Hx of ovarian cyst; Standardized adult depression screening tool completed Start: 07-29-2023 End: 07-29-2023 Patient encounter procedure [facility] Work Phone: Start: 07-29-2023 End: 07-30-2023 ambulatory [facility] Start: 07-29-2023 End: 07-29-2023 ambulatory SAMANTHA WOODRUFF [facility] Start: 07-29-2023 Encounter for gynecological examination (general) (routine) without abnormal findings SAMANTHA WOODRUFF [facility] Start: 07-15-2023 End: 07-16-2023 ambulatory VICKY GREGG [facility] Start: 07-15-2023 End: 07-16-2023 ambulatory YADIRA BARKERIAJose Raul Facility:[facility] Start: 07-15-2023 End: 07-15-2023 Lab Drop off VICKY GREGG [facility] Start: 07-14-2023 ambulatory SELF SELF [facility] Start: 07-10-2023 End: 07-10-2023 Patient encounter procedure DO Yadira Tijerina Work Phone: [facility] G[facility] Work Phone: Start: 07-01-2023 ambulatory SELF SELF [facility] Start: 06-03-2023 ambulatory SELF SELF [facility] Start: 05-23-2023 [facility] Start: 05-06-2023 ambulatory SELF SELF [facility] Start: 04-10-2023 ambulatory SELF SELF [facility] Start: 04-09-2023 ambulatory VICKY KRAKOW Facility [facility] Start: 03-13-2023 ambulatory SELF SELF [facility] Start: 02-27-2023 ambulatory SELF SELF [facility] Start: 02-12-2023 ambulatory SELF SELF [facility] Start: 02-05-2023 ambulatory SELF SELF [facility] Start: 01-27-2023 ambulatory SELF SELF [facility] Start: 01-20-2023 ambulatory SELF SELF [facility] Start: 11-10-2022 End: 11-15-2022 Evaluation and management of inpatient DAVIDSOPHIE COFFEY [facility] Start: 11-07-2022 End: 11-07-2022 Emergency department patient visit EMANUEL HANEY [facility] Start: 2022 End: 2022 Emergency department patient visit EMANUEL HENSON [facility] Start: 07-03-2022 End: 07-03-2022 Emergency department patient visit EMANUEL HENSON [facility] Start: 07-03-2022 End: 07-03-2022 Emergency department patient visit Flora Rocha MD [facility] ED Comment on above: Muscle twitching (Pr imary Dx); Acute cystitis without hematuria Start: 01-07-2022 End: 01-07-2022 Emergency department patient visit EMANUEL HENSON [facility] Start: 06-05-2019 End: 06-05-2019 Emergency department patient visit FELICE HENSON [facility] Start: 06-04-2019 End: 06-05-2019 Emergency department patient visit Joanna Rodríguez MD Work Phone: [facility] ED Comment on above: Abrasion of right co rnea, initial encounter (Primary Dx); Acute bacterial conjunctivitis of both eyes Start: 05-13-2019 End: 05-13-2019 Subsequent hospital visit by physician Vicky Frederick GAMEMASTER - [facility] Work Phone: [facility] Procedures Date Procedure Procedure Detail Performing Clinician Start: 08-07-2023 Colonoscopy DO Yadira R umschlag Work Phone: Start: 08-06-2023 Mammography Emilia F nico GAMEMASTER-CNM Work Phone: Start: 07-29-2023 Adult depression scr eening assessment [facility] [place] [facility] Start: 07-29-2023 Microscopic observat ion [Identifier] in Cervix by Cyto stain Mahogany Langston GAMEMASTER-CNM Work Phone: Start: 07-03-2022 Basic metabolic pane l calcium total Flora Rocha MD Start: 07-03-2022 MYOGLOBIN, BLOOD Flora Rocha MD Start: 07-03-2022 Drug tst prsmv instr mnt chem analyzers pr date Flora Rocha MD Start: 07-03-2022 Urinalysis microscopic only Flora Rocha MD Start: 07-03-2022 Urine test visual color cmprsn meths Flora Rocha MD Start: 05-13-2019 Comprehensive metabo lic panel Emanuel Haney Work Phone: Start: 05-13-2019 Lipid panel Emanuel Haney Work Phone: Start: 12-27-2014 Microscopic observat ion [Identifier] in Cervix by Cyto stain Flora Rocha MD Start: 05-12-2006 section CHERIE BRAR DIA Cholecystectomy VICKY DIAZ Ligation of fallopian tube Berenice BATISTA DIA Removal of ovarian cyst DANE DEL ROSARIO DIA Plan of Treatment Date Care Activity Detail Author Start: 06-05-2029 DTaP,Tdap and Td Vaccines (3 - Td or Tdap) DTaP,Tdap and Td Vaccines (3 - Td or Tdap) [facility] Start: 06-05-2029 DTaP/Tdap/Td vaccine (3 - Td or Tdap) DTaP/Tdap/Td vaccine (3 - Td or Tdap) [facility] Start: 06-05-2029 DTaP/Tdap/Td vaccine (3 - Td) DTaP/Tdap/Td vaccine (3 - Td) [email or web address] Phone: Start: 11-27-2026 DTaP/Tdap/Td vaccine (2 - Td) DTaP/Tdap/Td vaccine (2 - Td) [email or web address] Phone: Start: 07-28-2026 Screening for malign ant neoplasm of cervix Pap Smear [facility] Start: 08-05-2024 Adult BMI Screening Adult BMI Screen ing [facility] Start: 08-05-2024 Screening for malign ant neoplasm of breast Mammogram [facility] Start: 07-28-2024 Adult BMI Screening Adult BMI Screen ing [facility] Start: 07-28-2024 Depression Screening Depression [facility] Start: 07-28-2024 Tobacco Screening Tobacco Screening [facility] Start: 05-13-2024 Lipid panel Lipids [facility] Start: 01-11-2024 Influenza vaccination Influenza Vacc ine [facility] Start: 10-01-2023 End: 10-01-2023 Patient encounter procedure 10/01/2023 9:00 AM EDT Office Visit [facility] [address] [place] [address] [facility] Start: 09-11-2023 End: 09-11-2023 Patient encounter procedure 09/11/2023 2:30 PM EDT Office Visit [facility] [address] [place] [phone] Lila Segovia MD [address] [place] [phone] [address] [facility] Start: 08-18-2023 End: 08-18-2023 Patient encounter procedure 08/18/2023 3:00 PM EDT Appointment Daniel Manuel [facility] [place] [facility] [address] [place] [phone] [facility] [place] [facility] Start: 08-07-2023 End: 08-06-2024 MG Breast duct - left Views W contrast intra duct Mammography diagnostic unilateral left with CAD Imaging Routine Abnormal mammogram of left breast Expected: 08/07/2023, Expires: 08/06/2024 [employer] Work Phone: Comment on above: Expected: 08/07/2023 , Expires: 08/06/2024 Start: 08-07-2023 [facility] Start: 08-06-2023 End: 08-06-2023 Patient encounter procedure 08/06/2023 11:45 AM EDT Appointment [facility] - Mammogram DEXA [address] [place] [phone] Samantha Woodruff, GAMEMASTER-ASSOCIATE MEDIA DIRECTOR [address] [place] [address] [facility]amm[facility] Start: 08-06-2023 End: 08-06-2023 Patient encounter procedure 08/06/2023 10:30 AM EDT Appointment [facility] - Ultrasound [address] [place] [phone] Samantha Woodruff, GAMEMASTER-ASSOCIATE MEDIA DIRECTOR [address] [place] [address] [facility]tras[facility] Start: 07-29-2023 End: 07-28-2024 DBT Breast - bilateral screening Mammography screening bilateral with CAD Imaging Routine Breast cancer screening by mammogram Expected: 07/29/2023, Expires: 07/28/2024 [facility] Comment on above: Expected: 07/29/2023 , Expires: 07/28/2024 Start: 07-29-2023 End: 07-28-2024 US Pelvis transabdominal and transvaginal Ultrasound pelvic with transvaginal Imaging Routine Pelvic pain Hx of ovarian cyst Expected: 07/29/2023, Expires: 07/28/2024 [employer] Comment on above: Expected: 07/29/2023 , Expires: 07/28/2024 Start: 01-10-2023 COVID-19 Vaccine ( season) COVID-19 Vaccine ( season) [facility] Start: 01-10-2023 Influenza vaccination [facility] Vacc ine [facility] Start: 12-10-2021 Influenza vaccination Flu vaccine (# 1) [employer] Start: 2019 Screening for malign ant neoplasm of breast Mammogram [employer] Start: 01-10-2019 Influenza vaccination Flu vaccine (# 1) [email or web address] Phone: Start: 12-27-2017 Cervical cancer screen Cervical canc er screen [email or web address] Phone: Start: 12-27-2017 Screening for malign ant neoplasm of cervix [employer] Start: 02-23-2010 Screening for malign ant neoplasm of cervix HPV (without or with Pap) [facility] Start: 1997 Adult BMI Follow Up Plan Adult BMI Follow Up Plan [employer] Start: 1991 Depression Screen Depression Screen [facility] Start: 1980 Varicella Vaccine (1 of 2 - 2-dose childhood series) Varicella Vaccine (1 of 2 - 2-dose childhood series) [facility] Start: 01-02-1980 COVID-19 Vaccine (#1) COVID-19 Vacci ne (#1) [facility] End: 07-31-2024 Basic metabolic 2000 panel - Serum or Plasma Basic Metabolic Panel Lab Routine Proteinuria, unspecified type 1 Occurrences starting 08/01/2023 until 07/31/2024 [facility] Work Phone: Comment on above: 1 Occurrences starti ng 08/01/2023 until 07/31/2024 End: 07-31-2024 CBC panel - Blood by Automated count CBC without diff Lab Routine Proteinuria, unspecified type 1 Occurrences starting 08/01/2023 until 07/31/2024 [employer] Comment on above: 1 Occurrences starti ng 08/01/2023 until 07/31/2024 CT Abdomen and Pelvi s W contrast IV [facility] End: 07-03-2022 Culture, Urine [facility] Work Phone: Comment on above: Once for 1 Occurrenc es starting 07/03/2022 until 07/03/2022 End: 07-28-2024 Cytopathology procedure, preparation of smear, genital source Pap Smear Pathology and Cytology Routine Well woman exam with routine gynecological exam Pap smear for cervical cancer screening 1 Occurrences starting 07/29/2023 until 07/28/2024 [employer] Work Phone: Comment on above: 1 Occurrences starti ng 07/29/2023 until 07/28/2024 End: 07-28-2024 Hepatitis panel, acute Hepatitis panel, acute Lab Routine Screen for STD (sexually transmitted disease) 1 Occurrences starting 07/29/2023 until 07/28/2024 [employer] Comment on above: 1 Occurrences starti ng 07/29/2023 until 07/28/2024 End: 07-28-2024 High risk HPV w/omega High risk HPV w/omega Lab Routine Well woman exam with routine gynecological exam Pap smear for cervical cancer screening 1 Occurrences starting 07/29/2023 until 07/28/2024 [facility] Comment on above: 1 Occurrences starti ng 07/29/2023 until 07/28/2024 End: 07-28-2024 HIV 1&2 AB/AG Screen (P24 AG) HIV 1&2 AB/AG Screen (P24 AG) Lab Routine Screen for STD (sexually transmitted disease) 1 Occurrences starting 07/29/2023 until 07/28/[address] [facility] Comment on above: 1 Occurrences starti ng 07/29/2023 until 07/28/2024 End: 07-31-2024 Magnesium [Mass/volume] in Serum or Plasma Magnesium Lab Routine Proteinuria, unspecified type 1 Occurrences starting 08/01/2023 until 07/31/[address] [facility] Comment on above: 1 Occurrences starti ng 08/01/2023 until 07/31/2024 Patient Education Colon polyps Hemorrhoids (DC) [facility] Work Phone: End: 07-31-2024 Phosphate [Mass/volume] in Serum or Plasma Phosphorus Lab Routine Proteinuria, unspecified type 1 Occurrences starting 08/01/2023 until 07/31/[address] [facility] Comment on above: 1 Occurrences starti ng 08/01/2023 until 07/31/2024 End: 07-31-2024 Protein creat ratio Protein creat ratio Lab Routine Proteinuria, unspecified type 1 Occurrences starting 08/01/2023 until 07/31/[address] [facility] Comment on above: 1 Occurrences starti ng 08/01/2023 until 07/31/2024 End: 07-28-2024 Syphilis Total(Unknown Syphilis Status) Syphilis Total(Unknown Syphilis Status) Lab Routine Screen for STD (sexually transmitted disease) 1 Occurrences starting 07/29/2023 until 07/28/[address] [facility] [employer] Comment on above: 1 Occurrences starti ng 07/29/2023 until 07/28/2024 End: 07-31-2024 Urinalysis Urinalysis Lab Routine Proteinuria, unspecified type 1 Occurrences starting 08/01/2023 until 07/31/[address] [facility] Comment on above: 1 Occurrences starti ng 08/01/2023 until 07/31/2024 End: 07-28-2024 Vaginitis Panel PCR Vaginitis Panel PCR Microbiology Routine Screen for STD (sexually transmitted disease) 1 Occurrences starting 07/29/2023 until 07/28/[address] [facility] Comment on above: 1 Occurrences starti ng 07/29/2023 until 07/28/2024 [facility] Immunizations Immunization Date Immunization Notes Care Provider Fa cility 02-26-2021 SARS-CoV-2 (COVID-19 ) mRNA BNT-162b2 vax Robinson PERALTA [facility] 06-05-2019 tetanus toxoid, redu zurdo diphtheria toxoid, and acellular pertussis vaccine, adsorbed Joanna Rodríguez MD Work Phone: [employer] Work Phone: Comment on above: Result Comment: 2023: VIS DATE: 07/05/2014 06-05-2019 diphtheria, tetanus toxoids and acellular pertussis vaccine, unspecified formulation Joanna Rodríguez MD Work Phone: [employer] Work Phone: 11-27-2016 tetanus toxoid, redu zurdo diphtheria toxoid, and acellular pertussis vaccine, adsorbed Vicky Frederick APRN - ASSOCIATE MEDIA DIRECTOR Work Phone: [facility] Comment on above: Result Comment: 2023: VIS DATE: 07/05/2014 05-27-2007 hepatitis B vaccine, pediatric or pediatric/adolescent dosage Robinson PERALTA [facility] Payers Date Payer Category Payer Self-pay 2022 Medicaid [employer] [employer] [id number] 2022-[facility] [phone] [place] [id number] 2022 Medicaid [id number] 2020 Unknown [id number] 2018 Unknown [id number] 2018 Unknown [employer] xxxxxxxxxxx 2018-Present [phone] [address] [place] [address] xxxxxxxxxxx [id number] 2018 Unknown [id number] 1979 Unknown [id number] 1979 Unknown [id number] 1979 Unknown [id number] 1979 Unknown [id number] 1979 Unknown [id number] 1979 Unknown [id number] 1979 Unknown [id number] 1979 Unknown [id number] 1979 Unknown [id number] 2.16.840.1.881738.3.579.2.1285 1980 Unknown [id number] 2.16.840.1.044917.3.579.2.1285 1979 Unknown [id number] 2.16.840.1.553988.3.579.2.1285 1979 Unknown [id number] 2.16.840.1.733085.3.579.2.1286 1979 Unknown [id number] 2.16.840.1.589553.3.579.2.727 1979 Unknown [id number] 2.16.840.1.684704.3.579.2.727 1979 Unknown [id number] 2.16.840.1.637893.3.579.2.727 1979 Unknown [id number] 2.16.840.1.031300.3.579.2.727 1979 Unknown [id number] 2.16.840.1.922032.3.579.2.727 1979 Unknown [id number] 2.16.840.1.037160.3.579.2.98 1979 Unknown [id number] 2.16.840.1.290037.3.579.2.983 1979 Unknown [id number] 2.16.840.1.318397.3.579.2.98 1979 Unknown [id number] 2.16.840.1.186414.3.579.2.98 1979 Unknown [id number] 2.16.840.1.936137.3.579.2.98 1979 Unknown [id number] 2.16.840.1.618629.3.579.2.98 1979 Unknown [id number] 2.16.840.1.500974.3.579.2.983 1979 Unknown [id number] 2.16.840.1.636817.3.579.2.983 1979 Unknown [id number] 2.16.840.1.172348.3.579.2.983 1979 Unknown [id number] 2.16.840.1.972815.3.579.2.983 1979 Unknown [id number] 2.16.840.1.645940.3.579.2.983 1979 Unknown [id number] 2.16.840.1.536807.3.579.2.983 1979 Unknown [id number] 2.16.840.1.465224.3.579.2.983 1979 Unknown [id number] 2.16.840.1.610675.3.579.2.983 Unknown [id number] 2.16.840.1.860902.3.579.2.531 Social History Date Type Detail Facility Start: 08-09-2018 End: 07-29-2023 Tobacco smoking status NDIS Never smoker [employer] Start: 08-09-2018 End: 08-06-2023 Alcohol intake Current non-drinker of alcohol (finding) [email or web address] Phone: Start: 1980 Sex Assigned At Not on file [employer] Phone: Start: 02-15-2018 End: 07-29-2023 Tobacco use and exposure Smokeless tobacco non-user [email or web address] Phone: Start: 06-21-2020 End: 07-03-2022 Alcohol intake [employer] Phone: Start: 07-03-2022 History SDOH Alcohol Frequency 1 [employer] Phone: Start: 07-03-2022 History SDOH Alcohol Std Drinks 0 [employer] Phone: Start: 06-23-2022 End: 07-03-2022 Exposure to SARS-CoV-2 (event) Not sure [employer] Phone: Tobacco smoking status No Smokin g Status Entered [facility] Start: 06-21-2020 End: 07-29-2023 Sex Assigned At Female [facility] Adolescent depressio n screening assessment 3 [facility] Start: 1980 Sex Assigned At Female P [facility] Start: 02-28-2022 Gender identity Identifies as female gender (finding) [facility] Start: 02-28-2022 Sexual orientation Heterosexual (christine darell) [facility] Goals Date Patient Goal Desired Activity /State Clinical Notes 09-17-2020 to 08-07-2023 Note Date & Type Note Facility 08-07-2023 History and physical note Note Date/Time August 07, 2023 9:2 1am [facility] EN[facility] [address] [place] [address] Gastroenterology H&P Signed Patient: Bonnie Montoya MR#: [id number] : 1980 Acct:[id number] Age/Sex: 43 / F Adm Date: 4 Loc: Room: Type: [facility] Attending Dr: Louisa Ro MD Copies to: DO Louisa Lovett MD~ Date of Service: 08/07/2023 HISTORY & PHYSICAL: Patient's history with special attention to the cardiovascular, pulmonary systems and the current problem was reviewed with the patient immediately prior to the procedure. Present medications and doses reviewed in the EMR. Allergies and pertinent laboratory tests were also reviewedat this time in the EMR. The physical examination, as below, was then performed. Indication, assessment and HPI: 43-year-old female here for colonoscopy for evaluation of constipation and hematochezia Family history of GI malignancy? No PHYSICAL EXAMINATION Mouth and Pharynx : Moist mucus membranes, normal dentition Cardiac: Regular rate, regular rhythm Pulmonary: Clear to auscultation bilaterally, no wheezing Neurological: Alert and oriented x3, no focal deficits noted Abdomen: Abdomen soft, non-tender REVIEW OF SYSTEMS Constitutional: Denies malaise, fevers Cardiovascular: Denies chest pain, palpitations Respiratory: Denies shortness of breath, wheezing Gastrointestinal: Per HPI Genitourinary: Denies dysuria, polyuria Musculoskeletal: Denies joint swelling, joint stiffness Neurological: Denies numbness, tingling Integumentary: Denies rashes, skin lesions Endocrine: Denies fatigue, weight loss Written informed consent obtained from the patient. Risks (including but not limited to perforation, infection, bloating, bleeding, need for emergent surgeryand loss of life), benefits and alternatives explained and questions answered. The patient verbalized understanding. Based on history patient is an appropriate candidate for the procedure. Louisa Ro M.D. Documented By: Louisa Ro MD 08/07/2319 Signed By: <Electronically signed by Louisa Ro MD> 08/07/2348 [facility] Work Phone: 1(842) 615-735003-28-2024 [facility] Miscellaneous Notes* Telephone Encounter - Gloria Membreno - 08/01/2023 2:06 PM EDT Called pt to schedule new pt appt. Appt scheduled for first available pt stated she was fine with coming to [place]. Labs ordered and pt made aware to get labs one week prior. documented in this encounter[facility] Telephone encounter Note* Telephone Encounter - Gloria Mebmreno - 08/01/2023 2:06 PM EDT Called pt to schedule new pt appt. Appt scheduled for first available pt stated she was fine with coming to [place]. Labs ordered and pt made aware to get labs one week prior. [facility]03-22-2024 Miscellaneous Notes* Telephone Encounter - Gela Saldana - 08/01/2023 10:16 AM EDT Patient called stating the pharmacy did not have her Flagyl prescription. The prescription was sentto her old pharmacy in [place] that the patient does not use anymore. She thought she updated the information. She needs it sent to [facility] [place]. Pharmacy information updated in patient's chart. Please advise. Thank you. * Telephone Encounter - Samantha Woodruff APRN-ASSOCIATE MEDIA DIRECTOR - 08/01/2023 10:16 AM EDT RX sent to [facility]. Thank you. * Telephone Encounter - Gela Saldana - 08/01/2023 10:16 AM EDT Patient notified & voiced understanding. documented in this encounterUniversity [facility]24 Telephone encounter Note* Telephone Encounter - Gela Saldana - 08/01/2023 10:16 AM EDT Patient called stating the pharmacy did not have her Flagyl prescription. The prescription was sentto her old pharmacy in [place] that the patient does not use anymore. She thought she updated the information. She needs it sent to [facility] in [place]. Pharmacy information updated in patient's chart. Please advise. Thank you. [facility]03-22-2024 Telephone encounter Note* Telephone Encounter - SHIMON Montague - 08/01/2023 10:16 AM EDT RX sent to [facility]. Thank you. [facility]03-22-2024 Telephone encounter Note* Telephone Encounter - Gela Saldana - 08/01/2023 10:16 AM EDT Patient notified & voiced understanding. [facility]03-21-2024 History of Present illness Narrative* LYNNE Yeager - 07/31/2023 9:10 AM EDT Opened in error LYNNE Yeager 07/31/23 0912 documented in this encounterUniversity Hospitals St. [facility]03-[facility]-2024 History of Present illness Narrative* Samantha Woodruff, MARY-ASSOCIATE MEDIA DIRECTOR - 07/29/2023 1:15 PM EDT Annual Well Woman Visit 07/29/2023 Subjective Bonnie Montoya is a 43 y.o. female new patient who presents for annual addiction counselor exam. Periods are irregular, lasting 3-5 days. Dysmenorrhea:severe, occurring throughout cycle. Cyclic symptoms include heavybleeding / clotting, anxiety, breast tenderness, depression, moodiness, and pelvic pain. No intermenstrual bleeding, spotting, or abnormal discharge. Patient reports pelvic pain, states she has a hx of endometriosis and ovarian cysts. Patient desires all STD testing today. Complaints today: feels like bladder or uterus is trying to come out when she pushes to void or have a bowel movement. Returns to see Urologist 08/14/23 for follow-up. Relationship status: not in a relationship The patient reports that there is not domestic violence in her life. 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 Vapes daily IF Yes , motivated to quit YES Children YES How many 3, two vaginal deliveries and one Current contraception: tubal ligation History of abnormal Pap smear: yes - 5 years ago, had Colposcopy, Negative Last pap: About 5 years ago Regular self breast exam: yes Last mammogram: No Family history of breast cancer: yes - MGM, Family history of uterine or ovarian cancer: no Family history of pancreatic or prostate cancer: no Family history of colon cancer: no Covid vaccinated: Yes, first dose not second Flu shot this flu season: No HPV vaccinated: No PHQ9 depression screenin LMP 06/05/2023 OB History 3 Para 3 Term 1 2 AB Living 3 SAB IAB Ectopic Multiple Live Births 3 The following portions of the patient's history were reviewed and updated as appropriate: allergies, current medications, past family history, past medical history, past social history, past surgicalhistory and problem list. MEDICAL HX Past Medical History: Diagnosis Date Abdominal seizure (CMS-HCC) Anxiety Chest pain Depression Endometriosis Injury of back SURGICAL HX Past Surgical History: Procedure Laterality Date SECTION CHOLECYSTECTOMY TUBAL LIGATION FAMILY HX Family History Problem Relation Age of Onset Breast cancer Maternal Grandmother Colon cancer Neg Hx Ovarian cancer Neg Hx Uterine cancer Neg Hx MEDS Current Outpatient Medications Medication Sig Dispense Refill amphetamine-dextroamphetamine XR (ADDERALL XR) 30 mg 24 hr capsule Take 1 capsule (30 mg total) by mouth in the morning. buprenorphine-naloxone (SUBOXONE) 8-2 mg per SL tablet Place 1 tablet under the tongue in the morning and 1 tablet before bedtime. dextroamphetamine-amphetamine (ADDERALL) 20 mg tablet Take 1 tablet (20 mg total) by mouth in the morning. docusate sodium (COLACE) 100 mg capsule Take 1 capsule (100 mg total) by mouth in the morning and 1capsule (100 mg total) before bedtime. gabapentin (NEURONTIN) 800 mg tablet Take 1 tablet (800 mg total) by mouth in the morning and 1 tablet (800 mg total) at noon and 1 tablet (800 mg total) in the evening and 1 tablet (800 mg total) before bedtime. levETIRAcetam (KEPPRA) 1000 mg tablet Take 1 tablet (1,000 mg total) by mouth in the morning and 1 tablet (1,000 mg total) before bedtime. naloxone (NARCAN) 4 mg/actuation spray,non-aerosol nasal spray Administer 1 spray (4 mg total) intoeach nostril as needed for opioid reversal. ondansetron (ZOFRAN) 4 mg tablet Take 1 tablet (4 mg total) by mouth every 8 (eight) hours as needed for nausea or vomiting. 20 tablet 0 ondansetron ODT (ZOFRAN ODT) 4 mg disintegrating tablet Dissolve 1 tablet (4 mg total) on tongue every 8 (eight) hours as needed for nausea. sertraline (ZOLOFT) 50 mg tablet Take 1 tablet (50 mg total) by mouth in the morning. nwxqxplvqf-jfyygnvdqfjcu-ukia (FIORICET, ESGIC) 50-325-40 mg per tablet Take 1 tablet by mouth every 4 (four) hours as needed for headaches. (Patient not taking: Reported on 07/29/2023) 30 tablet 0 No current facility-administered medications for this visit. ALLERGIES Allergies Allergen Reactions Sumatriptan Anaphylaxis Fibrinolysin Ibuprofen Other reaction(s): throat swelling Tramadol Hives Review of Systems Review of Systems Constitutional: Negative. Respiratory: Negative. Negative for chest tightness and shortness of breath. Cardiovascular: Negative. Negative for chest pain and palpitations. Gastrointestinal: Negative. Endocrine: Negative. Genitourinary: Positive for menstrual problem and pelvic pain. Musculoskeletal: Negative. Skin: Negative. Allergic/Immunologic: Negative. Neurological: Negative. Hematological: Negative. Psychiatric/Behavioral: Negative. Objective BP 116/86 Ht 169.8 cm (5' 6.85 ) Wt 74.8 kg (165 lb) LMP 06/05/2023 (Approximate) BMI 25.96kg/m Physical Exam Vitals and nursing note reviewed. Constitutional: Appearance: Normal appearance. HENT: Head: Normocephalic and atraumatic. Cardiovascular: Rate and Rhythm: Normal rate and regular rhythm. Pulses: Normal pulses. Heart sounds: Normal heart sounds. Pulmonary: Effort: Pulmonary effort is normal. Breath sounds: Normal breath sounds. Chest: Breasts: Breasts are symmetrical. Right: Normal. No mass, skin change or tenderness. Left: Normal. No mass, skin change or tenderness. Abdominal: General: Bowel sounds are normal. Palpations: Abdomen is soft. Genitourinary: General: Normal vulva. Labia: Right: No rash or lesion. Left: No rash or lesion. Vagina: Normal. Cervix: Normal. Uterus: Tender. Adnexa: Right adnexa normal and left adnexa normal. Right: No mass, tenderness or fullness. Left: No mass, tenderness or fullness. Musculoskeletal: General: Normal range of motion. Cervical back: Normal range of motion and neck supple. Skin: General: Skin is warm and dry. Neurological: Mental Status: She is alert and oriented to person, place, and time. Psychiatric: Mood and Affect: Mood normal. Speech: Speech normal. Behavior: Behavior normal. Thought Content: Thought content normal. Judgment: Judgment normal. Assessment/Plan: Bonnie was seen today for new patient. Diagnoses and all orders for this visit: Well woman exam with routine gynecological exam - Pap Smear; Future - High risk HPV w/omega; Future Pap smear for cervical cancer screening - Pap Smear; Future - High risk HPV w/omega; Future Screen for STD (sexually transmitted disease) - Vaginitis Panel PCR; Future - HIV 1&2 AB/AG Screen (P24 AG); Future - Syphilis Total(Unknown Syphilis Status); Future - Hepatitis panel, acute; Future Breast cancer screening by mammogram - Mammography screening bilateral with CAD; Future Pelvic pain - Ultrasound pelvic with transvaginal; Future Hx of ovarian cyst - Ultrasound pelvic with transvaginal; Future Standardized adult depression screening tool completed BMI is in the acceptable range. Breast self exam technique reviewed and patient encouraged to perform self-exam monthly. Discussed healthy lifestyle modifications. Educational material distributed. Follow up in 1 year for annual addiction counselor exam. Follow up as needed. Encouraged vaping cessation. Discussed options to help with periods. Await pap. Discussed ASCCP screening guidelines. Discussed taking a multivitamin. Discussed Calcium and Vitamin D for prevention of osteoporosis. Discussed need for yearly mammogram after 40 yo. Discussed colon cancer screening recommendations to begin at 45 yo, patient to discuss with PCP. All questions answered. JONI East APRN-CNP Lisa M Franco, APRN-CNP 07/29/23 1441 documented in this encounterUniversity Hospitals St. [facility]03-[facility]-2024 Hospital Discharge instructions Follow Up Care 07/25/2023 11:34:42 With:KATHRYN DOE, Robinson Gonzalez, URL Address: [facility] [address] [place] [address]- [phone] When: Unknown [facility] 03-05-[address] Tijerina referral [facility] Staff Evaluation requested by Dr Yadira Tijerina due to UTI. Pt is a new pt, never before seen in our office. (Verified on DA) C&S 11/07/22 >100k Klebsiella Pneumoniae [facility] ER04/03/23 CC: dysuria. had already been seen at and given bactrim w/o improvement. dc'd on macrobid x 5d. CT ap wo 04/03/23 *No Urological abnormalities. C&S <10k Enterococcus faecalis. continued urgency/frequency at PCP f/u 04/07/23 so referred here. BMP 05/16/23 BUN 12.0 Crea 0.74 eGFR >60 Dysuria: Pt. states having burning. Incomplete bladder emptying: yes, PVR 0mL Hematuria: Pt. state she had gross hematuria 2 days ago. Frequency: 4 hours Urgency:yes Nocturia: 0-1x's Stream: weak stream Post void dripping: no Wearing pads/ Depends:Pt. wears liners Urge incontinence: few times a month Stress incontinence: yes Incontinence without Sensory Awareness: no Abdominal pain: yes Flank pain: bilateral flank pain Review of Systems PHQ Score Initial Depression Screen Score: 0 SCORE no fever, chills, malaise, myalgia. no rash/lesions. no chest pain, palpitations, or SOB. no abdominal pain, nausea, vomiting. no unilateral calf swelling, redness, pain Physical Exam Vitals & Measurements T: 36.8 ?C(Temporal Artery) HR: 77(Peripheral) RR: 15 BP: 118/85 HT: 66 in HT: 167 cm WT: 73.6 kg WT: 161.92 lb BMI: 26.39 General: nontoxic, NAD Mouth: moist mucosa Lungs: normal respiratory effort Cardio: regular rate, good distal perfusion Abdomen: nondistended, no suprapubic distention or tenderness, no CVA tenderness Neurologic: Grossly normal Skin: No rashes or suspicious lesions Assessment/Plan 1. Gross hematuria (R31.0: Gross hematuria) 2 days ago, several voids then resolved. has had a few times in the past. always assumed it was a UTI. UA completed in office today shows no signs of infection. Discussed options. The patient is aware that a distinct etiology of the hematuria may not be clear upon conclusion of the workup. Will initiate hematuria workup to include upper urinary tract imaging(already had CT w/o performed. has CT abd/pelv with con ordered from GI, plans to do at [facility] in next few weeks, will watch for results), as well as evaluation of the urinary cells with urine cytology (sent IO today) and possible a FISH test. A cystoscopy will be scheduled to rule out lower urinary tract pathology. The rationale for this workup has been discussed, and all questions have been answered. Informed consent will be obtained. Prophylactic antibiotics will be given. Ordered: E&M of New Patient Moderate 45-59 Min 73692 Urine Cytology ([facility]) 2. Dysuria (R30.0: Dysuria) c/o intermittent dysuria/suprapubic pain. happens every few weeks. sometimes improves w abx, sometimes not. sometimes tests +cx, sometimes not. reports having to lean to the left and push on suprapubic area to urinate/feel like she empties fully. reports pressure in the vagina and feels like when she strains she can see something bulging inthere. does have appt coming up with [facility] for eval. still has uterus. we spoke about uterine prolapse. luckily PVR low today but this certainly could be contributing to some of her bothersome urinarysx. Ordered: E&M of New Patient Moderate 45-59 Min 11407 3. Mixed incontinence (N39.46: Mixed incontinence) BBSQ 12, total control can hold urine 3-4 hrs but will have urgency once she gets sensation of needing to go UUI a few times per month, low volume, not super bothersome NICKI every few days, low volume, not super bothersome no indication to treat as pt does not find these sx bothersome at this time. Ordered: E&M of New Patient Moderate 45-59 Min 96679 4. Protein in urine (R80.9: Proteinuria, unspecified) IO UA shows trace intact hgb, 100 protein BMP 05/16/23 BUN 12.0 Crea 0.74 eGFR >60 will bring to attention of PCP. may benefit from nephro referral if protein persists. Orders: 85245 Measure Post Void residual urine and/or bladder capacity by US- non-imaging Body Mass Index (BMI) documented 3008F Current tobacco non-user 1036F Depression Screening Negative 3352F Influenza immunization status assessed 1030F Most recent diastolic blood pressure <80 mm Hg 3078F Systolic BP <130 mm Hg (Most Recent) 3074F Urnls Dip Stick Auto w/o Microscopy POC 77818 Follow-up With When Contact Information [facility] [place] [address] Business (1) Additional Instructions: our grain packer will be contacting you for follow-up Patient Education Hematuria, Adult Problem List/Past Medical History Ongoing Acute cystitis Anxiety disorder, unspecified Dysuria Gross hematuria Mixed incontinence Protein in urine Historical Seizure Procedure/Surgical History section (2006), Cholecystectomy, Removal of ovarian cyst, Tubal ligation. Medications Adderall, 30 mg, Or (more content not included)...[facility] Comment on above:Result Comment: Electronically Signed By: VICKY GREGG PA-C\Date and Time Signed: 07/15/2411:48 [id number] Evaluation + Plan note Diagnostic Tests Pending * Urine Cytology ([facility]) 07/15/23 [facility]07-07-2023 NoteAdult Nutrition Assessment: Name: Bonnie Montoya Date: 1980 Date of Visit: 11/15/22 Admission Dx: Opiate dependence, continuous ([facility]) [F11.20] Reason for assessment: length of stay Information obtained from: patient, medical record, and nursing Past Medical History: Diagnosis Date ADHD (attention deficit hyperactivity disorder) Anxiety Bipolar disorder ([facility]) Depression PTSD (post-traumatic stress disorder) Seizures ([facility]) Current Medications: buprenorphine-naloxone, 1 tablet, sublingual, BID [...] WBC 5.14 11/14/2022 1305 CHOL 152 11/10/2022 1759 Allergies: Allergies Allergen Reactions Imitrex [Sumatriptan] Anaphylaxis [...] based on: actual body weight Calorie needs: 4558-2643 kcals/day based on Equation: 25-30 kcal/kg Protein needs: 52-64 g/day based on 0.8-1 g/kg Fluid needs: 1932 ml/day based on 30 ml/kg Treatment Plan: -Continue with current diet order -Provide boost x1/day for previous wt loss -Monitor wt weekly -Replace/correct electrolytes prn Goals: Nutrition Goals: intake > 75% meals, intake > 75% supplements, and wt [facility] Note Attestation signed by Reji Calderón MD at 11/15/2022 11:21 AM I personally saw and examined the patient on the same date of service as resident/fellow . I discussed the findings and therapeutic plan with the resident/fellow . I agree with the documentation, except for any edits/updates below. Teaching Physician's Revisions: GI Inpatient Progress Note Patient - Bonnie Montoya Age - 42 [facility] 1980 [id number] Date of Admission - 11/10/2022 4:38 PM [...] for component: ABGPH, ABGPCO2, ABGPO2, ABGHCO3, ABGBASEDEFIC, [id number], ABGOXYGENSOU No lab exists for component: LACTICACID, PROCALCITON Results from last 7 days Lab Units 11/10/22 1759 CHOLESTEROL mg/dL 152 Lab Results Component Value Date WBCU 3-5 (A) 11/13/2022 Radiology @[email or web address]@ Medications Scheduled: buprenorphine-naloxone, 1 tablet, sublingual, BID [...] Plan Procal negative, however (more content not included)...[facility]07-06-[facility]23 Note Attestation signed by Reji Calderón MD at 11/14/2022 2:01 PM I personally saw and examined the patient on the same date of service as resident/fellow . I discussed the findings and therapeutic plan with the resident/fellow . I agree with the documentation, except for any edits/updates below. Teaching Physician's Revisions: GIM Inpatient Progress Note Patient - Bonnie Montoya [...] for component: ABGPH, ABGPCO2, ABGPO2, ABGHCO3, ABGBASEDEFIC, [id number], ABGOXYGENSOU No lab exists for component: LACTICACID, PROCALCITON Results from last 7 days Lab Units 11/10/22 1759 CHOLESTEROL mg/dL 152 Lab Results Component Value Date WBCU 3-5 (A) 11/13/2022 Radiology @[email or web address]@ Medications Scheduled: buprenorphine-naloxone, 1 tablet, sublingual, BID [...] primary Olinda Carmichael MD PGY-3, Internal Medicine Univ (more content not included)...[facility] 11-14-[facility] NoteHospital Day: 5 Patient seen by me, management [...] Negative mg/dL Bilirubin, Urine Negative Negative Specific [place], Urine 1.007 (L) 1.015 - 1.020 Ketones, [...] Hep B Core Tot (more content not included)...[facility] 11-13-2022 Note Attestation signed by Reji Calderón MD at 11/13/2022 10:43 AM I personally saw and examined the patient on the same date of service as resident/fellow . I discussed the findings and therapeutic plan with the resident/fellow . I agree with the documentation, except for any edits/updates below. Teaching Physician's Revisions: [facility] Inpatient Progress Note Patient - Bonnie Montoya Age - 42 y.o. - 1980 [facility] # - [id number] Date of Admission - 11/10/2022 4:38 PM [...] for component: ABGPH, ABGPCO2, ABGPO2, ABGHCO3, ABGBASEDEFIC, OERW7SKS, ABGOXYGENSOU No lab exists for component: LACTICACID, PROCALCITON Results from last 7 days Lab Units 11/10/22 1759 CHOLESTEROL mg/dL 152 Lab Results Component Value Date WBCU 6-10 (A) 11/10/2022 Radiology @[email or web address]@ Medications Scheduled: buprenorphine-naloxone, 1 tablet, sublingual, BID [...] primary Olinda Carmichael MD PGY-3, Internal Medicine [facility] NoteHospital Day: 4 Patient seen by me, management [...] Negative mg/dL Bilirubin, Urine Negative Negative Specific [place], Urine 1.007 (L) 1.015 - 1.020 Ketones, [...] Hepatitis C Ab Nonreactive (more content not included)...[facility]2023 NoteHospital Day: 3 Patient seen by me, management [...] Negative mg/dL Bilirubin, Urine Negative Negative Specific [place], Urine 1.007 (L) 1.015 - 1.020 Ketones, [...] (L) 32.0 - 3 (more content not included)...[facility]2023 Note Attestation signed by Reji Calderón MD at 11/13/2022 10:43 AM I personally saw and examined the patient on the same date of service as resident/fellow . I discussed the findings and therapeutic plan with the resident/fellow . I agree with the documentation, except for any edits/updates below. Teaching Physician's Revisions: GI Inpatient Progress Note Patient - Bonnie [...] data in the 24 hours ending 11/12/22 0755 Physical Exam Constitutional: General: She is not [...] for component: ABGPH, ABGPCO2, ABGPO2, ABGHCO3, ABGBASEDEFIC, IVDG8HFL, ABGOXYGENSOU No lab exists for component: LACTICACID, PROCALCITON Results from last 7 days Lab Units 11/10/22 1759 CHOLESTEROL mg/dL 152 Lab Results Component Value Date WBCU 6-10 (A) 11/10/2022 Radiology @[email or web address]@ Medications Scheduled: buprenorphine-naloxone, 1 tablet, sublingual, BID [...] primary Olinda Carmichael MD PGY-3, Internal Medicine [facility] 11-11-2022 NotePsychosocial Narrative Summary Subject: Bonnie Montoya Reason for admission: Pt is a 42-year old male who presents to [facility] for opioid withdrawal. Pt reports she is using 70mg of Percocets daily three times a day orally, as well as snorting $60 worth of cocaine daily. Pt has previous admissions to [facility], most recently in April 2021, where upon discharge pt was referred to [facility] for outpatient substance use treatment. Pt reports she instead followed up with [facility] and remained sober until [...] plan: Opioid Use Disorder, Severe [facility] Note[facility] [id number] # [facility] Pt. Name: Bonnie Montoya Admitted: 05/02/2021 Discharged: Date of : 1980 Physician: David Coffey M.D. DISCHARGE SUMMARY Time Spent with Patient: 31 minutes spent with patient, discussing discharge instructions, ordering medications, reviewing lab work, communicating with other healthcare professionals, documenting clinical information and the patient's follow-up plan. CHIEF COMPLAINT: Opioid abuse. HISTORY OF PRESENT ILLNESS: Bonnie Montoya is a 40-year-old female that presents to [facility] detox unit for opiate dependence with active [...] Patient is scheduled to go outpatient at [facility] Reviewed By: Cherise Valadez CNP 05/08/2021 01:15 P Electronically Signed by: David Coffey M.D. 05/12/2021 08:18 P David Coffey M.D. .. Date Dict: 05/08/2021/01:14 P/Cherise Valadez CNP Date Trans: 05/08/2021 01:14 P/ DN_[id number] cc: Leslie North, N.P. [address] [facility] [id number]08-[facility] NoteMR#: [id number] # [facility] Pt. Name: Bonnie Montoya Admitted: 12/24/2020 Discharged: 12/29/2020 Date of : 1980 Physician: David Coffey M.D. DISCHARGE SUMMARY CHIEF COMPLAINT: Opioid and cocaine use. HISTORY OF PRESENT ILLNESS: The patient is a 40-year-old female with past diagnosis of depression, ADHD, admitted to [facility] due to concern about using [...] continuity of care. Electronically Signed by: David Coffey M.D. 12/30/2020 09:21 P David Coffey M.D. Date Dict: 12/29/2020/09:54 A/David Coffey M.D. Date Trans: 12/29/2020 10:57 A/earlene DN_[id number] cc: Leslie North, N.P. [address] [facility] [id number] [facility]05-09-2021 NoteMR#: [id number] # [facility] Pt. Name: Bonnie Montoya Admitted: 09/05/2020 Discharged: 09/12/2020 Date of : 1980 Physician: Michelle Mueller MD DISCHARGE SUMMARY CHIEF COMPLAINT: Opioid use. HISTORY OF PRESENT ILLNESS: The patient is a 40-year-old female admitted to [facility] due to concerns about using [...] A/Michelle Mueller MD Date Trans: 09/17/2020 04:09 P/mmo [id number]:[id number] cc: Leslie North, N.P. [address] [facility] [id number] County Medical CenterEvaluation note* Diagnosis Abrasion of right cornea, initial encounter- Primary Acute bacterial conjunctivitis of both eyes documented in this encounter [facility] Work Phone: evaluation note* Diagnosis Muscle twitching- Primary Abnormal involuntary movements Acute cystitis without hematuria Acute cystitis documented in this encounter [facility] Work Phone: evaluation note* Diagnosis Well woman exam with routine gynecological exam- Primary Routine gynecological examination Pap smear for cervical cancer screening Screening for malignant neoplasm of the cervix Screen for STD (sexually transmitted disease) Screening examination for venereal disease Breast cancer screening by mammogram Pelvic pain Hx of ovarian cyst Standardized adult depression screening tool completed [facility] Diagnosis Trichomoniasis- Primary [facility] Diagnosis Trichomoniasis documented [facility]* Diagnosis Proteinuria, unspecified type- Primary [facility]* Diagnosis Onset Date Resolution Status Bloating acute Blood in stool acute Constipation acute Weight loss, unintentional a [facility] Work Phone: Evaluation note* Diagnosis Abnormal mammogram of left breast- Primary [facility] Diagnosis Vaginal trichomoniasis- Primary Trichomonal vulvovaginitis documented in this [facility]* Diagnosis Trichomonas vaginitis- Primary Trichomonal vulvovaginitis documented in this [facility] Narrative No data available for this section [facility]* Instructions* Randall Gabriel APRN - CNP - 06/05/2019 Take medications as prescribed. Follow-up with shank cutter provided. * Attachments The following attachments cannot be sent through Care Everywhere. * Corneal Scratches (Nepalese) * Conjunctivitis (Nepalese) [facility] Work [facility] Hospital Discharge instructions* Attachments The following attachments cannot be sent through Care Everywhere. * UTI (Urinary Tract Infection): Female (Nepalese) * Cramp: Muscle (Nepalese) [facility] Work [facility]: Hospital Discharge instructions No data available for this section [facility] Additional Instructions DISCHARGE INSTRUCTIONS FOR COLONOSCOPY WHAT TO EXPECT: - You may feel full, gassy or cramping after your procedure. In some cases, this may be from a few hours to a day. Walking may help relieve the discomfort. - If you have polyp(s) removed you may note some minor bloody discharge after your first bowel movements. - You should begin to recover from anesthesia within 1 hour of the procedure, however may feel groggy for the next 24 hours. DO's AND DON'Ts: - Call your doctor right away if you have a hard abdomen, severe pain, are passing lots of bright red blood or clots. - Call your doctor if you develop any rashes, hives or difficulty breathing. - Let your doctor know if you have not had a bowel movement by 3 days after your procedure. - If you take 81 mg aspirin for your heart it is safe to resume this medication. - If you take other blood thinner medications your doctor will instruct you when these can safely be resumed. - Do NOT drive for 24 hours. - Do NOT operate machinery such as power tools, lawn mowers, snow blowers, sewing machines, etc. for 24 hours. - Avoid alcoholic beverages and drugs for allergies, nerves, or sleep. - Do NOT stay alone. Do NOT leave your child unattended. - Do NOT make important personal or business decisions or sign any legal documents. - Eat solid foods and drink liquids in smaller amounts than usual until normal appetite returns. If you should experience an upset stomach, liquids high in sugar content (soda, Kem-Aid, non-acid juices) are recommended. - You can resume normal activities tomorrow. FOLLOW UP & RECOMMENDATIONS: -Notify the doctor if you have any problems. -Repeat colonoscopy in 3 years. -Follow up with PCP. -Office number [phone]. [facility] Work Phone: Instructions* Attachments The following attachments cannot be sent through Care Everywhere. * Vaping (Nepalese) * Calcium and vitamin D for bone health (Nepalese) documented in this encounterProDekalb [facility] Health SystemInstructionsNot on file documented in this encounterProDekalb Regional Medical Center Health SystemInstructionsNot on file documented in this encounterProDekalb Regional Medical Center Health SystemInstructionsNot on file documented in this encounterProCity Hospital SystemProgress note No data available for this section [facility] Summary Purpose Family History No Family History Records Found Relationship Condition Age at Onset Recorded Date/T pedro luis Not Specified Family history of ma lignant neoplasm of colon Unknown Advance Directives No Advanced Directives Records FoundDocuments on File Type Date Recorded 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 12/27/2014 3:42 PM Latest Code Status on File Code Status Date Activated Date Inactivated Comments Full Code 06/10/2018 7:01 AM 06/11/2018 5:23 PM Full Code 05/19/2018 7:40 AM 05/20/2018 9:30 PM Full Code 05/11/2016 3:15 AM 05/12/2016 10:14 PM Full Code 12/13/2015 5:53 AM 12/13/2015 3:28 PM Documents on File Type Date Recorded 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 Advance Directives and Livin g Will Power of Laborer Driver 12/27/2014 3:42 PM Latest Code Status on File Code Status Date Activated Date Inactivated Comments Full Code 04/10/2022 4:00 PM 04/11/2022 6:45 PM Advance Directive Response Recorded Date/ Time Advance Directives No May 31, 2023 12:03pm Chief Complaint and Reason for Visit Chief Complaint IBS/BLOOD IN STOOL/ DR TIJERINA REFERRED blood in stool/constipation/wgt loss/fm hx of co blood in stool/constipation/wgt loss/fm hx of co Reason for Visit Bloating Blood in stool Constipation Weight loss, unintentional Additional Source Comments INFORMATION SOURCE (unrecogn ized section and content) DATE CREATED AUTHOR 06/05/2019 [facility] DATE CREATED AUTHOR AUTHOR'S ORGANIZ ATION 05/12/2021 [facility] DATE CREATED AUTHOR AUTHOR'S ORGANIZ ATION 07/05/2022 [facility] DATE CREATED AUTHOR AUTHOR'S ORGANIZ ATION 11/11/2022 [facility] DATE CREATED AUTHOR AUTHOR'S ORGANIZ ATION 11/26/2022 [facility] DATE CREATED AUTHOR AUTHOR'S ORGANIZ ATION 07/30/2023 [facility] DATE CREATED AUTHOR AUTHOR'S ORGANIZ ATION 08/14/[address] [facility] DATE CREATED AUTHOR AUTHOR'S ORGANIZ ATION 08/18/2023 [facility] DATE CREATED AUTHOR AUTHOR'S ORGANIZ ATION 08/19/2023 [facility] DATE CREATED AUTHOR AUTHOR'S ORGANIZ ATION 09/14/2023 [facility] DATE CREATED AUTHOR AUTHOR'S ORGANIZ ATION 09/20/2023 [facility] Reason for Visit (unrecogniz ed section and content) Reason Comments Eye Drainage and irritation. Just completed treatment for pink eye, still taking meds Reason Comments Other Seizure-like activit y Reason Comments New Patient Annual with pap Ordered Prescriptions (unrec ognized section and content) [...] 1326 (New Bag - Prov ider: Koby Hope RN)1356 (Stopped - Provider: Sherry Travis RN) LORazepam (ATIVAN) injection 1 mg (COMPLETED) 1 mg, IntraVENous, ONCE, 1 dose, On Fri07/03/22 at 1300 1324 (Given - Provid er: Koby Hope RN) orphenadrine (NORFLEX) injection 60 mg (COMPLETED) 60 mg, IntraVENous, ONCE, 1 dose, On Fri07/03/22 at 1300 1318 (Given - Provid er: Koby Hope RN) Care Teams (unrecognized sec tion and content) Mercury Purifier Relationship Specialty Start Date End Date Medina, Emanuel Bustosn, GAMEMASTER [address] [place] [address] PCP - General 06/05/19 [employer] Purifier Relationship Specialty Start Date End Date No Pcp, [place] [address] PCP - General Family Medicine 04/10/22 [employer]ifier Relationship Specialty Start Date End Date No Pcp, [place] [address] PCP - General Family Medicine 04/10/22 [employer] Purifier Relationship Specialty Start Date End Date No Pcp, [place] [address] PCP - General Family Medicine 04/10/22 Mercury Purifier Relationship Specialty Start Date End Date No Pcp, [place] [address] PCP - General Family Medicine 04/10/22 Mercury Purifier Relationship Specialty Start Date End Date No Pcp, [place] [address] PCP - General Family Medicine 04/10/22 Mercury Purifier Relationship Specialty Start Date End Date No Pcp, [place] [address] PCP - General Family Medicine 04/10/22 Team Status: Active Member Role Status Dates Yadira Tijerina DO Primary Care Provider Active Team Status: Inactive Member Role Status Dates Yadira Tijerina DO Primary Care Provider Active Start: July 10, 2023 End: July 10, 2023 Louisa Ro MD Attending Provider Active Start: July 10, 2023 End: July 10, 2023 Team Status: Inactive Member Role Status Dates Yadira Tijerina DO Primary Care Provider Active Start: August 07, 2023 End: August 07, 2023 Louisa Ro MD Attending Provider Active Start: August 07, 2023 End: August 07, 2023 Team Status: Active Member Role Status Dates Yadira Tijerina DO Primary Care Provider Active Start: August 07, 2023 Louisa Ro MD Attending Provider, Other Provider Active Start: August 07, 2023 Mercury Purifier Relationship Specialty Start Date End Date No Pcp, [place] [address] PCP - General Family Medicine 04/10/22 Mercury Purifier Relationship Specialty Start Date End Date No Pcp, [place] [address] PCP - General Family Medicine 04/10/22 FOR RECORDS PERTAINING TO PATIENTS WHO ARE [...] BE BASED ON THE PRIMARY CLINICAL RECORDS. [facility]. provides no warranty or guarantee of the accuracy or completeness of information in this document.
[2023-09-29 08:33] VITALS: BP 107/74; PULSE 83; O2SAT 99
[2023-09-29] MEDS: LIDOCAINE 2% JELLY 10 ML UR (08:35)
[2023-09-29 08:45] VITALS: BP 113/78; PULSE 76; O2SAT 100
--- NOTE | 2023-09-29 08:45 | P.URON_ITS ---
Urology Surgery Operative Note Operative Note Procedure Date: 09/29/23 Time Out Performed: yes Pre-op Diagnosis: Gross hematuria and dysfunctional voiding Post-op Diagnosis: same as pre-op Procedures performed: 1. Cystoscopy. Anesthesia: local Primary Surgeon: Robinson Alvarez Complications: None Estimated blood loss (mL): 0 Findings: No bladder tumors. No NICKI. No prolapse. Specimens: None Drains: None Indications for Procedures: This lady has had gross hematuria in the recent past. She is also had some urinary infections. She has dysfunctional voiding and the sense of needing to strain to get urine out. She also has impaired sensation of fullness. She now presents for cystoscopy. She has signed an informed consent after risks were ex plained. Detailed description of Procedure: The patient was kept on the rsan antonio bed and brought into the endoscopy suite. She was put in the supine position. Her legs were frog-legged and her perineum and genitalia were sterilely prepped and draped in the usual fashion. Timeout was done by all parties in the room. We all agreed upon the patient's identification and the planned procedures for this patient. 2% lidocaine gel was passed per urethra. I started by passing a flexible cystoscope per urethra and into the bladder. The urethra was unremarkable. Panendoscopy in the bladder showed no evidence of any papillary tumors, erythematous mucosal lesions or stones. There was a moderate uterine imprint posteriorly. The scope was retroflexed and no new findings were noted. The scope was then removed. The patient then did a few Valsalva maneuvers with a full bladder and there was no evidence of any stress incontinence or pelvic prolapse. She also had no evidence of atrophic vaginitis. She was then discharged to home.
--- NOTE | 2023-09-29 08:49 | PC.NURSE ---
PATIENT ARIVED TO PHASE 2 AFTER LOCAL CYSTO AT 0841 AND DISCHARGED AT 0849 IN STABLE CONDITION.
== END 2023-09-29 08:49 | disposition home or self-care (01) ==
PROVIDERS: Visit Provider Urology
PROC: (CPT 52000; principal; 2023-09-29 08:00)
DX: R31.0 Gross hematuria (principal); F41.9 Anxiety disorder, unspecified; R56.9 Unspecified convulsions; F19.11 Other psychoactive substance abuse, in remission; N39.46 Mixed incontinence; Z90.49 Acquired absence of other specified parts of digestive tract; Z98.51 Tubal ligation status; R30.0 Dysuria; Z87.440 Personal history of urinary (tract) infections
CPT/HCPCS: 52000